=== PATIENT | male | born 1965 | race Caucasian/White ===

== ENCOUNTER → 2017-09-21 | Outpatient (CLI) | payer OTHER ==
[~2017-09-21] MED LIST: CHLO-274 PO; CLC100 PO; CRG625 PO; HYDR-5688 PO; LISI-725 PO; MRLP17X PO; NRV5 PO; NYQUIL; OPTIRAY 320 IV PRN; PRLSR20 PO; SPECTAB PO
--- NOTE | 2017-09-21 14:39 | DIAGNOSTIC IMAGING REPORT ---
CHEST CT WITH CONTRAST CT DOSE: 491.65 mGycm HISTORY: Follow-up study in a patient with abnormal chest mass seen on comparison radiograph which is not available for comparison at time of dictation. MASS OF LEFT CHEST WALL TECHNIQUE: Multiaxial CT images of the chest were performed following the intravenous administration of contrast. A dose lowering technique was utilized adhering to the principles of ALARA. COMPARISON: None. FINDINGS: Homogeneous thyroid. No pathologically enlarged lymph nodes of the chest. The heart is normal in size without pericardial effusion. Mild coronary arterial disease is noted. Thoracic aorta is normal in course and caliber without dissection or aneurysm identified. The pulmonary chill tree appears unremarkable. There is no pneumothorax, pleural effusion or focal airspace consolidation. No overt pulmonary edema or suspicious pulmonary nodules. Subcentimeter calcified granuloma of the left upper lobe. There are numerable low attenuating lesions throughout the liver, most of which are too small to characterize and are subcentimeter. The largest lesion measures 1.4 cm within the left hepatic lobe appears most compatible with a hepatic cyst. No acute abnormality of the imaged upper abdomen. There are innumerable lytic destructive lesions noted throughout the thoracic spine, for example there is a 2.3 cm lytic lesion involving the vertebral body at T5 which is expansile with cortical thinning causing flattening of the ventral thecal sac at this level. No frances invasion into the central canal. There is a 30% anterior endplate compression deformity of the T12 vertebral body without significant retropulsion, likely pathologic. Lytic lesions are also noted involving the L1 vertebral body. Lytic destructive lesion with large soft tissue component involves the lateral aspect of the left third rib protruding medially, 5.4 x 4.0 cm. Additional mass with soft tissue component is seen involving the posterior aspect of the right fourth rib, 2.2 x 4.5 cm. Subacute to remote fracture seen involving the lateral right fifth rib which may be pathologic. Multiple additional smaller lytic lesions are seen involving ribs, for example on the lateral right sixth rib. 7 mm lesion is noted within the sternum, image 190 series 4. IMPRESSION: 1. Innumerable destructive lytic bony lesions throughout the spine suggest diffuse bony metastasis from unknown primary or multiple myeloma with multiple additional lytic rib and sternal lesions. Large destructive lesion with soft tissue component involves the lateral aspect of the left third rib measuring up to 5.4 cm. Oncology consultation recommended. 2. No evidence of lymphatic or pulmonary metastasis. 3. Innumerable scattered low attenuating lesions throughout the liver, most of which are too small to characterize are indeterminate without comparison. The largest lesion measures 1.4 cm and appears to be most compatible with a hepatic cyst. Electronically signed by: Vikram Brown M.D. 09/21/2017 2:38 PM Dictated Date/Time: 09/21/2017 2:23 PM
== END | disposition home or self-care (01) ==
LOC: C.CTS 13:48
PROVIDERS: ATTEND Family Medicine
DX: R22.2 Localized swelling, mass and lump, trunk (principal); M89.8X8 Other specified disorders of bone, other site

== ENCOUNTER 2017-09-28 13:28 | Inpatient (IN) | payer OTHER ==
[~2017-09-28] VITALS: Ht 165.1 cm; Wt 87.3 kg
[~2017-09-28 13:28] MED LIST changes: -CLC100 PO; -CRG625 PO; -HYDR-5688 PO; -LISI-725 PO; -MRLP17X PO; -NRV5 PO; -OPTIRAY 320 IV PRN; -PRLSR20 PO; -SPECTAB PO
[2017-09-28] MEDS ORDERED: SODIUM CHLORIDE 0.9% 1000ML 1,000 ML IV STA ×2 (15:09→20:44)
[2017-09-28] MEDS ORDERED: SODIUM CHLORIDE 0.9% 500ML 500 ML IV STA (15:09)
[2017-09-28] MEDS ORDERED: HYDR-5688 PO (15:31)
[2017-09-28 15:36] LABS: HEMATOCRIT 30.6 % (42-52); HEMOGLOBIN 10.9 g/dL (14.0-18.0); MEAN CELL VOLUME 96.5 fL (80-100); MEAN CORPUSCULAR HEMOGLOBIN 34.4 pg (25-34); MEAN CORPUSCULAR HGB CONC 35.6 g/dl (32-36); RED CELL DISTRIBUTION WIDTH CV 14.3 % (11.5-14.5); RED CELL DISTRIBUTION WIDTH SD 50.8 fL (36.4-46.3); WHITE BLOOD COUNT 4.74 K/uL (4.8-10.8)
[2017-09-28] MEDS ORDERED: PRLSR20 PO (15:38)
[2017-09-28] MEDS ORDERED: LISI-725 PO (15:38)
[2017-09-28] MEDS ORDERED: SPECTAB PO (15:38)
[2017-09-28] MEDS: HYDROmorphone INJ 0.5 MG/0.5 ML SYR IV PRN ×3 (15:51→22:25)
[2017-09-28 16:07] LABS: MEAN PLATELET VOLUME 12.2 fL (7.4-10.4); PLATELET COUNT 105 K/uL (130-400)
[2017-09-28 16:08] LABS: ALKALINE PHOSPHATASE 88 U/L (45-117); BASO % 1.1 %; BASO ABS # 0.05 K/uL (0-0.2); CALCIUM 14.5 mg/dl (8.5-10.1); CARBON DIOXIDE 24 mmol/L (21-32); CKMB 0.8 ng/ml (0.5-3.6); CREATININE 4.15 mg/dl (0.60-1.40); EOS % 2.1 %; GLUCOSE 124 mg/dl (70-99); IG# 0.01 K/uL (0.00-0.02); LYMPH % 34.2 %; LYMPH ABS # 1.62 K/uL (1.2-3.4); MONO % 13.9 %; MONO ABS # 0.66 K/uL (0.11-0.59); NEUT % 48.5 %; SODIUM 134 mmol/L (136-145); TOTAL PROTEIN 10.3 gm/dl (6.4-8.2)
[2017-09-28 16:10] LABS: ALBUMIN 2.5 gm/dl (3.4-5.0); ALT/SGPT 37 U/L (12-78)
[2017-09-28 16:11] LABS: BLOOD UREA NITROGEN 53 mg/dl (7-18)
--- NOTE | 2017-09-28 16:20 | DIAGNOSTIC IMAGING REPORT ---
ABD/PELVIS WITHOUT FOR STONE CT DOSE: 1035.82 mGy.cm HISTORY: Renal failure. Acute renal failure, back pain. suspected multiple myeloma outpt TECHNIQUE: Multiaxial CT images of the abdomen and pelvis were performed without the use of intravenous and oral contrast according to the standard department stone protocol. A dose lowering technique was utilized adhering to the principles of ALARA. COMPARISON STUDY: None. FINDINGS: Lung bases are clear. A multiplicity of small hypodensities within the liver. Several leads are cystic density although several additional 1's are too small to quantify. Metastatic disease is not completely excluded. Gallbladder is negative for distention. The kidneys are negative for hydronephrosis. The bowel pattern overall is nonobstructive. Moderate bladder wall thickening. Small urachal remnant. There are diffuse lytic changes throughout all major osseous structures of the spine pelvis and hips. Similar findings are seen in several lower ribs. IMPRESSION: 1. Diffuse bony metastatic disease. 2. Moderate compression deformities of T11 and T12 presumably pathologic. 3. No significant compromise of the low thoracic and lumbar spinal canal. 4. Multiple hypodensities throughout the liver raising the possibility of multicystic change versus a component of metastatic change. 5. This appearance is highly suggestive of myelomatous-type change involving the axial and appendicular skeleton and possibly liver. The above report was generated using voice recognition software. It may contain grammatical, syntax or spelling errors. Electronically signed by: Jay Jay Buckley M.D. 09/28/2017 4:18 PM Dictated Date/Time: 09/28/2017 4:13 PM
[2017-09-28 16:52] LABS: POTASSIUM 3.8 mmol/L (3.5-5.1)
[2017-09-28 16:55] LABS: INR 1.1 (0.9-1.1); PTT PATIENT 26.6 SECONDS (21.0-31.0)
[2017-09-28 17:00] LABS: AST/SGOT 16 U/L (15-37)
[2017-09-28] MEDS ORDERED: AMLODIPINE BESYLATE 5 MG TAB PO ONE (20:45)
[2017-09-28] MEDS ORDERED: DOCUSATE SODIUM 100 MG CAP PO ONE (20:47)
[2017-09-28] MEDS ORDERED: LIDODERM (LIDOCAINE) PATCH 5% TD ONE ×2 (20:47)
[2017-09-28] MEDS ORDERED: POLYETHYLENE (MIRALAX) 17 GM PACK PO ONE (20:47)
--- NOTE | 2017-09-28 20:53 | DIAGNOSTIC IMAGING REPORT ---
CHEST ONE VIEW PORTABLE HISTORY: renal failure COMPARISON: Chest CT 09/21/2017. FINDINGS: There is again noted a 5.8 cm destructive the left third rib lesion. No pneumothorax. No pleural effusions. No focal lung consolidations to suggest pneumonia. No evidence for pulmonary edema. The heart is normal in size. Multiple additional scattered lytic lesions are again noted throughout the visualized osseous structures. Destructive right posterior fourth rib lesion. There are also smaller destructive rib lesions within the right fifth rib. IMPRESSION: 1. No new focal lung consolidations to suggest pneumonia. 2. Multiple scattered destructive and lytic osseous lesions are again noted. Electronically signed by: Kamari Segundo M.D. 09/28/2017 8:51 PM Dictated Date/Time: 09/28/2017 8:49 PM
[2017-09-28] MEDS ORDERED: LORAZEPAM 2 MG/ML 1 ML VIAL IV PRN (21:00)
[2017-09-28] MEDS ORDERED: ACETAMINOPHEN 325 MG TAB PO PRN (21:00)
[2017-09-28] MEDS ORDERED: POLYETHYLENE (MIRALAX) 17 GM PACK PO PRN (21:00)
[2017-09-28] MEDS ORDERED: CALCITONIN SALMON 400 INTER.UNIT/2 ML SQ ONE (21:00)
[2017-09-28] MEDS ORDERED: NITROGLYCERIN 0.4 MG SL PER TAB CHARGE SL PRN (21:00)
[2017-09-28] MEDS ORDERED: PROCHLORPERAZINE INJ 5 MG in SYRINGE 4 ML IV PRN (21:00)
[2017-09-28 21:05] VITALS: BP 186/97; PULSE 106; TEMP 36.8; O2SAT 98; BMI 31.2
--- NOTE | 2017-09-28 21:07 | EMERGENCY ROOM VISIT NOTE ---
History Report prepared by Kin: Benjamin Zafar Under the Supervision of: Dr. Donald Machado M.D. First contact with patient: 15:09 Chief Complaint: ABNORMAL LABS Stated Complaint: ABNORMAL LABS, HIGH CA History of Present Illness The patient is a 52 year old male who presents to the Emergency Room with complaints of constant abnormal lab work that started [employer]. He rates his discomfort as a 9/10 in severity. The patient reports he was experiencing back pain, which caused him to report to his physician. He reports they found a mass on his chest a week ago and diagnosed him with multiple myeloma. The patient states he went to meet his oncologist, Dr. Page this morning. He reports that he had lab work done and was sent here due to abnormal kidney function and calcium levels. The patient reports he has been experiencing urinary frequency and back pain. He states he took Vicodin for his symptoms this morning at 0630. The patient states that he has been drinking and eating normally. The patient denies LOC, headache, fevers, chills, diaphoresis, visual changes, neck pain, chest pain, breathing difficulties, nausea, vomiting, abdominal pain, melena, hematochezia, numbness, weakness, lymphadenopathy, rash, leg twitching, CVA tenderness, or other complaints. 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 A total of ten systems were reviewed and were otherwise negative. Past Medical & Surgical Medical Problems: (1) Hypercalcemia (2) Multiple myeloma Family History Hypertension Lung disease Social History Smoking Status: Never Smoker Smokeless Tobacco Use: No Alcohol Use: none Drug Use: none Marital Status: Housing Status: lives with family Occupation Status: employed Current/Historical Medications Scheduled Lisinopril (Zestril), 20 MG PO DAILY Specialty Vitamins Products (Centrum Performance), 1 TAB PO DAILY Scheduled PRN Hydrocodone/Acetaminophen 5MG/325MG ([place] 5MG/325MG), 1 TABLET PO Q6 PRN for Pain Omeprazole (Prilosec), 20 MG PO DAILY PRN for HEARTBURN Allergies Coded Allergies: No Known Allergies (Unverified , 10/12/13) Physical Exam Vital Signs Date Time Temp Pulse Resp B/P (MAP) Pulse Ox O2 Delivery O2 Flow Rate FiO2 09/28/17 20:52 104 18 200/107 97 Room Air 09/28/17 20:05 75 18 186/107 96 Room Air 09/28/17 18:18 99 09/28/17 16:38 100 18 172/102 09/28/17 15:43 97 Room Air 09/28/17 15:43 97 Room Air 09/28/17 13:42 36.6 110 17 164/65 97 Room Air Physical Exam GENERAL: Awake, alert, tired-appearing, in no distress HENT: Normocephalic, atraumatic. Oropharynx unremarkable. EYES: Normal conjunctiva. Sclera non-icteric. NECK: Supple. No nuchal rigidity. FROM. No masses. RESPIRATORY: Clear to auscultation. No wheezes. CARDIAC: Normal rate. Normal rhythm. No murmurs. No rubs. Extremities warm and well perfused. Pulses equal. No JVD. GI: Soft, non-distended. No tenderness to palpation. No rebound or guarding. No masses. RECTAL: Deferred. MUSCULOSKELETAL: Atraumatic. Chest examination reveals no tenderness. The back is symmetrical on inspection without obvious abnormality. There is no CVA tenderness to palpation. No joint edema. LOWER EXTREMITIES: Calves are equal size bilaterally and non-tender. No edema. No discoloration. NEURO: Normal sensorium. No sensory or motor deficits noted. SKIN: No rash or jaundice noted. Medical Decision & Procedures ER Provider Diagnostic Interpretation: Radiology results as stated below per my review and radiologist interpretation: ABD/PELVIS WITHOUT FOR STONE CT DOSE: 1035.82 mGy.cm HISTORY: Renal failure. Acute renal failure, back pain. suspected multiple myeloma outpt TECHNIQUE: Multiaxial CT images of the abdomen and pelvis were performed without the use of intravenous and oral contrast according to the standard department stone protocol. A dose lowering technique was utilized adhering to the principles of ALARA. COMPARISON STUDY: None. FINDINGS: Lung bases are clear. A multiplicity of small hypodensities within the liver. Several leads are cystic density although several additional 1's are too small to quantify. Metastatic disease is not completely excluded. Gallbladder is negative for distention. The kidneys are negative for hydronephrosis. The bowel pattern overall is nonobstructive. Moderate bladder wall thickening. Small urachal remnant. There are diffuse lytic changes throughout all major osseous structures of the spine pelvis and hips. Similar findings are seen in several lower ribs. IMPRESSION: 1. Diffuse bony metastatic disease. 2. Moderate compression deformities of T11 and T12 presumably pathologic. 3. No significant compromise of the low thoracic and lumbar spinal canal. 4. Multiple hypodensities throughout the liver raising the possibility of multicystic change versus a component of metastatic change. 5. This appearance is highly suggestive of myelomatous-type change involving the axial and appendicular skeleton and possibly liver. The above report was generated using voice recognition software. It may contain grammatical, syntax or spelling errors. Electronically signed by: Jay Jay Buckley M.D. 09/28/2017 4:18 PM Dictated Date/Time: 09/28/2017 4:13 PM Laboratory Results 09/28/17 15:25 Red Blood Count 3.17, Mean Corpuscular Volume 96.5, Mean Corpuscular Hemoglobin 34.4, Mean Corpuscular Hemoglobin Concent 35.6, Mean Platelet Volume 12.2, Neutrophils (%) (Auto) 48.5, Lymphocytes (%) (Auto) 34.2, Monocytes (%) (Auto) 13.9, Eosinophils (%) (Auto) 2.1, Basophils (%) (Auto) 1.1, Neutrophils # (Auto ) 2.30, Lymphocytes # (Auto) 1.62, Monocytes # (Auto) 0.66, Eosinophils # (Auto ) 0.10, Basophils # (Auto) 0.05 Test 09/28/17 15:25 09/28/17 16:32 09/28/17 19:35 09/28/17 19:46 White Blood Count 4.74 K/uL (4.8-10.8) Red Blood Count 3.17 M/uL (4.7-6.1) Hemoglobin 10.9 g/dL (14.0-18.0) Hematocrit 30.6 % (42-52) Mean Corpuscular Volume 96.5 fL (80-100) Mean Corpuscular Hemoglobin 34.4 pg (25-34) Mean Corpuscular Hemoglobin Concent 35.6 g/dl (32-36) Platelet Count 105 K/uL (130-400) Mean Platelet Volume 12.2 fL (7.4-10.4) Neutrophils (%) (Auto) 48.5 % Lymphocytes (%) (Auto) 34.2 % Monocytes (%) (Auto) 13.9 % Eosinophils (%) (Auto) 2.1 % Basophils (%) (Auto) 1.1 % Neutrophils # (Auto) 2.30 K/uL (1.4-6.5) Lymphocytes # (Auto) 1.62 K/uL (1.2-3.4) Monocytes # (Auto) 0.66 K/uL (0.11-0.59) Eosinophils # (Auto) 0.10 K/uL (0-0.5) Basophils # (Auto) 0.05 K/uL (0-0.2) RDW Standard Deviation 50.8 fL (36.4-46.3) RDW Coefficient of Variation 14.3 % (11.5-14.5) Immature Granulocyte % (Auto) 0.2 % Immature Granulocyte # (Auto) 0.01 K/uL (0.00-0.02) Rouleau 1+ Est Creatinine Clear Calc Drug Dose 20.6 ml/min Total Bilirubin 0.2 mg/dl (0.2-1) Alanine Aminotransferase (ALT/SGPT) 37 U/L (12-78) Alkaline Phosphatase 88 U/L (45-117) Creatine Kinase MB 0.8 ng/ml (0.5-3.6) Creatine Kinase MB Ratio (0-3.0) Troponin I 0.018 ng/ml (0-0.045) Total Protein 10.3 gm/dl (6.4-8.2) Albumin 2.5 gm/dl (3.4-5.0) Thyroid Stimulating Hormone (TSH) 2.140 uIu/ml (0.300-4.500) Prothrombin Time 11.1 SECONDS (9.0-12.0) Prothromb Time International Ratio 1.1 (0.9-1.1) Activated Partial Thromboplast Time 26.6 SECONDS (21.0-31.0) Partial Thromboplastin Ratio 1.0 Magnesium Level 2.3 mg/dl (1.8-2.4) Direct Bilirubin < 0.1 mg/dl (0-0.2) Aspartate Amino Transf (AST/SGOT) 16 U/L (15-37) Total Creatine Kinase 36 U/L (39-308) Urine Color YELLOW Urine Appearance CLEAR (CLEAR) Urine pH 6.5 (4.5-7.5) Urine Specific [place] 1.005 (1.000-1.030) Urine Protein 1+ (NEG) Urine Glucose (UA) NEG (NEG) Urine Ketones NEG (NEG) Urine Occult Blood TRACE (NEG) Urine Nitrite NEG (NEG) Urine Bilirubin NEG (NEG) Urine Urobilinogen NEG (NEG) Urine Leukocyte Esterase NEG (NEG) Urine WBC (Auto) 0 /hpf (0-5) Urine RBC (Auto) 0-4 /hpf (0-4) Urine Hyaline Casts (Auto) 1-5 /lpf (0-5) Urine Epithelial Cells (Auto) 0-5 /lpf (0-5) Urine Bacteria (Auto) NEG (NEG) Transferrin % Saturation % (20-50) Laboratory results reviewed by me Medications Administered Medications (Trade) Dose Ordered Sig/Mykel Route Start Time Stop Time Status Last Admin Dose Admin Sodium Chloride 1,000 ml @ 125 mls/hr Q8H STAT IV 09/28/17 15:09 09/28/17 20:47 DC 09/28/17 15:50 125 MLS/HR Sodium Chloride 500 ml @ 999 mls/hr Q31M STAT IV 09/28/17 15:09 09/28/17 15:39 DC 09/28/17 15:50 999 MLS/HR Hydromorphone HCl (Dilaudid Inj) 0.5 mg Q15M PRN IV 09/28/17 15:45 10/12/17 15:44 09/28/17 15:51 0.5 MG Amlodipine Besylate (Norvasc Tab) 5 mg NOW ONCE PO 09/28/17 20:45 09/28/17 20:46 DC 09/28/17 20:51 5 MG Sodium Chloride 1,000 ml @ 999 mls/hr Q1H1M STAT IV 09/28/17 20:44 09/28/17 21:44 09/28/17 20:51 999 MLS/HR ECG Per My Interpretation Indication: other (abnormal lab work) Rate (beats per minute): 107 Rhythm: sinus tachycardia Findings: no acute ischemic change, no ectopy, other (Normal axis) ED Course 1509: Ordered Sodium Chloride 500 ml @ 999 mls/hr IV, Sodium Chloride 1000 ml @ 125 mls/hr IV. 1534: The patient was evaluated in room A04B. A complete history and physical exam was performed. 1545: Ordered Dilaudid Injection 0.5 mg IV. 1649: I reevaluated the patient and updated him on his results. I discussed the treatment plan, which he agrees to. The patient will be further evaluated. 1658: I discussed the patients case with Allison Farias. He understands the patients condition and agrees to accept the patient. The patient will be further evaluated. Medical Decision Triage Nursing notes reviewed. The patient's presentation and history were concerning for abnormal labs. Etiologies such as metabolic, infection, hypo/hyperglycemia, electrolyte abnormalities, cardiac sources, intracerebral event, toxicologic, neurologic, as well as others were entertained. The patient was referred to the Emergency Room by his oncologist. There is suspected multiple myeloma present. He has hypercalcemia and acute renal failure on the labs. CT imaging was performed. There is no evidence of hydronephrosis or obstruction. He was noted to have thoracic spine pathologic fractures. He was treated with IV Dilaudid. He was hydrated with normal saline. He was feeling much better on reassessment. ECG was unremarkable. The rest of his blood work was unremarkable as well. Consultation was made with internal medicine. The patient was evaluated in the Emergency Room and admitted for further management. Medication Reconcilliation Current Medication List: was personally reviewed by me Blood Pressure Screening Patient's blood pressure: Elevated blood pressure Blood pressure disposition: Referred to PCP Consults Time Called: 1640 Consulting Physician: Allison Farias Returned Call: 1658 I discussed the patients case with Allison Farias. He understands the patients condition and agrees to accept the patient. The patient will be further evaluated. Impression Primary Impression: Acute renal failure Additional Impressions: Pathological fracture Thoracic spine fracture Hypercalcemia Scribe Attestation The scribe's documentation has been prepared under my direction and personally reviewed by me in its entirety. I confirm that the note above accurately reflects all work, treatment, procedures, and medical decision making performed by me. Departure Information Dispostion Being Evaluated By Hospitalist Referrals Ismael Hernandez, D.O. (PCP) Patient Instructions My [facility] Problem Qualifiers
[2017-09-28] MEDS ORDERED: SODIUM CHLORIDE 0.9% 1000ML 1,000 ML IV SCH (22:00)
--- NOTE | 2017-09-28 22:12 | HISTORY & PHYSICAL EXAMINATION ---
DATE OF ADMISSION: 09/28/2017 PRIMARY CARE PHYSICIAN: Dr. Hernandez. CHIEF COMPLAINT: Abnormal blood work. HISTORY OF PRESENT ILLNESS: History obtained from patient and records. Medical history significant for hypertension, arthritis. About 3 months ago, patient had worsening of chronic low back pain after a fall related to hunting. No relief with home NSAIDs and outpatient prednisone course. Patient was referred to a chiropractor last week who requested plain x-rays of the back. Outpatient x-ray showed a thoracolumbar soft tissue mass measuring about 8.8 cm on the left upper lateral chest wall with probable destruction of left lateral third rib. Further evaluation with CT thorax recommended. Ill-defined expansile lytic lesion involving the right posterior fourth rib, compression deformity of T11-T12 indeterminate, multiple degenerative changes. Outpatient CT chest contrast done last week showed innumerable destructive lytic bone lesions throughout the spine suggesting diffuse bony mets from unknown primary or multiple myeloma with multiple lytic rib sternal lesions. Largest of the lesion soft tissue component on the left third rib measuring 5.4 cm. Innumerable scattered low density lesions on the liver. Oncology consultation is recommended. (Unclear if renal function available prior to outpatient IV contrast administration.) Increased urinary frequency, constipation symptoms noted interim. No black, no bloody stools, poor appetite. No chest pain, no shortness of breath. Patient saw [facility] Hematology Oncology this morning. Patient sent for outpatient blood work, Patient's serum creatinine noted to be 4.03, calcium noted to be 14.5. Patient directed by oncologist to the ER. Received NSS. MEDICAL HISTORY: As above. SURGERIES: He has had ear surgery. HOME MEDICATIONS: Include lisinopril, Vicodin, omeprazole p.r.n. and multivitamins. ALLERGIES: No known drug allergies. FAMILY HISTORY: There is a family history of lung disease, heart disease, stroke. PERSONAL AND SOCIAL HISTORY: Nonsmoker, no chronic intake of alcoholic beverages. 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 REVIEW OF SYSTEMS: As per HPI, all 10 systems reviewed. All other ROS negative. PHYSICAL EXAMINATION: VITAL SIGNS: Blood pressure was noted to be 164/75 later 186/107, pulse rate 75, RR 18, temperature 36.6, sats 96 on room air. GENERAL: Noted to be slightly uncomfortable, no respiratory distress. SKIN: Pallor. Warm. HEENT: Pale palpebral conjunctivae. No ptosis. Dry mucosa. NECK: Short, nontender. CHEST: Decreased effort. Tenderness on the left chest wall. HEART: Regular rate and rhythm. No murmur. ABDOMEN: Some distention, nontender. BACK EXAMINATION: Tenderness on right flank. EXTREMITIES: No edema. No gross deformities. No tenderness. NEUROLOGIC: Coherent. No gross focality. LABORATORY DATA: Hemoglobin was noted to be 10.9, hematocrit 30.6, white blood count 4.7, platelet 105. Sodium noted to be 134, potassium 3.8, chloride 98, CO2 24, BUN 53, creatinine 4.15, glucose 124, calcium was 14.5. Chest x-ray, no infiltrate. CT abdomen and pelvis, diffuse bony metastatic disease, pathologic compression deformities of T11 and T12, multiple hypodensities in the liver, cystic versus metastatic disease. ASSESSMENT: 1. Hypercalcemia, acute renal failure, pancytopenia, pathologic bone fractures probable multiple myeloma with liver involvement contrast nephropathy possibly contributory to kidney dysfunction 2. Hypertension, elevated. 3. Constipation 2 to hypercalcemia, home narcotics 4. Hyperglycemia rule out DM PLAN: PCU Baseline UA hypercalcemia kendall NSS, calcitonin SQ. follow renal function, strict IOS Stop home CHELSEA inhibitor, initiate Norvasc for hypertension Will eventually need bisphosphonate Rx given bone resorption Nephrology consult RE ARF, hypercalcemia. Anemia workup [facility] Hematology/Oncology follow-up evaluation for probable multiple myeloma as per patient request. (Patient seen by Dr. Page in the office earlier.) Lidoderm patches for pathological fractures in addition to non-NSAID analgesics. Bowel regimen. Check hemoglobin A1c DVT prophylaxis, SCDs RE thrombocytopenia. Full code. MTDD
[2017-09-28] MEDS ORDERED: LORAZEPAM INJ 0.5 MG in SYRINGE 0.75 ML IV PRN (22:15)
[2017-09-28] MEDS ORDERED: CALCITONIN SALMON SQ ONE (22:30)
[2017-09-28 22:54] LABS: CALCIUM 13.9 mg/dl (8.5-10.1); CREATININE 3.89 mg/dl (0.60-1.40); PHOSPHORUS 3.9 mg/dl (2.5-4.9); POTASSIUM 3.7 mmol/L (3.5-5.1)
[2017-09-28 22:55] LABS: RETIC COUNT % < 0.5 % (0.5-2.0)
[2017-09-28] MEDS: NSS + 20MEQ KCL 1000ML 1,000 ML IV SCH (23:24)
[2017-09-29] VITALS (9 sets, daily range): BP systolic 162–198; BP diastolic 90–108; PULSE 98–114; TEMP 36.7–37.4; O2SAT 94–98
[2017-09-29 02:50] LABS: HEMATOCRIT 29.8 % (42-52); HEMOGLOBIN 10.5 g/dL (14.0-18.0); MEAN CELL VOLUME 97.1 fL (80-100); MEAN CORPUSCULAR HEMOGLOBIN 34.2 pg (25-34); MEAN CORPUSCULAR HGB CONC 35.2 g/dl (32-36); RED CELL DISTRIBUTION WIDTH CV 14.4 % (11.5-14.5); RED CELL DISTRIBUTION WIDTH SD 50.8 fL (36.4-46.3); WHITE BLOOD COUNT 5.44 K/uL (4.8-10.8)
[2017-09-29 03:10] LABS: CALCIUM 13.1 mg/dl (8.5-10.1); CREATININE 3.92 mg/dl (0.60-1.40); POTASSIUM 4.2 mmol/L (3.5-5.1)
[2017-09-29 03:14] LABS: PLATELET COUNT 91 K/uL (130-400)
[2017-09-29] MEDS: NSS + 20MEQ KCL 1000ML 1,000 ML IV SCH (03:22)
[2017-09-29] MEDS ORDERED: AMLODIPINE BESYLATE 5 MG TAB PO ONE ×2 (05:23→12:30)
[2017-09-29] MEDS ORDERED: SODIUM CHLORIDE 0.9% 1000ML 1,000 ML IV ONE (05:30)
[2017-09-29 05:44] LABS: EOS % 3.3 %; LYMPH % 31.9 %; MONO % 10.8 %; NEUT % 52.6 %; NEUT ABS # 2.73 K/uL (1.4-6.5)
[2017-09-29 05:45] LABS: BASO ABS # 0.05 K/uL (0-0.2); EOS ABS # 0.17 K/uL (0-0.5); IG# 0.02 K/uL (0.00-0.02); LYMPH ABS # 1.65 K/uL (1.2-3.4); MONO ABS # 0.56 K/uL (0.11-0.59)
[2017-09-29] MEDS: ZOLEDRONIC ACID INJ 4 MG in SODIUM CHLORIDE 0.9% 100ML 100 ML IV SCH (05:56)
[2017-09-29] MEDS: HYDROCODONE/ACETAMIN 5/325MG TAB PO PRN (05:56)
--- NOTE | 2017-09-29 06:26 | NEPHROLOGY CONSULTATION ---
DATE OF CONSULTATION: 09/29/2017 ATTENDING OF RECORD: Sergio Nino MD. REASON FOR CONSULTATION: Hypercalcemia. HISTORY OF PRESENT ILLNESS: This is a 52-year-old male who has a previous history of hypertension who had back pain since this past fall. The patient during the workup for his back pain noted a soft tissue mass in the chest wall. Further evaluation with a CAT scan showed several lytic lesions throughout the spine concerning for possible multiple myeloma. The patient also has noticed increased urination, continued back pain and decreased appetite with about a 12 pound weight loss. The patient had abnormal labs and was sent in to the hospital. The patient's creatinine was 4.15 with a calcium level of 14.5 and is being hydrated aggressively. Last labs have a creatinine down to 3.92 and a calcium level of 13.1. PAST MEDICAL HISTORY: Hypertension. PAST SURGICAL HISTORY: Ear surgery. FAMILY HISTORY: No renal disease in family. SOCIAL HISTORY: No smoking, no alcohol, no drugs. Lives at home. REVIEW OF SYSTEMS: Positive back pain. Positive increased urination. Positive decreased appetite. Positive 12 pound weight loss. No headaches, no blurry vision, no dysphagia, no constipation. Did have an episode of nausea and vomiting last night. No chest pain or shortness of breath. No rash or itching. Positive chronic back pain. All other review of systems otherwise negative. CURRENT MEDICATIONS: Norvasc 5 mg a day, calcitonin subQ q. 12, Colace 100 mg daily, Lidoderm patch, normal saline with 20 of K at 250 mL an hour. PHYSICAL EXAMINATION: VITAL SIGNS: Temperature 36.9, pulse 100, respiratory rate 18, blood pressure 166/97, satting 98% on room air. GENERAL: Awake, alert, oriented x3. EYES: No scleral icterus. ENT: Membranes are dry. NECK: Supple. PULMONARY: Clear to auscultation. CARDIAC: Regular rate and rhythm. ABDOMEN: Bowel sounds positive, soft, nontender. EXTREMITIES: No clubbing, cyanosis or edema. NEUROLOGICALLY: Nonfocal. DERMATOLOGIC: No rash or ulcers noted. LABORATORY DATA: Last lab, sodium of 139, potassium 4.2, chloride 108, bicarb 22, BUN 46, creatinine 3.92, glucose is 143, calcium is 13.1, white count is 5. H&H 10 and 29, platelet count is 91. UA shows specific gravity of 1.005, pH 6.5, 1+ protein, trace blood, 0-4 RBCs. Immunofixation pending. INR is 1.1. Vitamin D is low at 18.1. PTH low at 15.7. 125, vitamin D, PTHrP, SPEP all pending. CK is low at 36. Chest x-ray shows multiple scattered, destructive and lytic osseous lesions. Abdominal pelvis CT shows diffuse bony metastatic disease, moderate compression of T11-T12. Multiple hypodensities throughout the liver. ASSESSMENT AND PLAN: 1. Acute kidney injury in the setting of hypercalcemia and chronic NSAID use. The patient was taking Naprosyn 500 mg p.o. b.i.d. NSAIDS have been stopped. The patient's CHELSEA inhibitor has been stopped. Giving aggressive IV fluid resuscitation. No indication for emergent dialysis at this time. The patient quite alert for the degree of hypercalcemia. Hopefully, creatinine continues to slowly improve. 2. Hypercalcemia, vitamin D is low, PTH low. PTHrP, SPEP, 125, hydroxy vitamin D are all pending. Imaging studies suggestive of multiple myeloma giving 1 dose of Zometa 4 mg IV. Currently on calcitonin and aggressive fluid resuscitation. Appreciate consultation. [facility]
[2017-09-29 07:01] LABS: HEMOGLOBIN A1C 6.7 % (4.5-5.6)
[2017-09-29] MEDS: SODIUM CHLORIDE 0.9% 1000ML 1,000 ML IV SCH ×3 (07:35→16:43)
[2017-09-29] MEDS: LIDODERM (LIDOCAINE) PATCH 5% TD SCH ×2 (08:05→08:06)
[2017-09-29] MEDS: CALCITONIN SALMON SQ SCH ×2 (08:06→21:37)
[2017-09-29] MEDS ORDERED: DOCUSATE SODIUM 100 MG CAP ONE (08:12)
[2017-09-29] MEDS: DOCUSATE SODIUM 100 MG CAP PO SCH (08:13)
[2017-09-29 08:35] LABS: CALCIUM 12.1 mg/dl (8.5-10.1); CREATININE 3.51 mg/dl (0.60-1.40); POTASSIUM 4.2 mmol/L (3.5-5.1)
[2017-09-29] MEDS ORDERED: CALCITONIN SALMON 400 INTER.UNIT/2 ML SQ SCH (09:00)
[2017-09-29] MEDS ORDERED: AMLODIPINE BESYLATE 5 MG TAB PO SCH (09:00)
[2017-09-29] MEDS ORDERED: LIDOCAINE HCL 1% 20 ML VIAL ONE (09:53)
--- NOTE | 2017-09-29 11:30 | Oncology Consultation ---
Oncology/Heme Consultation Date of Consultation: Sep 29, 2017. Attending Physician: Sergio Nino MD Reason for Consultation: Probable multiple myeloma History of Present Illness Mr. Benavidez is a 52-year-old gentleman with very little or virtually no past medical history. He states that around fall time of last year he developed low back discomfort that has gradually worsened. He was treated conservatively with muscle relaxants however the pain would continue. He had visits with a chiropractor. Musculoskeletal manipulations were done and the pain would become worse. This led to x-rays and the finding of changes that would be consistent with an infiltrative process involving the bones. He was seen in our clinic yesterday. Laboratory shows marked renal insufficiency as well as hypercalcemia. A protein gap consistent with a plasma cell dyscrasia and x- rays also consistent with the same. He is now admitted for diagnostic as well as therapeutic procedures of the above. He denies fever or chills. He states he has lost about 10 or 12 pounds in the past 2 months. He denies significant constipation although he states he has been constipated off and on for years. He denies change in his appetite. He does spend a fair amount of time in his favorite chair or at rest due to his back pain. Past Medical/Surgical History Medical Problems: (1) Acute renal failure Status: Acute (2) Pathological fracture Status: Acute (3) Thoracic spine fracture Status: Acute Family History Hypertension Lung disease Father had interstitial pulmonary fibrosis. There is no history of lymphoma in the first-degree relatives. Social History He denies smoking. He drinks alcohol occasionally. Smoking Status: Never Smoker Smokeless Tobacco Use: No Drug Use: none Marital Status: Housing Status: lives with family Occupation Status: employed Allergies Coded Allergies: No Known Allergies (Unverified , 10/12/13) Home Medications Scheduled Lisinopril (Zestril), 20 MG PO DAILY Specialty Vitamins Products (Centrum Performance), 1 TAB PO DAILY Scheduled PRN Hydrocodone/Acetaminophen 5MG/325MG ([place] 5MG/325MG), 1 TABLET PO Q6 PRN for Pain Omeprazole (Prilosec), 20 MG PO DAILY PRN for HEARTBURN Current Inpatient Medications Current Inpatient Medications Medications (Trade) Dose Ordered Sig/Mykel Route Start Time Stop Time Status Last Admin Dose Admin Acetaminophen (Tylenol Tab) 650 mg Q4H PRN PO 2/15/18 21:00 10/28/17 20:59 Nitroglycerin (Nitrostat Tab) 0.4 mg UD PRN SL 09/28/17 21:00 10/28/17 20:59 Hydromorphone HCl (Dilaudid Inj) 0.5 mg Q3H PRN IV 09/28/17 21:00 10/12/17 20:59 09/28/17 22:25 0.5 MG Prochlorperazine Edisylate 5 mg/ Syringe 5 ml @ 5 mls/min Q6H PRN IV 09/28/17 21:00 10/28/17 20:59 09/28/17 23:24 5 MLS/MIN Acetaminophen/ Hydrocodone Bitart ([place] 5/325 Tab) 1 tab Q4 PRN PO 09/28/17 21:00 10/12/17 20:59 09/29/17 05:56 1 TAB Pantoprazole Sodium (Protonix Tab) 40 mg DAILY PRN PO 09/28/17 21:00 10/28/17 20:59 Docusate Sodium (coLACE CAP) 100 mg DAILY PO 09/29/17 09:00 10/29/17 08:59 09/29/17 08:13 100 MG Polyethylene (Miralax Powder Packet) 17 gm DAILY PRN PO 09/28/17 21:00 10/28/17 20:59 Lidocaine (Lidoderm Patch 5%) 1 patch QAM TD 09/29/17 09:00 10/29/17 08:59 09/29/17 08:05 1 PATCH Miscellaneous (Remove Lidoderm Patch) 1 ea DAILY@21 N/A 09/28/17 21:00 10/28/17 20:59 Lidocaine (Lidoderm Patch 5%) 1 patch QAM TD 09/29/17 09:00 10/29/17 08:59 09/29/17 08:06 1 PATCH Miscellaneous (Remove Lidoderm Patch) 1 ea DAILY@21 N/A 09/28/17 21:00 10/28/17 20:59 Lorazepam 0.5 mg/ Syringe 1 ml @ 1 mls/min Q4H PRN IV 09/28/17 22:15 10/28/17 22:14 Calcitonin [place] 320 inter.unit/ Syringe 1.6 ml @ 1.6 mls/sec Q12H SQ 09/29/17 09:00 10/29/17 08:59 09/29/17 08:06 1.6 MLS/SEC Zoledronic Acid 4 mg/Sodium Chloride 105 ml @ 210 mls/hr TODAY@0545 IV 09/29/17 05:45 10/29/17 05:44 09/29/17 05:56 210 MLS/HR Sodium Chloride 1,000 ml @ 250 mls/hr Q4H IV 09/29/17 07:30 09/29/17 15:30 09/29/17 07:35 250 MLS/HR Amlodipine Besylate (Norvasc Tab) 5 mg QAM PO 09/30/17 09:00 10/29/17 08:59 Review of Systems Constitutional: Negative for night sweats, or fever Eyes: Negative for event change of vision ENT: Negative for epistaxis, nasal discharge, sore throat, or deafness Cardiovascular: Negative for chest pain, palpitations, dizziness, diaphoresis Respiratory: Negative for new shortness of breath,hemoptysis, or purulent cough Gastrointestinal: Negative for diarrhea, hematemesis, melena, nausea, vomiting , or dyspepsia Integumentary (skin): Negative for rash or jaundice discoloration Genitourinary: Negative for urinary frequency, hematuria, or dysuria Neurological: Negative for weakness, seizure activity, headache, or dizziness Lymphatic/Hematologic: Negative for petechiae, bleeding or new adenopathy Musculoskeletal: Back pain and he points to an area that is in the lower thoracic or upper lumbar spine. He states he does have what sounds like radicular pain anteriorly into the pelvis bilaterally. Allergic/Immunologic: Negative for unusual rash or pruritis. Physical Exam Date Time Temp Pulse Resp B/P (MAP) Pulse Ox O2 Delivery O2 Flow Rate FiO2 09/29/17 07:26 36.7 102 16 163/90 (114) 94 Room Air 09/29/17 04:44 36.9 100 18 166/97 (120) 98 Room Air 09/29/17 04:00 Room Air 09/29/17 00:24 98 169/90 (116) 09/29/17 00:00 Room Air 09/28/17 21:05 36.8 106 16 186/97 98 Room Air 09/28/17 20:52 104 18 200/107 97 Room Air 09/28/17 20:05 75 18 186/107 96 Room Air 09/28/17 18:18 99 09/28/17 16:38 100 18 172/102 09/28/17 15:43 97 Room Air 09/28/17 15:43 97 Room Air 09/28/17 13:42 36.6 110 17 164/65 97 Room Air Constitutional: vitals are stable. Eyes: Eyes are RAFFI EOMI without conjuctival erythema or icterus. ENT: External examination was negative for masses. Neck: Negative for masses or palpable thyromegaly Respiratory: Lung sounds were generally clear bilaterally Cardiovascular: Heart was RRR without significant murmur, gallops aoe rubs Gastrointestinal: No palpable hepatic or splenomegaly. The abdomen was soft with normal bowel sounds. Lymphatic system: there was no palpable peripheral lymphadenopathy Musculoskeletal System: The musculoskeletal system seemed concordant with age. Skin: The skin was negative for jaundice. Neurologic exam: The exam was negative for any focal findings. Deep tendon reflexes were equal and symmetrical. Psychiatric exam: Was essentially negative with normal mood and effect. Extremities: Negative for edema, erythema Laboratory Results Last 24 Hours Test 09/28/17 15:25 09/28/17 16:32 09/28/17 19:35 09/28/17 22:07 White Blood Count 4.74 K/uL Red Blood Count 3.17 M/uL Hemoglobin 10.9 g/dL Hematocrit 30.6 % Mean Corpuscular Volume 96.5 fL Mean Corpuscular Hemoglobin 34.4 pg Mean Corpuscular Hemoglobin Concent 35.6 g/dl Platelet Count 105 K/uL Mean Platelet Volume 12.2 fL Neutrophils (%) (Auto) 48.5 % Lymphocytes (%) (Auto) 34.2 % Monocytes (%) (Auto) 13.9 % Eosinophils (%) (Auto) 2.1 % Basophils (%) (Auto) 1.1 % Neutrophils # (Auto) 2.30 K/uL Lymphocytes # (Auto) 1.62 K/uL Monocytes # (Auto) 0.66 K/uL Eosinophils # (Auto) 0.10 K/uL Basophils # (Auto) 0.05 K/uL RDW Standard Deviation 50.8 fL RDW Coefficient of Variation 14.3 % Immature Granulocyte % (Auto) 0.2 % Immature Granulocyte # (Auto) 0.01 K/uL Rouleau 1+ Absolute Reticulocyte Count < 0.02 10^6/uL Percent Reticulocyte Count < 0.5 % Sodium Level 134 mmol/L 137 mmol/L Potassium Level mmol/L 3.8 mmol/L 3.7 mmol/L Chloride Level 98 mmol/L 103 mmol/L Carbon Dioxide Level 24 mmol/L 25 mmol/L Anion Gap 12.0 mmol/L 9.0 mmol/L Blood Urea Nitrogen 53 mg/dl 47 mg/dl Creatinine 4.15 mg/dl 3.89 mg/dl Est Creatinine Clear Calc Drug Dose 20.6 ml/min 21.8 ml/min Estimated GFR () 17.6 19.1 Estimated GFR (Non- 15.2 16.4 BUN/Creatinine Ratio 12.7 12.1 Random Glucose 124 mg/dl 133 mg/dl Calcium Level 14.5 mg/dl 13.9 mg/dl Magnesium Level mg/dl 2.3 mg/dl Total Bilirubin 0.2 mg/dl Direct Bilirubin mg/dl < 0.1 mg/dl Aspartate Amino Transf (AST/SGOT) U/L 16 U/L Alanine Aminotransferase (ALT/SGPT) 37 U/L Alkaline Phosphatase 88 U/L Total Creatine Kinase U/L 36 U/L Creatine Kinase MB 0.8 ng/ml Creatine Kinase MB Ratio Troponin I 0.018 ng/ml Total Protein 10.3 gm/dl Albumin 2.5 gm/dl Thyroid Stimulating Hormone (TSH) 2.140 uIu/ml Prothrombin Time 11.1 SECONDS Prothromb Time International Ratio 1.1 Activated Partial Thromboplast Time 26.6 SECONDS Partial Thromboplastin Ratio 1.0 Urine Color YELLOW Urine Appearance CLEAR Urine pH 6.5 Urine Specific [place] 1.005 Urine Protein 1+ Urine Glucose (UA) NEG Urine Ketones NEG Urine Occult Blood TRACE Urine Nitrite NEG Urine Bilirubin NEG Urine Urobilinogen NEG Urine Leukocyte Esterase NEG Urine WBC (Auto) 0 /hpf Urine RBC (Auto) 0-4 /hpf Urine Hyaline Casts (Auto) 1-5 /lpf Urine Epithelial Cells (Auto) 0-5 /lpf Urine Bacteria (Auto) NEG Phosphorus Level 3.9 mg/dl Iron Level 72 mcg/dl Total Iron Binding Capacity 179 mcg/dl Transferrin 142 mg/dl Transferrin % Saturation 36 % Ferritin 519.2 ng/ml Vitamin B12 Level 1059 pg/mL Folate 13.74 ng/mL Parathyroid Hormone (Intact) 15.7 pg/mL Test 09/29/17 02:40 09/29/17 05:15 09/29/17 07:49 White Blood Count 5.44 K/uL Red Blood Count 3.07 M/uL Hemoglobin 10.5 g/dL Hematocrit 29.8 % Mean Corpuscular Volume 97.1 fL Mean Corpuscular Hemoglobin 34.2 pg Mean Corpuscular Hemoglobin Concent 35.2 g/dl Platelet Count 91 K/uL Neutrophils (%) (Auto) 52.6 % Lymphocytes (%) (Auto) 31.9 % Monocytes (%) (Auto) 10.8 % Eosinophils (%) (Auto) 3.3 % Basophils (%) (Auto) 1.0 % Neutrophils # (Auto) 2.73 K/uL Lymphocytes # (Auto) 1.65 K/uL Monocytes # (Auto) 0.56 K/uL Eosinophils # (Auto) 0.17 K/uL Basophils # (Auto) 0.05 K/uL RDW Standard Deviation 50.8 fL RDW Coefficient of Variation 14.4 % Immature Granulocyte % (Auto) 0.4 % Immature Granulocyte # (Auto) 0.02 K/uL Rouleau 1+ Peripheral Blood Smear Path Consult Sodium Level 139 mmol/L 141 mmol/L Potassium Level 4.2 mmol/L 4.2 mmol/L Chloride Level 108 mmol/L 110 mmol/L Carbon Dioxide Level 22 mmol/L 22 mmol/L Anion Gap 9.0 mmol/L 8.0 mmol/L Blood Urea Nitrogen 46 mg/dl 40 mg/dl Creatinine 3.92 mg/dl 3.51 mg/dl Est Creatinine Clear Calc Drug Dose 21.6 ml/min 24.1 ml/min Estimated GFR () 18.9 21.6 Estimated GFR (Non- 16.3 18.6 BUN/Creatinine Ratio 11.7 11.3 Random Glucose 143 mg/dl 104 mg/dl Estimated Average Glucose 146 mg/dl Hemoglobin A1c 6.7 % Calcium Level 13.1 mg/dl 12.1 mg/dl 25-Hydroxy Vitamin D Total 18.1 ng/ml Stool Occult Blood NEGATIVE Assessment & Plan CT scans and x-rays reviewed. Lab work is also reviewed. Certainly all consistent with significant plasma cell dyscrasia that is multiple myeloma. I am concerned about a couple of these lesions in his back being very close to the spinal cord (around T7-8 particularly). Radiation therapy will be consulted. His calcium is drifting down with hydration. Creatinine and hopefully is stabilized. He has pain that radiates anteriorly consistent with a T12-L1 dermatome. He is able to control his bowel and bladder. A bone marrow biopsy will be done. With the presumption that this is multiple myeloma I do plan to begin high doses of Decadron 40 mg a day for 4 days po in anticipation then of bridging our therapy with the radiation therapy that he most likely will receive. After obtaining consent a bone marrow biopsy was obtained from the patient's right posterior iliac crest. 1% lidocaine was used as local anesthetic. Aspirate attempt 2 was unsuccessful. This is a dry tap. Bone marrow biopsy was then obtained without difficulty. The patient tolerated the procedure well. Of course we will be limited in the number of ancillary tests that we can do to characterize this presumed multiple myeloma. We will follow along with you.
[2017-09-29] MEDS: DEXAMETHASONE 4 MG TAB PO SCH (12:44)
[2017-09-29] MEDS: HYDROmorphone INJ 0.5 MG/0.5 ML SYR IV PRN ×2 (13:10→18:56)
[2017-09-29 13:37] LABS: URIC ACID 7.6 mg/dl (2.6-7.2)
--- NOTE | 2017-09-29 14:14 | Radiation Oncology Consult ---
Radiation Oncology Consult Date / Reason Sep 29, 2017. Physicians Medical Oncologist: Dr. Jackson Radiation Oncologist: Dr. Edgar Prieto Other Providers: Dr. Nino Diagnosis (1) Multiple myeloma Permanent Comment: -Bone marrow biopsy results are pending from 09/29/2017 Last Edited By: Edgar Prieto on Sep 29, 2017 13:19 History of Present Illness I am seeing Josué Benavidez in consultation at the request of Dr. Jackson The patient's and brother was also present during the consultation. ECOG PS: 1 Mr. Benavidez is a 52-year-old gentleman who recently presented with back pain. The patient initially saw a chiropractor with no relief of his pain. The chiropractor then obtained x-rays at an outside facility which revealed concerning findings consistent with potential malignancy. 09/21/2017 --- CT chest --- IMPRESSION: 1. Innumerable destructive lytic bony lesions throughout the spine suggest diffuse bony metastasis from unknown primary or multiple myeloma with multiple additional lytic rib and sternal lesions. Large destructive lesion with soft tissue component involves the lateral aspect of the left third rib measuring up to 5.4 cm. Oncology consultation recommended. 2. No evidence of lymphatic or pulmonary metastasis. 3. Innumerable scattered low attenuating lesions throughout the liver, most of which are too small to characterize are indeterminate without comparison. The largest lesion measures 1.4 cm and appears to be most compatible with a hepatic cyst. 09/28/2017 --- medical oncology consultation with Dr. Demarcus Page as an outpatient --- blood work completed which revealed hypercalcemia, renal insufficiency, protein gap all consistent with hematologic process, most likely multiple myeloma. Patient was recommended to proceed to emergency room for direct admission to the hospital due to renal insufficiency and poor pain control. 09/28/2017 --- CT of abdomen/pelvis --- IMPRESSION: 1. Diffuse bony metastatic disease. 2. Moderate compression deformities of T11 and T12 presumably pathologic. 3. No significant compromise of the low thoracic and lumbar spinal canal. 4. Multiple hypodensities throughout the liver raising the possibility of multicystic change versus a component of metastatic change. 5. This appearance is highly suggestive of myelomatous-type change involving the axial and appendicular skeleton and possibly liver. 09/29/2017 --- medical oncology inpatient consultation with Dr. Jackson and bone marrow biopsy --- results pending for bone marrow biopsy. Dr. Jackson has recommended consideration of palliative external beam radiation therapy to the thoracic spine and lumbar spine. We have now seen the patient in consultation to discuss role of radiation therapy. Past History Past Medical/Surgical History: Fractures, Reflux, Hypertension Surgical History Surgeries: Yes Surgeries & Dates: Ear surgery Family History Lung disease/heart disease/stroke. Social History Smoking Status: Never Smoker Hx Tobacco Use In Past Year?: No Do You Dip or Chew Tobacco: No (FORMER) Hx Alcohol Use: No (USED TO HAVE 1-2 BEERS DAILY. NONE IN MONTHS) Allergies Coded Allergies: No Known Allergies (Unverified , 10/12/13) Home Medications Scheduled Lisinopril (Zestril), 20 MG PO DAILY Specialty Vitamins Products (Centrum Performance), 1 TAB PO DAILY Scheduled PRN Hydrocodone/Acetaminophen 5MG/325MG ([place] 5MG/325MG), 1 TABLET PO Q6 PRN for Pain Omeprazole (Prilosec), 20 MG PO DAILY PRN for HEARTBURN Review of Systems Ear/Hearing: Ear Side: Bilateral Hearing Ability: Normal Hearing Aid: None Edema: Present?: No Location Body Site Modifier: Bilateral Physical Exam Height: 5 (Feet) 5.00 (Inches) 165.1 (Centimeters) 1.6510 (Meters) Weight: 186 (Pounds) 11.7 (Ounces) 84.700 (Kilograms) 23517.000 (Grams) Date Time Temp Pulse Resp B/P (MAP) Pulse Ox O2 Delivery O2 Flow Rate FiO2 09/29/17 12:14 103 189/91 (123) 09/29/17 12:00 Room Air 09/29/17 11:53 36.8 108 22 198/108 (138) 97 09/29/17 08:00 Room Air 09/29/17 07:26 36.7 102 16 163/90 (114) 94 Room Air 09/29/17 04:44 36.9 100 18 166/97 (120) 98 Room Air 09/29/17 04:00 Room Air 09/29/17 00:24 98 169/90 (116) 09/29/17 00:00 Room Air 09/28/17 21:05 36.8 106 16 186/97 98 Room Air 2/15/18 20:52 104 18 200/107 97 Room Air 09/28/17 20:05 75 18 186/107 96 Room Air 09/28/17 18:18 99 09/28/17 16:38 100 18 172/102 09/28/17 15:43 97 Room Air 09/28/17 15:43 97 Room Air 09/28/17 13:42 36.6 110 17 164/65 97 Room Air General Appearance: WD/WN, no apparent distress Head: normocephalic Eyes: normal inspection ENT: normal ENT inspection Neck: supple, no adenopathy Respiratory/Chest: chest non-tender, lungs clear, normal breath sounds, no respiratory distress Cardiovascular: regular rate, rhythm, no edema, no gallop, no JVD Back: normal inspection Extremities: normal inspection Neurologic/Psych: insurance defense attorney II-XII nml as tested, alert, oriented x 3 Skin: normal color, warm/dry, no rash Lymphatic: no adenopathy Pain Management Patient Reports Pain: Yes Side: Bilateral Pain Location: lower back Patient Preferred Pain Scale: 0 - 10 Initial Pain Intensity: 7.0 Level of Consciousness: Spontaneously Alert Relief Measures: Medication - Injection Pain Intervention: See MAR Pain Management Plan Refer to inpatient medications/primary team pain management. Laboratory Laboratory Results: were reviewed Pathology Pathology Results: pending Imaging Imaging Studies: were reviewed, and pertinent findings noted in HPI Assessment & Recommendations Assessment: Mr. Benavidez is a 52-year-old gentleman with clinical multiple myeloma, bone marrow biopsy results pending, with involvement of the scapulae, thoracic spine, lumbar spine and multiple ribs. The patient is symptomatic with pain involving his back. Additionally, the disease in the lumbar spine is concerning for potential further compression and expansion into the spinal canal. We have been asked to evaluate the patient for consideration of palliative external beam radiation therapy. Recommendation: Palliative external beam radiation therapy to the thoracic and lumbar spine. 3000 cGy in 10 fractions at 300 cGy per fraction. Plan: 1. CT simulation today to expedite treatment planning process. Plan to start radiation therapy next Monday. 2. Continue with current pain regiment as per primary team. 3. Follow-up with medical oncology in the outpatient setting. 4. Patient and family encouraged to call us with any further questions or concerns. Rationale/Explanation: We have explained the indications, alternatives, benefits, risks and side effects of radiation therapy to the thoracic spine. We have explained the most common side effects which include but are not limited to skin erythema, skin break down, pulmonary fibrosis, adhesion development, radiation pneumonitis, rib fracture, heart failure and heart disease, esophagitis, development of fistula, fatigue and development of secondary malignancy. We have explained the CT simulation process and treatment planning. We explained what to expect before , during and after treatment on a regular basis. The patient understands and would be willing to consent to treatment. We did explain the indications, alternatives, benefits, risks and side effects of external beam radiation therapy to the lumbar spine. We did explain the most common side effects including, but not limited to, skin erythema, skin breakdown, hyperpigmentation, telangiectasia, wound complications, perianal fistula development, fistula formation, vaginal dryness, vaginal stenosis, dyspareunia, dysuria, bowel obstruction, bowel perforation, increased urinary frequency, urgency, diarrhea, constipation, melena, hematochezia, hematuria, radiation cystitis, radiation proctitis, fatigue, decreased blood counts, wound complications from surgery, rectal incontinence, secondary malignancy development. We did explain the procedures and daily process of radiation therapy. The patient understands and would be willing to consent to treatment. The patient and family had multiple questions which were answered to their full satisfaction. Thank you for allowing us to participate in the care of this patient. This chart was completed in part utilizing [employer] Speech Voice Recognition software. Attempts were made to minimize the grammatical errors, random word insertions, pronoun errors and incomplete sentences. Any formal questions or concerns about the content, text or information contained within the body of this dictation should be directly addressed to the provider for clarification. Edgar Prieto MD Department of Radiation Oncology [facility] Total Time In Consultation I spent 30 minutes examining and counseling the patient. I spent 15 minutes completing this note. ARCHITECTURAL DESIGN LECTURER Copy To Rashad Jackson D.O.; Demarcus Page MD; Sergio Nino MD Problem Qualifiers (1) Multiple myeloma: Multiple myeloma remission status: not in remission Qualified Codes: C90.00 - Multiple myeloma not having achieved remission
[2017-09-29] MEDS: LABETALOL HCL IV 5 MG/ML 20ML IV PRN (15:19)
[2017-09-29 15:20] LABS: CALCIUM 12.1 mg/dl (8.5-10.1); CREATININE 3.55 mg/dl (0.60-1.40); POTASSIUM 4.2 mmol/L (3.5-5.1)
--- NOTE | 2017-09-29 16:10 | Progress Note ---
Internal Med Progress Note Date of Service: Sep 29, 2017. Provider Documentation: SUBJECTIVE: Seen and examined at bedside Had bone marrow biopsy this morning Also had CT simulation for radiation therapy Back pain is controlled Denies any chest pain, SOB, abd pain Family at bedside BP uncontrolled, patient asymptomatic OBJECTIVE: Vital Signs-as noted below Physical Exam: General Appearance:Moderately built and nourished, no apparent distress Head: normocephalic, Atraumatic Eyes: normal inspection, EOMI, PERRL Neck: supple, Trachea midline Respiratory/Chest: Normal breath sounds, CTA Cardiovascular: S1, S2, No murmur Abdomen/GI:Soft, Non tender, Bowel sounds present Spine: Paraspinal tenderness Extremities/Musculoskelatal:normal inspection, Trace edema Neurologic/Psych:AAOX3, grossly no focal neurological deficits Skin: normal color, warm Lab data as noted below. ASSESSMENT & PLAN: Possible Multiple Myeloma Presented with pancytopenia, Hypercalcemia, ARF and back pain Bone marrow biopsy pending Palliative radiation therapy likely to be started on Monday Continue Decadron Pain control Appreciate Hematology/Oncology Help Hypercalcemia: Likely secondary to above Aggressive IV fluids Hypercalcemia work up pending Monitor calcium levels:14.5>>>12.1 Received 1 dose of Zometa Continue Calcitonin Acute Renal Failure: In setting of Hypercalcemia Likely multifactorial:MM, Chronic NSAIDs use and CHELSEA Hold CHELSEA IV fluids Avoid Nephrotoxic agents Monitor renal function Cr:4.15>>>3.55 No urgent need for dialysis Appreciate Nephrology Input Hypertensive Urgency: Hold CHELSEA secondary to KEMAR Continue Amlodipine Labetalol PRN monitor Constipation: Likely secondary to hypercalcemia/Narcotics Continue bowel regimen New diagnosis of DM II: A1C:6.7 Start on ISS, lantus monitor BGs DVT Px: SCDs: Re: thrombocytopenia. Code Status: Full code Disposition: Expect to discharge home when stable Vital Signs: Date Time Temp Pulse Resp B/P (MAP) Pulse Ox O2 Delivery O2 Flow Rate FiO2 09/29/17 16:00 Room Air 09/29/17 15:18 105 182/102 (128) 09/29/17 12:14 103 189/91 (123) 09/29/17 12:00 Room Air 09/29/17 11:53 36.8 108 22 198/108 (138) 97 09/29/17 08:00 Room Air 09/29/17 07:26 36.7 102 16 163/90 (114) 94 Room Air 09/29/17 04:44 36.9 100 18 166/97 (120) 98 Room Air 09/29/17 04:00 Room Air 09/29/17 00:24 98 169/90 (116) 09/29/17 00:00 Room Air 09/28/17 21:05 36.8 106 16 186/97 98 Room Air 09/28/17 20:52 104 18 200/107 97 Room Air 09/28/17 20:05 75 18 186/107 96 Room Air 09/28/17 18:18 99 09/28/17 16:38 100 18 172/102 Lab Results: Results Past 24 Hours Test 09/28/17 19:35 09/28/17 22:07 09/29/17 02:40 09/29/17 05:15 Range/Units Urine Color YELLOW Urine Appearance CLEAR CLEAR Urine pH 6.5 4.5-7.5 Urine Specific Howes 1.005 1.000-1.030 Urine Protein 1+ NEG Urine Glucose (UA) NEG NEG Urine Ketones NEG NEG Urine Occult Blood TRACE NEG Urine Nitrite NEG NEG Urine Bilirubin NEG NEG Urine Urobilinogen NEG NEG Urine Leukocyte Esterase NEG NEG Urine WBC (Auto) 0 0-5 /hpf Urine RBC (Auto) 0-4 0-4 /hpf Urine Hyaline Casts (Auto) 1-5 0-5 /lpf Urine Epithelial Cells (Auto) 0-5 0-5 /lpf Urine Bacteria (Auto) NEG NEG Sodium Level 137 139 136-145 mmol/L Potassium Level 3.7 4.2 3.5-5.1 mmol/L Chloride Level 103 108 98-107 mmol/L Carbon Dioxide Level 25 22 21-32 mmol/L Anion Gap 9.0 9.0 3-11 mmol/L Blood Urea Nitrogen 47 46 7-18 mg/dl Creatinine 3.89 3.92 0.60-1.40 mg/dl Est Creatinine Clear Calc Drug Dose 21.8 21.6 ml/min Estimated GFR () 19.1 18.9 Estimated GFR (Non- 16.4 16.3 BUN/Creatinine Ratio 12.1 11.7 10-20 Random Glucose 133 143 70-99 mg/dl Calcium Level 13.9 13.1 8.5-10.1 mg/dl Phosphorus Level 3.9 2.5-4.9 mg/dl Iron Level 72 35-175 mcg/dl Total Iron Binding Capacity 179 250-450 mcg/dl Transferrin 142 200-360 mg/dl Transferrin % Saturation 36 20-50 % Ferritin 519.2 8.0-388.0 ng/ml Vitamin B12 Level 1059 211-911 pg/mL Folate 13.74 >5.38 ng/mL Parathyroid Hormone (Intact) 15.7 18.4-80.1 pg/mL White Blood Count 5.44 4.8-10.8 K/uL Red Blood Count 3.07 4.7-6.1 M/uL Hemoglobin 10.5 14.0-18.0 g/dL Hematocrit 29.8 42-52 % Mean Corpuscular Volume 97.1 80-100 fL Mean Corpuscular Hemoglobin 34.2 25-34 pg Mean Corpuscular Hemoglobin Concent 35.2 32-36 g/dl Platelet Count 91 130-400 K/uL Neutrophils (%) (Auto) 52.6 % Lymphocytes (%) (Auto) 31.9 % Monocytes (%) (Auto) 10.8 % Eosinophils (%) (Auto) 3.3 % Basophils (%) (Auto) 1.0 % Neutrophils # (Auto) 2.73 1.4-6.5 K/uL Lymphocytes # (Auto) 1.65 1.2-3.4 K/uL Monocytes # (Auto) 0.56 0.11-0.59 K/uL Eosinophils # (Auto) 0.17 0-0.5 K/uL Basophils # (Auto) 0.05 0-0.2 K/uL RDW Standard Deviation 50.8 36.4-46.3 fL RDW Coefficient of Variation 14.4 11.5-14.5 % Immature Granulocyte % (Auto) 0.4 % Immature Granulocyte # (Auto) 0.02 0.00-0.02 K/uL Rouleau 1+ Peripheral Blood Smear Path Consult Estimated Average Glucose 146 mg/dl Hemoglobin A1c 6.7 4.5-5.6 % 25-Hydroxy Vitamin D Total 18.1 30-100 ng/ml Stool Occult Blood NEGATIVE NEGATIVE Test 09/29/17 07:49 09/29/17 11:38 09/29/17 14:39 Range/Units Sodium Level 141 142 136-145 mmol/L Potassium Level 4.2 4.2 3.5-5.1 mmol/L Chloride Level 110 113 98-107 mmol/L Carbon Dioxide Level 22 21 21-32 mmol/L Anion Gap 8.0 8.0 3-11 mmol/L Blood Urea Nitrogen 40 39 7-18 mg/dl Creatinine 3.51 3.55 0.60-1.40 mg/dl Est Creatinine Clear Calc Drug Dose 24.1 23.8 ml/min Estimated GFR () 21.6 21.3 Estimated GFR (Non- 18.6 18.4 BUN/Creatinine Ratio 11.3 11.1 10-20 Random Glucose 104 128 70-99 mg/dl Uric Acid 7.6 2.6-7.2 mg/dl Calcium Level 12.1 12.1 8.5-10.1 mg/dl Lactate Dehydrogenase 123 87-241 U/L
[2017-09-29] MEDS ORDERED: GLUCOSE 40% GEL 15 GM TUBE PO PRN (16:30)
[2017-09-29] MEDS ORDERED: DEXTROSE 50% 50 ML SYR IV PRN (16:30)
[2017-09-29] MEDS: INSULIN ASPART 100 UNITS/ML 3 ML PEN SC SCH ×2 (16:30→21:42)
[2017-09-29] MEDS ORDERED: GLUCOSE 10 TABS/TUBE PO PRN (16:30)
[2017-09-29] MEDS ORDERED: GLUCAGON FOR INJ 1 MG VIAL SQ PRN (16:30)
[2017-09-30] VITALS (9 sets, daily range): BP systolic 145–170; BP diastolic 78–94; PULSE 62–105; TEMP 36.4–37.2; O2SAT 94–97
[2017-09-30] MEDS ORDERED: INSULIN GLARGINE SOLOSTAR 100 UNITS/ML 3 ML PEN SC ONE (02:22)
[2017-09-30] MEDS ORDERED: AMLODIPINE BESYLATE 5 MG TAB PO ONE (02:26)
[2017-09-30] MEDS ORDERED: SODIUM CHLORIDE 0.45% 1000ML 1,000 ML IV STA (02:30)
[2017-09-30] MEDS: PANTOprazole SOD 40 MG TAB PO PRN (03:01)
[2017-09-30 03:05] LABS: HEMATOCRIT 25.5 % (42-52); HEMOGLOBIN 8.7 g/dL (14.0-18.0); MEAN CELL VOLUME 95.9 fL (80-100); MEAN CORPUSCULAR HEMOGLOBIN 32.7 pg (25-34); MEAN CORPUSCULAR HGB CONC 34.1 g/dl (32-36); RED CELL DISTRIBUTION WIDTH CV 14.4 % (11.5-14.5); RED CELL DISTRIBUTION WIDTH SD 50.3 fL (36.4-46.3); WHITE BLOOD COUNT 5.11 K/uL (4.8-10.8)
[2017-09-30 03:21] LABS: CALCIUM 10.9 mg/dl (8.5-10.1); CREATININE 3.35 mg/dl (0.60-1.40); POTASSIUM 4.3 mmol/L (3.5-5.1)
[2017-09-30 03:32] LABS: MEAN PLATELET VOLUME 11.1 fL (7.4-10.4); PLATELET COUNT 81 K/uL (130-400)
[2017-09-30 03:58] LABS: BASO % 0.4 %; BASO ABS # 0.02 K/uL (0-0.2); EOS % 0.6 %; EOS ABS # 0.03 K/uL (0-0.5); IG# 0.01 K/uL (0.00-0.02); LYMPH ABS # 0.97 K/uL (1.2-3.4); MONO % 2.3 %; MONO ABS # 0.12 K/uL (0.11-0.59); NEUT % 77.5 %; NEUT ABS # 3.96 K/uL (1.4-6.5)
[2017-09-30] MEDS: SODIUM CHLORIDE 0.9% 1000ML 1,000 ML IV SCH ×5 (04:01→21:44)
[2017-09-30] MEDS: ZOLEDRONIC ACID INJ 4 MG in SODIUM CHLORIDE 0.9% 100ML 100 ML IV SCH (05:59)
[2017-09-30] MEDS: HYDROCODONE/ACETAMIN 5/325MG TAB PO PRN ×2 (06:24→15:58)
[2017-09-30] MEDS: DOCUSATE SODIUM 100 MG CAP PO SCH (08:57)
[2017-09-30] MEDS: DEXAMETHASONE 4 MG TAB PO SCH (08:57)
[2017-09-30] MEDS: LIDODERM (LIDOCAINE) PATCH 5% TD SCH ×2 (09:00)
[2017-09-30] MEDS ORDERED: AMLODIPINE BESYLATE 5 MG TAB PO SCH ×2 (09:00)
[2017-09-30] MEDS ORDERED: INSULIN GLARGINE SOLOSTAR 100 UNITS/ML 3 ML PEN SC SCH (09:00)
[2017-09-30] MEDS: INSULIN ASPART 100 UNITS/ML 3 ML PEN SC SCH ×4 (09:03→21:56)
[2017-09-30] MEDS: CALCITONIN SALMON SQ SCH ×2 (10:18→21:45)
--- NOTE | 2017-09-30 10:35 | Hematology/Oncology Prog Note ---
Hematology/Onc Progress Note Date of Service Sep 30, 2017. Diagnoses Multiple myeloma Medications Medications Administered Medications (Trade) Dose Ordered Sig/Mykel Route Start Time Stop Time Status Last Admin Dose Admin Sodium Chloride 1,000 ml @ 125 mls/hr Q8H STAT IV 09/28/17 15:09 09/28/17 20:47 DC 09/28/17 15:50 125 MLS/HR Sodium Chloride 500 ml @ 999 mls/hr Q31M STAT IV 09/28/17 15:09 09/28/17 15:39 DC 09/28/17 15:50 999 MLS/HR Hydromorphone HCl (Dilaudid Inj) 0.5 mg Q15M PRN IV 09/28/17 15:45 09/28/17 23:12 DC 09/28/17 15:51 0.5 MG Amlodipine Besylate (Norvasc Tab) 5 mg NOW ONCE PO 09/28/17 20:45 09/28/17 20:46 DC 09/28/17 20:51 5 MG Sodium Chloride 1,000 ml @ 999 mls/hr Q1H1M STAT IV 09/28/17 20:44 09/28/17 21:44 DC 09/28/17 20:51 999 MLS/HR Sodium Chloride 1,000 ml @ 250 mls/hr Q4H IV 09/28/17 22:00 09/28/17 23:02 DC 09/28/17 22:30 250 MLS/HR Hydromorphone HCl (Dilaudid Inj) 0.5 mg Q3H PRN IV 09/28/17 21:00 10/12/17 20:59 09/29/17 18:56 0.5 MG Prochlorperazine Edisylate 5 mg/ Syringe 5 ml @ 5 mls/min Q6H PRN IV 09/28/17 21:00 10/28/17 20:59 09/28/17 23:24 5 MLS/MIN Acetaminophen/ Hydrocodone Bitart ([place] 5/325 Tab) 1 tab Q4 PRN PO 09/28/17 21:00 10/12/17 20:59 09/30/17 06:24 1 TAB Pantoprazole Sodium (Protonix Tab) 40 mg DAILY PRN PO 09/28/17 21:00 10/28/17 20:59 09/30/17 03:01 40 MG Docusate Sodium (coLACE CAP) 100 mg DAILY PO 09/29/17 09:00 10/29/17 08:59 09/30/17 08:57 100 MG Docusate Sodium (coLACE CAP) 100 mg 2047 ONCE PO 09/28/17 20:47 09/28/17 20:59 DC 09/28/17 23:24 100 MG Lidocaine (Lidoderm Patch 5%) 1 patch QAM TD 09/29/17 09:00 10/29/17 08:59 09/29/17 08:05 1 PATCH Lidocaine (Lidoderm Patch 5%) 1 patch QAM TD 09/29/17 09:00 10/29/17 08:59 09/29/17 08:06 1 PATCH Calcitonin Mora 320 inter.unit/ Syringe 1.6 ml @ 1.6 mls/sec Q12H SQ 09/29/17 09:00 10/29/17 08:59 09/30/17 10:18 1.6 MLS/SEC Calcitonin Mora 320 inter.unit/ Syringe 1.6 ml @ 1.6 mls/sec TODAY@2230 ONCE SQ 09/28/17 22:30 09/28/17 22:31 DC 09/28/17 22:30 1.6 MLS/SEC Potassium Chloride/Sodium Chloride 1,000 ml @ 250 mls/hr Q4H IV 09/28/17 23:00 09/29/17 05:21 DC 09/29/17 03:22 250 MLS/HR Zoledronic Acid 4 mg/Sodium Chloride 105 ml @ 210 mls/hr TODAY@0545 IV 09/29/17 05:45 10/29/17 05:44 09/30/17 05:59 210 MLS/HR Sodium Chloride 1,000 ml @ 500 mls/hr Q2H ONCE IV 09/29/17 05:30 09/29/17 07:29 DC 09/29/17 05:32 500 MLS/HR Sodium Chloride 1,000 ml @ 250 mls/hr Q4H IV 09/29/17 07:30 09/29/17 15:30 DC 09/29/17 16:43 250 MLS/HR Amlodipine Besylate (Norvasc Tab) 5 mg 0523 ONCE PO 09/29/17 05:23 09/29/17 05:31 DC 09/29/17 05:56 5 MG Dexamethasone (Decadron Tab) 40 mg DAILY PO 09/29/17 12:30 10/03/17 08:59 09/30/17 08:57 40 MG Labetalol HCl (Normodyne IV) 10 mg Q6H PRN IV 09/29/17 11:45 10/29/17 11:44 09/29/17 15:19 10 MG Amlodipine Besylate (Norvasc Tab) 5 mg NOW ONCE PO 09/29/17 12:30 09/29/17 12:31 DC 09/29/17 12:15 5 MG Insulin Aspart (novoLOG ASPART) SLIDING SCALE If C... ACHS SC 09/29/17 16:30 10/29/17 16:29 09/30/17 09:03 3 UNITS Insulin Glargine (Lantus Solostar Pen) 10 units 0222 ONCE SC 09/30/17 02:22 09/30/17 02:30 DC 09/30/17 02:50 10 UNITS Sodium Chloride 1,000 ml @ 999 mls/hr Q1H1M STAT IV 09/30/17 02:30 09/30/17 03:30 DC 09/30/17 02:34 999 MLS/HR Sodium Chloride 1,000 ml @ 200 mls/hr Q5H IV 09/30/17 03:30 09/30/17 15:29 09/30/17 09:37 200 MLS/HR Amlodipine Besylate (Norvasc Tab) 10 mg 0226 ONCE PO 09/30/17 02:26 09/30/17 02:31 DC 09/30/17 02:55 10 MG Subjective Seems comfortable. Pain is controlled. Review of Systems: Constitutional: Negative for night sweats, or fever Eyes: Negative for event change of vision ENT: Negative for epistaxis, nasal discharge, sore throat, or deafness Cardiovascular: Negative for chest pain, palpitations, dizziness, diaphoresis Respiratory: Negative for new shortness of breath,hemoptysis, or purulent cough Gastrointestinal: Negative for diarrhea, hematemesis, melena, nausea, vomiting , or dyspepsia Integumentary (skin): Negative for rash or jaundice discoloration Neurological: Negative for weakness, seizure activity, headache, or dizziness Lymphatic/Hematologic: Negative for petechiae, bleeding or new adenopathy Musculoskeletal: Negative for new joint or back pain Allergic/Immunologic: Negative for unusual rash or pruritis. Vital Signs Vital Signs Past 12 Hours Date Time Temp Pulse Resp B/P (MAP) Pulse Ox O2 Delivery O2 Flow Rate FiO2 09/30/17 07:07 36.7 102 20 158/89 (112) 96 Room Air 09/30/17 04:11 36.6 102 20 161/94 (116) 97 Room Air 09/30/17 04:00 Room Air 09/30/17 02:55 103 163/92 (115) 09/30/17 00:00 Room Air 09/29/17 23:35 37.3 114 16 170/92 (118) 95 Room Air Physical Exam Constitutional: vitals are stable. Eyes: Eyes are RAFFI EOMI without conjuctival erythema or icterus. ENT: External examination was negative for masses. Neck: Negative for masses or palpable thyromegaly Respiratory: Lung sounds were generally clear bilaterally Cardiovascular: Heart was RRR without significant murmur, gallops aoe rubs Gastrointestinal: No palpable hepatic or splenomegaly. The abdomen was soft with normal bowel sounds. Lymphatic system: there was no palpable peripheral lymphadenopathy Musculoskeletal System: The musculoskeletal system seemed concordant with age. Skin: The skin was negative for jaundice. Neurologic exam: The exam was negative for any focal findings. Deep tendon reflexes were equal and symmetrical. Psychiatric exam: Was essentially negative with normal mood and effect. Extremities: negative for edema Laboratory Last 24 Hours Test 09/29/17 11:38 09/29/17 14:39 09/29/17 20:21 09/29/17 22:30 Lactate Dehydrogenase 123 U/L Sodium Level 142 mmol/L Potassium Level 4.2 mmol/L Chloride Level 113 mmol/L Carbon Dioxide Level 21 mmol/L Anion Gap 8.0 mmol/L Blood Urea Nitrogen 39 mg/dl Creatinine 3.55 mg/dl Est Creatinine Clear Calc Drug Dose 23.8 ml/min Estimated GFR () 21.3 Estimated GFR (Non- 18.4 BUN/Creatinine Ratio 11.1 Random Glucose 128 mg/dl Calcium Level 12.1 mg/dl Bedside Glucose 194 mg/dl Test 09/30/17 02:42 09/30/17 02:47 09/30/17 07:13 White Blood Count 5.11 K/uL Red Blood Count 2.66 M/uL Hemoglobin 8.7 g/dL Hematocrit 25.5 % Mean Corpuscular Volume 95.9 fL Mean Corpuscular Hemoglobin 32.7 pg Mean Corpuscular Hemoglobin Concent 34.1 g/dl Platelet Count 81 K/uL Mean Platelet Volume 11.1 fL Neutrophils (%) (Auto) 77.5 % Lymphocytes (%) (Auto) 19.0 % Monocytes (%) (Auto) 2.3 % Eosinophils (%) (Auto) 0.6 % Basophils (%) (Auto) 0.4 % Neutrophils # (Auto) 3.96 K/uL Lymphocytes # (Auto) 0.97 K/uL Monocytes # (Auto) 0.12 K/uL Eosinophils # (Auto) 0.03 K/uL Basophils # (Auto) 0.02 K/uL RDW Standard Deviation 50.3 fL RDW Coefficient of Variation 14.4 % Immature Granulocyte % (Auto) 0.2 % Immature Granulocyte # (Auto) 0.01 K/uL Rouleau 1+ Sodium Level 138 mmol/L Potassium Level 4.3 mmol/L Chloride Level 109 mmol/L Carbon Dioxide Level 17 mmol/L Anion Gap 12.0 mmol/L Blood Urea Nitrogen 45 mg/dl Creatinine 3.35 mg/dl Est Creatinine Clear Calc Drug Dose 25.2 ml/min Estimated GFR () 22.8 Estimated GFR (Non- 19.7 BUN/Creatinine Ratio 13.6 Random Glucose 152 mg/dl Calcium Level 10.9 mg/dl Bedside Glucose 158 mg/dl 139 mg/dl Assessment & Plan Multiple myeloma. I did have a chance to review some of the stains from yesterday's bone marrow and findings are consistent with plasma cell dyscrasia. Radiation to the lower back has begun. He is on 40 mg of Decadron for daily for 4 days. Available follow-up in our clinic to begin systemic therapy in a week or 10 days. I did inform the patient today on the diagnosis. I told him that chemotherapy then begins in our clinic to hopefully achieve a remission. I also introduced the real possibility of high-dose therapy afterwards and that he would need continued observation and possibly continued therapy moving forward. He understood.
[2017-09-30] MEDS ORDERED: NURSING VERBAL MED ORDER ONE (15:45)
--- NOTE | 2017-09-30 15:58 | Progress Note ---
Internal Med Progress Note Date of Service: Sep 30, 2017. Provider Documentation: SUBJECTIVE: Seen and examined at bedside Reports back pain Denies any chest pain, SOB, abd pain Family at bedside No other complaints OBJECTIVE: Vital Signs-as noted below Physical Exam: General Appearance:Moderately built and nourished, no apparent distress Head: normocephalic, Atraumatic Eyes: normal inspection, EOMI, PERRL Neck: supple, Trachea midline Respiratory/Chest: Normal breath sounds, CTA Cardiovascular: S1, S2, No murmur Abdomen/GI:Soft, Non tender, Bowel sounds present Spine: Paraspinal tenderness Extremities/Musculoskelatal:normal inspection, Trace edema Neurologic/Psych:AAOX3, grossly no focal neurological deficits Skin: normal color, warm Lab data as noted below. ASSESSMENT & PLAN: Multiple Myeloma Pancytopenia Presented with pancytopenia, Hypercalcemia, ARF and back pain Bone marrow biopsy pending Palliative radiation therapy likely to be started on Monday Continue Decadron Pain control Appreciate Hematology/Oncology Help Chemotherapy per Oncology Hypercalcemia: Likely secondary to above Aggressive IV fluids Hypercalcemia work up pending Monitor calcium levels:14.5>>>12.1>>>10.9 Received 1 dose of Zometa Continue Calcitonin Acute Renal Failure: In setting of Hypercalcemia Likely multifactorial:MM, Chronic NSAIDs use and CHELSEA Hold CHELSEA IV fluids Avoid Nephrotoxic agents Monitor renal function Cr:4.15>>>3.55>>3.35 No urgent need for dialysis Appreciate Nephrology Input Hypertensive Urgency: Hold CHELSEA secondary to KEMAR Continue Amlodipine Labetalol PRN monitor Constipation: Likely secondary to hypercalcemia/Narcotics Resolved Continue bowel regimen New diagnosis of DM II: A1C:6.7 Start on ISS, lantus monitor BGs DVT Px: SCDs: Re: thrombocytopenia. Code Status: Full code Disposition: Expect to discharge home when stable Vital Signs: Date Time Temp Pulse Resp B/P (MAP) Pulse Ox O2 Delivery O2 Flow Rate FiO2 09/30/17 15:31 36.4 102 22 170/88 (115) 94 Room Air 09/30/17 12:03 36.7 62 18 145/85 (105) 95 Room Air 09/30/17 08:00 96 Room Air 09/30/17 07:07 36.7 102 20 158/89 (112) 96 Room Air 09/30/17 04:11 36.6 102 20 161/94 (116) 97 Room Air 09/30/17 04:00 Room Air 09/30/17 02:55 103 163/92 (115) 09/30/17 00:00 Room Air 09/29/17 23:35 37.3 114 16 170/92 (118) 95 Room Air 09/29/17 20:00 Room Air 09/29/17 20:00 37.4 112 20 171/99 (123) 96 Room Air 09/29/17 18:00 105 22 162/92 (115) 97 Room Air 09/29/17 16:00 Room Air Lab Results: Results Past 24 Hours Test 09/29/17 20:21 09/29/17 22:30 09/30/17 02:42 09/30/17 02:47 Range/Units Bedside Glucose 194 158 70-99 mg/dl White Blood Count 5.11 4.8-10.8 K/uL Red Blood Count 2.66 4.7-6.1 M/uL Hemoglobin 8.7 14.0-18.0 g/dL Hematocrit 25.5 42-52 % Mean Corpuscular Volume 95.9 80-100 fL Mean Corpuscular Hemoglobin 32.7 25-34 pg Mean Corpuscular Hemoglobin Concent 34.1 32-36 g/dl Platelet Count 81 130-400 K/uL Mean Platelet Volume 11.1 7.4-10.4 fL Neutrophils (%) (Auto) 77.5 % Lymphocytes (%) (Auto) 19.0 % Monocytes (%) (Auto) 2.3 % Eosinophils (%) (Auto) 0.6 % Basophils (%) (Auto) 0.4 % Neutrophils # (Auto) 3.96 1.4-6.5 K/uL Lymphocytes # (Auto) 0.97 1.2-3.4 K/uL Monocytes # (Auto) 0.12 0.11-0.59 K/uL Eosinophils # (Auto) 0.03 0-0.5 K/uL Basophils # (Auto) 0.02 0-0.2 K/uL RDW Standard Deviation 50.3 36.4-46.3 fL RDW Coefficient of Variation 14.4 11.5-14.5 % Immature Granulocyte % (Auto) 0.2 % Immature Granulocyte # (Auto) 0.01 0.00-0.02 K/uL Rouleau 1+ Sodium Level 138 136-145 mmol/L Potassium Level 4.3 3.5-5.1 mmol/L Chloride Level 109 98-107 mmol/L Carbon Dioxide Level 17 21-32 mmol/L Anion Gap 12.0 3-11 mmol/L Blood Urea Nitrogen 45 7-18 mg/dl Creatinine 3.35 0.60-1.40 mg/dl Est Creatinine Clear Calc Drug Dose 25.2 ml/min Estimated GFR () 22.8 Estimated GFR (Non- 19.7 BUN/Creatinine Ratio 13.6 10-20 Random Glucose 152 70-99 mg/dl Calcium Level 10.9 8.5-10.1 mg/dl Test 09/30/17 07:13 09/30/17 11:30 Range/Units Bedside Glucose 139 136 70-99 mg/dl
[2017-09-30] MEDS: LABETALOL HCL IV 5 MG/ML 20ML IV PRN (17:54)
[2017-09-30] MEDS: HYDROmorphone INJ 0.5 MG/0.5 ML SYR IV PRN (21:48)
[2017-10-01] VITALS (10 sets, daily range): BP systolic 152–196; BP diastolic 81–100; PULSE 87–111; TEMP 36.3–37; O2SAT 94–97
[2017-10-01] MEDS: SODIUM CHLORIDE 0.9% 1000ML 1,000 ML IV SCH ×3 (04:05→22:44)
[2017-10-01] MEDS: HYDROmorphone INJ 0.5 MG/0.5 ML SYR IV PRN (04:09)
[2017-10-01 07:34] LABS: HEMATOCRIT 24.7 % (42-52); HEMOGLOBIN 8.4 g/dL (14.0-18.0); MEAN CELL VOLUME 95.7 fL (80-100); MEAN CORPUSCULAR HEMOGLOBIN 32.6 pg (25-34); RED CELL DISTRIBUTION WIDTH CV 14.7 % (11.5-14.5); RED CELL DISTRIBUTION WIDTH SD 51.6 fL (36.4-46.3); WHITE BLOOD COUNT 6.89 K/uL (4.8-10.8)
[2017-10-01 07:39] LABS: MEAN PLATELET VOLUME 11.4 fL (7.4-10.4); PLATELET COUNT 84 K/uL (130-400)
[2017-10-01 07:56] LABS: IG# 0.01 K/uL (0.00-0.02); LYMPH % 10.9 %; LYMPH ABS # 0.75 K/uL (1.2-3.4); MONO % 5.4 %; MONO ABS # 0.37 K/uL (0.11-0.59); NEUT % 83.6 %; NEUT ABS # 5.76 K/uL (1.4-6.5)
[2017-10-01] MEDS: LIDODERM (LIDOCAINE) PATCH 5% TD SCH ×2 (08:31)
[2017-10-01] MEDS: DOCUSATE SODIUM 100 MG CAP PO SCH (08:33)
[2017-10-01] MEDS: DEXAMETHASONE 4 MG TAB PO SCH (08:33)
[2017-10-01] MEDS: AMLODIPINE BESYLATE 5 MG TAB PO SCH (08:34)
[2017-10-01] MEDS: CALCITONIN SALMON SQ SCH ×2 (08:42→21:23)
[2017-10-01] MEDS: INSULIN GLARGINE SOLOSTAR 100 UNITS/ML 3 ML PEN SC SCH (08:42)
[2017-10-01] MEDS: INSULIN ASPART 100 UNITS/ML 3 ML PEN SC SCH ×4 (08:42→21:21)
[2017-10-01 08:43] LABS: CALCIUM 8.9 mg/dl (8.5-10.1); CREATININE 2.54 mg/dl (0.60-1.40); POTASSIUM 4.1 mmol/L (3.5-5.1)
[2017-10-01] MEDS: PANTOprazole SOD 40 MG TAB PO PRN (11:28)
[2017-10-01] MEDS: LABETALOL HCL IV 5 MG/ML 20ML IV PRN (12:08)
--- NOTE | 2017-10-01 14:15 | Progress Note ---
Internal Med Progress Note Date of Service: Oct 01, 2017. Provider Documentation: SUBJECTIVE: Seen and examined at bedside Back pain is controlled No new complaints Denies any chest pain, SOB, abd pain Family at bedside No other complaints OBJECTIVE: Vital Signs-as noted below Physical Exam: General Appearance:Moderately built and nourished, no apparent distress Head: normocephalic, Atraumatic Eyes: normal inspection, EOMI, PERRL Neck: supple, Trachea midline Respiratory/Chest: Normal breath sounds, CTA Cardiovascular: S1, S2, +Tachycardia, No murmur Abdomen/GI:Soft, Non tender, Bowel sounds present Spine: Paraspinal tenderness Extremities/Musculoskelatal:normal inspection, Trace edema Neurologic/Psych:AAOX3, grossly no focal neurological deficits Skin: normal color, warm Lab data as noted below. ASSESSMENT & PLAN: Multiple Myeloma Pancytopenia Presented with pancytopenia, Hypercalcemia, ARF and back pain Bone marrow biopsy pending Palliative radiation therapy likely to be started on Monday Continue Decadron Pain control Appreciate Hematology/Oncology Help Chemotherapy per Oncology Hypercalcemia: Likely secondary to above IV fluids as per Nephrology Hypercalcemia work up pending Monitor calcium levels:14.5>>>12.1>>>10.9>>8.9 Received 1 dose of Zometa Continue Calcitonin Acute Renal Failure: In setting of Hypercalcemia Likely multifactorial:MM, Chronic NSAIDs use and CHELSEA Hold CHELSEA IV fluids Avoid Nephrotoxic agents Monitor renal function Cr:4.15>>>3.55>>3.35>>>2.54 No urgent need for dialysis Appreciate Nephrology Input Hypertensive Urgency: Hold CHELSEA secondary to KEMAR Continue Amlodipine Start Coreg for better BP control Labetalol PRN monitor Constipation: Likely secondary to hypercalcemia/Narcotics Resolved Continue bowel regimen New diagnosis of DM II: A1C:6.7 Start on ISS, lantus monitor BGs DVT Px: SCDs: Re: thrombocytopenia. Code Status: Full code Disposition: Expect to discharge home when stable Vital Signs: Date Time Temp Pulse Resp B/P (MAP) Pulse Ox O2 Delivery O2 Flow Rate FiO2 10/01/17 12:00 Room Air 10/01/17 11:21 37.0 106 18 170/96 (120) 95 Room Air 10/01/17 08:30 Room Air 10/01/17 07:48 36.9 104 18 163/88 (113) 94 Room Air 10/01/17 04:01 36.9 87 20 152/100 (117) 96 Room Air 10/01/17 04:00 Room Air 10/01/17 00:00 Room Air 09/30/17 23:23 37.2 103 20 150/78 (102) 97 Room Air 09/30/17 20:00 Room Air 09/30/17 19:14 36.5 105 20 153/78 (103) 96 Room Air 09/30/17 16:02 94 Room Air 09/30/17 15:31 36.4 102 22 170/88 (115) 94 Room Air Lab Results: Results Past 24 Hours Test 09/30/17 16:23 09/30/17 20:45 10/01/17 07:05 10/01/17 07:52 Range/Units Bedside Glucose 170 185 117 70-99 mg/dl White Blood Count 6.89 4.8-10.8 K/uL Red Blood Count 2.58 4.7-6.1 M/uL Hemoglobin 8.4 14.0-18.0 g/dL Hematocrit 24.7 42-52 % Mean Corpuscular Volume 95.7 80-100 fL Mean Corpuscular Hemoglobin 32.6 25-34 pg Mean Corpuscular Hemoglobin Concent 34.0 32-36 g/dl Platelet Count 84 130-400 K/uL Mean Platelet Volume 11.4 7.4-10.4 fL Neutrophils (%) (Auto) 83.6 % Lymphocytes (%) (Auto) 10.9 % Monocytes (%) (Auto) 5.4 % Eosinophils (%) (Auto) 0.0 % Basophils (%) (Auto) 0.0 % Neutrophils # (Auto) 5.76 1.4-6.5 K/uL Lymphocytes # (Auto) 0.75 1.2-3.4 K/uL Monocytes # (Auto) 0.37 0.11-0.59 K/uL Eosinophils # (Auto) 0.00 0-0.5 K/uL Basophils # (Auto) 0.00 0-0.2 K/uL RDW Standard Deviation 51.6 36.4-46.3 fL RDW Coefficient of Variation 14.7 11.5-14.5 % Immature Granulocyte % (Auto) 0.1 % Immature Granulocyte # (Auto) 0.01 0.00-0.02 K/uL Rouleau 1+ Sodium Level 139 136-145 mmol/L Potassium Level 4.1 3.5-5.1 mmol/L Chloride Level 109 98-107 mmol/L Carbon Dioxide Level 17 21-32 mmol/L Anion Gap 12.0 3-11 mmol/L Blood Urea Nitrogen 51 7-18 mg/dl Creatinine 2.54 0.60-1.40 mg/dl Est Creatinine Clear Calc Drug Dose 33.9 ml/min Estimated GFR () 31.9 Estimated GFR (Non- 27.5 BUN/Creatinine Ratio 20.0 10-20 Random Glucose 115 70-99 mg/dl Calcium Level 8.9 8.5-10.1 mg/dl Test 10/01/17 11:45 Range/Units Bedside Glucose 117 70-99 mg/dl
[2017-10-01] MEDS ORDERED: NURSING VERBAL MED ORDER ONE (14:45)
[2017-10-01] MEDS: HYDROCODONE/ACETAMIN 5/325MG TAB PO PRN ×2 (15:25→21:22)
--- NOTE | 2017-10-01 17:55 | PROGRESS NOTE ---
DATE: 10/01/2017 SUBJECTIVE: The patient is doing fine. He has been getting IV fluids and with that serum calcium has become normal. Renal function is also getting better. He is making urine and made total urine of 3900 mL yesterday. He denies any acute complaints. OBJECTIVE: VITAL SIGNS: Blood pressure is 183/98, 94% on room air, pulse rate 111 per minute, temperature 36.4, respiratory rate 22 per minute. GENERAL: Awake, alert, oriented x3. HEENT: Mucous membranes are moist. NECK: Supple. No jugular venous distention. CHEST: Bilaterally clear to auscultation. ABDOMEN: Soft, nontender. EXTREMITIES: Shows trace edema. LABORATORY TESTS: From this morning shows a sodium 139, potassium 4.1, BUN 51, creatinine 2.54, calcium is 8.9, platelet count 84,000, WBC 6.89, hemoglobin 8.4. ASSESSMENT AND PLAN: A 52-year-old male with possible multiple myeloma, now presenting with hypercalcemia and acute renal failure. 1. Hypercalcemia. The patient did receive Zometa 4 mg IV on the day of admission and he is currently getting calcitonin and IV fluid resuscitation. With that, serum calcium is completely normal. However, at this time it appears the patient is getting some evidence of volume overload. I would cut down the fluid even further to 50 mL per hour. We can continue the calcitonin for 1 more day as it does not work after the first few days. 2. Acute renal failure in the setting of hypercalcemia, chronic NSAID use as well as multiple myeloma. Continue IV fluid, does not need dialysis as he is making very good amount of urine and no other electrolyte imbalance. [facility]
[2017-10-01] MEDS: CARVEDILOL 6.25 MG TAB PO SCH (21:23)
[2017-10-01] MEDS ORDERED: ALUMINUM/MAGNESIUM SUSP 30 ML UDC PO STA (21:27)
[2017-10-02] VITALS (10 sets, daily range): BP systolic 156–178; BP diastolic 89–103; PULSE 83–98; TEMP 36.3–36.7; O2SAT 93–98; Ht 165.1 cm; Wt 87.3 kg
[2017-10-02] MEDS: LABETALOL HCL IV 5 MG/ML 20ML IV PRN ×2 (05:02→19:31)
[2017-10-02 06:05] LABS: HEMATOCRIT 25.3 % (42-52); HEMOGLOBIN 8.7 g/dL (14.0-18.0); MEAN CELL VOLUME 95.1 fL (80-100); MEAN CORPUSCULAR HEMOGLOBIN 32.7 pg (25-34); MEAN CORPUSCULAR HGB CONC 34.4 g/dl (32-36); MEAN PLATELET VOLUME 11.7 fL (7.4-10.4); PLATELET COUNT 98 K/uL (130-400); RED CELL DISTRIBUTION WIDTH CV 14.8 % (11.5-14.5); RED CELL DISTRIBUTION WIDTH SD 51.6 fL (36.4-46.3); WHITE BLOOD COUNT 7.59 K/uL (4.8-10.8)
[2017-10-02 06:39] LABS: CALCIUM 8.2 mg/dl (8.5-10.1); CREATININE 2.41 mg/dl (0.60-1.40)
[2017-10-02 06:42] LABS: BASO % 0.1 %; BASO ABS # 0.01 K/uL (0-0.2); IG# 0.02 K/uL (0.00-0.02); LYMPH % 9.6 %; LYMPH ABS # 0.73 K/uL (1.2-3.4); MONO % 6.2 %; MONO ABS # 0.47 K/uL (0.11-0.59); NEUT % 83.8 %; NEUT ABS # 6.36 K/uL (1.4-6.5)
[2017-10-02] MEDS: AMLODIPINE BESYLATE 5 MG TAB PO SCH (07:38)
[2017-10-02] MEDS: DEXAMETHASONE 4 MG TAB PO SCH (07:38)
[2017-10-02] MEDS: LIDODERM (LIDOCAINE) PATCH 5% TD SCH ×2 (07:39→08:31)
[2017-10-02] MEDS: CARVEDILOL 6.25 MG TAB PO SCH ×2 (07:39→20:58)
[2017-10-02] MEDS: DOCUSATE SODIUM 100 MG CAP PO SCH (07:39)
[2017-10-02] MEDS: INSULIN GLARGINE SOLOSTAR 100 UNITS/ML 3 ML PEN SC SCH (08:30)
[2017-10-02] MEDS: INSULIN ASPART 100 UNITS/ML 3 ML PEN SC SCH ×4 (08:30→21:06)
[2017-10-02] MEDS: CALCITONIN SALMON SQ SCH ×2 (09:23→21:33)
[2017-10-02] MEDS: HYDROCODONE/ACETAMIN 5/325MG TAB PO PRN ×2 (09:50→20:59)
--- NOTE | 2017-10-02 12:20 | Progress Note ---
Internal Med Progress Note Date of Service: Oct 02, 2017. Provider Documentation: SUBJECTIVE: Seen and examined at bedside Planned for radiation therapy today Back pain is controlled No new complaints Denies any chest pain, SOB, abd pain Family at bedside No other complaints OBJECTIVE: Vital Signs-as noted below Physical Exam: General Appearance:Moderately built and nourished, no apparent distress Head: normocephalic, Atraumatic Eyes: normal inspection, EOMI, PERRL Neck: supple, Trachea midline Respiratory/Chest: Normal breath sounds, CTA Cardiovascular: S1, S2, +Tachycardia, No murmur Abdomen/GI:Soft, Non tender, Bowel sounds present Spine: Paraspinal tenderness Extremities/Musculoskelatal:normal inspection, Trace edema Neurologic/Psych:AAOX3, grossly no focal neurological deficits Skin: normal color, warm Lab data as noted below. ASSESSMENT & PLAN: Multiple Myeloma Pancytopenia Presented with pancytopenia, Hypercalcemia, ARF and back pain Bone marrow biopsy pending Palliative radiation therapy to start today Continue Decadron per Oncology Pain control Appreciate Hematology/Oncology Help Chemotherapy per Oncology Hypercalcemia: Calcium levels normalized secondary to MM IV fluids as per Nephrology PTH, 25 Oh Vit D low Other Hypercalcemia work up pending Monitor calcium levels:14.5>>>12.1>>>10.9>>8.9 Received 1 dose of Zometa Continue Calcitonin per Nephrology Acute Renal Failure: In setting of Hypercalcemia Likely multifactorial:MM, Chronic NSAIDs use and CHELSEA Hold CHELSEA IV fluids Avoid Nephrotoxic agents Monitor renal function Cr:4.15>>>3.55>>3.35>>>2.41 No urgent need for dialysis Appreciate Nephrology Input Hypertensive Urgency: Hold CHELSEA secondary to KEMAR Continue Amlodipine, Coreg Labetalol PRN monitor Constipation: Likely secondary to hypercalcemia/Narcotics Resolved Continue bowel regimen New diagnosis of DM II: A1C:6.7 Continue ISS, lantus monitor BGs DVT Px: SCDs: Re: thrombocytopenia. Code Status: Full code Disposition: Expect to discharge home when stable Vital Signs: Date Time Temp Pulse Resp B/P (MAP) Pulse Ox O2 Delivery O2 Flow Rate FiO2 10/02/17 11:39 36.3 92 16 172/92 (118) 96 Room Air 10/02/17 08:00 Room Air 10/02/17 07:41 36.5 88 18 159/90 (113) 93 Room Air 10/02/17 05:27 83 168/96 (120) 10/02/17 04:58 94 178/97 (124) 10/02/17 04:19 36.7 94 20 169/103 (125) 95 Room Air 10/02/17 04:00 Room Air 10/02/17 00:00 Room Air 10/01/17 23:12 36.9 94 18 161/83 (109) 95 Room Air 10/01/17 20:09 94 Room Air 10/01/17 19:13 36.3 109 18 171/87 (115) 97 Room Air 10/01/17 16:39 108 161/81 (107) Room Air 10/01/17 16:02 94 Room Air 10/01/17 15:01 36.4 111 22 196/98 (130) 97 Room Air 183/98 (126) 10/01/17 14:00 164/86 (112) Lab Results: Results Past 24 Hours Test 10/01/17 16:12 10/01/17 20:17 10/02/17 05:46 10/02/17 07:33 Range/Units Bedside Glucose 180 183 108 70-99 mg/dl White Blood Count 7.59 4.8-10.8 K/uL Red Blood Count 2.66 4.7-6.1 M/uL Hemoglobin 8.7 14.0-18.0 g/dL Hematocrit 25.3 42-52 % Mean Corpuscular Volume 95.1 80-100 fL Mean Corpuscular Hemoglobin 32.7 25-34 pg Mean Corpuscular Hemoglobin Concent 34.4 32-36 g/dl Platelet Count 98 130-400 K/uL Mean Platelet Volume 11.7 7.4-10.4 fL Neutrophils (%) (Auto) 83.8 % Lymphocytes (%) (Auto) 9.6 % Monocytes (%) (Auto) 6.2 % Eosinophils (%) (Auto) 0.0 % Basophils (%) (Auto) 0.1 % Neutrophils # (Auto) 6.36 1.4-6.5 K/uL Lymphocytes # (Auto) 0.73 1.2-3.4 K/uL Monocytes # (Auto) 0.47 0.11-0.59 K/uL Eosinophils # (Auto) 0.00 0-0.5 K/uL Basophils # (Auto) 0.01 0-0.2 K/uL RDW Standard Deviation 51.6 36.4-46.3 fL RDW Coefficient of Variation 14.8 11.5-14.5 % Immature Granulocyte % (Auto) 0.3 % Immature Granulocyte # (Auto) 0.02 0.00-0.02 K/uL Large Platelets 1+ Rouleau 1+ Sodium Level 137 136-145 mmol/L Potassium Level 4.0 3.5-5.1 mmol/L Chloride Level 109 98-107 mmol/L Carbon Dioxide Level 16 21-32 mmol/L Anion Gap 12.0 3-11 mmol/L Blood Urea Nitrogen 51 7-18 mg/dl Creatinine 2.41 0.60-1.40 mg/dl Est Creatinine Clear Calc Drug Dose 35.7 ml/min Estimated GFR () 34.0 Estimated GFR (Non- 29.3 BUN/Creatinine Ratio 21.2 10-20 Random Glucose 121 70-99 mg/dl Calcium Level 8.2 8.5-10.1 mg/dl Test 10/02/17 11:17 Range/Units Bedside Glucose 144 70-99 mg/dl
[2017-10-02] MEDS: HYDROmorphone INJ 0.5 MG/0.5 ML SYR IV PRN (14:39)
--- NOTE | 2017-10-02 16:52 | Nephrology Progress Note ---
Nephrology Progress Note Date of Service: Oct 02, 2017. Subjective seen on rounds this am approx 0930; up in chair, on RA, family at bedside for XRT this afternoon; no c/o Objective Date Time Temp Pulse Resp B/P (MAP) Pulse Ox O2 Delivery O2 Flow Rate FiO2 10/02/17 08:00 Room Air 10/02/17 07:41 36.5 88 18 159/90 (113) 93 Room Air 10/02/17 05:27 83 168/96 (120) 10/02/17 04:58 94 178/97 (124) 10/02/17 04:19 36.7 94 20 169/103 (125) 95 Room Air 10/02/17 04:00 Room Air 10/02/17 00:00 Room Air 10/01/17 23:12 36.9 94 18 161/83 (109) 95 Room Air 10/01/17 20:09 94 Room Air 10/01/17 19:13 36.3 109 18 171/87 (115) 97 Room Air 10/01/17 16:39 108 161/81 (107) Room Air 10/01/17 16:02 94 Room Air 10/01/17 15:01 36.4 111 22 196/98 (130) 97 Room Air 183/98 (126) 10/01/17 14:00 164/86 (112) 10/01/17 12:00 Room Air 10/01/17 11:21 37.0 106 18 170/96 (120) 95 Room Air Physical Exam: GENERAL: Awake, alert, oriented x3. up in chair on RA HEENT: Mucous membranes are moist. NECK: Supple. No jugular venous distention. CHEST: Bilaterally clear to auscultation. COR: RRR ABDOMEN: Soft, nontender. EXTREMITIES: Shows trace edema. NEURO: ray, fluent speech Current Inpatient Medications Medications (Trade) Dose Ordered Sig/Mykel Route Start Time Stop Time Status Last Admin Dose Admin Acetaminophen (Tylenol Tab) 650 mg Q4H PRN PO 09/28/17 21:00 10/28/17 20:59 Nitroglycerin (Nitrostat Tab) 0.4 mg UD PRN SL 09/28/17 21:00 10/28/17 20:59 Hydromorphone HCl (Dilaudid Inj) 0.5 mg Q3H PRN IV 09/28/17 21:00 10/12/17 20:59 10/01/17 04:09 0.5 MG Prochlorperazine Edisylate 5 mg/ Syringe 5 ml @ 5 mls/min Q6H PRN IV 09/28/17 21:00 10/28/17 20:59 09/28/17 23:24 5 MLS/MIN Acetaminophen/ Hydrocodone Bitart ([place] 5/325 Tab) 1 tab Q4 PRN PO 09/28/17 21:00 10/12/17 20:59 10/01/17 21:22 1 TAB Pantoprazole Sodium (Protonix Tab) 40 mg DAILY PRN PO 09/28/17 21:00 10/28/17 20:59 10/01/17 11:28 40 MG Docusate Sodium (coLACE CAP) 100 mg DAILY PO 09/29/17 09:00 10/29/17 08:59 10/02/17 07:39 100 MG Polyethylene (Miralax Powder Packet) 17 gm DAILY PRN PO 09/28/17 21:00 10/28/17 20:59 Lidocaine (Lidoderm Patch 5%) 1 patch QAM TD 09/29/17 09:00 10/29/17 08:59 09/29/17 08:05 1 PATCH Miscellaneous (Remove Lidoderm Patch) 1 ea DAILY@21 N/A 09/28/17 21:00 10/28/17 20:59 Lidocaine (Lidoderm Patch 5%) 1 patch QAM TD 09/29/17 09:00 10/29/17 08:59 09/29/17 08:06 1 PATCH Miscellaneous (Remove Lidoderm Patch) 1 ea DAILY@21 N/A 09/28/17 21:00 10/28/17 20:59 Lorazepam 0.5 mg/ Syringe 1 ml @ 1 mls/min Q4H PRN IV 09/28/17 22:15 10/28/17 22:14 Calcitonin [place] 320 inter.unit/ Syringe 1.6 ml @ 1.6 mls/sec Q12H SQ 09/29/17 09:00 10/29/17 08:59 10/01/17 21:23 1.6 MLS/SEC Dexamethasone (Decadron Tab) 40 mg DAILY PO 09/29/17 12:30 10/03/17 08:59 2/19/18 07:38 40 MG Labetalol HCl (Normodyne IV) 10 mg Q6H PRN IV 09/29/17 11:45 10/29/17 11:44 10/02/17 05:02 10 MG Insulin Aspart (novoLOG ASPART) SLIDING SCALE If C... ACHS SC 09/29/17 16:30 10/29/17 16:29 10/02/17 08:30 2 UNITS Glucose (Glucose 40% Gel) 15-30 GRAMS 15 GRAMS... UD PRN PO 09/29/17 16:30 10/29/17 16:29 Glucose (Glucose Chew Tab) 4-8 Tablets 4 Tabl... UD PRN PO 09/29/17 16:30 10/29/17 16:29 Dextrose (Dextrose 50% 50ML Syringe) 25-50ML OF 50% DW IV FOR... UD PRN IV 09/29/17 16:30 10/29/17 16:29 Glucagon (Glucagon Inj) 1 mg UD PRN SQ 09/29/17 16:30 10/29/17 16:29 Insulin Glargine (Lantus Solostar Pen) 10 units DAILY SC 10/01/17 09:00 10/30/17 08:59 10/02/17 08:30 10 UNITS Amlodipine Besylate (Norvasc Tab) 10 mg QAM PO 10/01/17 09:00 10/29/17 08:59 10/02/17 07:38 10 MG Sodium Chloride 1,000 ml @ 50 mls/hr Q20H IV 09/30/17 16:00 10/30/17 15:59 10/01/17 22:44 50 MLS/HR Carvedilol (Coreg Tab) 6.25 mg BID PO 10/01/17 21:00 10/31/17 20:59 10/02/17 07:39 6.25 MG Last 24 Hours Test 10/01/17 11:45 10/01/17 16:12 10/01/17 20:17 10/02/17 05:46 Bedside Glucose 117 mg/dl 180 mg/dl 183 mg/dl White Blood Count 7.59 K/uL Red Blood Count 2.66 M/uL Hemoglobin 8.7 g/dL Hematocrit 25.3 % Mean Corpuscular Volume 95.1 fL Mean Corpuscular Hemoglobin 32.7 pg Mean Corpuscular Hemoglobin Concent 34.4 g/dl Platelet Count 98 K/uL Mean Platelet Volume 11.7 fL Neutrophils (%) (Auto) 83.8 % Lymphocytes (%) (Auto) 9.6 % Monocytes (%) (Auto) 6.2 % Eosinophils (%) (Auto) 0.0 % Basophils (%) (Auto) 0.1 % Neutrophils # (Auto) 6.36 K/uL Lymphocytes # (Auto) 0.73 K/uL Monocytes # (Auto) 0.47 K/uL Eosinophils # (Auto) 0.00 K/uL Basophils # (Auto) 0.01 K/uL RDW Standard Deviation 51.6 fL RDW Coefficient of Variation 14.8 % Immature Granulocyte % (Auto) 0.3 % Immature Granulocyte # (Auto) 0.02 K/uL Large Platelets 1+ Rouleau 1+ Sodium Level 137 mmol/L Potassium Level 4.0 mmol/L Chloride Level 109 mmol/L Carbon Dioxide Level 16 mmol/L Anion Gap 12.0 mmol/L Blood Urea Nitrogen 51 mg/dl Creatinine 2.41 mg/dl Est Creatinine Clear Calc Drug Dose 35.7 ml/min Estimated GFR () 34.0 Estimated GFR (Non- 29.3 BUN/Creatinine Ratio 21.2 Random Glucose 121 mg/dl Calcium Level 8.2 mg/dl Test 10/02/17 07:33 Bedside Glucose 108 mg/dl Assessment & Plan 52-year-old male with multiple myeloma whom we follow for hypercalcemia and acute renal failure. Baseline creatinine 1.0 04/2017. 1. Hypercalcemia. The patient did receive Zometa 4 mg IV 09/30; also had calcitonin and aggressive IV fluid resuscitation. Calcitonin off now too.; daily bmp; cont low rate of ivf 2. Acute renal failure in the setting of hypercalcemia, chronic NSAID use as well as multiple myeloma. Continue IV fluid, does not need dialysis. Nonoliguric and slowly improving, though improvement trend has slowed somewhat. Chemistries acceptable.
--- NOTE | 2017-10-02 16:59 | Hematology/Oncology Prog Note ---
Hematology/Onc Progress Note Date of Service Oct 02, 2017. Diagnoses IgA kappa multiple myeloma Hypercalcemia Pain Medications Medications Administered Medications (Trade) Dose Ordered Sig/Mykel Route Start Time Stop Time Status Last Admin Dose Admin Sodium Chloride 1,000 ml @ 125 mls/hr Q8H STAT IV 09/28/17 15:09 09/28/17 20:47 DC 09/28/17 15:50 125 MLS/HR Sodium Chloride 500 ml @ 999 mls/hr Q31M STAT IV 09/28/17 15:09 09/28/17 15:39 DC 09/28/17 15:50 999 MLS/HR Hydromorphone HCl (Dilaudid Inj) 0.5 mg Q15M PRN IV 09/28/17 15:45 09/28/17 23:12 DC 09/28/17 15:51 0.5 MG Amlodipine Besylate (Norvasc Tab) 5 mg NOW ONCE PO 09/28/17 20:45 09/28/17 20:46 DC 09/28/17 20:51 5 MG Sodium Chloride 1,000 ml @ 999 mls/hr Q1H1M STAT IV 09/28/17 20:44 09/28/17 21:44 DC 09/28/17 20:51 999 MLS/HR Sodium Chloride 1,000 ml @ 250 mls/hr Q4H IV 09/28/17 22:00 09/28/17 23:02 DC 09/28/17 22:30 250 MLS/HR Hydromorphone HCl (Dilaudid Inj) 0.5 mg Q3H PRN IV 09/28/17 21:00 10/12/17 20:59 10/02/17 14:39 0.5 MG Prochlorperazine Edisylate 5 mg/ Syringe 5 ml @ 5 mls/min Q6H PRN IV 09/28/17 21:00 10/28/17 20:59 09/28/17 23:24 5 MLS/MIN Acetaminophen/ Hydrocodone Bitart ([place] 5/325 Tab) 1 tab Q4 PRN PO 09/28/17 21:00 10/12/17 20:59 10/02/17 09:50 1 TAB Pantoprazole Sodium (Protonix Tab) 40 mg DAILY PRN PO 09/28/17 21:00 10/28/17 20:59 10/01/17 11:28 40 MG Docusate Sodium (coLACE CAP) 100 mg DAILY PO 09/29/17 09:00 10/29/17 08:59 10/02/17 07:39 100 MG Docusate Sodium (coLACE CAP) 100 mg 7 ONCE PO 09/28/17 20:47 09/28/17 20:59 DC 09/28/17 23:24 100 MG Lidocaine (Lidoderm Patch 5%) 1 patch QAM TD 09/29/17 09:00 10/29/17 08:59 09/29/17 08:05 1 PATCH Lidocaine (Lidoderm Patch 5%) 1 patch QAM TD 09/29/17 09:00 10/29/17 08:59 09/29/17 08:06 1 PATCH Calcitonin Morning Sun 320 inter.unit/ Syringe 1.6 ml @ 1.6 mls/sec Q12H SQ 09/29/17 09:00 10/29/17 08:59 10/02/17 09:23 1.6 MLS/SEC Calcitonin Morning Sun 320 inter.unit/ Syringe 1.6 ml @ 1.6 mls/sec TODAY@2230 ONCE SQ 09/28/17 22:30 09/28/17 22:31 DC 09/28/17 22:30 1.6 MLS/SEC Potassium Chloride/Sodium Chloride 1,000 ml @ 250 mls/hr Q4H IV 09/28/17 23:00 09/29/17 05:21 DC 09/29/17 03:22 250 MLS/HR Zoledronic Acid 4 mg/Sodium Chloride 105 ml @ 210 mls/hr TODAY@0545 IV 09/29/17 05:45 09/30/17 16:21 DC 09/30/17 05:59 210 MLS/HR Sodium Chloride 1,000 ml @ 500 mls/hr Q2H ONCE IV 09/29/17 05:30 09/29/17 07:29 DC 09/29/17 05:32 500 MLS/HR Sodium Chloride 1,000 ml @ 250 mls/hr Q4H IV 09/29/17 07:30 09/29/17 15:30 DC 09/29/17 16:43 250 MLS/HR Amlodipine Besylate (Norvasc Tab) 5 mg 0523 ONCE PO 09/29/17 05:23 09/29/17 05:31 DC 09/29/17 05:56 5 MG Dexamethasone (Decadron Tab) 40 mg DAILY PO 09/29/17 12:30 10/03/17 08:59 10/02/17 07:38 40 MG Labetalol HCl (Normodyne IV) 10 mg Q6H PRN IV 09/29/17 11:45 10/29/17 11:44 10/02/17 05:02 10 MG Amlodipine Besylate (Norvasc Tab) 5 mg NOW ONCE PO 09/29/17 12:30 09/29/17 12:31 DC 09/29/17 12:15 5 MG Insulin Aspart (novoLOG ASPART) SLIDING SCALE If C... ACHS SC 09/29/17 16:30 10/29/17 16:29 10/02/17 12:58 5 UNITS Insulin Glargine (Lantus Solostar Pen) 10 units DAILY SC 10/01/17 09:00 10/30/17 08:59 10/02/17 08:30 10 UNITS Insulin Glargine (Lantus Solostar Pen) 10 units 0222 ONCE SC 09/30/17 02:22 09/30/17 02:30 DC 09/30/17 02:50 10 UNITS Sodium Chloride 1,000 ml @ 999 mls/hr Q1H1M STAT IV 09/30/17 02:30 09/30/17 03:30 DC 09/30/17 02:34 999 MLS/HR Sodium Chloride 1,000 ml @ 200 mls/hr Q5H IV 09/30/17 03:30 09/30/17 15:29 DC 09/30/17 09:37 200 MLS/HR Amlodipine Besylate (Norvasc Tab) 10 mg QAM PO 10/01/17 09:00 10/29/17 08:59 10/02/17 07:38 10 MG Amlodipine Besylate (Norvasc Tab) 10 mg 0226 ONCE PO 09/30/17 02:26 09/30/17 02:31 DC 09/30/17 02:55 10 MG Sodium Chloride 1,000 ml @ 50 mls/hr Q20H IV 09/30/17 16:00 10/30/17 15:59 2/18/18 22:44 50 MLS/HR Carvedilol (Coreg Tab) 6.25 mg BID PO 10/01/17 21:00 10/31/17 20:59 10/02/17 07:39 6.25 MG Al Hydroxide/Mg Hydroxide (Maalox Susp) 15 ml NOW STAT PO 10/01/17 21:27 10/01/17 21:29 DC 10/01/17 22:44 15 ML Subjective Mr. Benavidez looks much better than when I saw him in the office. His calcium is back to normal and his pain is better controlled. He has met with radiation oncology, who are planning palliative therapy to several sites, including some vertebral lesions that are at risk for cord involvement. He is still receiving IV narcotics, but they control his pain well. He also had a bone marrow biopsy by Dr. Jackson, the results of which are still pending. He has no other new complaints today. Review of Systems: Constitutional: + fatigue, No fever Respiratory: No cough, No shortness of breath Cardiovascular: No chest pain Abdomen: No pain, No nausea Musculoskeletal: + joint pain Neurologic: No paralysis, No weakness Heme: No abnormal bleeding/bruising, No night sweats Vital Signs Vital Signs Past 12 Hours Date Time Temp Pulse Resp B/P (MAP) Pulse Ox O2 Delivery O2 Flow Rate FiO2 10/02/17 16:00 Room Air 10/02/17 15:52 36.5 91 20 163/96 98 10/02/17 12:00 Room Air 10/02/17 11:39 36.3 92 16 172/92 (118) 96 Room Air 10/02/17 08:00 Room Air 10/02/17 07:41 36.5 88 18 159/90 (113) 93 Room Air 10/02/17 05:27 83 168/96 (120) 10/02/17 04:58 94 178/97 (124) Physical Exam Constitutional: General Apperance: heathly-appearing Level of Distress: NAD Psychiatric: Mental Status: active & alert Orientation: oriented except where noted Lungs: Auscuitation: breath sounds normal Cardiovascular: Heart Auscultation: RRR Abdomen: Inspection & Palpation: soft, no tenderness, guarding & rebound Laboratory Last 24 Hours Test 10/01/17 20:17 10/02/17 05:46 10/02/17 07:33 10/02/17 11:17 Bedside Glucose 183 mg/dl 108 mg/dl 144 mg/dl White Blood Count 7.59 K/uL Red Blood Count 2.66 M/uL Hemoglobin 8.7 g/dL Hematocrit 25.3 % Mean Corpuscular Volume 95.1 fL Mean Corpuscular Hemoglobin 32.7 pg Mean Corpuscular Hemoglobin Concent 34.4 g/dl Platelet Count 98 K/uL Mean Platelet Volume 11.7 fL Neutrophils (%) (Auto) 83.8 % Lymphocytes (%) (Auto) 9.6 % Monocytes (%) (Auto) 6.2 % Eosinophils (%) (Auto) 0.0 % Basophils (%) (Auto) 0.1 % Neutrophils # (Auto) 6.36 K/uL Lymphocytes # (Auto) 0.73 K/uL Monocytes # (Auto) 0.47 K/uL Eosinophils # (Auto) 0.00 K/uL Basophils # (Auto) 0.01 K/uL RDW Standard Deviation 51.6 fL RDW Coefficient of Variation 14.8 % Immature Granulocyte % (Auto) 0.3 % Immature Granulocyte # (Auto) 0.02 K/uL Large Platelets 1+ Rouleau 1+ Sodium Level 137 mmol/L Potassium Level 4.0 mmol/L Chloride Level 109 mmol/L Carbon Dioxide Level 16 mmol/L Anion Gap 12.0 mmol/L Blood Urea Nitrogen 51 mg/dl Creatinine 2.41 mg/dl Est Creatinine Clear Calc Drug Dose 35.7 ml/min Estimated GFR () 34.0 Estimated GFR (Non- 29.3 BUN/Creatinine Ratio 21.2 Random Glucose 121 mg/dl Calcium Level 8.2 mg/dl Assessment & Plan Mr. Benavidez has newly diagnosed multiple myeloma. Based on labs drawn in my office prior to admission, he has an IgA kappa M-protein that measures almost 6 grams. His calcium is much improved and his renal function is also improving. He is more anemic, but I suspect this is from hemodilution and that the Hgb in the 8s is more pharmacy services representative of his actual hemoglobin. All of these issues, along with the bone tumors, are attributable to his MM. Dr. Jackson started him on Decadron and he should continue that for now. Once he's ready to go from the standpoint of his pain medications and other medical issues, I can see him in the office to discuss more definitive therapy. In the meantime, he should continue the steroids until 10/03.
[2017-10-02] MEDS ORDERED: NURSING DECISION MEDICATION ORDER SCH (18:30)
[2017-10-02] MEDS: SODIUM CHLORIDE 0.9% 1000ML 1,000 ML IV SCH (18:54)
[2017-10-02] MEDS ORDERED: SODIUM CHLORIDE 0.65% NA SOLN 45 ML (OCEAN) PRN (19:00)
[2017-10-03 03:58] VITALS: BP 159/90; PULSE 84; TEMP 36.7; O2SAT 96
[2017-10-03] MEDS: HYDROCODONE/ACETAMIN 5/325MG TAB PO PRN ×2 (06:36→12:28)
[2017-10-03 07:19] VITALS: BP 166/105; PULSE 89; TEMP 36.7; O2SAT 97
[2017-10-03 07:23] LABS: HEMATOCRIT 25.4 % (42-52); HEMOGLOBIN 8.8 g/dL (14.0-18.0); IG# 0.02 K/uL (0.00-0.02); LYMPH % 11.2 %; LYMPH ABS # 0.74 K/uL (1.2-3.4); MEAN CELL VOLUME 94.8 fL (80-100); MEAN CORPUSCULAR HEMOGLOBIN 32.8 pg (25-34); MEAN CORPUSCULAR HGB CONC 34.6 g/dl (32-36); MONO % 9.1 %; NEUT % 79.4 %; NEUT ABS # 5.23 K/uL (1.4-6.5); PLATELET COUNT 122 K/uL (130-400); RED CELL DISTRIBUTION WIDTH SD 51.5 fL (36.4-46.3); WHITE BLOOD COUNT 6.59 K/uL (4.8-10.8)
[2017-10-03 07:30] LABS: CALCIUM 7.6 mg/dl (8.5-10.1); CREATININE 2.08 mg/dl (0.60-1.40); POTASSIUM 4.1 mmol/L (3.5-5.1)
[2017-10-03] MEDS: DOCUSATE SODIUM 100 MG CAP PO SCH (08:26)
[2017-10-03] MEDS: AMLODIPINE BESYLATE 5 MG TAB PO SCH (08:26)
[2017-10-03] MEDS: CARVEDILOL 6.25 MG TAB PO SCH (08:26)
[2017-10-03] MEDS: LIDODERM (LIDOCAINE) PATCH 5% TD SCH ×2 (08:27→08:58)
[2017-10-03] MEDS: INSULIN GLARGINE SOLOSTAR 100 UNITS/ML 3 ML PEN SC SCH (08:57)
[2017-10-03] MEDS: INSULIN ASPART 100 UNITS/ML 3 ML PEN SC SCH ×2 (08:57→12:30)
[2017-10-03] MEDS: CALCITONIN SALMON SQ SCH (08:58)
[2017-10-03 11:58] VITALS: BP_SYST 159; BP_SYST 164; BP_DIAS 105; BP_DIAS 93; PULSE 89; TEMP 36.5; O2SAT 97
--- NOTE | 2017-10-03 12:28 | Progress Note ---
Internal Med Progress Note Date of Service: Oct 03, 2017. Provider Documentation: SUBJECTIVE: Seen and examined at bedside Doing well today Planned for radiation therapy today Back pain is controlled No new complaints Denies any chest pain, SOB, abd pain Family at bedside Plan to discharge home today OBJECTIVE: Vital Signs-as noted below Physical Exam: General Appearance:Moderately built and nourished, no apparent distress Head: normocephalic, Atraumatic Eyes: normal inspection, EOMI, PERRL Neck: supple, Trachea midline Respiratory/Chest: Normal breath sounds, CTA Cardiovascular: S1, S2, +Tachycardia, No murmur Abdomen/GI:Soft, Non tender, Bowel sounds present Spine: Paraspinal tenderness Extremities/Musculoskelatal:normal inspection, Trace edema Neurologic/Psych:AAOX3, grossly no focal neurological deficits Skin: normal color, warm Lab data as noted below. ASSESSMENT & PLAN: Multiple Myeloma Pancytopenia Presented with pancytopenia, Hypercalcemia, ARF and back pain Bone marrow biopsy: consistent with Myeloma Palliative radiation therapy to start today Completed Decadron course Pain control Appreciate Hematology/Oncology Help Chemotherapy per Oncology likely next week as outpatient Hypercalcemia: Calcium levels normalized secondary to MM IV fluids as per Nephrology PTH, 25 Oh Vit D low Other Hypercalcemia work up pending Monitor calcium levels:14.5>>>12.1>>>10.9>>8.9>>7.6 Received 1 dose of Zometa and Calcitonin Acute Renal Failure: In setting of Hypercalcemia Likely multifactorial:MM, Chronic NSAIDs use and CHELSEA Hold CHELSEA IV fluids Avoid Nephrotoxic agents Monitor renal function Cr:4.15>>>3.55>>3.35>>>2.41>>2.08 Appreciate Nephrology Input Hypertensive Urgency: Hold CHELSEA secondary to KEMAR Continue Amlodipine, Coreg Labetalol PRN monitor Constipation: Likely secondary to hypercalcemia/Narcotics Resolved Continue bowel regimen New diagnosis of DM II: A1C:6.7 Continue ISS, lantus monitor BGs DVT Px: SCDs: Re: thrombocytopenia. Code Status: Full code Disposition: Plan to discharge home today Follow up with on Oct 05, 2017 at 9:35AM Follow up with your Oncologist Dr.Sean Darrius Page in 1 week as advised Follow up with your Radiation Oncologist Dr.Veeral Prieto for Radiation therapy as advised Follow up with your Welfare Interviewer on November 01, 2017 at [facility] Office Get Blood Test(Basic Metabolic Panel and Ionized Calcium on Sep, and followup with your doctor ( with results) Discuss with your PCP regarding your Diabetes Mellitus management as advised Seek immediate medical attention if your symptoms reoccur or worsen Check your Blood sugar levels daily as advised Medication Changes: Your Lisinopril is discontinued You are started on Amlodipine 10mg daily and Coreg 6.25mg twice a day for Blood Pressure Control Vital Signs: Date Time Temp Pulse Resp B/P (MAP) Pulse Ox O2 Delivery O2 Flow Rate FiO2 10/03/17 08:00 Room Air 10/03/17 07:19 36.7 89 16 166/105 (125) 97 Room Air 10/03/17 04:00 Room Air 10/03/17 03:58 36.7 84 16 159/90 (113) 96 Room Air 10/03/17 00:00 Room Air 10/02/17 23:55 36.7 88 16 156/89 (111) 97 Room Air 10/02/17 20:00 98 Room Air 10/02/17 19:50 89 163/98 (119) 10/02/17 19:06 36.5 98 17 174/99 (124) 94 Room Air 10/02/17 16:00 Room Air 10/02/17 15:52 36.5 91 20 163/96 98 10/02/17 12:00 Room Air Lab Results: Results Past 24 Hours Test 10/02/17 16:46 10/02/17 20:23 10/03/17 06:14 10/03/17 07:30 Range/Units Bedside Glucose 154 164 105 70-99 mg/dl White Blood Count 6.59 4.8-10.8 K/uL Red Blood Count 2.68 4.7-6.1 M/uL Hemoglobin 8.8 14.0-18.0 g/dL Hematocrit 25.4 42-52 % Mean Corpuscular Volume 94.8 80-100 fL Mean Corpuscular Hemoglobin 32.8 25-34 pg Mean Corpuscular Hemoglobin Concent 34.6 32-36 g/dl Platelet Count 122 130-400 K/uL Mean Platelet Volume 12.0 7.4-10.4 fL Neutrophils (%) (Auto) 79.4 % Lymphocytes (%) (Auto) 11.2 % Monocytes (%) (Auto) 9.1 % Eosinophils (%) (Auto) 0.0 % Basophils (%) (Auto) 0.0 % Neutrophils # (Auto) 5.23 1.4-6.5 K/uL Lymphocytes # (Auto) 0.74 1.2-3.4 K/uL Monocytes # (Auto) 0.60 0.11-0.59 K/uL Eosinophils # (Auto) 0.00 0-0.5 K/uL Basophils # (Auto) 0.00 0-0.2 K/uL RDW Standard Deviation 51.5 36.4-46.3 fL RDW Coefficient of Variation 15.0 11.5-14.5 % Immature Granulocyte % (Auto) 0.3 % Immature Granulocyte # (Auto) 0.02 0.00-0.02 K/uL Large Platelets 2+ Sodium Level 137 136-145 mmol/L Potassium Level 4.1 3.5-5.1 mmol/L Chloride Level 109 98-107 mmol/L Carbon Dioxide Level 17 21-32 mmol/L Anion Gap 11.0 3-11 mmol/L Blood Urea Nitrogen 52 7-18 mg/dl Creatinine 2.08 0.60-1.40 mg/dl Est Creatinine Clear Calc Drug Dose 41.2 ml/min Estimated GFR () 40.6 Estimated GFR (Non- 35.0 BUN/Creatinine Ratio 24.9 10-20 Random Glucose 102 70-99 mg/dl Calcium Level 7.6 8.5-10.1 mg/dl Test 10/03/17 11:24 Range/Units Bedside Glucose 106 70-99 mg/dl
[2017-10-03] MEDS ORDERED: MRLP17X PO (12:32)
[2017-10-03] MEDS ORDERED: CLC100 PO (12:32)
[2017-10-03] MEDS ORDERED: CRG625 PO (12:32)
[2017-10-03] MEDS ORDERED: NRV5 PO (12:32)
--- NOTE | 2017-10-03 12:39 | Discharge Summary ---
Discharge Summary Date of Service Oct 03, 2017. Discharge Summary Admission Date: Sep 28, 2017 at 20:44 Discharge Date: Oct 03, 2017 Discharge Disposition: Home Principal Diagnosis: Myeloma, ARF, Hypercalcemia Procedures: CT ABD: 1. Diffuse bony metastatic disease. 2. Moderate compression deformities of T11 and T12 presumably pathologic. 3. No significant compromise of the low thoracic and lumbar spinal canal. 4. Multiple hypodensities throughout the liver raising the possibility of multicystic change versus a component of metastatic change. 5. This appearance is highly suggestive of myelomatous-type change involving the axial and appendicular skeleton and possibly liver. CXR: 1. No new focal lung consolidations to suggest pneumonia. 2. Multiple scattered destructive and lytic osseous lesions are again noted. Consultations: Oncology, Radiation Oncology, Nephrology, Pending Studies/Follow-Up: Follow up with on Oct 05, 2017 at 9:35AM Follow up with your Oncologist Dr.Sean Darrius Page in 1 week as advised Follow up with your Radiation Oncologist Dr.Veeral Prieto for Radiation therapy as advised Follow up with your Middle School Football Coach on November 01, 2017 at [facility] Office Get Blood Test(Basic Metabolic Panel and Ionized Calcium on Sep, and followup with your doctor ( with results) Discuss with your PCP regarding your Diabetes Mellitus management as advised Seek immediate medical attention if your symptoms reoccur or worsen Check your Blood sugar levels daily as advised Medication Changes: Your Lisinopril is discontinued You are started on Amlodipine 10mg daily and Coreg 6.25mg twice a day for Blood Pressure Control Medication Reconciliation New Medications: Amlodipine Besylate (Amlodipine Besylate) 5 Mg Tab 10 MG PO QAM for 30 Days, #60 TAB 1 Refill Carvedilol (Carvedilol) 6.25 Mg Tab 6.25 MG PO BID for 30 Days, #60 TAB 1 Refill Docusate Sodium (Docusate Sodium) 100 Mg Cap 100 MG PO DAILY for 30 Days, #30 CAP Polyethylene (Miralax) 17 Gm Pow 17 GM PO DAILY PRN for Constipation for 15 Days, #15 EA Continued Medications: Hydrocodone/Acetaminophen 5MG/325MG ([place] 5MG/325MG) Tab 1 TABLET PO Q6 PRN for Pain, TAB PRN PAIN Omeprazole (Prilosec) 20 Mg Capcr 20 MG PO DAILY PRN for HEARTBURN, CAP Specialty Vitamins Products (Centrum Performance) 1 Tab Tab 1 TAB PO DAILY Discontinued Medications: Lisinopril (Zestril) 20 Mg Tab 20 MG PO DAILY, TAB Admission Information HPI (per Admitting provider): CHIEF COMPLAINT: Abnormal blood work. HISTORY OF PRESENT ILLNESS: History obtained from patient and records. Medical history significant for hypertension, arthritis. About 3 months ago, patient had worsening of chronic low back pain after a fall related to hunting. No relief with home NSAIDs and outpatient prednisone course. Patient was referred to a chiropractor last week who requested plain x-rays of the back. Outpatient x-ray showed a thoracolumbar soft tissue mass measuring about 8.8 cm on the left upper lateral chest wall with probable destruction of left lateral third rib. Further evaluation with CT thorax recommended. Ill-defined expansile lytic lesion involving the right posterior fourth rib, compression deformity of T11-T12 indeterminate, multiple degenerative changes. Outpatient CT chest contrast done last week showed innumerable destructive lytic bone lesions throughout the spine suggesting diffuse bony mets from unknown primary or multiple myeloma with multiple lytic rib sternal lesions. Largest of the lesion soft tissue component on the left third rib measuring 5.4 cm. Innumerable scattered low density lesions on the liver. Oncology consultation is recommended. (Unclear if renal function available prior to outpatient IV contrast administration.) Increased urinary frequency, constipation symptoms noted interim. No black, no bloody stools, poor appetite. No chest pain, no shortness of breath. [facility] [place] [facility] this morning. Patient sent for outpatient blood work, Patient's serum creatinine noted to be 4.03, calcium noted to be 14.5. Patient directed by oncologist to the ER. Received NSS. Physical Exam (per Admitting): PHYSICAL EXAMINATION: VITAL SIGNS: Blood pressure was noted to be 164/75 later 186/107, pulse rate 75, RR 18, temperature 36.6, sats 96 on room air. GENERAL: Noted to be slightly uncomfortable, no respiratory distress. SKIN: Pallor. Warm. HEENT: Pale palpebral conjunctivae. No ptosis. Dry mucosa. NECK: Short, nontender. CHEST: Decreased effort. Tenderness on the left chest wall. HEART: Regular rate and rhythm. No murmur. ABDOMEN: Some distention, nontender. BACK EXAMINATION: Tenderness on right flank. EXTREMITIES: No edema. No gross deformities. No tenderness. NEUROLOGIC: Coherent. No gross focality. Hospital Course Multiple Myeloma Pancytopenia Presented with pancytopenia, Hypercalcemia, ARF and back pain Bone marrow biopsy: consistent with Myeloma Palliative radiation therapy to start today Completed Decadron course Pain control Appreciate Hematology/Oncology Help Chemotherapy per Oncology likely next week as outpatient Hypercalcemia: Calcium levels normalized secondary to MM IV fluids as per Nephrology PTH, 25 Oh Vit D low Other Hypercalcemia work up pending Monitor calcium levels:14.5>>>12.1>>>10.9>>8.9>>7.6 Received 1 dose of Zometa and Calcitonin Acute Renal Failure: In setting of Hypercalcemia Likely multifactorial:MM, Chronic NSAIDs use and CHELSEA Hold CHELSEA IV fluids Avoid Nephrotoxic agents Monitor renal function Cr:4.15>>>3.55>>3.35>>>2.41>>2.08 Appreciate Nephrology Input Hypertensive Urgency: Hold CHELSEA secondary to KEMAR Continue Amlodipine, Coreg Labetalol PRN monitor Constipation: Likely secondary to hypercalcemia/Narcotics Resolved Continue bowel regimen New diagnosis of DM II: A1C:6.7 Continue ISS, lantus monitor BGs DVT Px: SCDs: Re: thrombocytopenia. Code Status: Full code Disposition: Plan to discharge home today Follow up with on Oct 05, 2017 at 9:35AM Follow up with your Oncologist Dr.Sean Darrius Page in 1 week as advised Follow up with your Radiation Oncologist Dr.Veeral Prieto for Radiation therapy as advised Follow up with your Middle School Football Coach on November 01, 2017 at [facility] Office Get Blood Test(Basic Metabolic Panel and Ionized Calcium on Sep, and followup with your doctor ( with results) Discuss with your PCP regarding your Diabetes Mellitus management as advised Seek immediate medical attention if your symptoms reoccur or worsen Check your Blood sugar levels daily as advised Medication Changes: Your Lisinopril is discontinued You are started on Amlodipine 10mg daily and Coreg 6.25mg twice a day for Blood Pressure Control Total time spent on discharge = 40 minutes This includes examination of the patient, discharge planning, medication reconciliation, and communication with other providers. Discharge Instructions Discharge Instructions Date of Service Oct 03, 2017. Admission Reason for Admission: Hypercalcemia Discharge Discharge Diagnosis / Problem: Myeloma, ARF, Hypercalcemia Discharge Goals Goal(s): Decrease discomfort, Improve function Activity Recommendations Activity Limitations: per Instructions/Follow-up section Lifting Limitations: gradually increase as tolerated Exercise/Sports Limitations: gradually increase as tolerated . Instructions / Follow-Up Instructions / Follow-Up Follow up with on Oct 05, 2017 at 9:35AM Follow up with your Oncologist Dr.Sean Darrius Page in 1 week as advised Follow up with your Radiation Oncologist Dr.Veeral Prieto for Radiation therapy as advised Follow up with your Middle School Football Coach on November 01, 2017 at [facility] Office Get Blood Test(Basic Metabolic Panel and Ionized Calcium on Sep, and followup with your doctor ( with results) Discuss with your PCP regarding your Diabetes Mellitus management as advised Seek immediate medical attention if your symptoms reoccur or worsen Check your Blood sugar levels daily as advised Medication Changes: Your Lisinopril is discontinued You are started on Amlodipine 10mg daily and Coreg 6.25mg twice a day for Blood Pressure Control Current Hospital Diet Patient's current hospital diet: AHA Diet (Heart Healthy), Diabetes Type 2 Diet Discharge Diet Recommended Diet: AHA Diet (Heart Healthy), Diabetes Type 2 Diet Pending Studies Studies pending at discharge: yes List of pending studies: Hypercalcemia work up Laboratory Results Hemoglobin A1c Test 09/29/17 02:40 Range/Units Estimated Average Glucose 146 mg/dl Hemoglobin A1c 6.7 H 4.5-5.6 % Medical Emergencies . Who to Call and When: Medical Emergencies: If at any time you feel your situation is an emergency, please call 911 immediately. . Non-Emergent Contact Non-Emergency issues call your: Primary Care Provider, Middle School Football Coach, Oncologist Call Non-Emergent contact if: you have a fever, your pain is not controlled, your pain is worsening, your pain is unusual for you, your pain is concerning you, you have any medication questions Seek immediate medical attention if your symptoms reoccur or worsen . . "Provider Documentation" section prepared by Sergio Nino. . VTE Core Measure Inpt VTE Proph given/why not?: SCD's <Electronically signed by Sergio Nino MD> Signed: 10/03/17 1238 Signed: The status of this report is Signed * If report status is Draft, the document has not been finalized by the responsible provider.
[2017-10-03 13:24] VITALS: BP 164/93; PULSE 89; TEMP 36.5; O2SAT 97
[2017-10-03] MEDS: HYDROmorphone INJ 0.5 MG/0.5 ML SYR IV PRN (14:44)
== END 2017-10-03 16:27 | disposition home or self-care (01) | DRG 841 ==
LOC: C.EDB 13:29 → ENRESERV 20:20 → C.MED 20:44
PROVIDERS: ADMIT Internal Medicine; ATTEND Hospitalist
PROC: 07DR3ZX Extraction of Iliac Bone Marrow, Percutaneous Approach, Diagnostic (ICD-10-PCS; principal; 2017-09-29)
DX: C90.00 Multiple myeloma not having achieved remission (principal); N17.9 Acute kidney failure, unspecified; D61.818 Other pancytopenia; M84.58XA Pathological fracture in neoplastic disease, other specified site, initial encounter for fracture; C79.51 Secondary malignant neoplasm of bone; E83.52 Hypercalcemia; N14.2 Nephropathy induced by unspecified drug, medicament or biological substance; I10 Essential (primary) hypertension; M19.90 Unspecified osteoarthritis, unspecified site; T50.8X5A Adverse effect of diagnostic agents, initial encounter; K59.09 Other constipation; E11.9 Type 2 diabetes mellitus without complications; K76.9 Liver disease, unspecified; R35.0 Frequency of micturition; K21.9 Gastro-esophageal reflux disease without esophagitis; I16.0 Hypertensive urgency; T40.605A Adverse effect of unspecified narcotics, initial encounter; Y92.239 Unspecified place in hospital as the place of occurrence of the external cause; Y92.019 Unspecified place in single-family (private) house as the place of occurrence of the external cause

== ENCOUNTER → 2017-10-04 | Outpatient (CLI) | payer OTHER ==
[~2017-10-04] MED LIST changes: -CHLO-274 PO; +CLC100 PO; +CRG625 PO; +HYDR-5688 PO; +MRLP17X PO; +NRV5 PO; -NYQUIL; +PRLSR20 PO; +SPECTAB PO
--- NOTE | 2017-10-04 16:04 | DIAGNOSTIC IMAGING REPORT ---
CT SCAN OF THE ABDOMEN AND PELVIS WITHOUT IV CONTRAST CLINICAL HISTORY: Bone tumors. COMPARISON STUDY: Abdominal CT dated 09/28/2017. Chest CT dated 09/21/2017. TECHNIQUE: CT scan of the abdomen and pelvis is performed from the lung bases to the proximal femora. Images are reviewed in the axial, sagittal, and coronal planes. IV contrast was not administered for this examination due to elevated serum creatinine. A dose lowering technique was utilized adhering to the principles of ALARA. CT DOSE: 848.84 mGycm FINDINGS: Lung bases: The heart is normal in size and without pericardial effusion. A large pleural-based mass/rib lesion is seen at the left apex on the street light cleaner tomogram. There is bibasilar scarring versus atelectasis. A trace right pleural effusion is identified. There is a small hiatal hernia. Liver: The unenhanced liver is normal in size, contour, and attenuation. There is no intrahepatic biliary ductal dilatation. There are numerous small hepatic cysts versus biliary hamartomas. These measure up to 1.7 cm. Gallbladder: Unremarkable. Spleen: Normal in size and attenuation. Pancreas: Unremarkable. Adrenal glands: Unremarkable. Kidneys: The unenhanced kidneys are normal in size and without hydronephrosis. There are no renal calculi identified. There is no evidence of contour deforming renal mass lesion. Abdominal vasculature: The abdominal aorta is normal in course and caliber noting mild atherosclerotic calcification. Bowel: There is mild to moderate colonic fecal retention. No bowel obstruction is seen. The appendix is well-visualized and normal. Peritoneum: There is no intraperitoneal free air or abdominal ascites. There is a small fat-containing umbilical hernia. Lymphadenopathy: None. Pelvic viscera: The bladder, prostate, and seminal vesicles are normal as visualized. There is a small fat-containing right inguinal hernia. 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 Lesions are seen throughout all visualized bony structures. There are moderate to severe compression deformity is of T11 and T12. There is no obvious soft tissue lesion encroaching upon the central canal. IMPRESSION: 1. No significant change from 09/28/2017. 2. Findings of diffuse osteolytic metastatic disease are similar to previous. The appearance is most suggestive multiple myeloma. 3. Again seen are moderate to severe compression deformities of T11 and T12. 4. Trace right pleural effusion. 5. Additional findings as above. Electronically signed by: Jarrod Linder M.D. 10/04/2017 4:03 PM Dictated Date/Time: 10/04/2017 3:45 PM
== END | disposition home or self-care (01) ==
LOC: C.CTS 15:04
PROVIDERS: ATTEND Internal Medicine Hematology & Oncology
DX: C41.3 Malignant neoplasm of ribs, sternum and clavicle (principal); S22.080A Wedge compression fracture of T11-T12 vertebra, initial encounter for closed fracture; X58.XXXA Exposure to other specified factors, initial encounter

== ENCOUNTER → 2017-11-14 | Outpatient (CLI) | payer OTHER ==
[~2017-11-14] MED LIST changes: +ACYC400T PO; +ASPI325T39 PO; +DXM/4 PO; +FURO-85 PO; +LENA10CA3 PO; +LENA20CA PO; +VLCI SC
[2017-11-14 13:59] VITALS: BP 122/77; PULSE 84; TEMP 36.7; O2SAT 99
--- NOTE | 2017-11-14 15:57 | Radiation Oncology Follow-Up ---
Radiation Oncology Follow-Up Date of Visit Nov 14, 2017. Reason For Visit One-month follow-up Radiation Completion Date Tspine and Lumbar spine 10/13/17 Diagnosis (1) Multiple myeloma Onset Date: 09/28/2017 Stage: IV Permanent Comment: -Bone marrow biopsy results are pending from 09/29/2017 Severe back pain Status post completion of radiation therapy to the thoracic and lumbar spine October 13, 2017. Received 3000 cGy to each area. Last Edited By: Tiara Nicole on Oct 20, 2017 08:15 History of Present Illness Mr. Benavidez presented with back pain. The patient initially saw a chiropractor with no relief of his pain. The chiropractor then obtained x-rays at an outside facility which revealed concerning findings consistent with potential malignancy. 09/21/2017 --- CT chest --- IMPRESSION: 1. Innumerable destructive lytic bony lesions throughout the spine suggest diffuse bony metastasis from unknown primary or multiple myeloma with multiple additional lytic rib and sternal lesions. Large destructive lesion with soft tissue component involves the lateral aspect of the left third rib measuring up to 5.4 cm. Oncology consultation recommended. 2. No evidence of lymphatic or pulmonary metastasis. 3. Innumerable scattered low attenuating lesions throughout the liver, most of which are too small to characterize are indeterminate without comparison. The largest lesion measures 1.4 cm and appears to be most compatible with a hepatic cyst. 09/28/2017 --- medical oncology consultation with Dr. Demarcus Page as an outpatient --- blood work completed which revealed hypercalcemia, renal insufficiency, protein gap all consistent with hematologic process, most likely multiple myeloma. Patient was recommended to proceed to emergency room for direct admission to the hospital due to renal insufficiency and poor pain control. 09/28/2017 --- CT of abdomen/pelvis --- IMPRESSION: 1. Diffuse bony metastatic disease. 2. Moderate compression deformities of T11 and T12 presumably pathologic. 3. No significant compromise of the low thoracic and lumbar spinal canal. 4. Multiple hypodensities throughout the liver raising the possibility of multicystic change versus a component of metastatic change. 5. This appearance is highly suggestive of myelomatous-type change involving the axial and appendicular skeleton and possibly liver. 09/29/2017 --- medical oncology inpatient consultation with Dr. Jackson and bone marrow biopsy --- results pending for bone marrow biopsy. Dr. Jackson has recommended consideration of palliative external beam radiation therapy to the thoracic spine and lumbar spine. We have now seen the patient in consultation to discuss role of radiation therapy. Decision was to treat with radiation therapy for palliation of pain to the thoracic and lumbar spine. He received 3000 cGy to each area. This was completed October 13, 2017. Interim History He was steadily improving over this past month until this past when he fell. He has nasal drainage and cough in the morning. he coughed to the point that he passed out. After the fall he has had discomfort of his posterior lower ribs. He does not particularly note pain along the spinal column. He gave this level 5 in discomfort. He was evaluated and given hydration. He did not notice any areas of bruising. There was some increased discomfort with cough. He does not like to take pain medications and therefore did not take any [id number] medications. He is started chemotherapy with Velcade and Revlimid. He is tolerating this well. Allergies Coded Allergies: No Known Allergies (Unverified , 10/12/13) Home Medications Scheduled Acyclovir (Acyclovir), 1 TAB PO BID Amlodipine Besylate (Amlodipine Besylate), 10 MG PO QAM Carvedilol (Carvedilol), 6.25 MG PO BID Dexamethasone (Decadron), 20 MG PO DIRECTED Lenalidomide (Revlimid), 5 MG PO DIRECTED Lenalidomide (Revlimid), 20 MG PO DIRECTED Specialty Vitamins Products (Centrum Performance), 1 TAB PO DAILY Scheduled PRN Hydrocodone/Acetaminophen 5MG/325MG ([place] 5MG/325MG), 1 TABLET PO Q6 PRN for Pain Omeprazole (Prilosec), 20 MG PO DAILY PRN for HEARTBURN Polyethylene (Miralax), 17 GM PO DAILY PRN for Constipation Review of Systems Gastrointestinal: Symptoms: Constipation GI Comments: Constipation manageable at home; Oral: Symptoms: Scant Saliva/Dry Mouth Respiratory: Symptoms: Dry Cough Other Respiratory: More of a AM cough; Urinary: Symptoms: WNL Skin: Symptoms: No Problems Physical Exam Vital Signs Date Time Temp Pulse Resp B/P (MAP) Pulse Ox O2 Delivery O2 Flow Rate FiO2 11/14/17 13:59 36.7 84 12 122/77 99 Fatigue: None General Appearance: no apparent distress Eyes: normal inspection, EOMI ENT: normal ENT inspection, hearing grossly normal Neck: no adenopathy, thyroid normal Respiratory/Chest: lungs clear, no respiratory distress, no accessory muscle use Cardiovascular: regular rate, rhythm, no gallop, no murmur Abdomen: non tender, soft, no organomegaly Additional Exam Notes: Back: There is slight tenderness to palpation in the lower lateral posterior rib area. There is no ecchymosis. There is resolving hyperpigmentation. There is no tenderness of the spinal processes. There is no tenderness of the paraspinous musculature. Pain Management Patient Reports Pain: Yes Initial Pain Intensity: 4.0 Pain Intervention: Refuses Pain Medication Pain Management Plan Declines pain medication. Laboratory Laboratory Results: not applicable Pathology Pathology Results: were reviewed, and pertinent findings noted in HPI Imaging Imaging Studies: not applicable Assessment & Plan Plan: Patient seen and examined by Dr. Prieto. Continue follow-up with medical oncology and his primary care physician. He will notify the PCP or medical oncologist if the rib discomfort does not steadily improve. A follow-up appointment with our office was not given. He may return on as needed basis. Assessment & Plan (Attending) I agree with note created by Tiara Nicole PA-C. I reviewed the patient's chart and information with her. I have examined and evaluated the patient. I reviewed relevant clinical information and answered the patient's and/or family' s questions. QA TEST ANALYST Total Time In Follow-Up I spent 20 minutes speaking to the patient and performing examination. I spent 15 minutes reviewing information and completing this note. AK Total Time (Attending) In Follow-Up I spent 15 minutes examining and counseling the patient. QA TEST ANALYST Copy To Ismael Hernandez D.O.; Demarcus Page MD Problem Qualifiers (1) Multiple myeloma: Multiple myeloma remission status: not in remission Qualified Codes: C90.00 - Multiple myeloma not having achieved remission
== END | disposition home or self-care (01) ==
LOC: C.ONC 13:53
PROVIDERS: ATTEND Physician Assistant Medical
DX: Z08 Encounter for follow-up examination after completed treatment for malignant neoplasm (principal); Z92.3 Personal history of irradiation; Z85.79 Personal history of other malignant neoplasms of lymphoid, hematopoietic and related tissues

== ENCOUNTER → 2017-11-17 | Outpatient (CLI) | payer OTHER ==
[~2017-11-17] MED LIST changes: -ASPI325T39 PO; -CLC100 PO; -FURO-85 PO; -VLCI SC
--- NOTE | 2017-11-17 14:07 | DIAGNOSTIC IMAGING REPORT ---
VENOUS DOPPLER LWR EXT BILA CLINICAL HISTORY: 52 years-old Male presenting with NEW ONSET LE EDEMA, R/O DVT STAT. TECHNIQUE: Real-time grayscale and color and spectral Doppler ultrasound imaging of the veins of the bilateral lower extremities was performed. Compression and augmentation were also utilized. COMPARISON: None. FINDINGS: Right: Common femoral vein: Patent. Greater saphenous vein: Patent. Deep femoral vein: Patent. Femoral vein: Patent. Popliteal vein: Patent. Calf veins: Patent. Left: Common femoral vein: Patent. Greater saphenous vein: Patent. Deep femoral vein: Patent. Femoral vein: Patent. Popliteal vein: Patent. Calf veins: Patent. Other: None. IMPRESSION: No evidence of deep venous thrombosis. Electronically signed by: Moshe Eng M.D. 11/17/2017 2:05 PM Dictated Date/Time: 11/17/2017 2:05 PM
== END | disposition home or self-care (01) ==
LOC: C.ULTR 13:15
PROVIDERS: ATTEND Internal Medicine Hematology & Oncology
DX: C90.00 Multiple myeloma not having achieved remission (principal)

== ENCOUNTER → 2017-11-23 | Outpatient (CLI) | payer OTHER | END | disposition home or self-care (01) | LOC: C.LAB 16:44 | PROVIDERS: ATTEND Internal Medicine | DX: N18.3 Chronic kidney disease, stage 3 (moderate) (principal) ==

== ENCOUNTER → 2018-04-05 | Outpatient (CLI) | payer OTHER ==
[~2018-04-05] MED LIST changes: +ASPI325T39 PO; +FURO-85 PO; +VLCI SC
[2018-04-05 12:14] LABS: BASO % 1.2 %; BASO ABS # 0.09 K/uL (0-0.2); EOS % 16.4 %; EOS ABS # 1.24 K/uL (0-0.5); HEMOGLOBIN 10.1 g/dL (14.0-18.0); IG# 0.03 K/uL (0.00-0.02); LYMPH ABS # 2.11 K/uL (1.2-3.4); MEAN CELL VOLUME 96.5 fL (80-100); MEAN CORPUSCULAR HEMOGLOBIN 32.5 pg (25-34); MEAN CORPUSCULAR HGB CONC 33.7 g/dl (32-36); MEAN PLATELET VOLUME 10.9 fL (7.4-10.4); MONO % 11.4 %; MONO ABS # 0.86 K/uL (0.11-0.59); NEUT % 42.6 %; NEUT ABS # 3.21 K/uL (1.4-6.5); PLATELET COUNT 206 K/uL (130-400); RED CELL DISTRIBUTION WIDTH CV 15.6 % (11.5-14.5); RED CELL DISTRIBUTION WIDTH SD 54.4 fL (36.4-46.3); WHITE BLOOD COUNT 7.54 K/uL (4.8-10.8)
[2018-04-05 12:32] LABS: ALBUMIN 3.4 gm/dl (3.4-5.0); ALKALINE PHOSPHATASE 82 U/L (45-117); ALT/SGPT 26 U/L (12-78); AST/SGOT 20 U/L (15-37); BLOOD UREA NITROGEN 12 mg/dl (7-18); CALCIUM 9.1 mg/dl (8.5-10.1); CARBON DIOXIDE 24 mmol/L (21-32); CREATININE 1.27 mg/dl (0.60-1.40); GLUCOSE 97 mg/dl (70-99); PHOSPHORUS 3.9 mg/dl (2.5-4.9); SODIUM 139 mmol/L (136-145); TOTAL PROTEIN 6.6 gm/dl (6.4-8.2); URIC ACID 5.3 mg/dl (2.6-7.2)
== END | disposition home or self-care (01) ==
LOC: C.CCL 11:42
PROVIDERS: ATTEND Nurse Practitioner
DX: C90.00 Multiple myeloma not having achieved remission (principal); Z94.84 Stem cells transplant status

== ENCOUNTER 2018-08-16 15:39 | Inpatient (IN) ==
[2018-08-16] MEDS ORDERED: SODIUM CHLORIDE 0.9% 1000ML 1,000 ML IV SCH (16:30)
[2018-08-16 16:43] LABS: Hematocrit (blood only) 23.1 % (42-52); Hemoglobin 7.8 g/dL (14.0-18.0); Mean Corpuscular Hgb Conc 33.8 g/dL (32-36); Mean Corpuscular Volume 92.4 fL (80-100); RDW Coefficient of Variation 15.9 % (11.5-14.5); RDW Standard Deviation 53.3 fL (36.4-46.3); White Blood Count 5.04 K/uL (4.8-10.8)
[2018-08-16 16:52] LABS: INR 1.3 (0.9-1.1); Partial Thromboplastin Ratio 1.2; Prothrombin Time 12.5 Seconds (9.0-12.0)
--- NOTE | 2018-08-16 16:59 | XRay Report ---
XR chest 1V portable HISTORY: 53 years-old Male Sepsis acute sepsis COMPARISON: Chest radiograph 09/28/2017, PET CT 05/23/2018 TECHNIQUE: Portable AP view of the chest FINDINGS: Cardiac silhouette is unchanged. Mild pulmonary vascular congestion. No pneumothorax, pleural effusio n or overt pulmonary edema. Subsegmental bibasilar opacities. Multiple lytic bone lesions seen about the ribs. Lytic lesions of the thoracic spine are better seen on comparison PET/CT. Right rotator cuf f calcific tendinosis. IMPRESSION: 1. Subsegmental bibasilar opacities suggest probable atelectasis. 2. Multiple lytic bone lesions redemonstrated compatible with patient's known clinical diagnosis of m ultiple myeloma. The above report was generated using voice recognition software. It may contain grammatical, syntax o r spelling errors. Electronically signed by: Vikram Brown M.D. 08/16/2018 4:57 PM
[2018-08-16 17:01] LABS: Mean Platelet Volume 11.5 fL (7.4-10.4); Platelet Count 39 K/uL (130-400)
[2018-08-16 17:23] LABS: Albumin Globulin Ratio 0.3 (0.9-2); BUN Creatinine Ratio 20.8 (10-20); Bilirubin,Total 0.5 mg/dl (0.2-1); Calcium 8.4 mg/dl (8.5-10.1); Est GFR (African American) 49.7; Est GFR (Non-African American) 42.9; Globulin 6.9 gm/dl (2.5-4.0); Potassium 4.5 mmol/L (3.5-5.1); Total Protein 8.9 gm/dl (6.4-8.2)
[2018-08-16 17:52] LABS: Basophils # (auto) 0.03 K/uL (0-0.2); Basophils % (auto) 0.6 %; Eosinophils # (auto) 0.07 K/uL (0-0.5); Eosinophils % (auto) 1.4 %; Immature Granulocytes # (auto) 0.22 K/uL (0.00-0.02); Immature Granulocytes % (auto) 4.4 %; Lymphocytes # (auto) 1.21 K/uL (1.2-3.4); Monocytes # (auto) 0.87 K/uL (0.11-0.59); Monocytes % (auto) 17.3 %; Neutrophils # (auto) 2.64 K/uL (1.4-6.5); Neutrophils % (auto) 52.3 %
[2018-08-16 19:20] LABS: Appearance Urine Clear (Clear); Bilirubin Urine Negative (Negative); Color Urine Yellow; Glucose Urine UA Negative (Negative); Ketones Urine Negative (Negative); Leukocyte Esterase Urine Negative (Negative); Nitrite Urine Negative (Negative); Protein Urine Trace (Negative); Urobilinogen Urine Negative (Negative)
[2018-08-16 19:23] LABS: Bacteria Urine Negative (Negative); Hyaline Casts Urine 0-5 /lpf (0-5); RBC Urine 0-4 /hpf (0-4); WBC Urine 0-5 /hpf (0-5)
[2018-08-16] MEDS ORDERED: CEFEPIME CONSULT ACTIVE ONE (19:31)
[2018-08-16] MEDS ORDERED: VANCOMYCIN CONSULT ACTIVE PRN (19:31)
--- NOTE | 2018-08-16 19:31 | History & Physical Report ---
Date of Service August 16, 2018 Assessment & Plan (1) Anemia: (2) Thrombocytopenia: -Admit to [facility] with telemetry -Patient sent by oncologist for evaluation of shortness of breath and development of petechial rash across the chest and legs -Patient with history of multiple myeloma, status post stem cell transplant; most recently receiving Revlimid and Velcade however been on hold due to anemia and thrombocytopenia -In the ED, hemoglobin found to be 7.8, platelet count 39K -Lab results were discussed with Dr. Page (patient's primary oncologist) by ED physician and 1 unit PRBC was recommended (3) Fever: -Temperature peaked at 38.5 since presentation to the ED -No obvious source of infection identified -Blood cultures obtained in ED -No neutropenia, normal lactic acid, BP stable -Tachycardia noted (possibly due to anemia; also evaluating for PE as discussed below) -will place on empiric Vanco and cefepime (4) Shortness of breath: -CXR negative for acute cardio pulmonary findings -Possibly due to anemia however given history of multiple myeloma, tachycardia, fever -will evaluate for PE -VQ scan ordered (unable to do CTA with contrast due to CKD and myeloma) (5) KEMAR (acute kidney injury): (6) Chronic kidney disease (CKD), stage III (moderate): -Baseline creatinine runs in the low to mid 1's -Noted to be 1.7 today -Likely due to underlying myeloma -Received IVF in the ED -Continue to monitor, avoid nephrotoxic agents when able (7) Hyponatremia: -Appears to be chronic for the past 1 month -possibly due to poor p.o. intake/chemotherapy -Received IVF in the ED, monitor sodium levels closely (8) Multiple myeloma: (9) Hx of stem cell transplant: -Follows with Dr. Page -consult has been placed (10) Hypertension: -BP controlled, continue amlodipine (11) DVT prophylaxis: -SCDs; no pharmacologic prophylaxis secondary to thrombocytopenia History of Present Illness Chief Complaint: Shortness of breath Primary Care Provider: Ismael Hernandez 53-year-old male who was sent to the ED by his outpatient oncologist for evaluation of shortness of breath and anemia. Patient has history of multiple myeloma, status post stem cell transplant. Patient has been receiving Revlimid and Velcade however reports these have been on hold due to low hemoglobin and platelet count. Patient was most recently transfused with PRBC on 08/06. He reports some mildly increasing exertional shortness of breath. He denies any shortness of breath at rest or chest pain or pressure. No lightheadedness, dizziness, diaphoresis, syncopal events. He has had some mild epistaxis and has developed some mild petechiae across his chest. He denies abdominal pain, nausea, vomiting, diarrhea. No bright red bleeding per rectum or dark tarry stools. Denies fevers and chills. No urinary symptoms or hematuria. In the ED , he was found to be 7.8 and platelet count 39K. He had a low-grade fever at 37.8 and tachycardia. No clear source of infection has been identified thus far. Na+ 128, creatinine 1.75 (baseline runs in the low to mid 1's). Patient was given IVF and type and crossed for 1 unit of blood. Allergies Allergy/AdvReac Type Severity Reaction Status Date / Time No Known Allergies Allergy Verified 08/16/18 17:29 Home Medications Home Medications Medication Instructions Recorded Confirmed Type acyclovir [Zovirax] 400 mg PO BID 08/16/18 08/16/18 History amlodipine [Norvasc] 10 mg PO DAILY 08/16/18 08/16/18 History cholecalciferol (vitamin D3) 5,000 unit PO DAILY 08/16/18 08/16/18 History [Vitamin D3] wotjmwyzzrnx-ulkl-oezho acid 1 tab PO DAILY 08/16/18 08/16/18 History [Centrum] omeprazole 20 mg PO DAILY 08/16/18 08/16/18 History Past Med/Surg History Medical History Chronic kidney disease (CKD), stage III (moderate) (Chronic) Hypertension (Chronic) Multiple myeloma (Chronic 09/28/17) "-Bone marrow biopsy results are pending from 09/29/2017 Severe back pain Status post completion of radiation therapy to the thoracic and lumbar spine October 13, 2017. Received 3000 cGy to each area." On 09/29/17 13:19 Veeral Prieto wrote "-Bone marrow biopsy results are pending from 09/29/2017" Surgical History Hx of stem cell transplant (Chronic) Family History Mother Hypertension Father IPF (idiopathic pulmonary fibrosis) Social History Feels Safe at Home: Yes Smoking Status: Former smoker Hx Alcohol Use: Yes Alcohol Intake Frequency: holidays/special occasions only Review of Systems ROS per HPI, all other systems reviewed and negative Physical Exam 2 Vital Signs (Past 24 Hours): Last Vital Signs Temp 38.2 C H 08/16/18 19:08 Pulse 111 H 08/16/18 19:08 Resp 25 H 08/16/18 19:08 BP 133/61 08/16/18 19:08 Pulse Ox 96 08/16/18 19:08 Constitutional: WD/WN, vitals as above Eyes: PERRL, conjunctivae normal, anicteric sclerae ENMT: external ear and nose normal, oropharynx normal Respiratory: normal respiratory effort, lungs clear to auscultation Cardiovascular: Rate/Rhythm: regular rhythm and + tachycardic Vessels: normal peripheral pulses Extremities: no edema Gastrointestinal (Abdomen): normal bowel sounds, soft, nontender, no hepatosplenomegaly Musculoskeletal: no cyanosis or clubbing, extremities motor strength 5/5 Skin: Skin warm and dry; petechia noted over chest wall and bilateral lower extremities Neurologic: PERRL, EOMI, accommodation nl, no face palsy, no dysarthria Psychiatric: A+Ox3, euthymic affect Results & Data Laboratory Results Laboratory Last Values WBC 5.04 K/uL (4.8-10.8) 08/16/18 16:20 RBC 2.50 M/uL (4.7-6.1) L 08/16/18 16:20 Hgb 7.8 g/dL (14.0-18.0) L 08/16/18 16:20 Hct 23.1 % (42-52) L 08/16/18 16:20 MCV 92.4 fL (80-100) 08/16/18 16:20 MCH 31.2 pg (25-34) 08/16/18 16:20 MCHC 33.8 g/dL (32-36) 08/16/18 16:20 RDW Std Deviation 53.3 fL (36.4-46.3) H 08/16/18 16:20 RDW Coeff of Jenae 15.9 % (11.5-14.5) H 08/16/18 16:20 Plt Count 39 K/uL (130-400) L 08/16/18 16:20 MPV 11.5 fL (7.4-10.4) H 08/16/18 16:20 Immature Gran % (Auto) 4.4 % 08/16/18 16:20 Neut % (Auto) 52.3 % 08/16/18 16:20 Lymph % (Auto) 24.0 % 08/16/18 16:20 [place] % (Auto) 17.3 % 08/16/18 16:20 Eos % (Auto) 1.4 % 08/16/18 16:20 Baso % (Auto) 0.6 % 08/16/18 16:20 Immature Gran # (Auto) 0.22 K/uL (0.00-0.02) H 08/16/18 16:20 Neut # (Auto) 2.64 K/uL (1.4-6.5) 08/16/18 16:20 Lymph # (Auto) 1.21 K/uL (1.2-3.4) 08/16/18 16:20 [place] # (Auto) 0.87 K/uL (0.11-0.59) H 08/16/18 16:20 Eos # (Auto) 0.07 K/uL (0-0.5) 08/16/18 16:20 Baso # (Auto) 0.03 K/uL (0-0.2) 08/16/18 16:20 PT 12.5 Seconds (9.0-12.0) H 08/16/18 16:20 INR 1.3 (0.9-1.1) H 08/16/18 16:20 APTT 30.0 Seconds (21.0-31.0) 08/16/18 16:20 PTT Ratio 1.2 08/16/18 16:20 Sodium 128 mmol/L (136-145) L 08/16/18 16:20 Potassium 4.5 mmol/L (3.5-5.1) 08/16/18 16:20 Chloride 98 mmol/L (98-107) 08/16/18 16:20 Carbon Dioxide 20 mmol/L (21-32) L 08/16/18 16:20 Anion Gap 10.0 (3-11) 08/16/18 16:20 BUN 36 mg/dl (7-18) H 08/16/18 16:20 Creatinine 1.75 mg/dl (0.6-1.4) H 08/16/18 16:20 Est Cr Clr Drug Dosing 43.0 ml/min 08/16/18 16:20 Est GFR ( Amer) 49.7 08/16/18 16:20 Est GFR (Non-Af Amer) 42.9 08/16/18 16:20 BUN/Creatinine Ratio 20.8 (10-20) H 08/16/18 16:20 Glucose 101 mg/dl (70-99) H 08/16/18 16:20 POC Lactic Acid Sixto 1.51 mmol/L (0.90-1.70) 08/16/18 16:26 Lactate 1.7 mmol/L (0.4-2.0) 08/16/18 16:31 Calcium 8.4 mg/dl (8.5-10.1) L 08/16/18 16:20 Total Bilirubin 0.5 mg/dl (0.2-1) 08/16/18 16:20 AST 62 U/L (15-37) H 08/16/18 16:20 ALT 41 U/L (12-78) 08/16/18 16:20 Alkaline Phosphatase 90 U/L (45-117) 08/16/18 16:20 Total Protein 8.9 gm/dl (6.4-8.2) H 08/16/18 16:20 Albumin 2.0 gm/dl (3.4-5.0) L 08/16/18 16:20 Globulin 6.9 gm/dl (2.5-4.0) H 08/16/18 16:20 Albumin/Globulin Ratio 0.3 (0.9-2) L 08/16/18 16:20 Specimen Hemolysis 08/16/18 16:20 Urine Color Yellow 08/16/18 19:07 Urine Appearance Clear (Clear) 08/16/18 19:07 Urine pH 6.0 (4.5-7.5) 08/16/18 19:07 Ur Specific [place] 1.010 (1.000-1.030) 08/16/18 19:07 Urine Protein Trace (Negative) H 08/16/18 19:07 Urine Glucose (UA) Negative (Negative) 08/16/18 19:07 Urine Ketones Negative (Negative) 08/16/18 19:07 Urine Blood Trace (Negative) H 08/16/18 19:07 Urine Nitrite Negative (Negative) 08/16/18 19:07 Urine Bilirubin Negative (Negative) 08/16/18 19:07 Urine Urobilinogen Negative (Negative) 08/16/18 19:07 Ur Leukocyte Esterase Negative (Negative) 08/16/18 19:07 Urine RBC 0-4 /hpf (0-4) 08/16/18 19:07 Urine WBC 0-5 /hpf (0-5) 08/16/18 19:07 Ur Epithelial Cells 5-10 /lpf (0-5) H 08/16/18 19:07 Urine Bacteria Negative (Negative) 08/16/18 19:07 Hyaline Casts 0-5 /lpf (0-5) 08/16/18 19:07 Blood Type B Positive 08/16/18 16:39 Antibody Screen NEGATIVE 08/16/18 16:39 Crossmatch See Detail 08/16/18 16:39 Diagnostic Findings CXR IMPRESSION: 1. Subsegmental bibasilar opacities suggest probable atelectasis. 2. Multiple lytic bone lesions redemonstrated compatible with patient's known clinical diagnosis of multiple myeloma. Code Status & VTE Plan VTE Prophylaxis Plan VTE Prophylaxis will be ordered: Yes Supervising Physician Co-Signing Physician Notes I saw this patient with the nurse practitioner, I participated in the history, physical, review of systems, and physical exam. I reviewed the medications with the patient and the SECURITY SCREENER and helped reconcile the medications. I helped take a detailed family and social history as well. I formulated the assessment and plan personally with the SECURITY SCREENER and went over it with the patient and his family.
[2018-08-16] MEDS ORDERED: CEFEPIME CONSULT ACTIVE PRN (20:25)
--- NOTE | 2018-08-16 20:59 | Emergency Department Note ---
Entered by Kacey Koch acting as a scribe for Ovi Hawkins History of Present Illness General Chief complaint: Weakness Stated complaint: BLEEDING, WEAKNESS, REFERRED Time Seen by Provider: 08/16/18 16:19 Source: patient History of Present Illness Onset (ago): week(s) 2 Pain Consistency: + other (worsening) Quality: + other (weakness) Exacerbated By: + movement (exertion) Associated symptoms: + denies other symptoms (hematochezia), + rash and + other (nosebleeds); no fever/chills (fever) The patient is a 53 year old male who presents to the Emergency Room with complaints of worsening weakness starting 2 weeks ago. The patient states the he had a stem cell transplant in February at [facility]. He states that he had it done due to his multiple myeloma. He reports that after giving him the stem cells they still wanted to due 3 more rounds of chemo. He states that they told him it was going to be worse than before he had the cells. He states that for the past 2 weeks he has had this increased weakness. He states that he was sent here by his PCP because he had lab work done 2 days ago and they are worried about his platelets as they have slowly been dropping. The patient complains of intermittent nose bleeds any time he exerts himself and this rash on his chest. The patient denies a fever and hematochezia. Home Medications Home Medications Medication Instructions Recorded Confirmed Type acyclovir [Zovirax] 400 mg PO BID 08/16/18 08/16/18 History amlodipine [Norvasc] 10 mg PO DAILY 08/16/18 08/16/18 History cholecalciferol (vitamin D3) 5,000 unit PO DAILY 08/16/18 08/16/18 History [Vitamin D3] zlirhlxocvcd-gfyg-wejrc acid 1 tab PO DAILY 08/16/18 08/16/18 History [Centrum] omeprazole 20 mg PO DAILY 08/16/18 08/16/18 History Allergies Allergy/AdvReac Type Severity Reaction Status Date / Time No Known Allergies Allergy Verified 08/16/18 17:29 Past Med/Surg History Medical History Chronic kidney disease (CKD), stage III (moderate) (Chronic) Hypertension (Chronic) Multiple myeloma (Chronic 09/28/17) "-Bone marrow biopsy results are pending from 09/29/2017 Severe back pain Status post completion of radiation therapy to the thoracic and lumbar spine October 13, 2017. Received 3000 cGy to each area." On 09/29/17 13:19 Edgar Prieto wrote "-Bone marrow biopsy results are pending from 09/29/2017" Surgical History Hx of stem cell transplant (Chronic) Family History Mother Hypertension Father IPF (idiopathic pulmonary fibrosis) Social History marital status: Current Living Situation: Family Feels Safe at Home: Yes Smoking Status: Former smoker Hx Alcohol Use: Yes Alcohol Intake Frequency: holidays/special occasions only Review of Systems See HPI for pertinent positives & negatives. and A total of 10 systems reviewed and were otherwise negative Physical Exam Vital Signs Vital Signs - 24 hr 08/16/18 16:10 08/16/18 17:30 08/16/18 18:36 Temperature 37.8 C H 38.5 C H Temperature Source Oral Oral Sepsis Recent Fever Within 48 Hours No Sepsis Action Taken by Nursing No Action Required Pulse Rate 128 H 115 H 122 H Pulse Rate [Apical] 115 H Pulse Rhythm Regular Pulse Rhythm [Apical] Regular Pulse Strength Respiratory Rate 18 20 24 Respiratory Effort / Characteristics Respiratory Depth Normal Blood Pressure 117/75 123/66 Blood Pressure [Right Arm] 120/65 Blood Pressure Mean 89 85 Blood Pressure Mean [Right Arm] 83 Blood Pressure Position Sitting Blood Pressure Position [Right Arm] Pulse Oximetry 97 97 97 Oxygen Delivery Method Room Air Room Air 08/16/18 18:53 08/16/18 19:00 08/16/18 19:08 Temperature 38.4 C H 38.2 C H Temperature Source Oral Oral Sepsis Recent Fever Within 48 Hours Sepsis Action Taken by Nursing Pulse Rate 113 H 111 H Pulse Rate [Apical] 115 H Pulse Rhythm Regular Pulse Rhythm [Apical] Regular Pulse Strength Respiratory Rate 30 H 30 H 25 H Respiratory Effort / Characteristics Respiratory Depth Normal Blood Pressure 111/63 133/61 Blood Pressure [Right Arm] 120/65 Blood Pressure Mean 79 85 Blood Pressure Mean [Right Arm] 83 Blood Pressure Position Blood Pressure Position [Right Arm] Pulse Oximetry 95 95 96 Oxygen Delivery Method Room Air 08/16/18 19:38 08/16/18 20:15 Temperature 38.2 C H 38.2 C H Temperature Source Oral Oral Sepsis Recent Fever Within 48 Hours Sepsis Action Taken by Nursing Pulse Rate 111 H Pulse Rate [Apical] 110 H Pulse Rhythm Regular Pulse Rhythm [Apical] Pulse Strength Normal Respiratory Rate 16 20 Respiratory Effort / Characteristics Non-Labored Spontaneous Respiratory Depth Normal Blood Pressure 120/61 Blood Pressure [Right Arm] 119/70 Blood Pressure Mean 80 Blood Pressure Mean [Right Arm] 86 Blood Pressure Position Sitting Blood Pressure Position [Right Arm] Lying Pulse Oximetry 96 97 Oxygen Delivery Method Room Air Physical Exam GENERAL: He is oriented to person, place, and time. He appears well-developed and well-nourished. He does not appear distressed. HENT: Exam performed. - Head: Normocephalic and atraumatic. - Nose: Dried blood in the nares. - Right Ear: External ear normal. No mastoid tenderness. - Left Ear: External ear normal. No mastoid tenderness. - Mouth/Throat: The oropharynx is clear and moist. No petechiae in the mouth or intraoral lesions. No trismus in the jaw. No dental abscesses or uvula swelling. No oropharyngeal exudate or tonsillar abscesses. EYES: Conjunctivae and EOM are normal. Pupils are equal, round, and reactive to light. Right eye exhibits no discharge. Left eye exhibits no discharge. No scleral icterus. NECK: Normal range of motion. Neck supple. No JVD present. No spinous process tenderness present. No carotid bruit present. No rigidity. No tracheal deviation and normal range of motion present. No Brudzinski's sign and no Kernig 's sign noted. CV: Tachycardic rate, regular rhythm, normal heart sounds and intact distal pulses. There is no peripheral edema. Palpable radial pulses bue. PULM/CHEST: Effort normal and breath sounds normal. No respiratory distress. No stridor. He has rhonchi bilaterally. He has no wheezes. He has no rales. - Chest Wall: He exhibits no tenderness. ABD: The abdomen is soft. Bowel sounds are normal. He has no distension. No mass is present. There is no tenderness. There is no rebound, no guarding, no Garcia's sign and no tenderness at McBurney's point. Rovsig negative. MUSC/SKEL: Normal range of motion. There is no peripheral edema, tenderness or deformity. LYMPH: No cervical adenopathy. NEURO: He is alert and oriented to person, place, and time. He has normal strength. No cranial nerve deficit or sensory deficit. Coordination and gait normal. GCS eye subscore is 4. GCS verbal subscore is 5. GCS motor subscore is 6. Cerebellar tests wnl. SKIN: Skin is warm and dry. He is not diaphoretic. Petechiae over the chest and linear excoriations over the bilateral lower extermities. PSYCH: He has a normal mood and affect. Behavior is normal. Judgment and thought content normal. Course 1620: Past medical records reviewed. The patient was evaluated in room A10, and a complete history and physical examination were performed. The patient is tachycardic and has a slightly elevated temperature at this time, A code sepsis was initiated at this time. 1647: Hemoglobin 7.8, platelets 39. I discussed the patient's case with Dr. Morales [facility]. He states that the patient's platelets are better than he expected and to hold on a transfusion of platelets at this item. He states that if the patient reports that he has short of breath, to transfuse packed red blood cell transfusions at this time. He agrees that with the patient's temperature and chest x-ray findings he should be admitted to have blood cultures done. 165: I reevaluated the patient and updated him on his test results. He is feeling short of breath and he states that anytime his hemoglobin is under 8, he is transfused. I had him sign the consent form at this time and he will receive a blood transfusion. I discussed the treatment plan with him. He verbally agrees and understands. 1747: [facility] will [facility] the patient for further management. Consultations Consultation #1: I discussed the patient's case with Dr. Morales Oncology. He states that the patient's platelets are better than he expected and to hold on a transfusion of them at this item. He states that his hemoglobin is at baseline and unless he is short of breath, to hold on the packed red blood cell transfusions at this time. He agrees that with the patient's temperature and chest x-ray findings he should be admitted to have blood cultures done. Time: 16:47 Consultation #2: I reviewed the patient's case with KENNA Goldberg- [facility] Hospitalist. She will evaluate the patient for further management. Time: 17:47 Administered Medications Discontinued Medications Sodium Chloride (Nss 1000ml) 1,000 mls @ 999 mls/hr IV .[id number] JULIA Stop: 08/16/18 17:30 Last Infusion: 08/16/18 17:54 Dose: 0 mls/hr Admin: 08/16/18 16:57 Dose: 999 mls/hr Medical Decision Making Medical Records Attestation: I reviewed the patient's medical records. Home Medications Current Medication List: was personally reviewed by me Laboratory Data Attestation: I reviewed the patient's lab results. Result diagrams: 08/16/18 16:20 08/16/18 16:20 Lab Results 08/16/18 08/16/18 08/16/18 Range/Units 16:20 16:20 16:20 WBC 5.04 (4.8-10.8) K/uL RBC 2.50 L (4.7-6.1) M/uL Hgb 7.8 L (14.0-18.0) g/dL Hct 23.1 L (42-52) % MCV 92.4 (80-100) fL MCH 31.2 (25-34) pg MCHC 33.8 (32-36) g/dL RDW Std Deviation 53.3 H (36.4-46.3) fL RDW Coeff of Jenae 15.9 H (11.5-14.5) % Plt Count 39 L (130-400) K/uL MPV 11.5 H (7.4-10.4) fL Immature Gran % (Auto) 4.4 % Neut % (Auto) 52.3 % Lymph % (Auto) 24.0 % [place] % (Auto) 17.3 % Eos % (Auto) 1.4 % Baso % (Auto) 0.6 % Immature Gran # (Auto) 0.22 H (0.00-0.02) K/uL Neut # (Auto) 2.64 (1.4-6.5) K/uL Lymph # (Auto) 1.21 (1.2-3.4) K/uL [place] # (Auto) 0.87 H (0.11-0.59) K/uL Eos # (Auto) 0.07 (0-0.5) K/uL Baso # (Auto) 0.03 (0-0.2) K/uL PT 12.5 H (9.0-12.0) Seconds INR 1.3 H (0.9-1.1) APTT 30.0 (21.0-31.0) Seconds PTT Ratio 1.2 Sodium 128 L (136-145) mmol/L Potassium 4.5 (3.5-5.1) mmol/L Chloride 98 (98-107) mmol/L Carbon Dioxide 20 L (21-32) mmol/L Anion Gap 10.0 (3-11) BUN 36 H (7-18) mg/dl Creatinine 1.75 H (0.6-1.4) mg/dl Est Cr Clr Drug Dosing 43.0 ml/min Est GFR ( Amer) 49.7 Est GFR (Non-Af Amer) 42.9 BUN/Creatinine Ratio 20.8 H (10-20) Glucose 101 H (70-99) mg/dl POC Lactic Acid Sixto (0.90-1.70) mmol/L Lactate (0.4-2.0) mmol/L Calcium 8.4 L (8.5-10.1) mg/dl Total Bilirubin 0.5 (0.2-1) mg/dl AST 62 H (15-37) U/L ALT 41 (12-78) U/L Alkaline Phosphatase 90 (45-117) U/L Total Protein 8.9 H (6.4-8.2) gm/dl Albumin 2.0 L (3.4-5.0) gm/dl Globulin 6.9 H (2.5-4.0) gm/dl Albumin/Globulin Ratio 0.3 L (0.9-2) Specimen Hemolysis Urine Color Urine Appearance (Clear) Urine pH (4.5-7.5) Ur Specific Callao (1.000-1.030) Urine Protein (Negative) Urine Glucose (UA) (Negative) Urine Ketones (Negative) Urine Blood (Negative) Urine Nitrite (Negative) Urine Bilirubin (Negative) Urine Urobilinogen (Negative) Ur Leukocyte Esterase (Negative) Urine RBC (0-4) /hpf Urine WBC (0-5) /hpf Ur Epithelial Cells (0-5) /lpf Urine Bacteria (Negative) Hyaline Casts (0-5) /lpf Blood Type Antibody Screen Crossmatch 08/16/18 08/16/18 08/16/18 Range/Units 16:26 16:31 16:39 WBC (4.8-10.8) K/uL RBC (4.7-6.1) M/uL Hgb (14.0-18.0) g/dL Hct (42-52) % MCV (80-100) fL MCH (25-34) pg MCHC (32-36) g/dL RDW Std Deviation (36.4-46.3) fL RDW Coeff of Jenae (11.5-14.5) % Plt Count (130-400) K/uL MPV (7.4-10.4) fL Immature Gran % (Auto) % Neut % (Auto) % Lymph % (Auto) % Sherburne % (Auto) % Eos % (Auto) % Baso % (Auto) % Immature Gran # (Auto) (0.00-0.02) K/uL Neut # (Auto) (1.4-6.5) K/uL Lymph # (Auto) (1.2-3.4) K/uL Sherburne # (Auto) (0.11-0.59) K/uL Eos # (Auto) (0-0.5) K/uL Baso # (Auto) (0-0.2) K/uL PT (9.0-12.0) Seconds INR (0.9-1.1) APTT (21.0-31.0) Seconds PTT Ratio Sodium (136-145) mmol/L Potassium (3.5-5.1) mmol/L Chloride (98-107) mmol/L Carbon Dioxide (21-32) mmol/L Anion Gap (3-11) BUN (7-18) mg/dl Creatinine (0.6-1.4) mg/dl Est Cr Clr Drug Dosing ml/min Est GFR ( Amer) Est GFR (Non-Af Amer) BUN/Creatinine Ratio (10-20) Glucose (70-99) mg/dl POC Lactic Acid Sixto 1.51 (0.90-1.70) mmol/L Lactate 1.7 (0.4-2.0) mmol/L Calcium (8.5-10.1) mg/dl Total Bilirubin (0.2-1) mg/dl AST (15-37) U/L ALT (12-78) U/L Alkaline Phosphatase (45-117) U/L Total Protein (6.4-8.2) gm/dl Albumin (3.4-5.0) gm/dl Globulin (2.5-4.0) gm/dl Albumin/Globulin Ratio (0.9-2) Specimen Hemolysis Urine Color Urine Appearance (Clear) Urine pH (4.5-7.5) Ur Specific Callao (1.000-1.030) Urine Protein (Negative) Urine Glucose (UA) (Negative) Urine Ketones (Negative) Urine Blood (Negative) Urine Nitrite (Negative) Urine Bilirubin (Negative) Urine Urobilinogen (Negative) Ur Leukocyte Esterase (Negative) Urine RBC (0-4) /hpf Urine WBC (0-5) /hpf Ur Epithelial Cells (0-5) /lpf Urine Bacteria (Negative) Hyaline Casts (0-5) /lpf Blood Type B Positive Antibody Screen NEGATIVE Crossmatch See Detail 08/16/18 Range/Units 19:07 WBC (4.8-10.8) K/uL RBC (4.7-6.1) M/uL Hgb (14.0-18.0) g/dL Hct (42-52) % MCV (80-100) fL MCH (25-34) pg MCHC (32-36) g/dL RDW Std Deviation (36.4-46.3) fL RDW Coeff of Jenae (11.5-14.5) % Plt Count (130-400) K/uL MPV (7.4-10.4) fL Immature Gran % (Auto) % Neut % (Auto) % Lymph % (Auto) % [place] % (Auto) % Eos % (Auto) % Baso % (Auto) % Immature Gran # (Auto) (0.00-0.02) K/uL Neut # (Auto) (1.4-6.5) K/uL Lymph # (Auto) (1.2-3.4) K/uL [place]bur[place] # (Auto) (0.11-0.59) K/uL Eos # (Auto) (0-0.5) K/uL Baso # (Auto) (0-0.2) K/uL PT (9.0-12.0) Seconds INR (0.9-1.1) APTT (21.0-31.0) Seconds PTT Ratio Sodium (136-145) mmol/L Potassium (3.5-5.1) mmol/L Chloride (98-107) mmol/L Carbon Dioxide (21-32) mmol/L Anion Gap (3-11) BUN (7-18) mg/dl Creatinine (0.6-1.4) mg/dl Est Cr Clr Drug Dosing ml/min Est GFR ( Amer) Est GFR (Non-Af Amer) BUN/Creatinine Ratio (10-20) Glucose (70-99) mg/dl POC Lactic Acid Sixto (0.90-1.70) mmol/L Lactate (0.4-2.0) mmol/L Calcium (8.5-10.1) mg/dl Total Bilirubin (0.2-1) mg/dl AST (15-37) U/L ALT (12-78) U/L Alkaline Phosphatase (45-117) U/L Total Protein (6.4-8.2) gm/dl Albumin (3.4-5.0) gm/dl Globulin (2.5-4.0) gm/dl Albumin/Globulin Ratio (0.9-2) Specimen Hemolysis Urine Color Yellow Urine Appearance Clear (Clear) Urine pH 6.0 (4.5-7.5) Ur Specific Callao 1.010 (1.000-1.030) Urine Protein Trace H (Negative) Urine Glucose (UA) Negative (Negative) Urine Ketones Negative (Negative) Urine Blood Trace H (Negative) Urine Nitrite Negative (Negative) Urine Bilirubin Negative (Negative) Urine Urobilinogen Negative (Negative) Ur Leukocyte Esterase Negative (Negative) Urine RBC 0-4 (0-4) /hpf Urine WBC 0-5 (0-5) /hpf Ur Epithelial Cells 5-10 H (0-5) /lpf Urine Bacteria Negative (Negative) Hyaline Casts 0-5 (0-5) /lpf Blood Type Antibody Screen Crossmatch Imaging Data Radiologist's Impression: Radiology results as stated below per my review and the radiologist's interpretation: XR chest 1V portable HISTORY: 53 years-old Male Sepsis acute sepsis COMPARISON: Chest radiograph 09/28/2017, PET CT 05/23/2018 TECHNIQUE: Portable AP view of the chest FINDINGS: Cardiac silhouette is unchanged. Mild pulmonary vascular congestion. No pneumothorax, pleural effusion or overt pulmonary edema. Subsegmental bibasilar opacities. Multiple lytic bone lesions seen about the ribs. Lytic lesions of the thoracic spine are better seen on comparison PET/CT. Right rotator cuff calcific tendinosis. IMPRESSION: 1. Subsegmental bibasilar opacities suggest probable atelectasis. 2. Multiple lytic bone lesions redemonstrated compatible with patient's known clinical diagnosis of multiple myeloma. The above report was generated using voice recognition software. It may contain grammatical, syntax or spelling errors. Electronically signed by: Vikram Brown M.D. 08/16/2018 4:57 PM Blood Pressure Blood Pressure Findings: Normal blood pressure Blood Pressure Disposition: did not require urgent referral MDM Narrative 1620: Past medical records reviewed. The patient was evaluated in room A10, and a complete history and physical examination were performed. The patient is tachycardic and has a slightly elevated temperature at this time, A code sepsis was initiated at this time. 1647: Hemoglobin 7.8, platelets 39. I discussed the patient's case with Dr. Vaughan- Oncology. He states that the patient's platelets are better than he expected and to hold on a transfusion of platelets at this item. He states that if the patient reports that he has short of breath, to transfuse packed red blood cell transfusions at this time. He agrees that with the patient's temperature and chest x-ray findings he should be admitted to have blood cultures done. 1651: I reevaluated the patient and updated him on his test results. He is feeling short of breath and he states that anytime his hemoglobin is under 8, he is transfused. I had him sign the consent form at this time and he will receive a blood transfusion. I discussed the treatment plan with him. He verbally agrees and understands. 1747: I reviewed the patient's case with KENNA Goldberg- [facility] Hospitalist. She will evaluate the patient for further management. Impression & Plan Anemia, Thrombocytopenia, SIRS (systemic inflammatory response syndrome), Dyspnea Critical Care Time I have personally spent greater than 44 minutes of critical care time in the direct management of this patient. This includes bedside care, interpretation of diagnostic studies, and testing, discussion with consultants, patient, and family members, and other required patient management activities. This 44 minutes is in excess of all separately billable procedures. Critical Care Time: Yes Total Critical Care Time: 44 Discharge Plan Visit Data Chief Complaint: Weakness Stated Complaint: BLEEDING, WEAKNESS, REFERRED ED Provider: Ovi Hawkins Discharge Problem: Anemia, Thrombocytopenia, SIRS (systemic inflammatory response syndrome), Dyspnea Patient Disposition: Being Evaluated by Hospitalist The sheldonibe's documentation has been prepared under my direction and personally reviewed by me in its entirety. I confirm that the note above accurately reflects all work, treatment, procedures, and medical decision making performed by me.
[2018-08-16] MEDS ORDERED: VANCOMYCIN HCL 1,750 MG in SODIUM CHLORIDE 0.9% 500 ML IV ONE (21:00)
[2018-08-16] MEDS: CEFEPIME 2,000 MG in SYRINGE 7.5 ML IV SCH (21:21)
[2018-08-16] MEDS: ACYCLOVIR 400 MG TAB PO SCH (21:34)
[2018-08-16] MEDS: ACETAMINOPHEN 325 MG TAB PO PRN (21:34)
--- NOTE | 2018-08-16 21:42 | Pharmacy Report ---
Pharmacy Abx Initial Consult - Date of Service August 16, 2018 - Pharmacy Dosing Scope Date of Consult: 08/16 Consultation requested by: Deacon Espinoza Pharmacy is consulted to initiate vancomycin and cefepime IV dosing therapy, order appropriate labs and adjust drug dose/frequency. - Subjective The patient is a 53 year old M admitted on 08/16/18 18:52. - Objective Height: 5 ft 6 in Weight: 71.7 kg Vital Signs (Past 12hrs): Vital Signs Temp Pulse Pulse Resp BP BP Pulse Ox 08/16/18 20:15 38.2 C H 110 H 20 119/70 97 08/16/18 19:38 38.2 C H 111 H 16 120/61 96 08/16/18 19:08 38.2 C H 111 H 25 H 133/61 96 08/16/18 19:00 115 H 30 H 120/65 95 08/16/18 18:53 38.4 C H 113 H 30 H 111/63 95 08/16/18 18:36 38.5 C H 122 H 24 123/66 97 08/16/18 17:30 115 H 115 H 20 120/65 97 08/16/18 16:10 37.8 C H 128 H 18 117/75 97 Lab Results (24hrs): Laboratory Tests (24 Hours) 08/16/18 08/16/18 16:20 16:20 WBC 5.04 Neut # (Auto) 2.64 Creatinine 1.75 H Est Cr Clr Drug Dosing 43.0 Micro Results: 08/16/18 16:34 Blood Culture - Pending Blood 08/16/18 16:31 Blood Culture - Pending Blood - Risk Factors for Resistance * Immunocompromised (chemotherapy) - Assessment & Plan Assessment 53 year old M with multiple myeloma admitted with fevers, without neutropenia. Vancomycin and cefepime are being initiated for empiric coverage at this time. Plan Vancomycin IV * Estimated PK Parameters: Vd 0.7 L/kg, Ric 0.04 hr-1, t1/2 17.3 hr * Loading dose: 1750 mg (25 mg/kg) * Maintenance dose: 1000 mg IV (14 mg/kg) every 20 hours * Goal trough level : 15 to 20 mcg/mL * No levels ordered at this time due to 48 hour duration. Will plan to obtain a trough level before 4th dose if continued > 48 hours. Cefepime * Reduce target dose of 2 gm q8h to 2 gm q12h for CrCl 30-60 mL/min Pharmacy will continue to follow and will adjust dose/frequency as necessary. Thank you.
[2018-08-16 22:34] LABS: BUN Creatinine Ratio 20.1 (10-20); Creatinine Clr Calc Pharmacy 44.8 ml/min; Est GFR (African American) 52.2; Est GFR (Non-African American) 45.1; Potassium 3.8 mmol/L (3.5-5.1)
[2018-08-17 06:36] LABS: Hematocrit (blood only) 24.8 % (42-52); Hemoglobin 8.2 g/dL (14.0-18.0); Mean Corpuscular Hgb Conc 33.1 g/dL (32-36); Mean Corpuscular Volume 92.2 fL (80-100); Mean Platelet Volume 10.7 fL (7.4-10.4); Platelet Count 27 K/uL (130-400); RDW Coefficient of Variation 16.4 % (11.5-14.5); RDW Standard Deviation 54.6 fL (36.4-46.3); Red Blood Count 2.69 M/uL (4.7-6.1); White Blood Count 4.26 K/uL (4.8-10.8)
[2018-08-17 06:43] LABS: BUN Creatinine Ratio 20.6 (10-20); Calcium 8.1 mg/dl (8.5-10.1); Creatinine Clr Calc Pharmacy 50.5 ml/min; Est GFR (African American) 60.4; Est GFR (Non-African American) 52.1
--- NOTE | 2018-08-17 08:50 | Nuclear Medicine Report ---
NM pul vent and perfuse CLINICAL HISTORY: 53 years-old Male presenting with SOB, TACHYCARDIA, fever, HX MYELOMA. TECHNIQUE: Immediately following the inhalation of 32.8 mCi of technetium 99 M DTPA for the ventilati on scan and the intravenous administration of 5.4 mCi of technetium 99 M MAA for the perfusion scan, anterior, oblique, lateral, and posterior views of the chest were obtained. Modified PIOPED II criter ia were utilized for assessment. COMPARISON: Chest x-ray from 08/16/2018. FINDINGS: No mismatched defects are identified on this examination. Perfusion and ventilation to both lungs is preserved. Minimal radiotracer avidity in the gastric lumen and small bowel on ventilation imaging co mpatible with ingestion. Reference: Modified PIOPED II criteria Normal: No perfusion defects. Very low likelihood ratio: Nonsegmental, perfusion defect < chest x-ray lesion, 1-3 small segmental d efects, solitary triple matched defect (< or = 1 segment) in mid or upper lung, stripe sign, solitary large pleural effusion, > or = to 2 matched defects with regionally normal chest x-ray. High likelihood ratio: > or = 2 large mismatch segmental defects. Nondiagnostic: All other findings. IMPRESSION: Normal. Electronically signed by: Moshe Eng M.D. 08/17/2018 8:49 AM
[2018-08-17] MEDS: CEFEPIME 2,000 MG in SYRINGE 7.5 ML IV SCH ×2 (09:03→21:07)
[2018-08-17] MEDS: AMLODIPINE BESYLATE 5 MG TAB PO SCH (09:03)
[2018-08-17] MEDS: ACYCLOVIR 400 MG TAB PO SCH ×2 (09:03→21:07)
[2018-08-17] MEDS: PANTOprazole 40 MG TAB PO SCH (09:03)
[2018-08-17] MEDS: CHOLECALCIFEROL 1,000 UNITS TAB PO SCH (09:03)
[2018-08-17] MEDS: CEROVITE ADV FORMULA TAB PO SCH (09:03)
[2018-08-17] MEDS ORDERED: LIDOCAINE HCL 1% 20 ML VIAL ONE (15:22)
[2018-08-17 15:37] LABS: ALC (manual) 0.35 K/uL (1.2-3.4); Basophils # (manual) 0.04 K/uL (0-0.2); Basophils % (manual) 0.9 %; Lymphocytes # (manual) 0.35 K/uL (1.2-3.4); Lymphocytes % (manual) 8.1 %; Metamyelocytes # (manual) 0.08 K/uL (0-0); Metamyelocytes % (manual) 1.8 %; Monocytes # (manual) 0.31 K/uL (0.11-0.59); Monocytes % (manual) 7.2 %
[2018-08-17] MEDS ORDERED: VANCOMYCIN HCL 1,000 MG in SODIUM CHLORIDE 0.9% 250 ML IV SCH (16:00)
--- NOTE | 2018-08-17 18:50 | Hospitalist Progress Note ---
Date of Service August 17, 2018 Assessment & Plan (1) Anemia: (2) Thrombocytopenia: Patient is a 53yr male with H/O multiple myeloma S/P stem cell transplant receiving Revlimid and Velcade currently held secondary to anemia, thrombocytopenia presents with dyspnea, petechial rash Anemia, Thrombocytopenia secondary to Multiple Myeloma. R/O infection Follows with Dr. Page as outpatient S/P 1 unit PRBCs and 1 unit Platelets Hb: 7.8>>8.2 Platelets:27K Monitor CBC Oncology following (3) Fever: No obvious source of infection identified Blood cultures: Pending Continue empiric antibiotics Afebrile today (4) Shortness of breath: CXR negative for acute cardio pulmonary findings V/Q scan :normal Likely symptomatic anemia No dyspnea today (5) KEMAR (acute kidney injury): (6) Chronic kidney disease (CKD), stage III (moderate): Baseline cr: low to mid 1's Cr: 1.7 >>1.49 Received IV fluids Monitor renal function (7) Hyponatremia: Likely chronic Sodium levels normalized Received IV fluids (8) Multiple myeloma: (9) Hx of stem cell transplant: Follows with Dr. Page Planned for Biopsy (10) Hypertension: Stable continue amlodipine (11) DVT prophylaxis: SCDs; Re: thrombocytopenia Subjective Patient is seen and examined at bedside Denies chest pain, dyspnea, dizzines, nausea Afebrile today Received 1 unit PRBCs yesterday Discussed with Oncology today Planned for biopsy today Family at bedside No other complaints Physical Exam 2 Vital Signs (Past 24 Hours): Last Vital Signs Temp 37.2 C 08/17/18 14:57 Pulse 112 H 08/17/18 14:57 Resp 24 08/17/18 14:57 BP 118/64 08/17/18 14:57 Pulse Ox 96 08/17/18 14:57 Physical Exam: Physical Exam: Vitals signs as noted above General Appearance:Moderately built and nourished, no apparent distress Head: normocephalic, Atraumatic Eyes: normal inspection, EOMI Neck: supple, Trachea midline Respiratory/Chest: Normal breath sounds, CTA Cardiovascular: S1, S2, No murmur, +Tachycardia Abdomen/GI:Soft, Non tender, Bowel sounds present Extremities/Musculoskelatal:normal inspection, + Trace edema Neurologic/Psych:AAOX3, grossly no focal neurological deficits Skin: normal color, warm, +Petechial rash Results & Data Laboratory Results Short CBC 08/17/18 Range/Units 05:58 WBC 4.26 L (4.8-10.8) K/uL Hgb 8.2 L (14.0-18.0) g/dL Hct 24.8 L (42-52) % Plt Count 27 L* (130-400) K/uL BMP 08/16/18 08/17/18 21:53 05:58 Sodium 132 L 137 Potassium 3.8 D 4.0 Chloride 101 108 H Carbon Dioxide 21 21 BUN 34 H 31 H Creatinine 1.68 H 1.49 H Glucose 130 H 100 H Calcium 8.0 L 8.1 L Urine 08/16/18 Range/Units 19:07 Urine Color Yellow Urine Appearance Clear (Clear) Urine pH 6.0 (4.5-7.5) Ur Specific [place] 1.010 (1.000-1.030) Urine Protein Trace H (Negative) Urine Glucose (UA) Negative (Negative) Diagnostic Findings V/Q Scan: Normal
[2018-08-17] MEDS: ACETAMINOPHEN 325 MG TAB PO PRN (19:53)
[2018-08-18 06:33] LABS: Hematocrit (blood only) 25.7 % (42-52); Hemoglobin 8.5 g/dL (14.0-18.0); Mean Corpuscular Hgb Conc 33.1 g/dL (32-36); Mean Corpuscular Volume 92.8 fL (80-100); Platelet Count 43 K/uL (130-400); RDW Coefficient of Variation 16.5 % (11.5-14.5); RDW Standard Deviation 55.4 fL (36.4-46.3); Red Blood Count 2.77 M/uL (4.7-6.1); White Blood Count 4.53 K/uL (4.8-10.8)
[2018-08-18 06:45] LABS: INR 1.4 (0.9-1.1); Prothrombin Time 13.5 Seconds (9.0-12.0)
[2018-08-18 07:01] LABS: BUN Creatinine Ratio 16.5 (10-20); Calcium 8.1 mg/dl (8.5-10.1); Creatinine Clr Calc Pharmacy 50.5 ml/min; Est GFR (African American) 60.4; Est GFR (Non-African American) 52.1; Potassium 3.9 mmol/L (3.5-5.1)
[2018-08-18] MEDS: PANTOprazole 40 MG TAB PO SCH (08:10)
[2018-08-18] MEDS: AMLODIPINE BESYLATE 5 MG TAB PO SCH (08:10)
[2018-08-18] MEDS: ACYCLOVIR 400 MG TAB PO SCH (08:10)
[2018-08-18] MEDS: CEROVITE ADV FORMULA TAB PO SCH (08:10)
[2018-08-18] MEDS: CHOLECALCIFEROL 1,000 UNITS TAB PO SCH (08:11)
[2018-08-18] MEDS: CEFEPIME 2,000 MG in SYRINGE 7.5 ML IV SCH (09:33)
--- NOTE | 2018-08-18 12:31 | Hospitalist Progress Note ---
Date of Service August 18, 2018 Assessment & Plan (1) Anemia: (2) Thrombocytopenia: Patient is a 53yr male with H/O multiple myeloma S/P stem cell transplant receiving Revlimid and Velcade currently held secondary to anemia, thrombocytopenia presents with dyspnea, petechial rash Anemia, Thrombocytopenia secondary to Multiple Myeloma. R/O infection Follows with Dr. Page as outpatient S/P 1 unit PRBCs and 1 unit Platelets Hb: 7.8>>8.2>>8.5 Platelets:27K>>>43K S/P Bone marrow biopsy Monitor CBC Appreciate Oncology Input Needs follow up with Oncology upon discharge (3) Fever: No obvious source of infection identified Blood cultures: No growth to date Discontinue empiric antibiotics Afebrile today (4) Shortness of breath: CXR negative for acute cardio pulmonary findings V/Q scan :normal Likely symptomatic anemia Dyspnea resolved (5) KEMAR (acute kidney injury): (6) Chronic kidney disease (CKD), stage III (moderate): Baseline cr: low to mid 1's Cr: 1.7 >>1.49 Received IV fluids Monitor renal function (7) Hyponatremia: Likely chronic Sodium levels normalized Received IV fluids (8) Multiple myeloma: (9) Hx of stem cell transplant: Follows with Dr. Page S/P Biopsy (10) Hypertension: Stable continue amlodipine (11) DVT prophylaxis: SCDs; Re: thrombocytopenia Subjective Patient is seen and examined at bedside Doing well today No bleeding issues Denies chest pain, dyspnea, dizzines, nausea Remains Afebrile Discussed with Oncology today Had bone marrow biopsy yesterday Eager to get discharged Family at bedside Physical Exam 2 Vital Signs (Past 24 Hours): Last Vital Signs Temp 36.6 C 08/18/18 11:00 Pulse 111 H 08/18/18 11:00 Resp 18 08/18/18 11:00 BP 124/70 08/18/18 11:00 Pulse Ox 95 08/18/18 11:00 Physical Exam: Physical Exam: Vitals signs as noted above General Appearance:Moderately built and nourished, no apparent distress Head: normocephalic, Atraumatic Eyes: normal inspection, EOMI Neck: supple, Trachea midline Respiratory/Chest: Normal breath sounds, CTA Cardiovascular: S1, S2, No murmur, +Tachycardia Abdomen/GI:Soft, Non tender, Bowel sounds present Extremities/Musculoskelatal:normal inspection, + Trace edema Neurologic/Psych:AAOX3, grossly no focal neurological deficits Skin: normal color, warm, +Petechial rash Results & Data Laboratory Results Short CBC 08/17/18 08/18/18 Range/Units 05:58 06:09 WBC 4.26 L 4.53 L (4.8-10.8) K/uL Hgb 8.2 L 8.5 L (14.0-18.0) g/dL Hct 24.8 L 25.7 L (42-52) % Plt Count 27 L* 43 L D (130-400) K/uL BMP 08/18/18 06:09 Sodium 133 L Potassium 3.9 Chloride 105 Carbon Dioxide 21 BUN 25 H Creatinine 1.49 H Glucose 101 H Calcium 8.1 L
--- NOTE | 2018-08-18 12:35 | Discharge Summary ---
Date of Service August 18, 2018 Admission HPI Per Admitting Provider 53-year-old male who was sent to the ED by his outpatient oncologist for evaluation of shortness of breath and anemia. Patient has history of multiple myeloma, status post stem cell transplant. Patient has been receiving Revlimid and Velcade however reports these have been on hold due to low hemoglobin and platelet count. Patient was most recently transfused with PRBC on 08/06. He reports some mildly increasing exertional shortness of breath. He denies any shortness of breath at rest or chest pain or pressure. No lightheadedness, dizziness, diaphoresis, syncopal events. He has had some mild epistaxis and has developed some mild petechiae across his chest. He denies abdominal pain, nausea, vomiting, diarrhea. No bright red bleeding per rectum or dark tarry stools. Denies fevers and chills. No urinary symptoms or hematuria. In the ED , he was found to be 7.8 and platelet count 39K. He had a low-grade fever at 37.8 and tachycardia. No clear source of infection has been identified thus far. Na+ 128, creatinine 1.75 (baseline runs in the low to mid 1's). Patient was given IVF and type and crossed for 1 unit of blood. Admission Exam Per Admitting Provider Constitutional: WD/WN, vitals as above Eyes: PERRL, conjunctivae normal, anicteric sclerae ENMT: external ear and nose normal, oropharynx normal Respiratory: normal respiratory effort, lungs clear to auscultation Cardiovascular: Rate/Rhythm: regular rhythm and + tachycardic Vessels: normal peripheral pulses Extremities: no edema Gastrointestinal (Abdomen): normal bowel sounds, soft, nontender, no hepatosplenomegaly Musculoskeletal: no cyanosis or clubbing, extremities motor strength 5/5 Skin: Skin warm and dry; petechia noted over chest wall and bilateral lower extremities Neurologic: PERRL, EOMI, accommodation nl, no face palsy, no dysarthria Psychiatric: A+Ox3, euthymic affect Principal Diagnosis Discharge Information Discharge Diagnosis Symptomatic Anemia Multiple Myeloma Discharge Goals Decrease discomfort,Improve disease control, Improve function Discharge Activity Limitations Resume your previous activity Discharge Data Allergies Allergy/AdvReac Type Severity Reaction Status Date / Time No Known Allergies Allergy Verified 08/16/18 17:29 Consultations 08/16/18 17:44 ED Decision to Admit Stat 08/16/18 20:20 Consult Hematology Routine Ordered Studies CXR: 1. Subsegmental bibasilar opacities suggest probable atelectasis. 2. Multiple lytic bone lesions redemonstrated compatible with patient's known clinical diagnosis of multiple myeloma. V/Q: Normal Hospital Course (1) Anemia: (2) Thrombocytopenia: Patient is a 53yr male with H/O multiple myeloma S/P stem cell transplant receiving Revlimid and Velcade currently held secondary to anemia, thrombocytopenia presents with dyspnea, petechial rash Anemia, Thrombocytopenia secondary to Multiple Myeloma. R/O infection Follows with Dr. Page as outpatient S/P 1 unit PRBCs and 1 unit Platelets Hb: 7.8>>8.2>>8.5 Platelets:27K>>>43K S/P Bone marrow biopsy Monitor CBC Appreciate Oncology Input Needs follow up with Oncology upon discharge (3) Fever: No obvious source of infection identified Blood cultures: No growth to date Discontinue empiric antibiotics Afebrile today (4) Shortness of breath: CXR negative for acute cardio pulmonary findings V/Q scan :normal Likely symptomatic anemia Dyspnea resolved (5) KEMAR (acute kidney injury): (6) Chronic kidney disease (CKD), stage III (moderate): Baseline cr: low to mid 1's Cr: 1.7 >>1.49 Received IV fluids Monitor renal function (7) Hyponatremia: Likely chronic Sodium levels normalized Received IV fluids (8) Multiple myeloma: (9) Hx of stem cell transplant: Follows with Dr. Page S/P Biopsy (10) Hypertension: Stable continue amlodipine (11) DVT prophylaxis: SCDs; Re: thrombocytopenia Total Time Total Time Spent Total Time Spent (In Minutes): 38 minutes Total Time Includes: Examination of the Patient, Discharge Planning, Medication Reconciliation, Communication With Other Providers and Other Discharge Plan Discharge Items Patient Disposition: Home - Self-Care Reason For Visit: ANEMIA Discharge Diagnosis: Symptomatic Anemia Multiple Myeloma Discharge Goals: Decrease discomfort, Improve disease control and Improve function Activity: Resume your previous activity Exercise/Sports: Gradually increase as tolerated Non-emergency contact: Primary Care Provider and Oncologist Call non-emergency contact if: you have any medication questions, your symptoms worsen, your pain is not controlled, your pain is worsening, your pain is unusual for you and you have a fever Follow-up/Referrals: Ismael Hernandez [Primary Care Provider] - Diet: Regular Addtl Provider Instructions: Follow up with on 08/21/18 at 11:00AM Follow up with your Oncologist as scheduled Seek immediate medical attention if your symptoms reoccur or worsen Prescriptions: Continue acyclovir [Zovirax] 400 mg tablet 400 mg PO BID RF: 0 amlodipine [Norvasc] 10 mg tablet 10 mg PO DAILY RF: 0 omeprazole 20 mg capsule,delayed release(DR/EC) 20 mg PO DAILY RF: 0 ujzsbgtuuqlg-ckdd-fekva acid [Centrum] 18-400 mg-mcg Tablet 1 tab PO DAILY RF: 0 cholecalciferol (vitamin D3) [Vitamin D3] 5,000 unit Tablet 5,000 unit PO DAILY RF: 0 Visit Report Forms: [facility] Stand-Alone Forms: [facility] Discharge Orders: Discharge Order (Routine); Ordered 08/18/18 Ordered By: Sergio Nino Admission Data Admit Date/Time: 08/16/18 18:52 Attending Provider: Sergio Nino Admit Provider: Bhupinder Muñoz Primary Care Provider: Ismael Hernandez Other Providers: Bhupinder Muñoz ; Demarcus Page Service: Oncology Other Interventions: Discharge Summary Assessment (RN) Last Done: 08/18/18 13:57 Pending Studies at Discharge: Yes Studies:: Final Blood Cultures DC Date/Time DO NOT enter until pt leaves facility: 08/18/18 14:28
--- NOTE | 2018-08-18 12:39 | Oncology Consultation ---
Date of Consultation August 18, 2018 Assessment & Plan (1) Fever: I suspect his fevers were tumor fevers, related to his rapidly relapsing multiple myeloma. He was thoroughly worked up for infection and none was found. He can stop antibiotics, though he should continue the acyclovir that he was taking on admission. Present on Admission?: Yes (2) Thrombocytopenia: His bone marrow biopsy was packed with myeloma cells (it was actually a dry tap). This is almost certainly the cause of his cytopenias. The only therapy for this is to treat his disease. He is scheduled to begin treatment in about a week. We will monitor his counts closely in the meantime. (3) Multiple myeloma: His multiple myeloma relapsed almost immediately after transplant, which is a very disappointing outcome that portends a poor prognosis. We will begin salvage therapy in about a week using Daratumumab, with a plan to add pomalidomide once his counts can tolerate it. Present on Admission?: Yes History of Present Illness Reason for Consultation: Thrombocytopenia Anemia Multiple myeloma Attending Physician: Sergio Nino MD History of Present Illness Mr. Benavidez is a 53 year old man with multiple myeloma. He is about 6 months out from an autologous stem cell transplant and, unfortunately, his disease is in relapse. His M-protein has been steadily rising. He was on treatment with Revlimid, Velcade, and dexamethasone, but this has been on hold for the last few weeks due to declining counts. He called my office late on , reporting some red spots on his chest and a nosebleed. I directed him to the ER , out of concern for severe thrombocytopenia. However, when he arrived, his platelet count was around 30k. He was feeling unwell, however, with low-grade fevers and tachycardia. He was admitted for empiric antibiotics and to rule out an infection. He had no localizing signs or symptoms of infection at the time and his cultures have been negative. Yesterday, we gave him a platelet transfusion and I performed a bone marrow biopsy. The biopsy revealed a marrow packed with plasma cells, consistent with his relapsing myeloma. He responded appropriately to the platelet transfusion and is feeling better today. Allergies Allergy/AdvReac Type Severity Reaction Status Date / Time No Known Allergies Allergy Verified 08/16/18 17:29 Home Medications Home Medications Medication Instructions Recorded Confirmed Type acyclovir [Zovirax] 400 mg PO BID 08/16/18 08/16/18 History amlodipine [Norvasc] 10 mg PO DAILY 08/16/18 08/16/18 History cholecalciferol (vitamin D3) 5,000 unit PO DAILY 08/16/18 08/16/18 History [Vitamin D3] evmyhyrlflun-kzru-uksjz acid 1 tab PO DAILY 08/16/18 08/16/18 History [Centrum] omeprazole 20 mg PO DAILY 08/16/18 08/16/18 History Patient History Medical History Chronic kidney disease (CKD), stage III (moderate) (Chronic) Hypertension (Chronic) Multiple myeloma (Chronic 09/28/17) "-Bone marrow biopsy results are pending from 09/29/2017 Severe back pain Status post completion of radiation therapy to the thoracic and lumbar spine October 13, 2017. Received 3000 cGy to each area." On 09/29/17 13:19 Edgar Prieto wrote "-Bone marrow biopsy results are pending from 09/29/2017" Surgical History Hx of stem cell transplant (Chronic) Family History Mother Hypertension Father IPF (idiopathic pulmonary fibrosis) Social History marital status: Current Living Situation: Family Other Information That Helps Us Care for You: No Feels Safe at Home: Yes Smoking Status: Former smoker Do You Dip or Chew Tobacco: No Second Hand Exposure: No Tobacco Cessation Education Requested by Patient: No Hx Alcohol Use: Yes Alcohol Intake Frequency: holidays/special occasions only Hx Substance Use: No Beliefs That Will Affect Care: None Communication Ability: Effective Review of Systems Constitutional: + fever, + fatigue and + weakness Ear, Nose, Mouth, Throat: + epistaxis Respiratory: no cough, no dyspnea and no hemoptysis Cardiovascular: no chest pain, no dyspnea on exertion and no palpitations Gastrointestinal: no abdominal pain, no nausea, no vomiting and no blood in stools Genitourinary (Male): no dysuria and no hematuria Integumentary: + rash (see HPI) Neurologic: no localized weakness, no headache(s) and no confusion Hematologic / Lymphatic: + easy bleeding; no lymphadenopathy and no night sweats Physical Exam 2 Vital Signs (Past 24 Hours): Last Vital Signs Temp 36.6 C 08/18/18 11:00 Pulse 111 H 08/18/18 11:00 Resp 18 08/18/18 11:00 BP 124/70 08/18/18 11:00 Pulse Ox 95 08/18/18 11:00 Constitutional: WD/WN, vitals as above no acute distress ENMT: Nose: + external nose abnormality (dried blood at his nares on admission ); no epistaxis Mouth: no oropharynx abnormality Respiratory: normal respiratory effort, lungs clear to auscultation Cardiovascular: RRR, no murmur, no edema Gastrointestinal (Abdomen): normal bowel sounds, soft, nontender, no hepatosplenomegaly Musculoskeletal: no cyanosis or clubbing, extremities motor strength 5/5 Skin: Across the middle of his chest anteriorly, he has some scattered, raised , erythematous nodules that are excoriated. He has no evidence of petechiae or purpura Psychiatric: A+Ox3, euthymic affect Lymphatic: no cervical or axillary lymphadenopathy Results & Data Laboratory Results Abnormal lab results 08/16/18 08/17/18 08/18/18 Range/Units 16:39 05:58 06:09 WBC 4.26 L 4.53 L (4.8-10.8) K/uL RBC 2.69 L 2.77 L (4.7-6.1) M/uL Hgb 8.2 L 8.5 L (14.0-18.0) g/dL Hct 24.8 L 25.7 L (42-52) % RDW Std Deviation 54.6 H 55.4 H (36.4-46.3) fL RDW Coeff of Jenae 16.4 H 16.5 H (11.5-14.5) % Plt Count 27 L* 43 L D (130-400) K/uL MPV 10.7 H (7.4-10.4) fL Lymphocytes # (Manual) 0.35 L (1.2-3.4) K/uL Total Abs Lymphocytes 0.35 L (1.2-3.4) K/uL Metamyelocytes # (Man) 0.08 H (0-0) K/uL PT (9.0-12.0) Seconds INR (0.9-1.1) Sodium (136-145) mmol/L BUN (7-18) mg/dl Creatinine (0.6-1.4) mg/dl Glucose (70-99) mg/dl Calcium (8.5-10.1) mg/dl Crossmatch See Detail 08/18/18 08/18/18 Range/Units 06:09 06:09 WBC (4.8-10.8) K/uL RBC (4.7-6.1) M/uL Hgb (14.0-18.0) g/dL Hct (42-52) % RDW Std Deviation (36.4-46.3) fL RDW Coeff of Jenae (11.5-14.5) % Plt Count (130-400) K/uL MPV (7.4-10.4) fL Lymphocytes # (Manual) (1.2-3.4) K/uL Total Abs Lymphocytes (1.2-3.4) K/uL Metamyelocytes # (Man) (0-0) K/uL PT 13.5 H (9.0-12.0) Seconds INR 1.4 H (0.9-1.1) Sodium 133 L (136-145) mmol/L BUN 25 H (7-18) mg/dl Creatinine 1.49 H (0.6-1.4) mg/dl Glucose 101 H (70-99) mg/dl Calcium 8.1 L (8.5-10.1) mg/dl Crossmatch _ (1) Fever Fever type: unspecified Qualified Code(s): R50.9 - Fever, unspecified (2) Multiple myeloma Multiple myeloma remission status: in relapse Qualified Code(s): C90.02 - Multiple myeloma in relapse
--- NOTE | 2018-08-18 12:54 | Procedure Note ---
Procedure Note Date of Service August 17, 2018 Note I performed a bone marrow aspiration and biopsy on Mr. Benavidez. He was placed in the left lateral decubitus position and the right posterior superior iliac crest was palpated. Xylocaine was administered for local anesthesia and the patient was cleaned and draped in a sterile fashion. Using a standard bone marrow aspiration needle, the iliac crest was entered without difficulty. However, only scant liquid marrow could be aspirated despite multiple repositionings, consistent with a "dry tap." The aspirate needle was removed and a standard Jamshidi biopsy needle was inserted. I entered the bone without difficulty and an adequate core biopsy sample was obtained. There was minimal blood loss post procedure and adequate hemostasis was obtained. He was instructed to lie flat in a supine position for 1 hour to aid with hemostasis, given his low platelets.
[2018-08-19] MEDS ORDERED: VANCOMYCIN TROUGH ONE (07:30)
== END 2018-08-18 14:28 | disposition home or self-care (01) | DRG 841 ==
LOC: ED 15:39 → 4E 18:52

== ENCOUNTER 2018-10-01 09:35 | Inpatient (IN) ==
[2018-10-01 12:44] LABS: Oxygen Saturation VBG 67.6 %; pH VBG 7.46 (7.36-7.41)
[2018-10-01 12:59] LABS: BUN Creatinine Ratio 31.2 (10-20); Creatinine Clr Calc Pharmacy 43.3 ml/min; Est GFR (African American) 51.1; Est GFR (Non-African American) 44.1; Potassium 4.6 mmol/L (3.5-5.1)
[2018-10-01] MEDS ORDERED: GLUCOSE 10 TABS/TUBE PO PRN (13:09)
[2018-10-01] MEDS ORDERED: GLUCAGON FOR INJ 1 MG VIAL SQ PRN (13:09)
[2018-10-01] MEDS ORDERED: CARBOHYDRATES FOR HYPOGLYCEMIA PO PRN (13:09)
[2018-10-01] MEDS ORDERED: DEXTROSE 50% 50 ML SYRINGE IV PRN (13:09)
[2018-10-01] MEDS ORDERED: GLUCOSE 40% GEL 15 GM TUBE PO PRN (13:09)
--- NOTE | 2018-10-01 13:19 | History & Physical Report ---
Date of Service October 01, 2018 Assessment & Plan (1) Steroid-induced hyperglycemia: -Admit to [facility] -Patient referred for direct admission by Dr. Page for management of steroid-induced hyperglycemia -Outpatient labs this a.m. demonstrated: glucose 374, CO2 14, anion gap 16 -no history of diabetes, hyperglycemia due to recent addition of high dose steroids -recheck BMP shows: glucose 253, CO2 16, anion gap 12, pH 7.46 -will start Novolog sliding scale -IVF -per Dr. Page, hold steroids for now however if steroids are resumed, consider addition of PO glipizide for outpatient management (2) Hyponatremia: -pseudo hyponatremia contributing due to hyperglycemia -corrected Na+ 127 -dehydration likely also contrubting as well -IVF, follow Na+ (3) Multiple myeloma: -Follows with Dr. Page -Currently receiving high-dose dexamethasone as above -On Darzalex weekly -Has pancytopenia however stable/at patient's recent baseline (4) Chronic kidney disease (CKD), stage III (moderate): - baseline creat runs in the mid 1's - creat noted to be 1.7 today - continue to monitor, avoid nephrotoxic agents when able (5) Hypertension: -BP controlled, continue amlodipine (6) DVT prophylaxis: -SCDs due to anemia and thrombocytopenia History of Present Illness Chief Complaint: Sent by Oncologist for hyperglycemia Primary Care Provider: Ismael Hernandez 53 year old male who was referred for direct admission by Dr. Page for management of hyperglycemia. Patient has history of multiple myeloma status post stem cell transplant. Recently, patient was placed on high-dose steroids ( dexamethasone 40 mg x 4 days then 4 days off) and also has been receiving Darzalex weekly. Since starting the dexamethasone, patient has been found to have increasing blood sugars. On today's outpatient labs, glucose was 374, CO2 14, anion gap 16. Patient does not carry a history of diabetes. He has noticed increased thirst however no polyuria. Reports he feels generally weak and tired. No fevers or chills. Appetite has been fair, he denies abdominal pain, nausea, vomiting, diarrhea. No chest pain or shortness of breath. He denies lightheadedness, dizziness, diaphoresis, syncopal event. No urinary symptoms. At the time my exam, patient is resting in bed no acute distress. Allergies Allergy/AdvReac Type Severity Reaction Status Date / Time No Known Allergies Allergy Verified 09/28/18 07:24 Home Medications Home Medications Medication Instructions Recorded Confirmed Type amlodipine [Norvasc] 10 mg PO DAILY 08/16/18 10/01/18 History cholecalciferol (vitamin D3) 5,000 unit PO DAILY 08/16/18 10/01/18 History [Vitamin D3] adavvafauvsa-aipy-jmxrk acid 1 tab PO DAILY 08/16/18 10/01/18 History [Centrum] omeprazole 20 mg PO DAILY 08/16/18 10/01/18 History daratumumab [Darzalex] 20 ml IV WK 08/30/18 10/01/18 History dexamethasone 40 mg PO DIRECTED 09/18/18 10/01/18 History acyclovir 200 mg PO BID 10/01/18 10/01/18 History calcium carbonate-vitamin D3 1 tab PO DAILY 10/01/18 10/01/18 History [Calcium 600 + D(3)] ergocalciferol (vitamin D2) 50,000 unit PO MONTHLY 10/01/18 10/01/18 History Past Med/Surg History Medical History Chronic kidney disease (CKD), stage III (moderate) (Chronic) Hypertension (Chronic) Multiple myeloma (Chronic 09/28/17) Surgical History Hx of stem cell transplant (Chronic) Family History Mother Hypertension Father IPF (idiopathic pulmonary fibrosis) Social History marital status: Current Living Situation: Spouse Other Information That Helps Us Care for You: No Feels Safe at Home: Yes Safety Concerns: Feels Safe At This Time Smoking Status: Never smoker Do You Dip or Chew Tobacco: No Second Hand Exposure: No Tobacco Cessation Education Requested by Patient: No Hx Alcohol Use: No Hx Substance Use: No Beliefs That Will Affect Care: None Preferred Language: Frisian Communication Ability: Effective Controlled Atmospheric Furnace Brazer Required: No Review of Systems ROS per HPI, all other systems reviewed and negative Physical Exam 2 Vital Signs (Past 24 Hours): Last Vital Signs Temp 36.4 C L 10/01/18 11:55 Pulse 98 H 10/01/18 11:55 Resp 18 10/01/18 11:55 BP 121/66 10/01/18 11:55 Pulse Ox 99 10/01/18 11:55 Constitutional: WD/WN, vitals as above Eyes: PERRL, conjunctivae normal, anicteric sclerae ENMT: external ear and nose normal, oropharynx normal Respiratory: normal respiratory effort, lungs clear to auscultation Cardiovascular: Rate/Rhythm: regular rate and regular rhythm Vessels: normal peripheral pulses Extremities: no edema Gastrointestinal (Abdomen): normal bowel sounds, soft, nontender, no hepatosplenomegaly Musculoskeletal: no cyanosis or clubbing, extremities motor strength 5/5 Skin: no rashes, warm and dry Neurologic: PERRL, EOMI, accommodation nl, no face palsy, no dysarthria Psychiatric: A+Ox3, euthymic affect Results & Data Laboratory Results Laboratory Results - last 24 hr 10/01/18 10/01/18 12:22 12:22 VBG pH 7.46 H VBG pCO2 26 L VBG pO2 32 VBG HCO3 19 VBG O2 Saturation 67.6 VBG Base Excess -4.0 Barometric Pressure 731.8 Sodium 123 L Potassium 4.6 Chloride 95 L Carbon Dioxide 16 L Anion Gap 12.0 H BUN 53 H Creatinine 1.71 H Est Cr Clr Drug Dosing 43.3 Est GFR ( Amer) 51.1 Est GFR (Non-Af Amer) 44.1 BUN/Creatinine Ratio 31.2 H Glucose 253 H Calcium 8.0 L Code Status & VTE Plan VTE Prophylaxis Plan VTE Prophylaxis will be ordered: Yes Supervising Physician Co-Signing Physician Notes Is a 53-year-old male with significant past medical history of multiple myeloma status post stem cell transplant and ongoing chemotherapy was admitted with the high blood sugar likely secondary to use of steroid. He complains to have generalized weakness but denies any other symptoms Denies any chest pain, palpitation, shortness of breath, abdominal pain, nausea no vomiting or any neurological symptoms On examination No apparent distress at rest Anxious and weak Hemodynamically stable Chest clear to auscultate bilaterally- Heart-S1-S2 regular no murmur appreciated, Abdomen-benign Extremities negative for any edema- Admission labs and imaging studies from August reviewed Has hyperglycemia, hyponatremia, pancytopenia, and chronic kidney disease secondary to steroid and multiple myeloma SSI for Hyperglycemia.NS infusion for Hyponatremia and CKD Agree with the assessment and plan as outlined above by Cortney Poe Estefania _ (1) Multiple myeloma Multiple myeloma remission status: in relapse Qualified Code(s): C90.02 - Multiple myeloma in relapse
[2018-10-01] MEDS ORDERED: PHARMACY GLYCEMIC MGMT CONSULT PRN (13:45)
[2018-10-01] MEDS: SODIUM CHLORIDE 0.9% 1000ML 1,000 ML IV SCH (15:31)
[2018-10-01] MEDS: INSULIN ASPART 100 UNITS/ML 3 ML PEN SC SCH ×2 (18:32→20:59)
[2018-10-01 18:40] LABS: BUN Creatinine Ratio 31.8 (10-20); Creatinine Clr Calc Pharmacy 42.1 ml/min; Est GFR (African American) 49.4; Est GFR (Non-African American) 42.6; Potassium 4.6 mmol/L (3.5-5.1)
[2018-10-01] MEDS: ACYCLOVIR 200 MG CAP PO SCH (20:59)
[2018-10-02] MEDS: INSULIN ASPART 100 UNITS/ML 3 ML PEN SC SCH ×6 (00:08→20:47)
[2018-10-02] MEDS: SODIUM CHLORIDE 0.9% 1000ML 1,000 ML IV SCH (01:07)
[2018-10-02 07:19] LABS: Hematocrit (blood only) 20.6 % (42-52); Hemoglobin 7.7 g/dL (14.0-18.0); Mean Corpuscular Hgb Conc 37.4 g/dL (32-36); Mean Corpuscular Volume 83.1 fL (80-100); Platelet Count 15 K/uL (130-400); RDW Coefficient of Variation 14.9 % (11.5-14.5); Red Blood Count 2.48 M/uL (4.7-6.1); White Blood Count 1.13 K/uL (4.8-10.8)
[2018-10-02 07:35] LABS: BUN Creatinine Ratio 31.5 (10-20); Calcium 7.6 mg/dl (8.5-10.1); Creatinine Clr Calc Pharmacy 46.6 ml/min; Est GFR (African American) 55.8; Est GFR (Non-African American) 48.2; Potassium 4.3 mmol/L (3.5-5.1)
[2018-10-02] MEDS ORDERED: PHARMACY GLYCEMIC MGMT CONSULT STA (07:36)
[2018-10-02] MEDS: ACYCLOVIR 200 MG CAP PO SCH ×2 (07:57→20:47)
[2018-10-02] MEDS: CHOLECALCIFEROL 1,000 UNITS TAB PO SCH (07:57)
[2018-10-02] MEDS: AMLODIPINE BESYLATE 5 MG TAB PO SCH (07:58)
[2018-10-02] MEDS: CEROVITE ADV FORMULA TAB PO SCH (07:58)
[2018-10-02] MEDS: CALCIUM 600MG + VIT D 400 IU TAB PO SCH (08:00)
[2018-10-02] MEDS: PANTOprazole 40 MG TAB PO SCH (08:00)
--- NOTE | 2018-10-02 09:31 | Nephrology Consultation ---
Date of Consultation October 02, 2018 Assessment & Plan (1) Chronic kidney disease (CKD), stage III (moderate): No recent bmp in outpt /EPIC records. Based on epic records, his renal insufficiency is new in 2017, when he presented in 09/2017 w/ creatinine 4.2 around the time meyloma was dx'd; improved to 2.1 by that hospital d/c; then to baseline next several months of 1.1-1.4; since 06/2018, when myeloma per pt relapsed, creatinine more in mid ones, most recently 1.9 on 09/24. last spring had proteinuria of 300. unclear if myeloma involving kidney or not; not especially relevant clinically to est this since he's already getting max myeloma tx and has plts too low for safe bx. creat 1.7 today. -continue care focus of minimizing bp extremes -IVF as below -daily bmp -will order baseline UA, renal u/s -for now keep november appt w/ Dr Duran Present on Admission?: Yes (2) Disorders of fluid, electrolyte, and acid-base balance: improving anion gap metabolic acidosis and improving hyponatremia and hypotension on NS -changed NS to 1/2 NS w/ 75 mEq/L sodium bicarbonate at 125 mL/hr -held amlodipine given hypotension -daily bmp Present on Admission?: Yes History of Present Illness Reason for Consultation: CKD Requesting Physician: Dr Christina Attending Physician: Hung Christina MD History of Present Illness 53 y/o M whom I'm asked to see for CKD. PMH includes multiple myeloma dx'd 2017 s/p stem cell txplt 02/2018 and currently on daratumumab weekly, CKD3, HTN. HE was admitted yesterday for mgt of hyperglycemia after dexamethasone started. His baseline creatinine is in the mid ones and was 1.7 on admission. His sbp have run 90-100s since admission. He is pancytopenic. he is getting NS at 100mL hourly. He has no specific complaints other than recently elevated BG, + thirst. Mother is RN and at bedside along w/ 2 other loved ones. Has upcoming appt w/ Dr Duran in November. No NSAID use, no FH renal dz; no stones. Allergies Allergy/AdvReac Type Severity Reaction Status Date / Time No Known Allergies Allergy Verified 09/28/18 07:24 Home Medications Home Medications Medication Instructions Recorded Confirmed Type amlodipine [Norvasc] 10 mg PO DAILY 08/16/18 10/01/18 History cholecalciferol (vitamin D3) 5,000 unit PO DAILY 08/16/18 10/01/18 History [Vitamin D3] gazxrqljwzaq-mtcl-lfnrx acid 1 tab PO DAILY 08/16/18 10/01/18 History [Centrum] omeprazole 20 mg PO DAILY 08/16/18 10/01/18 History daratumumab [Darzalex] 20 ml IV WK 08/30/18 10/01/18 History dexamethasone 40 mg PO DIRECTED 09/18/18 10/01/18 History acyclovir 200 mg PO BID 10/01/18 10/01/18 History calcium carbonate-vitamin D3 1 tab PO DAILY 10/01/18 10/01/18 History [Calcium 600 + D(3)] ergocalciferol (vitamin D2) 50,000 unit PO MONTHLY 10/01/18 10/01/18 History Patient History Medical History Chronic kidney disease (CKD), stage III (moderate) (Chronic) Hypertension (Chronic) Multiple myeloma (Chronic 09/28/17) Surgical History Hx of stem cell transplant (Chronic) Family History Mother Hypertension Father IPF (idiopathic pulmonary fibrosis) Social History marital status: Current Living Situation: Spouse Other Information That Helps Us Care for You: No Feels Safe at Home: Yes Safety Concerns: Feels Safe At This Time Smoking Status: Never smoker Do You Dip or Chew Tobacco: No Second Hand Exposure: No Tobacco Cessation Education Requested by Patient: No Hx Alcohol Use: No Hx Substance Use: No Beliefs That Will Affect Care: None Preferred Language: Danish Communication Ability: Effective Special Educator Required: No Review of Systems Constitutional: no fever, no weakness and no weight gain Eyes: no worsening vision Ear, Nose, Mouth, Throat: no dry mouth Respiratory: no cough and no dyspnea Cardiovascular: no chest pain, no palpitations and no edema Gastrointestinal: no abdominal pain, no early satiety, no vomiting and no diarrhea/loose stools Genitourinary (Male): no dysuria, no urinary frequency, no urinary hesitancy and no hematuria Musculoskeletal: no back pain and no myalgia Integumentary: no rash and no non-healing lesions Neurologic: no abnormal movements and no abnormal speech Psychiatric: no behavioral changes Endocrine: as per Subjective / HPI, + fatigue, + polydipsia, + polyphagia and + polyuria Hematologic / Lymphatic: + easy bleeding and + easy bruising Physical Exam 2 Vital Signs (Past 24 Hours): Last Vital Signs Temp 36.4 C L 10/02/18 08:18 Pulse 103 H 10/02/18 08:18 Resp 16 10/02/18 08:18 BP 105/46 L 10/02/18 08:18 Pulse Ox 100 10/02/18 08:18 Constitutional: well developed and well nourished A& 0 x3 on RA Eyes: EOM intact bilaterally ENMT: Ears: no external ear abnormality Nose: no external nose abnormality Mouth: + dry oral mucous membranes Neck: no nuchal rigidity Respiratory: normal respiratory effort Auscultation: + diminished lung sounds Cardiovascular: Rate/Rhythm: regular rhythm and + tachycardic Extremities: no edema Gastrointestinal (Abdomen): Inspection/Auscultation: normal bowel sounds Percussion/Palpation: abdomen soft; abdomen nontender Musculoskeletal: Extremities: strength 5/5 throughout Skin: no rashes, warm and dry Neurologic: ary, fluent speech, no tremor Psychiatric: A+Ox3, euthymic affect Genitourinary: no briseno Results & Data Laboratory Results Abnormal lab results 10/01/18 10/01/18 10/01/18 Range/Units 12:22 12:22 17:33 WBC (4.8-10.8) K/uL RBC (4.7-6.1) M/uL Hgb (14.0-18.0) g/dL Hct (42-52) % MCHC (32-36) g/dL RDW Coeff of Jenae (11.5-14.5) % Plt Count (130-400) K/uL VBG pH 7.46 H (7.36-7.41) VBG pCO2 26 L (38-50) mmHg Sodium 123 L (136-145) mmol/L Chloride 95 L (98-107) mmol/L Carbon Dioxide 16 L (21-32) mmol/L Anion Gap 12.0 H (3-11) BUN 53 H (7-18) mg/dl Creatinine 1.71 H (0.6-1.4) mg/dl BUN/Creatinine Ratio 31.2 H (10-20) Glucose 253 H (70-99) mg/dl POC Glucose 256 H (70-99) Calcium 8.0 L (8.5-10.1) mg/dl 10/01/18 10/01/18 10/02/18 Range/Units 18:04 20:23 00:06 WBC (4.8-10.8) K/uL RBC (4.7-6.1) M/uL Hgb (14.0-18.0) g/dL Hct (42-52) % MCHC (32-36) g/dL RDW Coeff of Jenae (11.5-14.5) % Plt Count (130-400) K/uL VBG pH (7.36-7.41) VBG pCO2 (38-50) mmHg Sodium 124 L (136-145) mmol/L Chloride 96 L (98-107) mmol/L Carbon Dioxide 16 L (21-32) mmol/L Anion Gap 12.0 H (3-11) BUN 56 H (7-18) mg/dl Creatinine 1.76 H (0.6-1.4) mg/dl BUN/Creatinine Ratio 31.8 H (10-20) Glucose 251 H (70-99) mg/dl POC Glucose 265 H 166 H (70-99) Calcium 8.0 L (8.5-10.1) mg/dl 10/02/18 10/02/18 10/02/18 Range/Units 05:17 06:40 06:40 WBC 1.13 L (4.8-10.8) K/uL RBC 2.48 L (4.7-6.1) M/uL Hgb 7.7 L (14.0-18.0) g/dL Hct 20.6 L* (42-52) % MCHC 37.4 H (32-36) g/dL RDW Coeff of Jenae 14.9 H (11.5-14.5) % Plt Count 15 L* (130-400) K/uL VBG pH (7.36-7.41) VBG pCO2 (38-50) mmHg Sodium 131 L D (136-145) mmol/L Chloride (98-107) mmol/L Carbon Dioxide 18 L (21-32) mmol/L Anion Gap (3-11) BUN 50 H (7-18) mg/dl Creatinine 1.59 H (0.6-1.4) mg/dl BUN/Creatinine Ratio 31.5 H (10-20) Glucose 165 H (70-99) mg/dl POC Glucose 181 H (70-99) Calcium 7.6 L (8.5-10.1) mg/dl 10/02/18 Range/Units 07:57 WBC (4.8-10.8) K/uL RBC (4.7-6.1) M/uL Hgb (14.0-18.0) g/dL Hct (42-52) % MCHC (32-36) g/dL RDW Coeff of Jenae (11.5-14.5) % Plt Count (130-400) K/uL VBG pH (7.36-7.41) VBG pCO2 (38-50) mmHg Sodium (136-145) mmol/L Chloride (98-107) mmol/L Carbon Dioxide (21-32) mmol/L Anion Gap (3-11) BUN (7-18) mg/dl Creatinine (0.6-1.4) mg/dl BUN/Creatinine Ratio (10-20) Glucose (70-99) mg/dl POC Glucose 158 H (70-99) Calcium (8.5-10.1) mg/dl
[2018-10-02 09:36] LABS: Estimated Average Glucose 177 mg/dl
[2018-10-02] MEDS: SODIUM BICARBONATE 8.4% 75 MEQ in SODIUM CHLORIDE 0.45 % 1,000 ML IV SCH ×2 (11:23→19:45)
[2018-10-02 13:32] LABS: Appearance Urine Clear (Clear); Bacteria Urine Automated Negative (Negative); Bilirubin Urine Negative (Negative); Color Urine Yellow; Epithelial Cell Urine Auto 20-30 /lpf (0-5); Glucose Urine UA Negative (Negative); Ketones Urine Negative (Negative); Leukocyte Esterase Urine Negative (Negative); Nitrite Urine Negative (Negative); Protein Urine 1+ (Negative); Urobilinogen Urine Negative (Negative)
--- NOTE | 2018-10-02 14:18 | Pharmacy Report ---
Glycemic Control Consultation - Date of Service October 02, 2018 - Scope Scope: Glycemic Pharmacist consulted by Deacon Espinoza on 10/01/18 for glycemic control and to write orders per [facility] inpatient glycemic control protocol - Objective Weight: 62.7 kg Accuchecks BSG (last 24hrs): 10/01/18 10/01/18 10/01/18 17:33 18:04 20:23 Glucose 251 H POC Glucose 256 H 265 H 10/02/18 10/02/18 10/02/18 00:06 05:17 06:40 Glucose 165 H POC Glucose 166 H 181 H 10/02/18 10/02/18 07:57 11:37 Glucose POC Glucose 158 H 171 H Laboratory Data (last 24hrs): 10/01/18 10/02/18 18:04 06:40 Potassium 4.6 4.3 Carbon Dioxide 16 L 18 L Anion Gap 12.0 H 9.0 Creatinine 1.76 H 1.59 H Est Cr Clr Drug Dosing 42.1 46.6 HbA1c: Hemoglobin A1c 7.8 % (4.5-5.6) H 10/02/18 06:40 - Recent Pertinent Medications Outpatient Anti-diabetic Regimen: * n/a * A1c = 7.8 % 10/02/18 The patient is currently receiving: * Basal insulin: None * Correctional Insulin: Novolog Correction per scale ACHS Goal Range: Low 110 mg/dL - High 140 mg/dL Correction Factor: 25 mg/dL/unit * Prandial insulin: Per carb ratio of 1 unit per 8 grams CHO consumed Risk Factors for Insulin Resistance: * Steroids: none for now; last dose of Decadron was yesterday AM SUPERVISING LIBRARIAN * Diet: Regular - Assessment & Plan Assessment & Plan: ASSESSMENT: * Mr. Benavidez was admitted yesterday for steroid-induced hyperglycemia. He has been on steroids (which are currently on hold per oncology) and the use has resulted in an A1c indicative of diabetes. * Upon admission, he was initiated on short-acting insulin only and BSGs have improved down to a fasting of 158 mg/dL. With the Decadron still being on board at this point and wearing off by this evening, I will hold off on basal insulin for now. Will instead continue the tightened CF/CR (currently at a stress level of 3 w/ patient's weight) and loosen tomorrow. PLAN FOR INPATIENT GLYCEMIC CONTROL: * Basal insulin - continue to hold off until fasting elevated off steroids * Bolus insulin - continue same for today but loosen starting tomorrow AM * NovoLog per scale ACHS or Q6hrs while NPO * Goal Range: Low 110 mg/dL - High 140 mg/dL * Correction Factor: 25 mg/dL/unit (35 mg/dL/unit from tomorrow AM) * Carb ratio: 1 unit per 8 gm CHO consumed (1 unit per 10 gm CHO from tomorrow AM) * Diet changed from regular -> type 2 diabetes to provide more consistent carbs Discharge Recommendations: * This will depend on patient's plan to continue steroids on discharge or not * If not continuing steroids, may consider just checking BSGs and plan for close outpatient f/u * If continuing steroids, patient would benefit from a sulfonylurea or possibly even insulin, depending on daily requirements Thank you.
--- NOTE | 2018-10-02 14:56 | Ultrasound Report ---
US renal/blad retro comp CLINICAL HISTORY: 53 years-old Male presenting with CKD 3 progressive, multiple myeloma-baseline stud y. TECHNIQUE: Real-time grayscale and limited color Doppler ultrasound imaging of the kidneys and bladde r was performed. COMPARISON: None. FINDINGS: Right kidney: Increased echogenicity of renal parenchyma. Right kidney measures 10.5 cm. No hydroneph rosis. No convincing evidence of calculus or mass. Left kidney: Increased echogenicity of renal parenchyma. Left kidney measures 11.3 cm. No hydronephro sis. No convincing evidence of calculus or mass. Bladder: Normal. Bilateral ureteral jets present. Other: A multilobular anechoic lesion in the liver with a thin septation is consistent with hepatic c yst. Hyperechogenicity and heterogeneity of hepatic parenchyma. IMPRESSION: 1. Medical renal disease. 2. No hydronephrosis. 3. Hyperechogenicity and heterogeneity of hepatic parenchyma suggests underlying fibrosis or steatos is. Electronically signed by: Moshe Eng M.D. 10/02/2018 2:55 PM
[2018-10-02] MEDS ORDERED: methylPREDNISolone 60 MG in SYRINGE 0 ML IV STA (15:56)
[2018-10-02] MEDS ORDERED: XOPENEX/ATROVENT 0.63mg/0.5MG NEB COMBO NEB STA (15:56)
[2018-10-02] MEDS ORDERED: LEVALBUTEROL HCL 0.63 MG/3 ML NEB NEB SCH (16:00)
[2018-10-02] MEDS ORDERED: IPRATROPIUM BROMIDE NEB SOLN 0.02% 2.5 ML VIAL INH SCH (16:00)
[2018-10-02] MEDS ORDERED: IPRATROPIUM BROMIDE NEB SOLN 0.02% 2.5 ML VIAL INH ONE (16:15)
[2018-10-02] MEDS ORDERED: LEVALBUTEROL HCL 0.63 MG/3 ML NEB INH ONE (16:15)
[2018-10-02] MEDS ORDERED: LEVALBUTEROL 1.25MG/0.5ML NEB INH ONE (16:15)
[2018-10-03] MEDS: SODIUM BICARBONATE 8.4% 75 MEQ in SODIUM CHLORIDE 0.45 % 1,000 ML IV SCH (04:02)
--- NOTE | 2018-10-03 05:29 | Hospitalist Progress Note ---
Date of Service October 03, 2018 delayed entry date of service 10/02/18 Assessment & Plan (1) Steroid-induced hyperglycemia: -per admitting service notes: -Patient referred for direct admission by Dr. Page for management of steroid-induced hyperglycemia -Outpatient labs this a.m. demonstrated: glucose 374, CO2 14, anion gap 16 -no history of diabetes, hyperglycemia due to recent addition of high dose steroids -recheck BMP shows: glucose 253, CO2 16, anion gap 12, pH 7.46 -will start Novolog sliding scale -IVF -per Dr. Page, hold steroids for now however if steroids are resumed, consider addition of PO glipizide for outpatient management 10/02 - A1c 7.8 - on Insulin Sliding Scale - will need to discuss with Hem/Onc re: plan for Steroid regimen - may need Insulin vs. oral DM med on discharge (Glipizide) - DM educator ordered (2) Hyponatremia: -pseudo hyponatremia contributing due to hyperglycemia , dehydration - improving (3) Multiple myeloma: -Follows with Dr. Page -Currently receiving high-dose dexamethasone as above -On Darzalex weekly - chronic pancytopenia discussed with Dr. Youssef, monitor CBC, transfuse if Hg < 7.5, Plt < 10k - was on Decadron 40mg 4 days on, 4 days off needs steroid taper to prevent adrenal crisis will need to discuss with Hem/Onc re: plan for Steroid regimen (4) Chronic kidney disease (CKD), stage III (moderate): - baseline creat runs in the mid 1's - creat noted to be 1.7 HCO3 18 - Nephro consulted NSS + HCO3 ordered - monitor (5) Hypertension: -BP controlled, continue amlodipine (6) DVT prophylaxis: -SCDs due to anemia and thrombocytopenia Disposition pending anticipate d/c home when medically stable Subjective ff up for hyperglycemia seen resting in bed, comfortable family at bedside states he feels about the same, feels a little weak but fine overall denies headache, dizziness, nausea, dyspnea, chest pain no other symptoms Physical Exam 2 Vital Signs (Past 24 Hours): Last Vital Signs Temp 36.7 C 10/03/18 04:00 Pulse 88 10/03/18 04:00 Resp 20 10/03/18 04:00 BP 96/56 L 10/03/18 04:00 Pulse Ox 98 10/03/18 04:00 Physical Exam: General- oriented x 3, not in distress, speaks in sentences with no effort or accessory muscle use Head- atraumatic Eyes- PERRL, EOMI, anicteric ENT- oropharynx clear Neck- supple, no JVD, no adenopathy, no thyromegaly; carotids +2/2, no bruits appreciated Lungs- clear to auscultation bilaterally, no rales/wheezes Heart- normal rate, regular rhythm; no murmur, no gallop, no rub appreciated Abdomen- normal bowel sounds, nondistended, soft, nontender, no masses or hepatosplenomegaly Extremities- no pretibial edema, no calf tenderness; peripheral pulses intact Neuro- alert, oriented x 3; CN 2-12 grossly intact; motor 5/5 bilaterally; sensation 100% on all extremities; no other gross focal neurologic deficits Skin- warm & dry Results & Data Laboratory Results Laboratory Results - last 24 hr 10/02/18 10/02/18 10/02/18 05:17 06:40 06:40 WBC 1.13 L RBC 2.48 L Hgb 7.7 L Hct 20.6 L* MCV 83.1 MCH 31.0 MCHC 37.4 H RDW Std Deviation 45.0 RDW Coeff of Jenae 14.9 H Plt Count 15 L* Sodium 131 L D Potassium 4.3 Chloride 104 Carbon Dioxide 18 L Anion Gap 9.0 BUN 50 H Creatinine 1.59 H Est Cr Clr Drug Dosing 46.6 Est GFR ( Amer) 55.8 Est GFR (Non-Af Amer) 48.2 BUN/Creatinine Ratio 31.5 H Glucose 165 H POC Glucose 181 H Estimat Average Glucose Hemoglobin A1c Calcium 7.6 L Urine Color Urine Appearance Urine pH Ur Specific [place] Urine Protein Urine Glucose (UA) Urine Ketones Urine Blood Urine Nitrite Urine Bilirubin Urine Urobilinogen Ur Leukocyte Esterase Urine WBC (Auto) Urine RBC (Auto) U Hyaline Cast (Auto) U Epithel Cells (Auto) Urine Bacteria (Auto) Granular Casts Urine Yeast 10/02/18 10/02/18 10/02/18 06:40 07:57 11:37 WBC RBC Hgb Hct MCV MCH MCHC RDW Std Deviation RDW Coeff of Ejnae Plt Count Sodium Potassium Chloride Carbon Dioxide Anion Gap BUN Creatinine Est Cr Clr Drug Dosing Est GFR ( Amer) Est GFR (Non-Af Amer) BUN/Creatinine Ratio Glucose POC Glucose 158 H 171 H Estimat Average Glucose 177 Hemoglobin A1c 7.8 H Calcium Urine Color Urine Appearance Urine pH Ur Specific [place] Urine Protein Urine Glucose (UA) Urine Ketones Urine Blood Urine Nitrite Urine Bilirubin Urine Urobilinogen Ur Leukocyte Esterase Urine WBC (Auto) Urine RBC (Auto) U Hyaline Cast (Auto) U Epithel Cells (Auto) Urine Bacteria (Auto) Granular Casts Urine Yeast 10/02/18 10/02/18 10/02/18 13:15 16:34 20:44 WBC RBC Hgb Hct MCV MCH MCHC RDW Std Deviation RDW Coeff of Jenae Plt Count Sodium Potassium Chloride Carbon Dioxide Anion Gap BUN Creatinine Est Cr Clr Drug Dosing Est GFR ( Amer) Est GFR (Non-Af Amer) BUN/Creatinine Ratio Glucose POC Glucose 148 H 207 H Estimat Average Glucose Hemoglobin A1c Calcium Urine Color Yellow Urine Appearance Clear Urine pH 5.0 Ur Specific [place] 1.020 Urine Protein 1+ H Urine Glucose (UA) Negative Urine Ketones Negative Urine Blood Negative Urine Nitrite Negative Urine Bilirubin Negative Urine Urobilinogen Negative Ur Leukocyte Esterase Negative Urine WBC (Auto) 1-5 Urine RBC (Auto) 0-4 U Hyaline Cast (Auto) 5-10 H U Epithel Cells (Auto) 20-30 H Urine Bacteria (Auto) Negative Granular Casts 1-5 H Urine Yeast Not Reportable _ (1) Multiple myeloma Multiple myeloma remission status: in relapse Qualified Code(s): C90.02 - Multiple myeloma in relapse
[2018-10-03] MEDS: CEROVITE ADV FORMULA TAB PO SCH (07:25)
[2018-10-03] MEDS: PANTOprazole 40 MG TAB PO SCH (07:25)
[2018-10-03] MEDS: CHOLECALCIFEROL 1,000 UNITS TAB PO SCH (07:25)
[2018-10-03] MEDS: ACYCLOVIR 200 MG CAP PO SCH (07:25)
[2018-10-03] MEDS: CALCIUM 600MG + VIT D 400 IU TAB PO SCH (07:26)
--- NOTE | 2018-10-03 08:23 | Oncology Consultation ---
Date of Consultation October 03, 2018 Assessment & Plan (1) Steroid-induced hyperglycemia: His sugars and other electrolyte issues are resolving with appropriate care. I will resume his steroids as an outpatient, at a lower dose. Present on Admission?: Yes (2) Multiple myeloma: Mr. Benavidez is doing poorly. We are starting growth factors next week with a goal of hopefully improving his counts enough to tolerate additional therapy to try and at least slow down his myeloma. He is on acyclovir for prophylaxis following his transplant and should continue it. He has standing arrangements for regular labs and visits with my office and will keep them. His hemoglobin is borderline for transfusion today. If it is lower tomorrow, I would give him some PRBCs. Present on Admission?: Yes History of Present Illness Reason for Consultation: Multiple myeloma Attending Physician: Bhupinder Grigsby MD History of Present Illness Mr. Benavidez is a 53 year old man with IgA kappa multiple myeloma. He was diagnosed in September, after presenting with back pain. He had widespread osseous lytic lesions and was hypercalcemic. He started RVd on 10/19/17, after completing palliative RT to symptomatic spinous lesions. He received 5 cycles through 01/29/18. He had a stringent CR with negative marrow on 02/12/18. He then underwent consolidative autologous SCT with melphalan (day 0 on 03/02/18). His post-treatment labs and PET/CT suggested persistent disease, though with an excellent overall response. He resumed RVd after transplant but his disease rapidly relapsed, with extensive marrow involvement leading to pancytopenia. He started single-agent Daratumumab (with dexamethasone) on 08/27/18, with a goal add other therapy when his counts recover. We have not seen the kind of response we were hoping for and his consulting oncologist at [facility] [place], Dr. Shafer, suggested adding Dex 40 mg daily, 4 days on, 4 days off, which he started a couple of weeks ago. Since then, his sugars have steadily risen. I saw him on the day of admission when his labs revealed hyperglycemia, hyponatremia, and a metabolic acidosis with anion gap. I arranged for a direct admission to manage DKA. He has since done well. His sugars are down and his sodium and CO2 have improved. He feels tired and weak and has not really improved much since starting treatment. He denies any pain. Allergies Allergy/AdvReac Type Severity Reaction Status Date / Time No Known Allergies Allergy Verified 09/28/18 07:24 Home Medications Home Medications Medication Instructions Recorded Confirmed Type amlodipine [Norvasc] 10 mg PO DAILY 08/16/18 10/01/18 History cholecalciferol (vitamin D3) 5,000 unit PO DAILY 08/16/18 10/01/18 History [Vitamin D3] [id number] acid 1 tab PO DAILY 08/16/18 10/01/18 History [Centrum] omeprazole 20 mg PO DAILY 08/16/18 10/01/18 History daratumumab [Darzalex] 20 ml IV WK 08/30/18 10/01/18 History dexamethasone 40 mg PO DIRECTED 09/18/18 10/01/18 History acyclovir 200 mg PO BID 10/01/18 10/01/18 History calcium carbonate-vitamin D3 1 tab PO DAILY 10/01/18 10/01/18 History [Calcium 600 + D(3)] ergocalciferol (vitamin D2) 50,000 unit PO MONTHLY 10/01/18 10/01/18 History Patient History Medical History Chronic kidney disease (CKD), stage III (moderate) (Chronic) Hypertension (Chronic) Multiple myeloma (Chronic 09/28/17) Surgical History Hx of stem cell transplant (Chronic) Family History Mother Hypertension Father IPF (idiopathic pulmonary fibrosis) Social History marital status: Current Living Situation: Spouse Other Information That Helps Us Care for You: No Feels Safe at Home: Yes Safety Concerns: Feels Safe At This Time Smoking Status: Never smoker Do You Dip or Chew Tobacco: No Second Hand Exposure: No Tobacco Cessation Education Requested by Patient: No Hx Alcohol Use: No Hx Substance Use: No Beliefs That Will Affect Care: None Preferred Language: Kinyarwanda Communication Ability: Effective 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: No Review of Systems Constitutional: + fatigue and + weakness; no fever Eyes: no worsening vision Ear, Nose, Mouth, Throat: no epistaxis and no bleeding gums Respiratory: no cough and no dyspnea Cardiovascular: no chest pain and no edema Gastrointestinal: no abdominal pain, no nausea and no blood in stools Musculoskeletal: no back pain and no muscle weakness Integumentary: no rash and no bleeding lesions Hematologic / Lymphatic: no easy bleeding and no easy bruising Physical Exam 2 Vital Signs (Past 24 Hours): Last Vital Signs Temp 36.7 C 10/03/18 08:00 Pulse 97 H 10/03/18 08:00 Resp 16 10/03/18 08:00 BP 108/64 10/03/18 08:00 Pulse Ox 100 10/03/18 08:00 Constitutional: + ill appearing (chronically); no acute distress Eyes: + anicteric sclerae and EOM intact bilaterally ENMT: external ear and nose normal, oropharynx normal Respiratory: normal respiratory effort, lungs clear to auscultation Cardiovascular: RRR, no murmur, no edema Gastrointestinal (Abdomen): normal bowel sounds, soft, nontender, no hepatosplenomegaly Skin: no rashes, warm and dry Psychiatric: A+Ox3, euthymic affect Lymphatic: no cervical or axillary lymphadenopathy Results & Data Laboratory Results Laboratory Results - last 48 hr 10/01/18 10/01/18 10/01/18 12:22 12:22 17:33 WBC RBC Hgb Hct MCV MCH MCHC RDW Std Deviation RDW Coeff of Jenae Plt Count VBG pH 7.46 H VBG pCO2 26 L VBG pO2 32 VBG HCO3 19 VBG O2 Saturation 67.6 VBG Base Excess -4.0 Barometric Pressure 731.8 Sodium 123 L Potassium 4.6 Chloride 95 L Carbon Dioxide 16 L Anion Gap 12.0 H BUN 53 H Creatinine 1.71 H Est Cr Clr Drug Dosing 43.3 Est GFR ( Amer) 51.1 Est GFR (Non-Af Amer) 44.1 BUN/Creatinine Ratio 31.2 H Glucose 253 H POC Glucose 256 H Estimat Average Glucose Hemoglobin A1c Calcium 8.0 L Urine Color Urine Appearance Urine pH Ur Specific [place] Urine Protein Urine Glucose (UA) Urine Ketones Urine Blood Urine Nitrite Urine Bilirubin Urine Urobilinogen Ur Leukocyte Esterase Urine WBC (Auto) Urine RBC (Auto) U Hyaline Cast (Auto) U Epithel Cells (Auto) Urine Bacteria (Auto) Granular Casts Urine Yeast 10/01/18 10/01/1810/02/19 18:04 20:23 00:06 WBC RBC Hgb Hct MCV MCH MCHC RDW Std Deviation RDW Coeff of Jenae Plt Count VBG pH VBG pCO2 VBG pO2 VBG HCO3 VBG O2 Saturation VBG Base Excess Barometric Pressure Sodium 124 L Potassium 4.6 Chloride 96 L Carbon Dioxide 16 L Anion Gap 12.0 H BUN 56 H Creatinine 1.76 H Est Cr Clr Drug Dosing 42.1 Est GFR ( Amer) 49.4 Est GFR (Non-Af Amer) 42.6 BUN/Creatinine Ratio 31.8 H Glucose 251 H POC Glucose 265 H 166 H Estimat Average Glucose Hemoglobin A1c Calcium 8.0 L Urine Color Urine Appearance Urine pH Ur Specific [place] Urine Protein Urine Glucose (UA) Urine Ketones Urine Blood Urine Nitrite Urine Bilirubin Urine Urobilinogen Ur Leukocyte Esterase Urine WBC (Auto) Urine RBC (Auto) U Hyaline Cast (Auto) U Epithel Cells (Auto) Urine Bacteria (Auto) Granular Casts Urine Yeast 10/02/18 10/02/18 10/02/18 05:17 06:40 06:40 WBC 1.13 L RBC 2.48 L Hgb 7.7 L Hct 20.6 L* MCV 83.1 MCH 31.0 MCHC 37.4 H RDW Std Deviation 45.0 RDW Coeff of Jenae 14.9 H Plt Count 15 L* VBG pH VBG pCO2 VBG pO2 VBG HCO3 VBG O2 Saturation VBG Base Excess Barometric Pressure Sodium 131 L D Potassium 4.3 Chloride 104 Carbon Dioxide 18 L Anion Gap 9.0 BUN 50 H Creatinine 1.59 H Est Cr Clr Drug Dosing 46.6 Est GFR ( Amer) 55.8 Est GFR (Non-Af Amer) 48.2 BUN/Creatinine Ratio 31.5 H Glucose 165 H POC Glucose 181 H Estimat Average Glucose Hemoglobin A1c Calcium 7.6 L Urine Color Urine Appearance Urine pH Ur Specific [place] Urine Protein Urine Glucose (UA) Urine Ketones Urine Blood Urine Nitrite Urine Bilirubin Urine Urobilinogen Ur Leukocyte Esterase Urine WBC (Auto) Urine RBC (Auto) U Hyaline Cast (Auto) U Epithel Cells (Auto) Urine Bacteria (Auto) Granular Casts Urine Yeast 10/02/18 10/02/18 10/02/18 06:40 07:57 11:37 WBC RBC Hgb Hct MCV MCH MCHC RDW Std Deviation RDW Coeff of Jenae Plt Count VBG pH VBG pCO2 VBG pO2 VBG HCO3 VBG O2 Saturation VBG Base Excess Barometric Pressure Sodium Potassium Chloride Carbon Dioxide Anion Gap BUN Creatinine Est Cr Clr Drug Dosing Est GFR ( Amer) Est GFR (Non-Af Amer) BUN/Creatinine Ratio Glucose POC Glucose 158 H 171 H Estimat Average Glucose 177 Hemoglobin A1c 7.8 H Calcium Urine Color Urine Appearance Urine pH Ur Specific [place] Urine Protein Urine Glucose (UA) Urine Ketones Urine Blood Urine Nitrite Urine Bilirubin Urine Urobilinogen Ur Leukocyte Esterase Urine WBC (Auto) Urine RBC (Auto) U Hyaline Cast (Auto) U Epithel Cells (Auto) Urine Bacteria (Auto) Granular Casts Urine Yeast 10/02/18 10/02/18 10/02/18 13:15 16:34 20:44 WBC RBC Hgb Hct MCV MCH MCHC RDW Std Deviation RDW Coeff of Jenae Plt Count VBG pH VBG pCO2 VBG pO2 VBG HCO3 VBG O2 Saturation VBG Base Excess Barometric Pressure Sodium Potassium Chloride Carbon Dioxide Anion Gap BUN Creatinine Est Cr Clr Drug Dosing Est GFR ( Amer) Est GFR (Non-Af Amer) BUN/Creatinine Ratio Glucose POC Glucose 148 H 207 H Estimat Average Glucose Hemoglobin A1c Calcium Urine Color Yellow Urine Appearance Clear Urine pH 5.0 Ur Specific [place] 1.020 Urine Protein 1+ H Urine Glucose (UA) Negative Urine Ketones Negative Urine Blood Negative Urine Nitrite Negative Urine Bilirubin Negative Urine Urobilinogen Negative Ur Leukocyte Esterase Negative Urine WBC (Auto) 1-5 Urine RBC (Auto) 0-4 U Hyaline Cast (Auto) 5-10 H U Epithel Cells (Auto) 20-30 H Urine Bacteria (Auto) Negative Granular Casts 1-5 H Urine Yeast Not Reportable 10/03/18 07:53 WBC RBC Hgb Hct MCV MCH MCHC RDW Std Deviation RDW Coeff of Jenae Plt Count VBG pH VBG pCO2 VBG pO2 VBG HCO3 VBG O2 Saturation VBG Base Excess Barometric Pressure Sodium Potassium Chloride Carbon Dioxide Anion Gap BUN Creatinine Est Cr Clr Drug Dosing Est GFR ( Amer) Est GFR (Non-Af Amer) BUN/Creatinine Ratio Glucose POC Glucose 86 Estimat Average Glucose Hemoglobin A1c Calcium Urine Color Urine Appearance Urine pH Ur Specific [place] Urine Protein Urine Glucose (UA) Urine Ketones Urine Blood Urine Nitrite Urine Bilirubin Urine Urobilinogen Ur Leukocyte Esterase Urine WBC (Auto) Urine RBC (Auto) U Hyaline Cast (Auto) U Epithel Cells (Auto) Urine Bacteria (Auto) Granular Casts Urine Yeast _ (1) Multiple myeloma Multiple myeloma remission status: in relapse Qualified Code(s): C90.02 - Multiple myeloma in relapse
[2018-10-03] MEDS: INSULIN ASPART 100 UNITS/ML 3 ML PEN SC SCH ×4 (09:05→20:52)
--- NOTE | 2018-10-03 09:34 | Nephrology Progress Note ---
Date of Service October 03, 2018 Assessment & Plan (1) Chronic kidney disease (CKD), stage III (moderate): No recent bmp in outpt /EPIC records. Based on epic records, his renal insufficiency is new in 2017, when he presented in 09/2017 w/ creatinine 4.2 around the time meyloma was dx'd; improved to 2.1 by that hospital d/c; then to baseline next several months of 1.1-1.4; since 06/2018, when myeloma per pt relapsed, creatinine more in mid ones, most recently 1.9 on 09/24. last spring had proteinuria of 300. unclear if myeloma involving kidney or not; not especially relevant clinically to est this since he's already getting max myeloma tx and has plts too low for safe bx. creat 1.7 yesterday and for 1300 labs today. >renal u/s unremarkable; UA w/ dipstic proteinuria, a few granular casts -continue care focus of minimizing bp extremes -IVF on hold currently -daily bmp; f/u today's labs -for now keep november appt w/ Dr Duran (2) Disorders of fluid, electrolyte, and acid-base balance: as of yesterday improving anion gap metabolic acidosis and improving hyponatremia and hypotension on NS -IVF on hold currently >> would await labs before giving more -cont to hold amlodipine given hypotension -daily bmp>f/u today's results Subjective slept better; thinks sugars controlled now; no sob, no chest pain / palps, no n/ v/d/c/ abd pain; no BYRNES or focal numbness/weakness; no rash; + easy bruising Physical Exam 2 Vital Signs (Past 24 Hours): Last Vital Signs Temp 36.7 C 10/03/18 08:00 Pulse 97 H 10/03/18 08:00 Resp 16 10/03/18 08:00 BP 108/64 10/03/18 08:00 Pulse Ox 100 10/03/18 08:00 Constitutional: well developed and well nourished on RA, maneuvers readily for exam Eyes: EOM intact bilaterally near proptosis ENMT: Ears: no external ear abnormality Nose: no external nose abnormality Mouth: + dry oral mucous membranes Neck: no nuchal rigidity Respiratory: normal respiratory effort Auscultation: + diminished lung sounds Cardiovascular: Rate/Rhythm: regular rhythm and + tachycardic Extremities: no edema Gastrointestinal (Abdomen): Inspection/Auscultation: normal bowel sounds Percussion/Palpation: abdomen soft; abdomen nontender Musculoskeletal: Extremities: strength 5/5 throughout Skin: no rashes, warm and dry Neurologic: ray, fluent speech Psychiatric: A+Ox3, euthymic affect Results & Data Laboratory Results Abnormal lab results 10/02/18 10/02/18 10/02/18 Range/Units 06:40 11:37 13:15 POC Glucose 171 H (70-99) Hemoglobin A1c 7.8 H (4.5-5.6) % Urine Protein 1+ H (Negative) U Hyaline Cast (Auto) 5-10 H (0-5) /lpf U Epithel Cells (Auto) 20-30 H (0-5) /lpf Granular Casts 1-5 H (0) /lpf 10/02/18 10/02/18 Range/Units 16:34 20:44 POC Glucose 148 H 207 H (70-99) Hemoglobin A1c (4.5-5.6) % Urine Protein (Negative) U Hyaline Cast (Auto) (0-5) /lpf U Epithel Cells (Auto) (0-5) /lpf Granular Casts (0) /lpf
--- NOTE | 2018-10-03 10:12 | Pharmacy Report ---
Pharmacy Glycemic Short Note 2 - Date of Service October 03, 2018 - Glycemic Short BSG Results (Last 24 hours): 10/02/18 10/02/18 10/02/18 11:37 16:34 20:44 POC Glucose 171 H 148 H 207 H 10/03/18 07:53 POC Glucose 86 OUTPATIENT ANTIDIABETIC REGIMEN: * n/a * A1c = 7.8 % 10/02/18 ASSESSMENT: 10/03/18 * Mr. Benavidez received 29 units of insulin yesterday, all bolus insulin * Fasting BSG, as expected without steroids on board, is 86 mg/dL this AM * Oncology is planning to resume steroids on discharge, but at a lower dose. Patient will need antihyperglycemic therapy on discharge - see recommendations below. 10/02/18 * Mr. Benavidez was admitted yesterday for steroid-induced hyperglycemia. He has been on steroids (which are currently on hold per oncology) and the use has resulted in an A1c indicative of diabetes. * Upon admission, he was initiated on short-acting insulin only and BSGs have improved down to a fasting of 158 mg/dL. With the Decadron still being on board at this point and wearing off by this evening, I will hold off on basal insulin for now. Will instead continue the tightened CF/CR (currently at a stress level of 3 w/ patient's weight) and loosen tomorrow. PLAN FOR INPATIENT GLYCEMIC CONTROL: * Bolus insulin - continue with ordered loosened parameters for today * NovoLog per scale ACHS or Q6hrs while NPO * Goal Range: Low 110 mg/dL - High 140 mg/dL * Correction Factor: 35 mg/dL/unit * Nutritional / Prandial insulin per carb ratio of 1 unit per 10 grams CHO consumed PLAN FOR DISCHARGE: * Initiate glipizide OR glimepiride, as these are both the preferred sulfonylureas in CKD, and would help with postprandial BSG elevatations from steroids. * Initial doses for both: * Glipizide 2.5 mg daily * Glimepiride 1 mg daily * Patient will require close f/u for upward titration based upon BSGs
[2018-10-03 13:42] LABS: BUN Creatinine Ratio 28.4 (10-20); Calcium 7.8 mg/dl (8.5-10.1); Creatinine Clr Calc Pharmacy 50.7 ml/min; Est GFR (African American) 61.9; Est GFR (Non-African American) 53.4; Potassium 4.1 mmol/L (3.5-5.1)
[2018-10-03 13:44] LABS: Hematocrit (blood only) 21.1 % (42-52); Hemoglobin 7.6 g/dL (14.0-18.0); Mean Corpuscular Volume 83.7 fL (80-100); Platelet Count 15 K/uL (130-400); RDW Coefficient of Variation 15.1 % (11.5-14.5); RDW Standard Deviation 46.1 fL (36.4-46.3); Red Blood Count 2.52 M/uL (4.7-6.1); White Blood Count 0.68 K/uL (4.8-10.8)
[2018-10-03 14:06] LABS: Dohle Bodies 1+; Eosinophils # (auto) 0.01 K/uL (0-0.5); Eosinophils % (auto) 1.5 %; Immature Granulocytes # (auto) 0.01 K/uL (0.00-0.02); Immature Granulocytes % (auto) 1.5 %; Lymphocytes # (auto) 0.07 K/uL (1.2-3.4); Lymphocytes % (auto) 10.3 %; Monocytes # (auto) 0.06 K/uL (0.11-0.59); Monocytes % (auto) 8.8 %; Neutrophils # (auto) 0.53 K/uL (1.4-6.5); Neutrophils % (auto) 77.9 %; Rouleaux 1+; Tear Drop Cells 1+; Toxic Granulation 1+
[2018-10-03] MEDS ORDERED: SODIUM CHLORIDE 0.9% 250 ML IV PRN (17:08)
--- NOTE | 2018-10-03 18:02 | Hospitalist Progress Note ---
Date of Service October 03, 2018 Assessment & Plan (1) Steroid-induced hyperglycemia: -Patient referred for direct admission by Dr. Page for management of steroid-induced hyperglycemia -Outpatient labs this a.m. demonstrated: glucose 374, CO2 14, anion gap 16; recheck BMP on admission shows: glucose 253, CO2 16, anion gap 12, pH 7.46 -patient was admitted for hyperglycemia management and acidosis PLAN FOR INPATIENT GLYCEMIC CONTROL as per pharmacy glycemic control consult "Bolus insulin - continue with ordered loosened parameters for today NovoLog per scale ACHS or Q6hrs while NPO Goal Range: Low 110 mg/dL - High 140 mg/dL Correction Factor: 35 mg/dL/unit Nutritional / Prandial insulin per carb ratio of 1 unit per 10 grams CHO consumed" PLAN FOR DISCHARGE: Initiate glipizide OR glimepiride, as these are both the preferred sulfonylureas in CKD, and would help with postprandial BSG elevatations from steroids." clinical educator has seen the patient and showed patient how to use insulin if insulin is needed as outpatient in the future Patient has been seen by [facility] hematology/oncology Dr. Yo and he writes that he plans to resume the patient's steroids as an outpatient, at a lower dose. (2) Hyponatremia: hyperglycemia and dehydration has been though to be contributory to hyponatremia current serum sodium levels 130 (3) Multiple myeloma: -Follows with Dr. Page -high-dose dexamethasone as outpatient -On Darzalex (daratumumab) weekly as outpatient Pancytopenia WBC downtrending likley from recent Darzalex - is neutropenic and will place on neutropenic precautions continue home dose acyclovir because Hemoglobin has trended down to 7.6, 1 unit of PRBC being ordered for transfusion currently the platelets are stable at 15,000 (4) Chronic kidney disease (CKD), stage III (moderate): acute kidney injury on chronic kidney disease stage III KEMAR has resolved after sodium bicarbonate initiated by nephrology service (5) Hypertension: -BP controlled - continue amlodipine (6) DVT prophylaxis: -SCDs due to anemia and thrombocytopenia Subjective Patient seen and examined. Patient denies acute bleeding from orifices but some Epistaxis . Patient denies chest pain or shortness of breath or abdominal pain. Patient denies vomiting. Patient denies lightheadedness Physical Exam 2 Vital Signs (Past 24 Hours): Last Vital Signs Temp 36.4 C L 10/03/18 15:00 Pulse 105 H 10/03/18 15:00 Resp 21 10/03/18 15:00 BP 111/68 10/03/18 15:00 Pulse Ox 99 10/03/18 15:00 Constitutional: WD/WN, vitals as above Eyes: PERRL, conjunctivae normal, anicteric sclerae EOM intact bilaterally ENMT: external ear and nose normal, oropharynx normal Neck: normal visual inspection and trachea midline Respiratory: normal respiratory effort, lungs clear to auscultation Cardiovascular: RRR, no murmur, no edema Gastrointestinal (Abdomen): normal bowel sounds, soft, nontender, no hepatosplenomegaly Musculoskeletal: no cyanosis or clubbing, extremities motor strength 5/5 Head/Neck/Chest: normocephalic and head atraumatic Neurologic: PERRL, EOMI, accommodation nl, no face palsy, no dysarthria CN' s II-XI intact bilaterally Psychiatric: A+Ox3, euthymic affect _ (1) Multiple myeloma Multiple myeloma remission status: in relapse Qualified Code(s): C90.02 - Multiple myeloma in relapse
[2018-10-04] MEDS: ACETAMINOPHEN 325 MG TAB PO PRN ×2 (04:19→17:34)
[2018-10-04] MEDS: CALCIUM 600MG + VIT D 400 IU TAB PO SCH (08:27)
[2018-10-04] MEDS: PANTOprazole 40 MG TAB PO SCH (08:27)
[2018-10-04] MEDS: CEROVITE ADV FORMULA TAB PO SCH (08:27)
[2018-10-04] MEDS: CHOLECALCIFEROL 1,000 UNITS TAB PO SCH (08:27)
[2018-10-04] MEDS: INSULIN ASPART 100 UNITS/ML 3 ML PEN SC SCH ×4 (08:36→21:13)
--- NOTE | 2018-10-04 08:58 | Pharmacy Report ---
Pharmacy Glycemic Short Note 2 - Date of Service October 04, 2018 - Glycemic Short BSG Results (Last 24 hours): 10/03/18 10/03/18 10/03/18 11:36 13:03 16:29 Glucose 120 H POC Glucose 111 H 87 10/03/18 10/04/18 20:21 07:41 Glucose POC Glucose 134 H 106 H OUTPATIENT ANTIDIABETIC REGIMEN: * n/a * A1c = 7.8 % 10/02/18 ASSESSMENT: 10/04/18 * Mr. Benavidez only required 10 units of insulin yesterday * All BSGs less than 140 mg/dL. He remains off steroids at this time. * Will loosen prandial coverage to prevent postprandial hypoglycemia 10/03/18 * Mr. Benavidez received 29 units of insulin yesterday, all bolus insulin * Fasting BSG, as expected without steroids on board, is 86 mg/dL this AM * Oncology is planning to resume steroids on discharge, but at a lower dose. Patient will need antihyperglycemic therapy on discharge - see recommendations below. 10/02/18 * Mr. Benavidez was admitted yesterday for steroid-induced hyperglycemia. He has been on steroids (which are currently on hold per oncology) and the use has resulted in an A1c indicative of diabetes. * Upon admission, he was initiated on short-acting insulin only and BSGs have improved down to a fasting of 158 mg/dL. With the Decadron still being on board at this point and wearing off by this evening, I will hold off on basal insulin for now. Will instead continue the tightened CF/CR (currently at a stress level of 3 w/ patient's weight) and loosen tomorrow. PLAN FOR INPATIENT GLYCEMIC CONTROL: * Bolus insulin - loosen CR * NovoLog per scale ACHS or Q6hrs while NPO * Goal Range: Low 110 mg/dL - High 140 mg/dL * Correction Factor: 35 mg/dL/unit * Nutritional / Prandial insulin per carb ratio of 1 unit per 15 grams CHO consumed PLAN FOR DISCHARGE: * Initiate glipizide OR glimepiride, as these are both the preferred sulfonylureas in CKD, and would help with postprandial BSG elevatations from steroids. * Initial doses for both: * Glipizide 2.5 mg daily * Glimepiride 1 mg daily * Patient will require close f/u for upward titration based upon BSGs
[2018-10-04] MEDS ORDERED: cefTRIAXone SODIUM 1,000 MG in SODIUM CHLOR 0.9% AD-VAN 50 ML IV SCH (11:00)
--- NOTE | 2018-10-04 11:59 | Nephrology Progress Note ---
Date of Service October 04, 2018 Assessment & Plan (1) Chronic kidney disease (CKD), stage III (moderate): No recent bmp in outpt /EPIC records. Based on epic records, his renal insufficiency is new in 2017, when he presented in 09/2017 w/ creatinine 4.2 around the time meyloma was dx'd; improved to 2.1 by that hospital d/c; then to baseline next several months of 1.1-1.4; since 06/2018, when myeloma per pt relapsed, creatinine more in mid ones, most recently 1.9 on 09/24. last spring had proteinuria of 300. unclear if myeloma involving kidney or not; not especially relevant clinically to est this since he's already getting max myeloma tx and has plts too low for safe bx. creat 1.5 today so in this regard stable >renal u/s unremarkable; UA w/ dipstic proteinuria, a few granular casts >>> given polyuria, will order IV fluid as below -continue care focus of minimizing bp extremes -daily bmp -for now keep november appt w/ Dr Duran (2) Disorders of fluid, electrolyte, and acid-base balance: Stable chronic hyponatremia and hypotension and tachycardia. With polyuria noted. -IVF on hold currently >> while we do not wish to increase polyuria, do want to maintain hydration since he is over 3 L negative by I&O without diuresis. Will give 0.5 L normal saline in addition to already planned packed red cells -cont to hold amlodipine given hypotension -proteinuria 05/2018 was <200 mg daily on spot ratio but given polyuria without glucosuria will recheck spot ratio; dipstick proteinuria can be misleading with myeloma -daily bmp -will check thyroid with next labs given mild hyponatremia as well as urine studies. Hyponatremia likeliest hypovolemic Subjective 4.9 L UOP documented past 24 hrs. For 1 unit packed red cells today no n/v, no sob; + dry moutha and thirst; +polyuria w/o foamy urine or gross hematuria and positive frequency No palpitations or edema. Ongoing easy bruising. No focal numbness or weakness. No confusion. Ongoing anxiety about low blood counts. Physical Exam 2 Vital Signs (Past 24 Hours): Last Vital Signs Temp 36.8 C 10/04/18 07:53 Pulse 106 H 10/04/18 07:53 Resp 16 10/04/18 07:53 BP 103/64 10/04/18 07:53 Pulse Ox 98 10/04/18 07:53 Constitutional: well developed and well nourished Sitting on side of the bed on room air Eyes: EOM intact bilaterally ENMT: Ears: no external ear abnormality Nose: no external nose abnormality Mouth: + dry oral mucous membranes Neck: no nuchal rigidity Respiratory: normal respiratory effort Auscultation: + diminished lung sounds Cardiovascular: Rate/Rhythm: regular rhythm and + tachycardic Extremities: no edema Gastrointestinal (Abdomen): Inspection/Auscultation: normal bowel sounds Percussion/Palpation: abdomen soft; abdomen nontender Musculoskeletal: Extremities: strength 5/5 throughout Skin: no rashes, warm and dry Neurologic: Moves all extremities fluent speech Psychiatric: A+Ox3, euthymic affect Results & Data Laboratory Results Abnormal lab results 10/03/18 10/03/18 10/03/18 Range/Units 13:03 13:03 13:03 WBC 0.68 L* (4.8-10.8) K/uL RBC 2.52 L (4.7-6.1) M/uL Hgb 7.6 L (14.0-18.0) g/dL Hct 21.1 L (42-52) % RDW Coeff of Jenae 15.1 H (11.5-14.5) % Plt Count 15 L* (130-400) K/uL Neut # (Auto) 0.53 L* (1.4-6.5) K/uL Lymph # (Auto) 0.07 L (1.2-3.4) K/uL [place] # (Auto) 0.06 L (0.11-0.59) K/uL Sodium 130 L (136-145) mmol/L BUN 41 H (7-18) mg/dl Creatinine 1.46 H (0.6-1.4) mg/dl BUN/Creatinine Ratio 28.4 H (10-20) Glucose 120 H (70-99) mg/dl POC Glucose (70-99) Calcium 7.8 L (8.5-10.1) mg/dl Antibody Screen POSITIVE A Crossmatch See Detail 10/03/18 10/04/18 10/04/18 Range/Units 20:21 07:41 11:39 WBC (4.8-10.8) K/uL RBC (4.7-6.1) M/uL Hgb (14.0-18.0) g/dL Hct (42-52) % RDW Coeff of Jenae (11.5-14.5) % Plt Count (130-400) K/uL Neut # (Auto) (1.4-6.5) K/uL Lymph # (Auto) (1.2-3.4) K/uL [place] # (Auto) (0.11-0.59) K/uL Sodium (136-145) mmol/L BUN (7-18) mg/dl Creatinine (0.6-1.4) mg/dl BUN/Creatinine Ratio (10-20) Glucose (70-99) mg/dl POC Glucose 134 H 106 H 103 H (70-99) Calcium (8.5-10.1) mg/dl Antibody Screen Crossmatch
[2018-10-04] MEDS ORDERED: SODIUM CHLORIDE 0.9% 500 ML IV SCH (12:15)
[2018-10-04] MEDS: SODIUM CHLORIDE 0.9% 1000ML 1,000 ML IV SCH (14:02)
[2018-10-04] MEDS: CEFEPIME 2,000 MG in SYRINGE 7.5 ML IV SCH (18:39)
--- NOTE | 2018-10-04 20:11 | Hospitalist Progress Note ---
Date of Service October 04, 2018 Assessment & Plan (1) Steroid-induced hyperglycemia: -Patient referred for direct admission by Dr. Page for management of steroid-induced hyperglycemia -Outpatient labs this a.m. demonstrated: glucose 374, CO2 14, anion gap 16; recheck BMP on admission shows: glucose 253, CO2 16, anion gap 12, pH 7.46 -patient was admitted for hyperglycemia management and acidosis patient blood suagrs have been controlled during hospital stay brewery worker had seen the patient and showed patient how to use insulin if insulin is needed as outpatient in the future Patient has been seen by [facility] hematology/oncology Dr. Yo and he writes that he plans to resume the patient's steroids as an outpatient, at a lower dose patient may not need any outpatient oral antihyperglycemic agents if on lower dose of steroids as outpatient versus being on low dose glipizide (2) Hyponatremia: hyperglycemia and dehydration has been though to be contributory to hyponatremia recent serum sodium levels 130 on 10/03/18 avoid blood draws today for electrolytes while awaiting blood transfusion (3) Multiple myeloma: -Follows with Dr. Page -high-dose dexamethasone as outpatient -On Darzalex (daratumumab) weekly as outpatient Pancytopenia WBC downtrending likley from recent Darzalex - is neutropenic and will place on neutropenic precautions continue home dose acyclovir because Hemoglobin has trended down to 7.6 on 10/03/18 however because of patient's multiple myeloma and history of immunosuppression the blood products have not been available until 10/04/18 will plan to transfuse 1 unit PRBC and then recheck CBC Fever and Tachycardia on 10/04/18 upgrade from ceftriaxone which was given on 10/04/18 recent urine culture as gram positive cocci although likely this is contaminant rather than an UTI however given immune suppression, there was consideration to treat with 3 days of antibiotics for uncomplicated UTI however patient had fever and tachycardia in evening of 10/04/18 prior to any tranfusion, consideration being given for other underlying infection and blood cultures have been drawn will instead give cefepime q8 hours for neutropenic fever will transfer to telemetry panchal to further monitor the tachycardia will give metoprolol 5 mg q6 hours for heart rate above 110 bpm (4) Chronic kidney disease (CKD), stage III (moderate): acute kidney injury on chronic kidney disease stage III KEMAR had resolved after sodium bicarbonate initiated by nephrology service continue IV fluids as normal saline (5) Hypertension: -BP controlled - continue amlodipine (6) DVT prophylaxis: -SCDs due to anemia and thrombocytopenia Subjective Patient was awaiting for blood transfusion today when he spiked fever and became tachycardic. Patient's abnormal vital signs occurred before any blood was given. Patient appears asymptomatic on exam. usual mental status. does not feel palpitations. breathing on room air and no shortness of breath. no vomiting. no lightheadedness Physical Exam 2 Vital Signs (Past 24 Hours): Last Vital Signs Temp 37.4 C 10/04/18 19:07 Pulse 128 H 10/04/18 19:07 Resp 20 10/04/18 19:07 BP 114/63 10/04/18 19:07 Pulse Ox 95 10/04/18 19:07 Constitutional: WD/WN, vitals as above Eyes: PERRL, conjunctivae normal, anicteric sclerae EOM intact bilaterally ENMT: external ear and nose normal, oropharynx normal Neck: normal visual inspection and trachea midline Respiratory: normal respiratory effort, lungs clear to auscultation Cardiovascular: Rate/Rhythm: + tachycardic Gastrointestinal (Abdomen): normal bowel sounds, soft, nontender, no hepatosplenomegaly Musculoskeletal: no cyanosis or clubbing, extremities motor strength 5/5 Head/Neck/Chest: normocephalic and head atraumatic Neurologic: PERRL, EOMI, accommodation nl, no face palsy, no dysarthria CN' s II-XI intact bilaterally Psychiatric: A+Ox3, euthymic affect _ (1) Multiple myeloma Multiple myeloma remission status: in relapse Qualified Code(s): C90.02 - Multiple myeloma in relapse
[2018-10-04] MEDS ORDERED: METOPROLOL TARTRATE 1 MG/ML VIAL IV PRN (20:19)
[2018-10-05] MEDS: SODIUM CHLORIDE 0.9% 1000ML 1,000 ML IV SCH ×2 (03:14→21:20)
[2018-10-05] MEDS: CEFEPIME 2,000 MG in SYRINGE 7.5 ML IV SCH ×3 (03:14→21:20)
[2018-10-05] MEDS ORDERED: glipiZIDE 5 MG TAB PO SCH (07:30)
[2018-10-05] MEDS: ACETAMINOPHEN 325 MG TAB PO PRN ×2 (07:50→23:53)
[2018-10-05] MEDS: CHOLECALCIFEROL 1,000 UNITS TAB PO SCH (07:51)
[2018-10-05] MEDS: CALCIUM 600MG + VIT D 400 IU TAB PO SCH (07:51)
[2018-10-05] MEDS: PANTOprazole 40 MG TAB PO SCH (07:52)
[2018-10-05] MEDS: CEROVITE ADV FORMULA TAB PO SCH (07:52)
[2018-10-05] MEDS: INSULIN ASPART 100 UNITS/ML 3 ML PEN SC SCH ×4 (07:58→21:26)
[2018-10-05 08:13] LABS: Mean Corpuscular Hgb Conc 35.2 g/dL (32-36)
[2018-10-05 08:27] LABS: Dohle Bodies 1+; Hematocrit (blood only) 21.6 % (42-52); Hemoglobin 7.6 g/dL (14.0-18.0); Mean Corpuscular Volume 83.7 fL (80-100); Monocytes # (manual) 0.01 K/uL (0.11-0.59); Nucleated RBC # (auto) 0.07 K/uL (0-0); Nucleated RBC % (auto) 8.7 %; Platelet Count 8 K/uL (130-400); RDW Coefficient of Variation 15.5 % (11.5-14.5); RDW Standard Deviation 47.1 fL (36.4-46.3); Red Blood Count 2.58 M/uL (4.7-6.1); Rouleaux 2+; Toxic Granulation 1+; White Blood Count 0.74 K/uL (4.8-10.8)
[2018-10-05 08:28] LABS: Albumin Level 1.2 gm/dl (3.4-5.0); BUN Creatinine Ratio 27.2 (10-20); Calcium 8.1 mg/dl (8.5-10.1); Creatinine Clr Calc Pharmacy 54.9 ml/min; Est GFR (African American) 69.9; Est GFR (Non-African American) 60.3
[2018-10-05 08:39] LABS: Albumin Globulin Ratio 0.1 (0.9-2); Bilirubin,Total 0.5 mg/dl (0.2-1); Globulin 8.1 gm/dl (2.5-4.0); Total Protein 9.3 gm/dl (6.4-8.2)
[2018-10-05] MEDS ORDERED: SODIUM CHLORIDE 0.9% 250 ML IV PRN ×2 (08:49→09:10)
[2018-10-05] MEDS ORDERED: SULFAMETHOXAZOLE/TRIMETHOPRIM DS 800/160MG TAB PO SCH (09:00)
[2018-10-05] MEDS: AMLODIPINE BESYLATE 5 MG TAB PO SCH (09:16)
--- NOTE | 2018-10-05 16:30 | Hospitalist Progress Note ---
Date of Service October 05, 2018 Assessment & Plan (1) Steroid-induced hyperglycemia: -Patient referred for direct admission by Dr. Page for management of steroid-induced hyperglycemia -Outpatient labs this a.m. demonstrated: glucose 374, CO2 14, anion gap 16; recheck BMP on admission shows: glucose 253, CO2 16, anion gap 12, pH 7.46 -patient was admitted for hyperglycemia management and acidosis patient blood suagrs have been controlled during hospital stay hospice educator had seen the patient and showed patient how to use insulin if insulin is needed as outpatient in the future Patient has been seen by [facility] hematology/oncology Dr. Yo and he writes that he plans to resume the patient's steroids as an outpatient, at a lower dose patient may not need any outpatient oral antihyperglycemic agents if on lower dose of steroids as outpatient versus being on low dose glipizide (2) Hyponatremia: hyperglycemia and dehydration has been thought to be contributory to hyponatremia likely some component of SIADH as well recent serum sodium levels 129 on 10/05/18 (3) Multiple myeloma: -Follows with Dr. Page -high-dose dexamethasone as outpatient -On Darzalex (daratumumab) weekly as outpatient Pancytopenia WBC downtrending likley from recent Darzalex - is neutropenic and will place on neutropenic precautions continue home dose acyclovir because Hemoglobin has trended down to 7.6 on 10/03/18 however because of patient's multiple myeloma and history of immunosuppression the blood products have not been available until 10/04/18 -Patient had received 1 unit of PRBC at night of 10/04/18 and Hgb remained as 7.6 as of AM 10/05/18 AM 10/05/18 labs with platelets of 8,000 Patient s/p 2 units of platelets Patient will be given 1 more unit of PRBC on 10/05/18 Fever and Tachycardia on 10/04/18, concern for neutropenic fever upgrade from ceftriaxone which was given on 10/04/18 recent urine culture as gram positive cocci although likely this is contaminant rather than an UTI however given immune suppression, there was consideration to treat with 3 days of antibiotics for uncomplicated UTI however patient had fever and tachycardia in evening of 10/04/18 prior to any tranfusion, consideration being given for other underlying infection and blood cultures have been drawn cefepime q8 hours was started on 10/04/[address] the ceftriaxone for neutropenic fever awaiting blood cultures from 10/04/18, continue cefepime for now continue metoprolol 5 mg IV q6 hours for heart rate above 110 bpm (4) Chronic kidney disease (CKD), stage III (moderate): acute kidney injury on chronic kidney disease stage III KEMAR had resolved after sodium bicarbonate initiated by nephrology service continue IV fluids as normal saline (5) Hypertension: -BP controlled - continue amlodipine (6) DVT prophylaxis: -SCDs due to anemia and thrombocytopenia Subjective Patient had received 1 unit of PRBC at night of 10/04/18 and Hgb remained as 7.6 as of AM 10/05/18 AM 10/05/18 labs with platelets of 8,000 Patient s/p 2 units of platelets Patient will be given 1 more unit of PRBC on 10/05/18 Patient is still tachycardic but better than yesterday night Patient denies palpitations. denies shortness of breath. denies vomiting or abdominal pain Physical Exam 2 Vital Signs (Past 24 Hours): Last Vital Signs Temp 36.9 C 10/05/18 14:15 Pulse 108 H 10/05/18 15:36 Resp 16 10/05/18 14:15 BP 109/64 10/05/18 14:15 Pulse Ox 96 10/05/18 13:15 Constitutional: WD/WN, vitals as above Eyes: PERRL, conjunctivae normal, anicteric sclerae EOM intact bilaterally ENMT: external ear and nose normal, oropharynx normal Neck: normal visual inspection and trachea midline Respiratory: normal respiratory effort, lungs clear to auscultation Cardiovascular: RRR, no murmur, no edema Rate/Rhythm: + tachycardic Gastrointestinal (Abdomen): normal bowel sounds, soft, nontender, no hepatosplenomegaly Musculoskeletal: no cyanosis or clubbing, extremities motor strength 5/5 Head/Neck/Chest: normocephalic and head atraumatic Neurologic: PERRL, EOMI, accommodation nl, no face palsy, no dysarthria CN' s II-XI intact bilaterally Psychiatric: A+Ox3, euthymic affect _ (1) Multiple myeloma Multiple myeloma remission status: in relapse Qualified Code(s): C90.02 - Multiple myeloma in relapse
[2018-10-06] MEDS: SODIUM CHLORIDE 0.9% 1000ML 1,000 ML IV SCH (02:25)
[2018-10-06] MEDS: CEFEPIME 2,000 MG in SYRINGE 7.5 ML IV SCH ×2 (04:12→09:47)
[2018-10-06 07:45] LABS: Hematocrit (blood only) 21.5 % (42-52); Hemoglobin 7.6 g/dL (14.0-18.0); Mean Corpuscular Hgb Conc 35.3 g/dL (32-36); Mean Corpuscular Volume 84.3 fL (80-100); Platelet Count 45 K/uL (130-400); RDW Coefficient of Variation 15.6 % (11.5-14.5); RDW Standard Deviation 48.3 fL (36.4-46.3); Red Blood Count 2.55 M/uL (4.7-6.1); White Blood Count 0.92 K/uL (4.8-10.8)
[2018-10-06 08:05] LABS: Dohle Bodies 2+; Eosinophils # (auto) 0.02 K/uL (0-0.5); Eosinophils % (auto) 2.2 %; Immature Granulocytes # (auto) 0.05 K/uL (0.00-0.02); Immature Granulocytes % (auto) 5.4 %; Lymphocytes # (auto) 0.16 K/uL (1.2-3.4); Lymphocytes % (auto) 17.4 %; Monocytes # (auto) 0.04 K/uL (0.11-0.59); Monocytes % (auto) 4.3 %; Neutrophils # (auto) 0.65 K/uL (1.4-6.5); Neutrophils % (auto) 70.7 %; Rouleaux 2+; Toxic Granulation 2+
[2018-10-06] MEDS: CALCIUM 600MG + VIT D 400 IU TAB PO SCH (08:37)
[2018-10-06] MEDS: PANTOprazole 40 MG TAB PO SCH (08:37)
[2018-10-06] MEDS: AMLODIPINE BESYLATE 5 MG TAB PO SCH (08:37)
[2018-10-06] MEDS: CEROVITE ADV FORMULA TAB PO SCH (08:37)
[2018-10-06] MEDS: CHOLECALCIFEROL 1,000 UNITS TAB PO SCH (08:37)
[2018-10-06] MEDS: INSULIN ASPART 100 UNITS/ML 3 ML PEN SC SCH ×2 (08:40→13:03)
--- NOTE | 2018-10-06 11:13 | Pharmacy Report ---
Glycemic Control Progress Note - Date of Service October 06, 2018 - Scope Glycemic Pharmacist consulted for glycemic control to write orders per [facility] inpatient glycemic control protocol. - Objective Accuchecks BSG(last 24 hours):: 10/05/18 10/05/18 10/05/18 11:44 16:40 20:26 POC Glucose 98 105 H 163 H 10/06/18 07:56 POC Glucose 97 HbA1c:: Hemoglobin A1c 7.8 % (4.5-5.6) H 10/02/18 06:40 - Recent Pertinent Medications The patient is currently receiving: * Basal insulin: Lantus -- units every -- hours * Correctional Insulin: Novolog Correction per scale ACHS Goal Range: Low 110 mg/dL - High 140 mg/dL Correction Factor: 35 mg/dL/unit * Prandial insulin: Per carb ratio of 1 unit per 15 grams CHO consumed * Oral Agents: - Outpatient Anti-Diabetic Meds n/a - Assessment & Plan ASSESSMENT: * See progress note from 10/02/18 for more background info, in short: * Pt receiving SQ basal bolus insulin regimen for hyperglycemia secondary from steroid -induced hyperglycemia. * Patient is currently receiving an average of 5 units of insulin per day * -- units of basal insulin * 5 units of prandial/correctional insulin * BSGs ranging 89 - 105 mg/dl over the past 24hrs (one value over 130 mg/dL in the past 3 days) * Changes needed to insulin regimen: * AM Fasting BSG = 97 mg/dl. This is slightly below goal range for patient based on inpatient targets and co-morbidities. Therefore continue to hold basal insulin. * Post-prandial BSGs tend to increase throughout the day therefore tighten carbohydrate ratio slightly. * Total daily dose = <10 units. PLAN FOR INPATIENT GLYCEMIC CONTROL: * Continuing correction factor of 35 mg/dl/unit * TIGHTENING carb ratio to 1 unit per 12 grams CHO consumed * Continuing goal range of Low 110 mg/dL - High 140 mg/dL RECOMMENDATIONS FOR DISCHARGE: * Recommend start oral option for discharge as A1C is elevated. * Recommend dietary counseling as patient is very controlled in house. * Please note that the plan above was derived based on current level of insulin resistance and hospital stress. These recommendations are appropriate for inpatient admission only. Plan of care upon discharge will need to be reassessed to avoid potential outpatient hypo/hyperglycemia. Thank you.
--- NOTE | 2018-10-06 12:16 | Hospitalist Progress Note ---
Date of Service October 06, 2018 Assessment & Plan (1) Steroid-induced hyperglycemia: -Patient referred for direct admission by Dr. Page for management of steroid-induced hyperglycemia -Outpatient labs this a.m. demonstrated: glucose 374, CO2 14, anion gap 16; recheck BMP on admission shows: glucose 253, CO2 16, anion gap 12, pH 7.46 -patient was admitted for hyperglycemia management and acidosis patient blood suagrs have been controlled during hospital stay perinatal educator had seen the patient and showed patient how to use insulin if insulin is needed as outpatient in the future Patient has been seen by [facility] hematology/oncology Dr. Yo and he writes that he plans to resume the patient's steroids as an outpatient, at a lower dose - probably as prednisone for pretreatment when patient gets immunotherapy for multiple myeloma patient may not need any outpatient oral antihyperglycemic agents if on lower dose of steroids as outpatient versus being on low dose glipizide Patient's family has already picked up the glipizide prescription. patient has gluconometer to go home with (2) Hyponatremia: hyperglycemia and dehydration has been thought to be contributory to hyponatremia likely some component of SIADH as well recent serum sodium levels 129 on 10/05/18 patient has primary care and nephrology clinic follow up (3) Multiple myeloma: -Follows with Dr. Page -high-dose dexamethasone as outpatient -On Darzalex (daratumumab) weekly as outpatient Pancytopenia WBC downtrending likley from recent Darzalex - is neutropenic and will place on neutropenic precautions continue home dose acyclovir because Hemoglobin has trended down to 7.6 on 10/03/18 however because of patient's multiple myeloma and history of immunosuppression the blood products have not been available until 10/04/18 -Patient had received 1 unit of PRBC at night of 10/04/18 and Hgb remained as 7.6 as of AM 10/05/18 AM 10/05/18 labs with platelets of 8,000 Patient s/p 2 units of platelets Patient will be given 1 more unit of PRBC on 10/05/18 Fever and Tachycardia on 10/04/18, concern for neutropenic fever upgrade from ceftriaxone which was given on 10/04/18 recent urine culture as gram positive cocci although likely this is contaminant rather than an UTI however given immune suppression, there was consideration to treat with 3 days of antibiotics for uncomplicated UTI however patient had fever and tachycardia in evening of 10/04/18 prior to any tranfusion, consideration being given for other underlying infection and blood cultures have been drawn cefepime q8 hours was started on 10/04/[address] the ceftriaxone for neutropenic fever awaiting blood cultures from 10/04/18, continue cefepime for now continue metoprolol 5 mg IV q6 hours for heart rate above 110 bpm 10/06/18 Patient's blood cultures have returned to be negative IV cefepime to be stopped. Fever likely from multiple myeloma Patient's blood counts are stable with hemoglobin 7.6 and platelet count of 45, 000 Still neutropenic but this is not unexpected given history of multiple myeloma Patient's family and patient wanting to be discharged today. Hospitalist discussed at length outpatient follow up instructions including for patient to avoid sick contacts In regards to the tachycardia, patient being switched from amlodipine to carvedilol to control heart rate and minimize hypotension Patient and family plans to go for further immunotherapy evaluation and treatment on 10/08/18 Morgan Patricio [facility], [address] [place] [address] (4) Chronic kidney disease (CKD), stage III (moderate): acute kidney injury on chronic kidney disease stage III KEMAR had resolved after sodium bicarbonate initiated by nephrology service was then continued IV fluids as normal saline IV fluids stopped on 10/06/18 (5) Hypertension: Patient's has tachycardia, has been given amlodipine. patient to take carvedilol and take carvedilol in the future for heart rate and tachycardia in place of amlodipine (6) DVT prophylaxis: -SCDs due to anemia and thrombocytopenia Discharge Diagnosis Multiple Myeloma, Pancytopenia, Neutropenic Fever, steroid induced hyperglycemia , Hyponatremia, Chronic kidney disease stage 3 Instructions Patient can take over the counter acetaminophen for fever Patient should avoid sick contacts Follow ups Morgan Patricio [facility], [address] [place] [address] 10/10/2018 1:20 PM Provider Ismael Hernandez DO Department Family [facility] 11/28/2018 12:30 PM Provider Ismael Hernandez DO Department Family Practice [facility] 12/11/2018 3:40 PM Provider Emma Duran MD Department Nephrology, [facility] Subjective Patient's blood cultures have returned to be negative Patient's has tachycardia, has been given amlodipine. patient to take carvedilol and take carvedilol in the future for heart rate and tachycardia in place of amlodipine Patient denies palpitations. denies shortness of breath. denies vomiting or abdominal pain Patient's blood counts are stable with hemoglobin 7.6 and platelet count of 45, 000 Still neutropenic but this is not unexpected given history of multiple myeloma Patient's family and patient wanting to be discharged today. Hospitalist discussed at length outpatient follow up instructions including for patient to avoid sick contacts Physical Exam 2 Vital Signs (Past 24 Hours): Last Vital Signs Temp 37.2 C 10/06/18 12:01 Pulse 116 H 10/06/18 12:01 Resp 16 10/06/18 12:01 BP 117/72 10/06/18 12:01 Pulse Ox 97 10/06/18 12:01 Constitutional: WD/WN, vitals as above Eyes: PERRL, conjunctivae normal, anicteric sclerae EOM intact bilaterally ENMT: external ear and nose normal, oropharynx normal Neck: normal visual inspection and trachea midline Respiratory: normal respiratory effort, lungs clear to auscultation Cardiovascular: RRR, no murmur, no edema Rate/Rhythm: + tachycardic Gastrointestinal (Abdomen): normal bowel sounds, soft, nontender, no hepatosplenomegaly Musculoskeletal: no cyanosis or clubbing, extremities motor strength 5/5 Head/Neck/Chest: normocephalic and head atraumatic Neurologic: PERRL, EOMI, accommodation nl, no face palsy, no dysarthria CN' s II-XI intact bilaterally Psychiatric: A+Ox3, euthymic affect _ (1) Multiple myeloma Multiple myeloma remission status: in relapse Qualified Code(s): C90.02 - Multiple myeloma in relapse
[2018-10-06] MEDS ORDERED: CARVEDILOL 3.125 MG TAB PO SCH (12:30)
--- NOTE | 2018-10-06 13:07 | Discharge Summary ---
Date of Service October 06, 2018 Admission HPI Per Admitting Provider 53 year old male who was referred for direct admission by Dr. Page for management of hyperglycemia. Patient has history of multiple myeloma status post stem cell transplant. Recently, patient was placed on high-dose steroids ( dexamethasone 40 mg x 4 days then 4 days off) and also has been receiving Darzalex weekly. Since starting the dexamethasone, patient has been found to have increasing blood sugars. On today's outpatient labs, glucose was 374, CO2 14, anion gap 16. Patient does not carry a history of diabetes. He has noticed increased thirst however no polyuria. Reports he feels generally weak and tired. No fevers or chills. Appetite has been fair, he denies abdominal pain, nausea, vomiting, diarrhea. No chest pain or shortness of breath. He denies lightheadedness, dizziness, diaphoresis, syncopal event. No urinary symptoms. At the time my exam, patient is resting in bed no acute distress. Admission Exam Per Admitting Provider Constitutional: WD/WN, vitals as above Eyes: PERRL, conjunctivae normal, anicteric sclerae ENMT: external ear and nose normal, oropharynx normal Respiratory: normal respiratory effort, lungs clear to auscultation Cardiovascular: Rate/Rhythm: regular rate and regular rhythm Vessels: normal peripheral pulses Extremities: no edema Gastrointestinal (Abdomen): normal bowel sounds, soft, nontender, no hepatosplenomegaly Musculoskeletal: no cyanosis or clubbing, extremities motor strength 5/5 Skin: no rashes, warm and dry Neurologic: PERRL, EOMI, accommodation nl, no face palsy, no dysarthria Psychiatric: A+Ox3, euthymic affect Principal Diagnosis Multiple Myeloma, Pancytopenia, Neutropenic Fever, steroid induced hyperglycemia , Hyponatremia, Chronic kidney disease stage 3 Discharge Exam Constitutional WD/WN, vitals as above Eyes PERRL, conjunctivae normal, anicteric sclerae EOM intact bilaterally ENMT external ear and nose normal, oropharynx normal Neck normal visual inspection and trachea midline Respiratory normal respiratory effort, lungs clear to auscultation Cardiovascular RRR, no murmur, no edema Rate/Rhythm: + tachycardic Gastrointestinal (Abdomen) normal bowel sounds, soft, nontender, no hepatosplenomegaly Musculoskeletal no cyanosis or clubbing, extremities motor strength 5/5 Head/Neck/Chest: normocephalic and head atraumatic Neurologic PERRL, EOMI, accommodation nl, no face palsy, no dysarthria CN's II-XI intact bilaterally Psychiatric A+Ox3, euthymic affect Discharge Data Allergies Allergy/AdvReac Type Severity Reaction Status Date / Time No Known Allergies Allergy Verified 09/28/18 07:24 Consultations 10/02/18 07:35 Consult Oncology Routine 10/02/18 07:46 Consult Nephrology Routine Ordered Studies 10/02/18 09:34 US renal/blad retro comp Routine Hospital Course (1) Steroid-induced hyperglycemia: -Patient referred for direct admission by Dr. Page for management of steroid-induced hyperglycemia -Outpatient labs this a.m. demonstrated: glucose 374, CO2 14, anion gap 16; recheck BMP on admission shows: glucose 253, CO2 16, anion gap 12, pH 7.46 -patient was admitted for hyperglycemia management and acidosis patient blood suagrs have been controlled during hospital stay religious educator had seen the patient and showed patient how to use insulin if insulin is needed as outpatient in the future Patient has been seen by [facility] hematology/oncology Dr. Yo and he writes that he plans to resume the patient's steroids as an outpatient, at a lower dose - probably as prednisone for pretreatment when patient gets immunotherapy for multiple myeloma patient may not need any outpatient oral antihyperglycemic agents if on lower dose of steroids as outpatient versus being on low dose glipizide Patient's family has already picked up the glipizide prescription. patient has gluconometer to go home with (2) Hyponatremia: hyperglycemia and dehydration has been thought to be contributory to hyponatremia likely some component of SIADH as well recent serum sodium levels 129 on 10/05/18 patient has primary care and nephrology clinic follow up (3) Multiple myeloma: -Follows with Dr. Page -high-dose dexamethasone as outpatient -On Darzalex (daratumumab) weekly as outpatient Pancytopenia WBC downtrending martyley from recent Darzalex - is neutropenic and will place on neutropenic precautions continue home dose acyclovir because Hemoglobin has trended down to 7.6 on 10/03/18 however because of patient's multiple myeloma and history of immunosuppression the blood products have not been available until 10/04/18 -Patient had received 1 unit of PRBC at night of 10/04/18 and Hgb remained as 7.6 as of AM 10/05/18 AM 10/05/18 labs with platelets of 8,000 Patient s/p 2 units of platelets Patient will be given 1 more unit of PRBC on 10/05/18 Fever and Tachycardia on 10/04/18, concern for neutropenic fever upgrade from ceftriaxone which was given on 10/04/18 recent urine culture as gram positive cocci although likely this is contaminant rather than an UTI however given immune suppression, there was consideration to treat with 3 days of antibiotics for uncomplicated UTI however patient had fever and tachycardia in evening of 10/04/18 prior to any tranfusion, consideration being given for other underlying infection and blood cultures have been drawn cefepime q8 hours was started on 10/04/[address] the ceftriaxone for neutropenic fever awaiting blood cultures from 10/04/18, continue cefepime for now continue metoprolol 5 mg IV q6 hours for heart rate above 110 bpm 10/06/18 Patient's blood cultures have returned to be negative IV cefepime to be stopped. Fever likely from multiple myeloma Patient's blood counts are stable with hemoglobin 7.6 and platelet count of 45, 000 Still neutropenic but this is not unexpected given history of multiple myeloma Patient's family and patient wanting to be discharged today. Hospitalist discussed at length outpatient follow up instructions including for patient to avoid sick contacts In regards to the tachycardia, patient being switched from amlodipine to carvedilol to control heart rate and minimize hypotension Patient and family plans to go for further immunotherapy evaluation and treatment on 10/08/18 [facility] First Floor [facility], [address] [place] [address] (4) Chronic kidney disease (CKD), stage III (moderate): acute kidney injury on chronic kidney disease stage III KEMAR had resolved after sodium bicarbonate initiated by nephrology service was then continued IV fluids as normal saline IV fluids stopped on 10/06/18 (5) Hypertension: Patient's has tachycardia, has been given amlodipine. patient to take carvedilol and take carvedilol in the future for heart rate and tachycardia in place of amlodipine (6) DVT prophylaxis: -SCDs due to anemia and thrombocytopenia Discharge Diagnosis Multiple Myeloma, Pancytopenia, Neutropenic Fever, steroid induced hyperglycemia , Hyponatremia, Chronic kidney disease stage 3 Instructions Patient can take over the counter acetaminophen for fever Patient should avoid sick contacts Follow ups [facility], [address] [place] [address] 10/10/2018 1:20 PM Provider Ismael Hernandez DO [facility] 11/28/2018 12:30 PM Provider Ismael Hernandez DO [facility] 12/11/2018 3:40 PM Provider Emma Duran MD Department Nephrology, [facility] Total Time Total Time Spent Total Time Spent (In Minutes): 40 minutes Total Time Includes: Examination of the Patient, Discharge Planning and Medication Reconciliation Discharge Plan Discharge Items Patient Disposition: Home - Self-Care Reason For Visit: ELEVATED GLUCOSE, LOW SUGAR (CANCER PATEINT) Discharge Diagnosis: Multiple Myeloma, Pancytopenia, Neutropenic Fever, steroid induced hyperglycemia, Hyponatremia, Chronic kidney disease stage 3 Condition: Fair Discharge Goals: Improve disease control Activity: Resume your previous activity Non-emergency contact: Primary Care Provider and Specialist Call non-emergency contact if: you have any medication questions Follow-up/Referrals: Ismael Hernandez [Primary Care Provider] - Diet: Regular Addtl Provider Instructions: Patient can take over the counter acetaminophen for fever Patient should avoid sick contacts [facility], Entr[address] [place] [id number] 10/10/2018 1:20 PM Provider Ismael Hernandez DO Department [facility] 11/28/2018 12:30 PM Adonis Hernandez DO [facility] 12/11/2018 3:40 PM Provider Emma Duran MD Department Nephrology, [facility] Prescriptions: New glipizide 5 mg Tablet 2.5 mg PO QAM 30 Days Qty: 15 RF: 0 carvedilol 3.125 mg Tablet 3.125 mg PO BID 30 Days Qty: 60 RF: 0 Continue daratumumab [Darzalex] 20 mg/mL Solution 20 ml IV WK RF: 0 omeprazole 20 mg capsule,delayed release(DR/EC) 20 mg PO DAILY RF: 0 gvvzzimdonvb-degk-ybjvb acid [Centrum] 18-400 mg-mcg Tablet 1 tab PO DAILY RF: 0 cholecalciferol (vitamin D3) [Vitamin D3] 5,000 unit Tablet 5,000 unit PO DAILY RF: 0 acyclovir 200 mg capsule 200 mg PO BID RF: 0 ergocalciferol (vitamin D2) 50,000 unit Capsule 50,000 unit PO MONTHLY RF: 0 calcium carbonate-vitamin D3 [Calcium 600 + D(3)] 600 mg(1,500mg) -400 unit Tablet 1 tab PO DAILY RF: 0 Discontinued dexamethasone 4 mg Tablet 40 mg PO DIRECTED RF: 0 amlodipine [Norvasc] 10 mg tablet 10 mg PO DAILY RF: 0 Stand-Alone Forms: [facility] Discharge Orders: Discharge Order (Routine); Ordered 10/06/18 Ordered By: Bhupinder Grigsby Admission Data Admit Date/Time: 10/01/18 10:51 Attending Provider: Bhupinder Grigsby Admit Provider: Trinh Mac Primary Care Provider: Ismael Hernandez Other Providers: Trinh Mac ; Demarcus Page ; Viky Michaels ; Bryn Segovia ; Abel Herbert I ; Vaishali Givens ; Katya Shaw ; Emma Duran Service: Telemetry Other Interventions: Discharge Summary Assessment (RN) Last Done: 10/06/18 12:54
== END 2018-10-06 13:40 | disposition home or self-care (01) | DRG 641 ==
LOC: 4E 10:51 → SUATTDRO 10:51 → 2W 10-04 20:06

== ENCOUNTER 2018-10-15 09:53 | Inpatient (IN) ==
[2018-10-15] MEDS ORDERED: POLYETHYLENE (MIRALAX) 17 GM PACK PO PRN (11:04)
[2018-10-15] MEDS ORDERED: ONDANSETRON INJ 2 MG/ML 2 ML VIAL IV PRN (11:04)
[2018-10-15] MEDS ORDERED: SODIUM CHLORIDE 0.9% 250 ML IV PRN (12:23)
[2018-10-15 12:43] LABS: Albumin Level 1.2 gm/dl (3.4-5.0); BUN Creatinine Ratio 29.1 (10-20); Calcium 8.3 mg/dl (8.5-10.1); Creatinine Clr Calc Pharmacy 41.5 ml/min; Est GFR (African American) 49.7; Est GFR (Non-African American) 42.9; Potassium 4.1 mmol/L (3.5-5.1)
[2018-10-15 12:45] LABS: Albumin Globulin Ratio 0.1 (0.9-2); Bilirubin,Total 0.3 mg/dl (0.2-1); Globulin 8.8 gm/dl (2.5-4.0)
[2018-10-15 12:51] LABS: Hematocrit (blood only) 19.5 % (42-52); Hemoglobin 6.8 g/dL (14.0-18.0); Mean Corpuscular Hgb Conc 34.9 g/dL (32-36); Mean Corpuscular Volume 84.1 fL (80-100); Nucleated RBC # (auto) 0.05 K/uL (0-0); Nucleated RBC % (auto) 7.3 %; Platelet Count 9 K/uL (130-400); RDW Standard Deviation 48.2 fL (36.4-46.3); Red Blood Count 2.32 M/uL (4.7-6.1); White Blood Count 0.64 K/uL (4.8-10.8)
[2018-10-15] MEDS ORDERED: GLUCOSE 10 TABS/TUBE PO PRN (12:55)
[2018-10-15] MEDS ORDERED: CARBOHYDRATES FOR HYPOGLYCEMIA PO PRN (12:55)
[2018-10-15] MEDS ORDERED: GLUCAGON FOR INJ 1 MG VIAL SQ PRN (12:55)
[2018-10-15] MEDS ORDERED: GLUCOSE 40% GEL 15 GM TUBE PO PRN (12:55)
[2018-10-15] MEDS ORDERED: DEXTROSE 50% 50 ML SYRINGE IV PRN (12:55)
[2018-10-15 13:21] LABS: Eosinophils # (auto) 0.01 K/uL (0-0.5); Eosinophils % (auto) 1.6 %; Immature Granulocytes # (auto) 0.02 K/uL (0.00-0.02); Immature Granulocytes % (auto) 3.1 %; Lymphocytes # (auto) 0.09 K/uL (1.2-3.4); Lymphocytes % (auto) 14.1 %; Monocytes # (auto) 0.04 K/uL (0.11-0.59); Monocytes % (auto) 6.3 %; Neutrophils % (auto) 74.9 %
[2018-10-15 13:22] LABS: Neutrophils # (auto) 0.48 K/uL (1.4-6.5)
[2018-10-15] MEDS ORDERED: CEFEPIME CONSULT ACTIVE PRN (13:24)
--- NOTE | 2018-10-15 13:57 | XRay Report ---
XR chest 2V routine HISTORY: 53 years-old Male neutropenic fever acute fever COMPARISON: Chest radiograph 08/16/2018, PET CT 05/23/2018 TECHNIQUE: PA and lateral views of the chest FINDINGS: Remote compression deformities at T10-L1 redemonstrated. Multilevel intervertebral disc space narrowi ng with spondylitic spurring. Remote bilateral rib fractures with healing callus formation noted, pro gressed from comparison. Degenerative changes of the shoulders with right shoulder rotator cuff calci fic tendinosis. Cardiomediastinal and hilar silhouettes are within normal limits. There is no pneumothorax, large ple ural effusion or overt pulmonary edema. No lobar airspace consolidation typical for pneumonia. IMPRESSION: No acute process. The above report was generated using voice recognition software. It may contain grammatical, syntax o r spelling errors. Electronically signed by: Vikram Brown M.D. 10/15/2018 1:55 PM
--- NOTE | 2018-10-15 13:59 | History & Physical Report ---
Date of Service October 15, 2018 Assessment & Plan (1) Neutropenic fever: (2) Multiple myeloma: This is a 53yo M with a PMH of multiply myeloma (s/p stem cell transplant), steroid-induced DM, CKD III, chronic hyponatremia and other medical problems listed below who was a direct admission sent by Dr. Page for management of neutropenic fever. -In setting of intermittent fevers, dry cough -Afebrile now. Non-toxic appearance -No evidence of PNA on CXR, UA pending, MRSA swab pending -Blood, urine cultures ordered -Empiric Cefepime. ID consulted and agree with plan for now (3) Pancytopenia: In the setting of Multiple myeloma -WBC of 0.59 (ANC of 0.40), hgb of 7, plt of 8 -Will transfuse 1u prbc and 1u platelets (with pre-treatment of Tylenol and Benadryl) -Blood consent signed -Per Dr. Page, transfuse for hgb <7 and plt <10 -Monitor with daily CBC -Neutropenic precautions (4) Metabolic acidosis: Metabolic acidosis with anion gap of 12, bicarb of 17, BSG of 140 -Had similar acid base disturbance during previous admission, in the setting of multiple myeloma, acute kidney injury -Nephro consulted. Will give isotonic bicarbonate infusion at 125 mL/h x 1 L. After that we can continue lactated Ringer's at the same rate -Monitor potassium twice daily (5) Hyponatremia: Sodium of 126 today (recent baseline mid-120s) -Serum/urine osm -Nephrology following--Low risk for osmotic demyelination (6) KEMAR (acute kidney injury): (7) Chronic kidney disease (CKD), stage III (moderate): Cr of 1.75 today. Baseline Cr ~1.3 -Per nephro service: etiology is likely prerenal azotemia. Could have ATN in setting of infection. Recommend IV fluids. Check urine microscopy, urine sodium and the postvoid bladder scan to ensure patient is not retaining -Avoid nephrotoxic agents when able -Daily CMP (8) Hypertension: Normotensive. 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 Discharge planning ordered. Patient seen in collaboration with Dr. Christina. Please see addendum. History of Present Illness Chief Complaint: neutropenic fever Primary Care Provider: Ismael Hernandez This is a 53yo M with a PMH of multiply myeloma (s/p stem cell transplant), steroid-induced DM, CKD III, chronic hyponatremia and other medical problems listed below who was a direct admission sent by Dr. Page for management of neutropenic fever. IgA kappa multiple myeloma was diagnosed in September 2017 and patient has been receiving weekly Darzalex as well as 20mg prednisone on days of treatment. Was recently being treated with high dose steroids (dexamethasone 40 mg x 4 days then 4 days off) and developed steroid-induced diabetes with an a1c of 7.8 in Sep 2018. Was started on 2.5mg PO Glipizide. Presented to heme onc clinic today for chemo but was sent over as a direct admission due to concern for neutropenic fever. First noted a low grade temperature of 99 F two evenings ago and a temperature of 100 F last evening. Has a dry cough and fatigue but no chills, lightheadedness, headache, chest pain, wheezing, shortness of breath, nausea, vomiting, abdominal pain, dysuria, hematuria or diarrhea. Of note, has been having intermittent fever for weeks but has had severe neutropenia during this time. Was recently admitted in September 2018 for steroid-induced hyperglycemia and was found to have metabolic acidosis with anion gap as well as chronic hyponatremia. Did take 20mg PO prednisone this morning instructed prior to planned chemo treatment. Allergies Allergy/AdvReac Type Severity Reaction Status Date / Time No Known Allergies Allergy Verified 10/19/18 14:44 Home Medications Home Medications Medication Instructions Recorded Confirmed Type Centrum 1 tab PO DAILY 08/16/18 10/19/18 History cholecalciferol (vitamin D3) 5,000 unit PO DAILY 08/16/18 10/19/18 History [Vitamin D3] omeprazole 20 mg PO DAILY 08/16/18 10/19/18 History Darzalex 20 ml IV WK 08/30/18 10/19/18 History acyclovir 200 mg PO BID 10/01/18 10/19/18 History calcium carbonate-vitamin D3 1 tab PO DAILY 10/01/18 10/19/18 History [Calcium 600 + D(3)] glipizide 2.5 mg PO QAM 30 Days #15 tab 10/04/18 10/19/18 Rx carvedilol 3.125 mg PO BID 30 Days #60 tab 10/06/18 10/19/18 Rx dronabinol 2.5 mg PO DAILY #10 cap 10/17/18 10/19/18 Rx Past Med/Surg History Medical History Pancytopenia (Chronic) Steroid-induced diabetes mellitus (Chronic) Hyponatremia (Chronic) DVT prophylaxis (Chronic) Chronic kidney disease (CKD), stage III (moderate) (Chronic) Hypertension (Chronic) Multiple myeloma (Chronic 09/28/17) Surgical History Hx of stem cell transplant (Chronic) Family History Mother Hypertension Father IPF (idiopathic pulmonary fibrosis) Social History Preferred Language: Y[place]ut Beliefs That Will Affect Care: None marital status: Current Living Situation: Spouse Current Living Situation Comment: House Feels Safe at Home: Yes Smoking Status: Never smoker Hx Alcohol Use: No Hx Substance Use: No Review of Systems All systems reviewed & are unremarkable except as noted in HPI & below Physical Exam Vital Signs (Past 24 Hours): Last Vital Signs Temp 36.7 C 10/15/18 10:56 Pulse 108 H 10/15/18 10:56 Resp 20 10/15/18 10:56 BP 113/70 10/15/18 10:56 Pulse Ox 98 10/15/18 10:56 Physical Exam: General Appearance: WD/WN, no apparent distress, appears chronically ill, resting comfortably in 406-1 Head: normocephalic, atraumatic Eyes: normal inspection, PERRL, EOMI ENT: hearing grossly normal, pharynx normal (moist mucous membranes) Neck: supple, no JVD, no adenopathy Respiratory/Chest: lungs clear to auscultation. No wheezes, rales or rhonci. No respiratory distress or accessory muscle use Cardiovascular: regular rate, rhythm, no murmur, normal peripheral pulses Abdomen/GI: normal bowel sounds, soft, non-tender to palpation Extremities/Musculoskelatal: normal inspection, no calf tenderness, normal capillary refill, no pedal edema Neurologic/Psych: alert, normal mood/affect, oriented x 3 Skin: + pale, warm/dry Results & Data Laboratory Results Short CBC 10/15/18 Range/Units 11:53 WBC 0.64 L* (4.8-10.8) K/uL Hgb 6.8 L* (14.0-18.0) g/dL Hct 19.5 L* (42-52) % Plt Count 9 L* (130-400) K/uL BMP 10/15/18 11:53 Sodium 126 L Potassium 4.1 Chloride 97 L Carbon Dioxide 17 L BUN 51 H Creatinine 1.75 H Glucose 140 H Calcium 8.3 L Liver Function 10/15/18 Range/Units 11:53 Total Bilirubin 0.3 (0.2-1) mg/dl AST 36 (15-37) U/L ALT 23 (12-78) U/L Alkaline Phosphatase 91 (45-117) U/L Albumin 1.2 L (3.4-5.0) gm/dl Diagnostic Findings CXR: IMPRESSION: No acute process ECG Rhythm: normal sinus Supervising Physician Co-Signing Physician Notes Attending Addendum: care coordinated with RAZ Poe please refer to her notes for full details, I agree with her notes patient seen and examined, records reviewed by myself as well on exam, patient seen comfortable not in distress denies chills, cough, headache, abdominal pain no bleeding, chest pain, dyspnea no other symptoms VS noted and reviewed orientedx 3 , not in distress, speaks in sentences with no effort nor accessory muscle use normal rate, regular rhythm, no murmurs clear breath sounds bilaterally non distended, soft, nontender no bipedal edema, erythema, warmth no neuro deficits WBC 0.6 Hg 6.8 Crea 1.5 ASSESSMENT AND PLAN FEBRILE NEUTROPENIA R/O INFECTION panculture empirice Cefepime monitor ID consult PANCYTOPENIA, MULTIPLE MYELOMA prbc and plt transfusion consult HemOnc other diagnoses and plan of care as per RAZ Christina MD (1) Multiple myeloma Multiple myeloma remission status: in relapse Qualified Code(s): C90.02 - Multiple myeloma in relapse
[2018-10-15] MEDS: CEFEPIME 2,000 MG in SYRINGE 7.5 ML IV SCH (14:04)
[2018-10-15] MEDS ORDERED: ACETAMINOPHEN 325 MG TAB PO SCH ×2 (14:15→18:30)
--- NOTE | 2018-10-15 14:24 | Infectious Disease Consult ---
Date of Consultation October 15, 2018 Assessment & Plan (1) Neutropenic fever: 53-year-old male with multiple myeloma status post stem cell transplant, with intermittent persistent fevers associated with pancytopenia. Agree with coverage with cefepime pending further blood culture results. Fever may be from multiple myeloma itself. Will follow. History of Present Illness Reason for Consultation: Neutropenic fever Attending Physician: Hung Christina MD History of Present Illness 53-year-old male with history of multiple myeloma status post stem cell transplant hospitalized last month for hyperglycemia associated with chemotherapy, who has had intermittent fevers for several weeks, previously evaluated during last hospitalization with negative workup, but now readmitted with fever and pancytopenia. He has not had a change in his other symptoms, no cough, shortness of breath, chest or abdominal pain, urinary complaints. No diarrhea. Has been started on cefepime. Does not have indwelling central line. Allergies Allergy/AdvReac Type Severity Reaction Status Date / Time No Known Allergies Allergy Verified 10/12/18 07:06 Home Medications Home Medications Medication Instructions Recorded Confirmed Type Centrum 1 tab PO DAILY 08/16/18 10/15/18 History cholecalciferol (vitamin D3) 5,000 unit PO DAILY 08/16/18 10/15/18 History [Vitamin D3] omeprazole 20 mg PO DAILY 08/16/18 10/15/18 History Darzalex 20 ml IV WK 08/30/18 10/15/18 History acyclovir 200 mg PO BID 10/01/18 10/15/18 History calcium carbonate-vitamin D3 1 tab PO DAILY 10/01/18 10/15/18 History [Calcium 600 + D(3)] glipizide 2.5 mg PO QAM 30 Days #15 tab 10/04/18 10/15/18 Rx carvedilol 3.125 mg PO BID 30 Days #60 tab 10/06/18 10/15/18 Rx Patient History Medical History Chronic kidney disease (CKD), stage III (moderate) (Chronic) Hypertension (Chronic) Multiple myeloma (Chronic 09/28/17) Surgical History Hx of stem cell transplant (Chronic) Family History Mother Hypertension Father IPF (idiopathic pulmonary fibrosis) Social History Preferred Language: American Communication Ability: Effective Beliefs That Will Affect Care: None marital status: Current Living Situation: Spouse Current Living Situation Comment: House Feels Safe at Home: Yes Smoking Status: Never smoker Hx Alcohol Use: No Hx Substance Use: No Review of Systems All systems were reviewed and are negative except as per HPI Physical Exam Vital Signs (Past 24 Hours): Last Vital Signs Temp 36.7 C 10/15/18 10:56 Pulse 108 H 10/15/18 10:56 Resp 20 10/15/18 10:56 BP 113/70 10/15/18 10:56 Pulse Ox 98 10/15/18 10:56 Constitutional: WD/WN, vitals as above + ill appearing, + thin and comfortable; no acute distress Eyes: PERRL, conjunctivae normal, anicteric sclerae ENMT: external ear and nose normal, oropharynx normal Neck: trachea midline, no thyromegaly neck nontender Respiratory: normal respiratory effort, lungs clear to auscultation normal percussion; does not use accessory muscles Cardiovascular: Rate/Rhythm: regular rate and regular rhythm Heart Sounds: normal S1 and normal S2; no gallop, no murmur and no cardiac rub Vessels: normal peripheral pulses; no JVD Gastrointestinal (Abdomen): normal bowel sounds, soft, nontender, no hepatosplenomegaly Musculoskeletal: no cyanosis or clubbing, extremities motor strength 5/5 Spine: thoracic spine normal to inspection and lumbar spine normal to inspection; no cervical spinal tenderness Skin: no rashes, warm and dry normal turgor; no lesions Neurologic: patellar DTR's 2+ bilat, sensation intact no focal motor deficits Psychiatric: A+Ox3, euthymic affect Orientation: cooperative Lymphatic: no cervical or axillary lymphadenopathy no inguinal lymphadenopathy Results & Data Laboratory Results Short CBC 10/15/18 Range/Units 11:53 WBC 0.64 L* (4.8-10.8) K/uL Hgb 6.8 L* (14.0-18.0) g/dL Hct 19.5 L* (42-52) % Plt Count 9 L* (130-400) K/uL BMP 10/15/18 11:53 Sodium 126 L Potassium 4.1 Chloride 97 L Carbon Dioxide 17 L BUN 51 H Creatinine 1.75 H Glucose 140 H Calcium 8.3 L Liver Function 10/15/18 Range/Units 11:53 Total Bilirubin 0.3 (0.2-1) mg/dl AST 36 (15-37) U/L ALT 23 (12-78) U/L Alkaline Phosphatase 91 (45-117) U/L Albumin 1.2 L (3.4-5.0) gm/dl Diagnostic Findings XR chest 2V routine HISTORY: 53 years-old Male neutropenic fever acute fever COMPARISON: Chest radiograph 08/16/2018, PET CT 05/23/2018 TECHNIQUE: PA and lateral views of the chest FINDINGS: Remote compression deformities at T10-L1 redemonstrated. Multilevel intervertebral disc space narrowing with spondylitic spurring. Remote bilateral rib fractures with healing callus formation noted, progressed from comparison. Degenerative changes of the shoulders with right shoulder rotator cuff calcific tendinosis. Cardiomediastinal and hilar silhouettes are within normal limits. There is no pneumothorax, large pleural effusion or overt pulmonary edema. No lobar airspace consolidation typical for pneumonia. IMPRESSION: No acute process. The above report was generated using voice recognition software. It may contain grammatical, syntax or spelling errors.
[2018-10-15] MEDS ORDERED: SODIUM BICARBONATE 8.4% 150 MEQ in DEXTROSE 5% 1,000 ML IV SCH (14:30)
[2018-10-15] MEDS: ACETAMINOPHEN 325 MG TAB PO PRN (14:39)
--- NOTE | 2018-10-15 14:48 | Nephrology Consultation ---
Date of Consultation October 15, 2018 Assessment & Plan (1) KEMAR (acute kidney injury): Patient with acute kidney injury on CKD. Baseline creatinine of 1.3. His creatinine is up to 1.7 with a BUN of 51. Etiology is likely prerenal azotemia. He could have ATN in setting of infection. Recommend IV fluids. Check urine microscopy, urine sodium and the postvoid bladder scan to ensure patient is not retaining Monitor renal function with daily BMP. Monitor input output. (2) Metabolic acidosis: Due to acute kidney injury. We will give isotonic bicarbonate infusion at 125 mL/h for 1 L. After that we can continue lactated Ringer's at the same rate . Monitor potassium twice daily. (3) Hyponatremia: Patient with mild hyponatremia will check serum osmolality and urine osmolality. Low risk for osmotic demyelination. Monitor sodium daily. (4) Neutropenic fever: Patient is being treated with cefepime for broad-spectrum coverage. Antibiotic should be renally dosed. ID is on board History of Present Illness Reason for Consultation: Acute kidney injury on CKD complicated by metabolic acidosis Requesting Physician: Hung Christina MD Attending Physician: Hung Christina MD History of Present Illness 53 y/o M whom I'm asked to see for CKD. PMH includes multiple myeloma dx'd 09/2017 s/p stem cell txplt 02/2018 then weekly daratumumab, CKD3, HTN. His baseline creatinine is around 1.3. He had acute kidney injury last month with a creatinine peak of 1.8 but improved to 1.3 on 10/05/2018. He is now admitted on 10/15/2018 with pancytopenia and fever. He denies any nausea vomiting or diarrhea. He is complaining of fatigue. He denies any shortness of breath. No NSAID use. was at the bedside who reported poor p.o. intake and poor appetite. His sodium today is 126 with bicarb of 17. Creatinine is up to 1.7 with a BUN of 51. He has been started on broad-spectrum cefepime and blood cultures are pending. He denied any urinary symptoms such as dysuria hematuria or frequency. His blood pressure is acceptable but he has tachycardia. Allergies Allergy/AdvReac Type Severity Reaction Status Date / Time No Known Allergies Allergy Verified 10/12/18 07:06 Home Medications Home Medications Medication Instructions Recorded Confirmed Type Centrum 1 tab PO DAILY 08/16/18 10/15/18 History cholecalciferol (vitamin D3) 5,000 unit PO DAILY 08/16/18 10/15/18 History [Vitamin D3] omeprazole 20 mg PO DAILY 08/16/18 10/15/18 History Darzalex 20 ml IV WK 08/30/18 10/15/18 History acyclovir 200 mg PO BID 10/01/18 10/15/18 History calcium carbonate-vitamin D3 1 tab PO DAILY 10/01/18 10/15/18 History [Calcium 600 + D(3)] glipizide 2.5 mg PO QAM 30 Days #15 tab 10/04/18 10/15/18 Rx carvedilol 3.125 mg PO BID 30 Days #60 tab 10/06/18 10/15/18 Rx Patient History Medical History Chronic kidney disease (CKD), stage III (moderate) (Chronic) Hypertension (Chronic) Multiple myeloma (Chronic 09/28/17) Surgical History Hx of stem cell transplant (Chronic) Family History Mother Hypertension Father IPF (idiopathic pulmonary fibrosis) Social History Preferred Language: Indian Communication Ability: Effective Beliefs That Will Affect Care: None marital status: Current Living Situation: Spouse Current Living Situation Comment: House Feels Safe at Home: Yes Smoking Status: Never smoker Hx Alcohol Use: No Hx Substance Use: No Review of Systems All other systems were reviewed and negative except as noted in HPI Physical Exam Vital Signs (Past 24 Hours): Last Vital Signs Temp 36.7 C 10/15/18 10:56 Pulse 108 H 10/15/18 10:56 Resp 20 10/15/18 10:56 BP 113/70 10/15/18 10:56 Pulse Ox 98 10/15/18 10:56 Physical Exam: General exam: Appears comfortable, no acute distress HEENT: Pupils are equal and reactive to light Neck: No JVD, neck is supple trachea is midline Respiratory system: Clear breath sounds bilaterally. Gastrointestinal: Abdomen is soft, non distended, non tender, bowel sounds are present CVS: Regular rate and rhythm. No murmurs, rubs or gallops Musculoskeletal: No joint or muscle tenderness Extremities: Non tender, no edema, peripheral pulses are present Neuro: Oriented, no tremors, no focal neurological deficits Skin: No rashes Results & Data Laboratory Results Sodium 126, potassium 4.1, BUN 51, creatinine 1.7. Hemoglobin of 6.8 Diagnostic Findings Chest x-ray with no acute cardiopulmonary process
[2018-10-15 16:13] LABS: Appearance Urine Clear (Clear); Bilirubin Urine Negative (Negative); Blood Urine Negative (Negative); Color Urine Yellow; Glucose Urine UA Negative (Negative); Ketones Urine Negative (Negative); Leukocyte Esterase Urine Negative (Negative); Nitrite Urine Negative (Negative); Protein Urine 1+ (Negative); Specific Gravity Urine 1.013 (1.000-1.030); Urobilinogen Urine Negative (Negative)
[2018-10-15 16:27] LABS: Epithelial Cell Urine Auto 0-5 /lpf (0-5); RBC Urine Automated 0-4 /hpf (0-4)
[2018-10-15 16:28] LABS: Bacteria Urine Automated 3+ (Negative)
[2018-10-15] MEDS: INSULIN ASPART 100 UNITS/ML 3 ML PEN SC SCH ×2 (18:43→20:50)
[2018-10-16] MEDS: CEFEPIME 2,000 MG in SYRINGE 7.5 ML IV SCH ×2 (02:36→14:19)
[2018-10-16] MEDS: LACTATED RINGER'S 1,000 ML IV SCH ×4 (02:37→21:46)
[2018-10-16 07:46] LABS: Hematocrit (blood only) 21.8 % (42-52); Hemoglobin 7.7 g/dL (14.0-18.0); Mean Corpuscular Hgb Conc 35.3 g/dL (32-36); Mean Corpuscular Volume 84.5 fL (80-100); Mean Platelet Volume 9.4 fL (7.4-10.4); Nucleated RBC # (auto) 0.05 K/uL (0-0); Nucleated RBC % (auto) 11.8 %; Platelet Count 13 K/uL (130-400); RDW Coefficient of Variation 15.4 % (11.5-14.5); RDW Standard Deviation 47.6 fL (36.4-46.3); Red Blood Count 2.58 M/uL (4.7-6.1); White Blood Count 0.47 K/uL (4.8-10.8)
[2018-10-16 07:58] LABS: Albumin Level 1.2 gm/dl (3.4-5.0); Calcium 8.7 mg/dl (8.5-10.1); Creatinine Clr Calc Pharmacy 37.2 ml/min; Est GFR (African American) 43.9; Est GFR (Non-African American) 37.9; Potassium 3.4 mmol/L (3.5-5.1)
[2018-10-16 08:01] LABS: Albumin Globulin Ratio 0.1 (0.9-2); Bilirubin,Total 0.3 mg/dl (0.2-1); Globulin 8.2 gm/dl (2.5-4.0); Total Protein 9.4 gm/dl (6.4-8.2)
[2018-10-16] MEDS: INSULIN ASPART 100 UNITS/ML 3 ML PEN SC SCH ×4 (08:34→20:50)
[2018-10-16] MEDS: PANTOprazole 40 MG TAB PO SCH (09:47)
[2018-10-16] MEDS: CARVEDILOL 3.125 MG TAB PO SCH ×2 (09:47→20:43)
[2018-10-16] MEDS: CHOLECALCIFEROL 1,000 UNITS TAB PO SCH (09:47)
[2018-10-16] MEDS: ACYCLOVIR 200 MG CAP PO SCH ×2 (09:49→20:43)
[2018-10-16] MEDS: CEROVITE ADV FORMULA TAB PO SCH (09:49)
--- NOTE | 2018-10-16 10:07 | Infectious Disease Progress Nt ---
Date of Service October 16, 2018 Assessment & Plan (1) Neutropenic fever: 53-year-old male with multiple myeloma status post stem cell transplant, with intermittent persistent fevers associated with pancytopenia. To continue with coverage with cefepime pending final blood culture results. Fever may be from multiple myeloma itself. Will follow. Subjective Patient seen for follow-up for neutropenic in the setting of multiple myeloma. Feeling better after receiving transfusion. No chills or fever overnight. Blood cultures remain negative to date. No other new complaints. Review of Systems All systems reviewed & are unremarkable except as noted in HPI & below Physical Exam Vital Signs (Past 24 Hours): Last Vital Signs Temp 36.5 C 10/16/18 07:07 Pulse 97 H 10/16/18 07:07 Resp 18 10/16/18 07:07 BP 107/66 10/16/18 07:07 Pulse Ox 98 10/16/18 07:07 Constitutional: WD/WN, vitals as above + ill appearing, + thin and comfortable; no acute distress Eyes: PERRL, conjunctivae normal, anicteric sclerae ENMT: external ear and nose normal, oropharynx normal Neck: trachea midline, no thyromegaly neck nontender Respiratory: normal respiratory effort, lungs clear to auscultation normal percussion; does not use accessory muscles Cardiovascular: Rate/Rhythm: regular rate and regular rhythm Heart Sounds: normal S1 and normal S2; no gallop, no murmur and no cardiac rub Vessels: normal peripheral pulses; no JVD Gastrointestinal (Abdomen): normal bowel sounds, soft, nontender, no hepatosplenomegaly Musculoskeletal: no cyanosis or clubbing, extremities motor strength 5/5 Spine: thoracic spine normal to inspection and lumbar spine normal to inspection; no cervical spinal tenderness Skin: no rashes, warm and dry normal turgor; no lesions Neurologic: patellar DTR's 2+ bilat, sensation intact no focal motor deficits Psychiatric: A+Ox3, euthymic affect Orientation: cooperative Lymphatic: no cervical or axillary lymphadenopathy no inguinal lymphadenopathy Results & Data Laboratory Results Short CBC 10/15/18 10/16/18 Range/Units 11:53 07:15 WBC 0.64 L* 0.47 L* (4.8-10.8) K/uL Hgb 6.8 L* 7.7 L (14.0-18.0) g/dL Hct 19.5 L* 21.8 L (42-52) % Plt Count 9 L* 13 L* (130-400) K/uL BMP 10/15/18 10/15/18 10/16/18 11:53 20:30 07:15 Sodium 126 L 133 L D Potassium 4.1 3.9 3.4 L Chloride 97 L 99 Carbon Dioxide 17 L 22 BUN 51 H 50 H Creatinine 1.75 H 1.94 H Glucose 140 H 113 H Calcium 8.3 L 8.7 Liver Function 10/15/18 10/16/18 Range/Units 11:53 07:15 Total Bilirubin 0.3 0.3 (0.2-1) mg/dl AST 36 27 (15-37) U/L ALT 23 22 (12-78) U/L Alkaline Phosphatase 91 80 (45-117) U/L Albumin 1.2 L 1.2 L (3.4-5.0) gm/dl Urine 10/15/18 Range/Units 15:51 Urine Color Yellow Urine Appearance Clear (Clear) Urine pH 5.0 (4.5-7.5) Ur Specific [place] 1.013 (1.000-1.030) Urine Protein 1+ H (Negative) Urine Glucose (UA) Negative (Negative) Diagnostic Findings Name: FRANCISCA MANNING Acct: [id number] Status: ADM IN : 1965 [facility] Date: 10/15/18 Age: 53 Sex: M Dis Date: Loc: Medical Oncology [facility] Rm/Bed: E4061 Spec: [id number] Collected: 10/15/18-1205 Received: 10/15/18-[address]: Caroline Little, P .A.-C. Copy To: Ismael Hernandez, D.O. Demarcus Page MD Panlilio, Robin A., MD Source: Blood OV Order: Ordered: Blood Culture Comments: Comment Default is separate sites, same time Blood culture drawn venously from Left Arm. Procedure Result Verified Site Blood Culture PENDING Name: FRANCISCA MANNING : 1965 PAGE 1 Printed: 10/16/18 1007 END OF REPORT
--- NOTE | 2018-10-16 17:27 | Nephrology Progress Note ---
Date of Service October 16, 2018 Assessment & Plan (1) KEMAR (acute kidney injury): Patient with acute kidney injury on CKD. Baseline creatinine of 1.3. His creatinine is up to 1.9 today from 1.7 yesterday and with a BUN of 51. Etiology is likely prerenal azotemia. He could have ATN in setting of infection. Continue IV fluids. Recommend potassium chloride 20 mEq p.o. today. Monitor renal function with daily BMP. Monitor input output. Care coordinated with Dr. Christina (2) Metabolic acidosis: Due to acute kidney injury. Improving with the IV fluids. Continue lactated Ringer's at the same rate. Monitor potassium daily. (3) Hyponatremia: Patient with mild hyponatremia will check serum osmolality and urine osmolality. Low risk for osmotic demyelination. Sodium is better at 133 today. (4) Neutropenic fever: Patient is being treated with cefepime for broad-spectrum coverage. Antibiotic should be renally dosed. ID is on board. Patient remains mary ellen tropenic. He might benefit from oncology opinion regarding Neupogen. Subjective Seen in follow-up for acute kidney injury. Patient still on antibiotics for neutropenic fever. No shortness of breath or fever today. Blood cultures still negative. was at the bedside Review of Systems All systems reviewed & are unremarkable except as noted in HPI & below Physical Exam Vital Signs (Past 24 Hours): Last Vital Signs Temp 36.9 C 10/16/18 15:12 Pulse 90 10/16/18 15:12 Resp 18 10/16/18 15:12 BP 117/69 10/16/18 15:12 Pulse Ox 99 10/16/18 15:12 Physical Exam: General exam: Appears comfortable, no acute distress HEENT: Pupils are equal and reactive to light Neck: No JVD, neck is supple trachea is midline Respiratory system: Clear breath sounds bilaterally. Gastrointestinal: Abdomen is soft, non distended, non tender, bowel sounds are present CVS: Regular rate and rhythm. No murmurs, rubs or gallops Musculoskeletal: No joint or muscle tenderness Extremities: Non tender, no edema, peripheral pulses are present Neuro: Oriented, no tremors, no focal neurological deficits Skin: No rashes Results & Data Laboratory Results Potassium 3.4, creatinine 1.9, BUN 50
--- NOTE | 2018-10-16 17:43 | Hospitalist Progress Note ---
Date of Service October 16, 2018 Assessment & Plan (1) Neutropenic fever: (2) Multiple myeloma: This is a 53yo M with a PMH of multiply myeloma (s/p stem cell transplant), steroid-induced DM, CKD III, chronic hyponatremia and other medical problems listed below who was a direct admission sent by Dr. Page for management of neutropenic fever. -In setting of intermittent fevers, dry cough Afebrile Blood and urine cultures pending Continue empiric cefepime ID consulted, appreciate recommendations (3) Pancytopenia: In the setting of Multiple myeloma -WBC of 0.59 (ANC of 0.40), hgb of 7, plt of 8 Status post 1 unit packed RBCs and 1 unit of platelet pheresis Hemoglobin 7.7, platelets 13,000 WBC [address] Page Recommend Neupogen 480 mcg subcutaneous today Continue to monitor CBC closely (4) Metabolic acidosis: Metabolic acidosis with anion gap of 12, bicarb of 17, BSG of 140 -Had similar acid base disturbance during previous admission, in the setting of multiple myeloma, acute kidney injury -Nephro consulted. Resolved Given sodium bicarbonate, currently on LR Nephrology consulted, appreciate recommendations (5) Hyponatremia: Sodium of 126 today (recent baseline mid-120s) -Serum/urine osm -Nephrology following--Low risk for osmotic demyelination Sodium 133 today Continue LR tonight (6) KEMAR (acute kidney injury): (7) Chronic kidney disease (CKD), stage III (moderate): Cr of 1.75 today. Baseline Cr ~1.3 -Per nephro service: etiology is likely prerenal azotemia. Could have ATN in setting of infection. Recommend IV fluids. Check urine microscopy, urine sodium and the postvoid bladder scan to ensure patient is not retaining Creatinine increased to 1.9 Continue lactated Ringer's, discussed with Dr. Duran Resume acyclovir at this time (8) Hypertension: Normotensive. 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 Discharge planning ordered. Discussed case with patient, and his in detail and at length All questions have been answered Comfortable and agreeable with the plan of care Subjective ff up for febrile neutropenia, pancytopenia, etc seen sitting up in bed, comfortable states he feels fine just tired denies space fevers, chills headache, dizziness, sore throat, shortness of breath, abdominal pain, changes in bowel movement or urination Denies bleeding No other symptoms Physical Exam Vital Signs (Past 24 Hours): Last Vital Signs Temp 36.9 C 10/16/18 15:12 Pulse 90 10/16/18 15:12 Resp 18 10/16/18 15:12 BP 117/69 10/16/18 15:12 Pulse Ox 99 10/16/18 15:12 Physical Exam: General- oriented x 3, not in distress, speaks in sentences with no effort or accessory muscle use Eyes- anicteric Neck- no JVD Lungs- clear breath sounds bilaterally, no rales/wheezes Heart- normal rate, regular rhythm; no murmurs Abdomen- normal bowel sounds, nondistended, soft, nontender Extremities- no pretibial edema, no calf tenderness Neuro- alert, oriented x 3; no gross focal neurologic deficits Skin- warm & dry Results & Data Laboratory Results Laboratory Results - last 24 hr 10/15/18 10/15/18 10/15/18 08:35 20:15 20:30 WBC RBC Hgb Hct MCV MCH MCHC RDW Std Deviation RDW Coeff of Jenae Plt Count MPV Immature Gran % (Auto) Neut % (Auto) Lymph % (Auto) [place] % (Auto) Eos % (Auto) Baso % (Auto) Immature Gran # (Auto) Neut # (Auto) Lymph # (Auto) [place] # (Auto) Eos # (Auto) Baso # (Auto) Absolute Nucleated RBC Nucleated RBC % (auto) Neutrophils % (Manual) Band Neutrophils % Lymphocytes % (Manual) Prolymphocyte % Reactive Lymphs % (Man) Monocytes % (Manual) Eosinophils % (Manual) Basophils % (Manual) Metamyelocytes % (Man) Myelocytes % (Man) Promyelocytes % (Man) Blast Cells % (Manual) Plasma Cell % (Manual) Other Cells % Nucleated RBC % Neutrophils # (Manual) Band Neutrophils # Total Absolute Neuts Lymphocytes # (Manual) Prolymphocyte # Reactive Lymphs # Total Abs Lymphocytes Monocytes # (Manual) Eosinophils # (Manual) Basophils # (Manual) Metamyelocytes # (Man) Myelocytes # (Manual) Promyelocytes # (Man) Blast Cells # (Man) Plasma Cell # (Manual) Other Cells # Nucleated RBCs # (Man) Hypersegmented Neuts Hyposegmented Neuts Hypogranular Neuts Large Granular Lymphs # Lrg Granular Lymphs Hairy Cells Smudge Cells Toxic Granulation Toxic Vacuolation Dohle Bodies Arnold Rods Hypogranular Platelets Clumped Platelets Giant Platelets Platelet Satelliting RBC Morphology Polychromasia Hypochromasia Poikilocytosis Basophilic Stippling Anisocytosis Microcytosis Macrocytosis Spherocytes Pappenheimer Bodies Sickle Cells Target Cells Tear Drop Cells Ovalocytes Stomatocytes Martins-Gisela Bodies Echinocytes Acanthocytes (Spur) Rouleaux RBC Agglutinates Schistocytes RBC Morph Comment Sezary Cell Sodium Potassium 3.9 Chloride Carbon Dioxide Anion Gap BUN Creatinine Est Cr Clr Drug Dosing Est GFR ( Amer) Est GFR (Non-Af Amer) BUN/Creatinine Ratio Glucose POC Glucose 232 H Calcium Total Bilirubin AST ALT Alkaline Phosphatase Total Protein Albumin Globulin Albumin/Globulin Ratio Procalcitonin Blood Type B Positive Antibody Screen POSITIVE A Crossmatch See Detail 10/16/18 10/16/18 10/16/18 07:15 07:15 07:45 WBC 0.47 L* RBC 2.58 L Hgb 7.7 L Hct 21.8 L MCV 84.5 MCH 29.8 MCHC 35.3 RDW Std Deviation 47.6 H RDW Coeff of Jenae 15.4 H Plt Count 13 L* MPV 9.4 Immature Gran % (Auto) Cancelled Neut % (Auto) Cancelled Lymph % (Auto) Cancelled [place] % (Auto) Cancelled Eos % (Auto) Cancelled Baso % (Auto) Cancelled Immature Gran # (Auto) Cancelled Neut # (Auto) Cancelled Lymph # (Auto) Cancelled [place] # (Auto) Cancelled Eos # (Auto) Cancelled Baso # (Auto) Cancelled Absolute Nucleated RBC 0.05 H Nucleated RBC % (auto) 11.8 Neutrophils % (Manual) Cancelled Band Neutrophils % Cancelled Lymphocytes % (Manual) Cancelled Prolymphocyte % Cancelled Reactive Lymphs % (Man) Cancelled Monocytes % (Manual) Cancelled Eosinophils % (Manual) Cancelled Basophils % (Manual) Cancelled Metamyelocytes % (Man) Cancelled Myelocytes % (Man) Cancelled Promyelocytes % (Man) Cancelled Blast Cells % (Manual) Cancelled Plasma Cell % (Manual) Cancelled Other Cells % Cancelled Nucleated RBC % Cancelled Neutrophils # (Manual) Cancelled Band Neutrophils # Cancelled Total Absolute Neuts Cancelled Lymphocytes # (Manual) Cancelled Prolymphocyte # Cancelled Reactive Lymphs # Cancelled Total Abs Lymphocytes Cancelled Monocytes # (Manual) Cancelled Eosinophils # (Manual) Cancelled Basophils # (Manual) Cancelled Metamyelocytes # (Man) Cancelled Myelocytes # (Manual) Cancelled Promyelocytes # (Man) Cancelled Blast Cells # (Man) Cancelled Plasma Cell # (Manual) Cancelled Other Cells # Cancelled Nucleated RBCs # (Man) Cancelled Hypersegmented Neuts Cancelled Hyposegmented Neuts Cancelled Hypogranular Neuts Cancelled Large Granular Lymphs Cancelled # Lrg Granular Lymphs Cancelled Hairy Cells Cancelled Smudge Cells Cancelled Toxic Granulation Cancelled Toxic Vacuolation Cancelled Dohle Bodies Cancelled Arnold Rods Cancelled Hypogranular Platelets Cancelled Clumped Platelets Cancelled Giant Platelets Cancelled Platelet Satelliting Cancelled RBC Morphology Cancelled Polychromasia Cancelled Hypochromasia Cancelled Poikilocytosis Cancelled Basophilic Stippling Cancelled Anisocytosis Cancelled Microcytosis Cancelled Macrocytosis Cancelled Spherocytes Cancelled Pappenheimer Bodies Cancelled Sickle Cells Cancelled Target Cells Cancelled Tear Drop Cells Cancelled Ovalocytes Cancelled Stomatocytes Cancelled Martins-Gisela Bodies Cancelled Echinocytes Cancelled Acanthocytes (Spur) Cancelled Rouleaux Cancelled RBC Agglutinates Cancelled Schistocytes Cancelled RBC Morph Comment Cancelled Sezary Cell Cancelled Sodium 133 L D Potassium 3.4 L Chloride 99 Carbon Dioxide 22 Anion Gap 11.0 BUN 50 H Creatinine 1.94 H Est Cr Clr Drug Dosing 37.2 Est GFR ( Amer) 43.9 Est GFR (Non-Af Amer) 37.9 BUN/Creatinine Ratio 26.0 H Glucose 113 H POC Glucose 121 H Calcium 8.7 Total Bilirubin 0.3 AST 27 ALT 22 Alkaline Phosphatase 80 Total Protein 9.4 H Albumin 1.2 L Globulin 8.2 H Albumin/Globulin Ratio 0.1 L Procalcitonin Blood Type Antibody Screen Crossmatch 10/16/18 10/16/18 10/16/18 09:37 11:43 16:56 WBC RBC Hgb Hct MCV MCH MCHC RDW Std Deviation RDW Coeff of Jenae Plt Count MPV Immature Gran % (Auto) Neut % (Auto) Lymph % (Auto) [place] % (Auto) Eos % (Auto) Baso % (Auto) Immature Gran # (Auto) Neut # (Auto) Lymph # (Auto) [place] # (Auto) Eos # (Auto) Baso # (Auto) Absolute Nucleated RBC Nucleated RBC % (auto) Neutrophils % (Manual) Band Neutrophils % Lymphocytes % (Manual) Prolymphocyte % Reactive Lymphs % (Man) Monocytes % (Manual) Eosinophils % (Manual) Basophils % (Manual) Metamyelocytes % (Man) Myelocytes % (Man) Promyelocytes % (Man) Blast Cells % (Manual) Plasma Cell % (Manual) Other Cells % Nucleated RBC % Neutrophils # (Manual) Band Neutrophils # Total Absolute Neuts Lymphocytes # (Manual) Prolymphocyte # Reactive Lymphs # Total Abs Lymphocytes Monocytes # (Manual) Eosinophils # (Manual) Basophils # (Manual) Metamyelocytes # (Man) Myelocytes # (Manual) Promyelocytes # (Man) Blast Cells # (Man) Plasma Cell # (Manual) Other Cells # Nucleated RBCs # (Man) Hypersegmented Neuts Hyposegmented Neuts Hypogranular Neuts Large Granular Lymphs # Lrg Granular Lymphs Hairy Cells Smudge Cells Toxic Granulation Toxic Vacuolation Dohle Bodies Arnold Rods Hypogranular Platelets Clumped Platelets Giant Platelets Platelet Satelliting RBC Morphology Polychromasia Hypochromasia Poikilocytosis Basophilic Stippling Anisocytosis Microcytosis Macrocytosis Spherocytes Pappenheimer Bodies Sickle Cells Target Cells Tear Drop Cells Ovalocytes Stomatocytes Martins-Gisela Bodies Echinocytes Acanthocytes (Spur) Rouleaux RBC Agglutinates Schistocytes RBC Morph Comment Sezary Cell Sodium Potassium Chloride Carbon Dioxide Anion Gap BUN Creatinine Est Cr Clr Drug Dosing Est GFR ( Amer) Est GFR (Non-Af Amer) BUN/Creatinine Ratio Glucose POC Glucose 145 H 123 H Calcium Total Bilirubin AST ALT Alkaline Phosphatase Total Protein Albumin Globulin Albumin/Globulin Ratio Procalcitonin 1.38 H Blood Type Antibody Screen Crossmatch (1) Multiple myeloma Multiple myeloma remission status: in relapse Qualified Code(s): C90.02 - Multiple myeloma in relapse
[2018-10-16] MEDS ORDERED: FILGRASTIM 480 MCG/1.6 ML VIAL SC ONE (18:00)
[2018-10-16] MEDS: DRONABINOL 2.5 MG CAP PO SCH (18:16)
[2018-10-16] MEDS: ACETAMINOPHEN 325 MG TAB PO PRN (18:45)
[2018-10-17] MEDS: CEFEPIME 2,000 MG in SYRINGE 7.5 ML IV SCH ×2 (01:58→13:48)
[2018-10-17] MEDS: LACTATED RINGER'S 1,000 ML IV SCH (05:46)
[2018-10-17] MEDS ORDERED: DiphenhydrAMINE HCL 50 MG/ML VIAL IV SCH (06:00)
[2018-10-17] MEDS ORDERED: ACETAMINOPHEN 325 MG TAB PO SCH (06:00)
[2018-10-17 06:05] LABS: Hematocrit (blood only) 21.4 % (42-52); Hemoglobin 7.3 g/dL (14.0-18.0); Mean Corpuscular Hgb Conc 34.1 g/dL (32-36); Mean Corpuscular Volume 85.3 fL (80-100); Mean Platelet Volume 11.1 fL (7.4-10.4); Platelet Count 8 K/uL (130-400); RDW Coefficient of Variation 15.5 % (11.5-14.5); RDW Standard Deviation 48.1 fL (36.4-46.3); Red Blood Count 2.51 M/uL (4.7-6.1); White Blood Count 0.66 K/uL (4.8-10.8)
[2018-10-17 06:13] LABS: Albumin Level 1.1 gm/dl (3.4-5.0); BUN Creatinine Ratio 23.1 (10-20); Calcium 8.3 mg/dl (8.5-10.1); Creatinine Clr Calc Pharmacy 45.2 ml/min; Est GFR (African American) 55.4; Est GFR (Non-African American) 47.8; Potassium 3.5 mmol/L (3.5-5.1)
[2018-10-17 06:16] LABS: Albumin Globulin Ratio 0.1 (0.9-2); Bilirubin,Total 0.3 mg/dl (0.2-1); Globulin 7.8 gm/dl (2.5-4.0); Total Protein 8.9 gm/dl (6.4-8.2)
[2018-10-17 07:17] LABS: Eosinophils # (auto) 0.01 K/uL (0-0.5); Eosinophils % (auto) 1.5 %; Lymphocytes # (auto) 0.08 K/uL (1.2-3.4); Lymphocytes % (auto) 12.1 %; Monocytes # (auto) 0.04 K/uL (0.11-0.59); Monocytes % (auto) 6.1 %; Neutrophils # (auto) 0.53 K/uL (1.4-6.5); Neutrophils % (auto) 80.3 %; RBC Morphology Unremarkable
[2018-10-17] MEDS ORDERED: SODIUM CHLORIDE 0.9% 250 ML IV PRN (07:46)
[2018-10-17] MEDS: CHOLECALCIFEROL 1,000 UNITS TAB PO SCH (08:51)
[2018-10-17] MEDS: CEROVITE ADV FORMULA TAB PO SCH (08:51)
[2018-10-17] MEDS: PANTOprazole 40 MG TAB PO SCH (08:51)
[2018-10-17] MEDS: CARVEDILOL 3.125 MG TAB PO SCH (08:53)
[2018-10-17] MEDS: DRONABINOL 2.5 MG CAP PO SCH (08:58)
[2018-10-17] MEDS: INSULIN ASPART 100 UNITS/ML 3 ML PEN SC SCH ×2 (09:00→13:04)
--- NOTE | 2018-10-17 09:11 | Oncology Consultation ---
Date of Consultation October 17, 2018 Assessment & Plan (1) Neutropenic fever: I agree with Dr. Merritt that his fevers are likely tumor fevers. Since he has been neutropenic for an extended period, however, I would like to confirm that his cultures are negative before we send him out. However, if he has no overt infectious symptoms and negative cultures, we can let him go and try to resume his treatment later this week. Present on Admission?: Yes (2) Pancytopenia: This issue is related to marrow dysfunction from his myeloma. He received a dose of neuopgen yesterday. He will receive RBCs and platelets today. Present on Admission?: Yes History of Present Illness Reason for Consultation: Febrile neutropenia Pancytopenia Attending Physician: Hung Christina MD History of Present Illness Mr. Benavidez is a 53 year old man with treatment-refractory multiple myeloma. He has been admitted frequently in recent months and you can see previous notes for a more detailed summary of his myeloma history. We have been in the process of getting approval for adding a new treatment to his regimen. He has been neutropenic now for months and is also anemic and thrombocytopenic. He presented for treatment on Monday and was febrile, so we directed him to the hospital. He has been having low-grade fevers but no specific infectious symptoms. He denies any cough, purulent sputum, dysuria, hematuria, diarrhea, or rashes. He is profoundly fatigued, but with no acute recent change. Allergies Allergy/AdvReac Type Severity Reaction Status Date / Time No Known Allergies Allergy Verified 10/12/18 07:06 Home Medications Home Medications Medication Instructions Recorded Confirmed Type Centrum 1 tab PO DAILY 08/16/18 10/15/18 History cholecalciferol (vitamin D3) 5,000 unit PO DAILY 08/16/18 10/15/18 History [Vitamin D3] omeprazole 20 mg PO DAILY 08/16/18 10/15/18 History Darzalex 20 ml IV WK 08/30/18 10/15/18 History acyclovir 200 mg PO BID 10/01/18 10/15/18 History calcium carbonate-vitamin D3 1 tab PO DAILY 10/01/18 10/15/18 History [Calcium 600 + D(3)] glipizide 2.5 mg PO QAM 30 Days #15 tab 10/04/18 10/15/18 Rx carvedilol 3.125 mg PO BID 30 Days #60 tab 10/06/18 10/15/18 Rx Patient History Medical History Pancytopenia (Chronic) Steroid-induced diabetes mellitus (Chronic) Hyponatremia (Chronic) DVT prophylaxis (Chronic) Chronic kidney disease (CKD), stage III (moderate) (Chronic) Hypertension (Chronic) Multiple myeloma (Chronic 09/28/17) Surgical History Hx of stem cell transplant (Chronic) Family History Mother Hypertension Father IPF (idiopathic pulmonary fibrosis) Social History Preferred Language: Surinamese Communication Ability: Effective Beliefs That Will Affect Care: None marital status: Current Living Situation: Spouse Current Living Situation Comment: House Feels Safe at Home: Yes Smoking Status: Never smoker Hx Alcohol Use: No Hx Substance Use: No Review of Systems Constitutional: + fever, + fatigue, + weakness and + weight loss Eyes: no worsening vision Ear, Nose, Mouth, Throat: no nasal congestion, no epistaxis, no sinus pain/pressure and no bleeding gums Respiratory: no cough, no dyspnea and no hemoptysis Cardiovascular: no chest pain and no palpitations Gastrointestinal: no abdominal pain and no change in bowel habits Genitourinary (Male): no dysuria, no urinary frequency and no hematuria Musculoskeletal: no back pain and no myalgia Integumentary: no rash and no bleeding lesions Neurologic: no dizziness and no headache(s) Hematologic / Lymphatic: no easy bleeding, no easy bruising and no night sweats Physical Exam Vital Signs (Past 24 Hours): Last Vital Signs Temp 36.6 C 10/17/18 08:43 Pulse 110 H 10/17/18 08:43 Resp 18 10/17/18 08:43 BP 109/68 10/17/18 08:43 Pulse Ox 96 10/17/18 08:43 Constitutional: + ill appearing (chronially) and comfortable; no acute distress Eyes: + anicteric sclerae and EOM intact bilaterally ENMT: external ear and nose normal, oropharynx normal Respiratory: normal respiratory effort, lungs clear to auscultation Cardiovascular: RRR, no murmur, no edema Gastrointestinal (Abdomen): normal bowel sounds, soft, nontender, no hepatosplenomegaly Skin: no rashes, warm and dry Psychiatric: A+Ox3, euthymic affect Results & Data Laboratory Results Abnormal lab results 10/15/18 10/16/18 10/16/18 Range/Units 08:35 09:37 11:43 WBC (4.8-10.8) K/uL RBC (4.7-6.1) M/uL Hgb (14.0-18.0) g/dL Hct (42-52) % RDW Std Deviation (36.4-46.3) fL RDW Coeff of Jenae (11.5-14.5) % Plt Count (130-400) K/uL MPV (7.4-10.4) fL Neut # (Auto) (1.4-6.5) K/uL Lymph # (Auto) (1.2-3.4) K/uL [place] # (Auto) (0.11-0.59) K/uL BUN (7-18) mg/dl Creatinine (0.6-1.4) mg/dl BUN/Creatinine Ratio (10-20) POC Glucose 145 H (70-99) Calcium (8.5-10.1) mg/dl AST (15-37) U/L Total Protein (6.4-8.2) gm/dl Albumin (3.4-5.0) gm/dl Globulin (2.5-4.0) gm/dl Albumin/Globulin Ratio (0.9-2) Procalcitonin 1.38 H (0-0.5) ng/ml Antibody Screen POSITIVE A Crossmatch See Detail 10/16/18 10/16/18 10/17/18 Range/Units 16:56 20:30 05:32 WBC 0.66 L* (4.8-10.8) K/uL RBC 2.51 L (4.7-6.1) M/uL Hgb 7.3 L (14.0-18.0) g/dL Hct 21.4 L (42-52) % RDW Std Deviation 48.1 H (36.4-46.3) fL RDW Coeff of Jenae 15.5 H (11.5-14.5) % Plt Count 8 L* (130-400) K/uL MPV 11.1 H (7.4-10.4) fL Neut # (Auto) 0.53 L* (1.4-6.5) K/uL Lymph # (Auto) 0.08 L (1.2-3.4) K/uL [place] # (Auto) 0.04 L (0.11-0.59) K/uL BUN (7-18) mg/dl Creatinine (0.6-1.4) mg/dl BUN/Creatinine Ratio (10-20) POC Glucose 123 H 103 H (70-99) Calcium (8.5-10.1) mg/dl AST (15-37) U/L Total Protein (6.4-8.2) gm/dl Albumin (3.4-5.0) gm/dl Globulin (2.5-4.0) gm/dl Albumin/Globulin Ratio (0.9-2) Procalcitonin (0-0.5) ng/ml Antibody Screen Crossmatch 10/17/18 Range/Units 05:32 WBC (4.8-10.8) K/uL RBC (4.7-6.1) M/uL Hgb (14.0-18.0) g/dL Hct (42-52) % RDW Std Deviation (36.4-46.3) fL RDW Coeff of Jenae (11.5-14.5) % Plt Count (130-400) K/uL MPV (7.4-10.4) fL Neut # (Auto) (1.4-6.5) K/uL Lymph # (Auto) (1.2-3.4) K/uL [place] # (Auto) (0.11-0.59) K/uL BUN 37 H (7-18) mg/dl Creatinine 1.60 H D (0.6-1.4) mg/dl BUN/Creatinine Ratio 23.1 H (10-20) POC Glucose (70-99) Calcium 8.3 L (8.5-10.1) mg/dl AST 40 H (15-37) U/L Total Protein 8.9 H (6.4-8.2) gm/dl Albumin 1.1 L (3.4-5.0) gm/dl Globulin 7.8 H (2.5-4.0) gm/dl Albumin/Globulin Ratio 0.1 L (0.9-2) Procalcitonin (0-0.5) ng/ml Antibody Screen Crossmatch
[2018-10-17] MEDS: ACYCLOVIR 200 MG CAP PO SCH (09:20)
[2018-10-17] MEDS ORDERED: SODIUM CHLORIDE 0.65% NA SOLN 45 ML (OCEAN) ONE (11:20)
--- NOTE | 2018-10-17 14:02 | Nephrology Progress Note ---
Date of Service October 17, 2018 Assessment & Plan (1) KEMAR (acute kidney injury): Patient with acute kidney injury on CKD. Baseline creatinine of 1.3. His creatinine down to 1.6 from 1.9 yesterday and with a BUN of 37. Etiology is likely prerenal azotemia. Stop IV fluids. If discharged patient can follow-up with me in the office. He has an appointment in November which he can keep. I discussed with the patient and the . Monitor input output. Care coordinated with Dr. Christina (2) Metabolic acidosis: Due to acute kidney injury. Resolved with improving renal function. (3) Hyponatremia: Resolved. Sodium 136 today (4) Neutropenic fever: Patient is being treated with cefepime for broad-spectrum coverage. Antibiotic should be renally dosed. ID is on board. Patient remains neutropenic. His fevers are likely due to the myeloma. He is planned for discharge and possible chemotherapy as an outpatient per oncology. Subjective Seen in follow-up for acute kidney injury. Patient still on antibiotics for neutropenic fever. No shortness of breath or fever today. Blood cultures still negative. was at the bedside. Creatinine downtrending to 1.6 today. He got a unit of blood today. Is complaining of fatigue. No vomiting or diarrhea Review of Systems All systems reviewed & are unremarkable except as noted in HPI & below Physical Exam Vital Signs (Past 24 Hours): Last Vital Signs Temp 36.8 C 10/17/18 12:55 Pulse 109 H 10/17/18 12:55 Resp 20 10/17/18 12:55 BP 108/66 10/17/18 12:55 Pulse Ox 95 10/17/18 12:55 Physical Exam: General exam: Appears comfortable, no acute distress HEENT: Pupils are equal and reactive to light Neck: No JVD, neck is supple trachea is midline Respiratory system: Clear breath sounds bilaterally. Gastrointestinal: Abdomen is soft, non distended, non tender, bowel sounds are present CVS: Regular rate and rhythm. No murmurs, rubs or gallops Musculoskeletal: No joint or muscle tenderness Extremities: Non tender, no edema, peripheral pulses are present Neuro: Oriented, no tremors, no focal neurological deficits Skin: No rashes Results & Data Laboratory Results Creatinine 1.6, BUN 37, K3.5, hemoglobin 7.3
[2018-10-17 15:00] VITALS: TEMP 98.1; O2SAT 94
--- NOTE | 2018-10-17 15:48 | Hospitalist Progress Note ---
Date of Service October 17, 2018 Assessment & Plan (1) Neutropenic fever: (2) Multiple myeloma: This is a 53yo M with a PMH of multiply myeloma (s/p stem cell transplant), steroid-induced DM, CKD III, chronic hyponatremia and other medical problems listed below who was a direct admission sent by Dr. Page for management of neutropenic fever. -In setting of intermittent fevers, dry cough had a fever of 38 evening of 10/16/18 , asymptomatic, no clear focus of infection Blood and urine cultures negative so far given empiric cefepime IV x 3 days ID consulted, suspect fever coming from multple myeloma, recommend to d/c antibiotic and monitor ok for discharge today (3) Pancytopenia: In the setting of Multiple myeloma -WBC of 0.59 (ANC of 0.40), hgb of 7, plt of 8 given 1 dose of neupogen, 2 units pRBC and 2 units Plts Discussed with Dr. Page CBC to be monitored closely as outpatient (4) Metabolic acidosis: Metabolic acidosis with anion gap of 12, bicarb of 17, BSG of 140 -Had similar acid base disturbance during previous admission, in the setting of multiple myeloma, acute kidney injury -Nephro consulted Dr. Duran Resolved Given sodium bicarbonate, and LR monitor PRP as outpatient (5) Hyponatremia: Sodium of 126 (recent baseline mid-120s) -Nephrology following--Low risk for osmotic demyelination Sodium improved to 133 with LR (6) KEMAR (acute kidney injury): (7) Chronic kidney disease (CKD), stage III (moderate): Cr of 1.75 ; Baseline Cr ~1.3 -Per nephro service: etiology is likely prerenal azotemia. Could have ATN in setting of infection. given IV LR Creatinine improved to 1.6 ok for discharge per Nephro monitor BMP closely as outpatient (8) Hypertension: Normotensive. Continue Carvedilol (9) Steroid-induced diabetes mellitus: A1c of 7.8 in Sep 2018 -No longer receiving dexamethazone as part of cancer treatment continue usual Glipizide Poor appetite started trial of Marinol titrate as outpatient as needed (10) DVT prophylaxis: SCDs in setting of anemia and thrombocytopenia Code status: FULL, per discussion with patient PCP: Juliano Hernandez Dispo: d/c home ff up with Dr. Youssef Hem/Onc tomorrow 10/18/18 ff up with PCP next week as scheduled Discussed case with patient, and his in detail and at length All questions have been answered Comfortable and agreeable with the plan of care Subjective ff up for febrile neutropenia, pancytopenia, etc seen sitting up in bed, comfortable family at bedside states he feels the same overall, tired but otherwise fine denies new symptoms no headache, sorethroat, chest pain, cough, abdominal pain, nausea/vomiting, leg pain no dyspnea, dizziness, bleeding No other symptoms states he is agreeable and comfortable with discharge today Physical Exam Vital Signs (Past 24 Hours): Last Vital Signs Temp 36.7 C 10/17/18 15:00 Pulse 111 H 10/17/18 15:00 Resp 20 10/17/18 15:00 BP 107/65 10/17/18 15:00 Pulse Ox 94 10/17/18 15:00 Physical Exam: General- oriented x 3, not in distress, speaks in sentences with no effort or accessory muscle use Eyes- anicteric Neck- no JVD Lungs- clear breath sounds bilaterally, no crackles, no wheezing Heart- normal rate, regular rhythm; no murmurs Abdomen- normal bowel sounds, nondistended, soft, nontender Extremities- no pretibial edema, no calf tenderness Neuro- alert, oriented x 3; no gross focal neurologic deficits Skin- warm & dry Results & Data Laboratory Results Laboratory Results - last 24 hr 10/15/18 10/15/18 10/16/18 08:35 08:35 16:56 WBC RBC Hgb Hct MCV MCH MCHC RDW Std Deviation RDW Coeff of Jenae Plt Count MPV Immature Gran % (Auto) Neut % (Auto) Lymph % (Auto) [place] % (Auto) Eos % (Auto) Baso % (Auto) Immature Gran # (Auto) Neut # (Auto) Lymph # (Auto) [place] # (Auto) Eos # (Auto) Baso # (Auto) RBC Morphology Sodium Potassium Chloride Carbon Dioxide Anion Gap BUN Creatinine Est Cr Clr Drug Dosing Est GFR ( Amer) Est GFR (Non-Af Amer) BUN/Creatinine Ratio Glucose POC Glucose 123 H Calcium Total Bilirubin AST ALT Alkaline Phosphatase Total Protein Albumin Globulin Albumin/Globulin Ratio Blood Type B Positive Antibody Screen POSITIVE A Antibody Identification Panagglutinin due to Darzalex Antibody ID Referred Crossmatch See Detail 10/16/18 10/17/18 10/17/18 20:30 05:32 05:32 WBC 0.66 L* RBC 2.51 L Hgb 7.3 L Hct 21.4 L MCV 85.3 MCH 29.1 MCHC 34.1 RDW Std Deviation 48.1 H RDW Coeff of Jenae 15.5 H Plt Count 8 L* MPV 11.1 H Immature Gran % (Auto) 0.0 Neut % (Auto) 80.3 Lymph % (Auto) 12.1 [place] % (Auto) 6.1 Eos % (Auto) 1.5 Baso % (Auto) 0.0 Immature Gran # (Auto) 0.00 Neut # (Auto) 0.53 L* Lymph # (Auto) 0.08 L [place] # (Auto) 0.04 L Eos # (Auto) 0.01 Baso # (Auto) 0.00 RBC Morphology Unremarkable Sodium 136 Potassium 3.5 Chloride 104 Carbon Dioxide 25 Anion Gap 7.0 BUN 37 H Creatinine 1.60 H D Est Cr Clr Drug Dosing 45.2 Est GFR ( Amer) 55.4 Est GFR (Non-Af Amer) 47.8 BUN/Creatinine Ratio 23.1 H Glucose 93 POC Glucose 103 H Calcium 8.3 L Total Bilirubin 0.3 AST 40 H ALT 28 Alkaline Phosphatase 92 Total Protein 8.9 H Albumin 1.1 L Globulin 7.8 H Albumin/Globulin Ratio 0.1 L Blood Type Antibody Screen Antibody Identification Antibody ID Referred Crossmatch 10/17/18 10/17/18 10/17/18 08:08 11:35 14:49 WBC RBC Hgb Hct MCV MCH MCHC RDW Std Deviation RDW Coeff of Jenae Plt Count MPV Immature Gran % (Auto) Neut % (Auto) Lymph % (Auto) [place] % (Auto) Eos % (Auto) Baso % (Auto) Immature Gran # (Auto) Neut # (Auto) Lymph # (Auto) [place] # (Auto) Eos # (Auto) Baso # (Auto) RBC Morphology Sodium Potassium Chloride Carbon Dioxide Anion Gap BUN Creatinine Est Cr Clr Drug Dosing Est GFR ( Amer) Est GFR (Non-Af Amer) BUN/Creatinine Ratio Glucose POC Glucose 97 116 H Calcium Total Bilirubin AST ALT Alkaline Phosphatase Total Protein Albumin Globulin Albumin/Globulin Ratio Blood Type Antibody Screen Antibody Identification Antibody ID Referred Crossmatch See Detail (1) Multiple myeloma Multiple myeloma remission status: in relapse Qualified Code(s): C90.02 - Multiple myeloma in relapse
[2018-10-17 16:00] VITALS: BP 108/66; PULSE 107
--- NOTE | 2018-10-17 16:19 | Infectious Disease Progress Nt ---
Date of Service October 17, 2018 Assessment & Plan (1) Neutropenic fever: 53-year-old male with multiple myeloma status post stem cell transplant, with intermittent persistent fevers associated with pancytopenia. All cultures are negative, fever likely from multiple myeloma. Suggest discontinuation of IV antibiotics. Subjective Patient seen for follow-up for neutropenic in the setting of multiple myeloma. Feeling better after receiving transfusion. No chills or fever overnight. Blood cultures remain negative to date. No other new complaints. Review of Systems All systems reviewed & are unremarkable except as noted in HPI & below Physical Exam Vital Signs (Past 24 Hours): Last Vital Signs Temp 36.7 C 10/17/18 16:00 Pulse 107 H 10/17/18 16:00 Resp 20 10/17/18 16:00 BP 108/66 10/17/18 16:00 Pulse Ox 94 10/17/18 16:00 Constitutional: WD/WN, vitals as above + ill appearing, + thin and comfortable; no acute distress Eyes: PERRL, conjunctivae normal, anicteric sclerae ENMT: external ear and nose normal, oropharynx normal Neck: trachea midline, no thyromegaly neck nontender Respiratory: normal respiratory effort, lungs clear to auscultation normal percussion; does not use accessory muscles Cardiovascular: Rate/Rhythm: regular rate and regular rhythm Heart Sounds: normal S1 and normal S2; no gallop, no murmur and no cardiac rub Vessels: normal peripheral pulses; no JVD Gastrointestinal (Abdomen): normal bowel sounds, soft, nontender, no hepatosplenomegaly Musculoskeletal: no cyanosis or clubbing, extremities motor strength 5/5 Spine: thoracic spine normal to inspection and lumbar spine normal to inspection; no cervical spinal tenderness Skin: no rashes, warm and dry normal turgor; no lesions Neurologic: patellar DTR's 2+ bilat, sensation intact no focal motor deficits Psychiatric: A+Ox3, euthymic affect Orientation: cooperative Lymphatic: no cervical or axillary lymphadenopathy no inguinal lymphadenopathy Results & Data Laboratory Results Short CBC 10/17/18 Range/Units 05:32 WBC 0.66 L* (4.8-10.8) K/uL Hgb 7.3 L (14.0-18.0) g/dL Hct 21.4 L (42-52) % Plt Count 8 L* (130-400) K/uL BMP 10/17/18 05:32 Sodium 136 Potassium 3.5 Chloride 104 Carbon Dioxide 25 BUN 37 H Creatinine 1.60 H D Glucose 93 Calcium 8.3 L Liver Function 10/17/18 Range/Units 05:32 Total Bilirubin 0.3 (0.2-1) mg/dl AST 40 H (15-37) U/L ALT 28 (12-78) U/L Alkaline Phosphatase 92 (45-117) U/L Albumin 1.1 L (3.4-5.0) gm/dl Diagnostic Findings Microbiology 10/15/18 15:51 Urine,Clean Catch Urine Culture - Final No growth - less than 1,000 colonies/mL. 10/15/18 12:05 Blood Blood Culture - Preliminary No growth to date. 10/15/18 11:53 Blood Blood Culture - Preliminary No growth to date.
--- NOTE | 2018-10-17 17:03 | Discharge Summary ---
Date of Service October 17, 2018 Admission HPI Per Admitting Provider This is a 53yo M with a PMH of multiply myeloma (s/p stem cell transplant), steroid-induced DM, CKD III, chronic hyponatremia and other medical problems listed below who was a direct admission sent by Dr. Page for management of neutropenic fever. IgA kappa multiple myeloma was diagnosed in September 2017 and patient has been receiving weekly Darzalex as well as 20mg prednisone on days of treatment. Was recently being treated with high dose steroids (dexamethasone 40 mg x 4 days then 4 days off) and developed steroid-induced diabetes with an a1c of 7.8 in Sep 2018. Was started on 2.5mg PO Glipizide. Presented to heme onc clinic today for chemo but was sent over as a direct admission due to concern for neutropenic fever. First noted a low grade temperature of 99 F two evenings ago and a temperature of 100 F last evening. Has a dry cough and fatigue but no chills, lightheadedness, headache, chest pain, wheezing, shortness of breath, nausea, vomiting, abdominal pain, dysuria, hematuria or diarrhea. Of note, has been having intermittent fever for weeks but has had severe neutropenia during this time. Was recently admitted in September 2018 for steroid-induced hyperglycemia and was found to have metabolic acidosis with anion gap as well as chronic hyponatremia. Did take 20mg PO prednisone this morning instructed prior to planned chemo treatment. Admission Exam Per Admitting Provider Vital Signs (Past 24 Hours): Last Vital Signs Temp 36.7 C 10/15/18 10:56 Pulse 108 H 10/15/18 10:56 Resp 20 10/15/18 10:56 BP 113/70 10/15/18 10:56 Pulse Ox 98 10/15/18 10:56 Physical Exam: General Appearance: WD/WN, no apparent distress, appears chronically ill, resting comfortably in 406-1 Head: normocephalic, atraumatic Eyes: normal inspection, PERRL, EOMI ENT: hearing grossly normal, pharynx normal (moist mucous membranes) Neck: supple, no JVD, no adenopathy Respiratory/Chest: lungs clear to auscultation. No wheezes, rales or rhonci. No respiratory distress or accessory muscle use Cardiovascular: regular rate, rhythm, no murmur, normal peripheral pulses Abdomen/GI: normal bowel sounds, soft, non-tender to palpation Extremities/Musculoskelatal: normal inspection, no calf tenderness, normal capillary refill, no pedal edema Neurologic/Psych: alert, normal mood/affect, oriented x 3 Skin: + pale, warm/dry Principal Diagnosis FEBRILE NEUTROPENIA, INFECTION RULED OUT Discharge Exam Vital Signs (Past 24 Hours): Last Vital Signs Temp 36.7 C 10/17/18 15:00 Pulse 111 H 10/17/18 15:00 Resp 20 10/17/18 15:00 BP 107/65 10/17/18 15:00 Pulse Ox 94 10/17/18 15:00 Physical Exam: General- oriented x 3, not in distress, speaks in sentences with no effort or accessory muscle use Eyes- anicteric Neck- no JVD Lungs- clear breath sounds bilaterally, no crackles, no wheezing Heart- normal rate, regular rhythm; no murmurs Abdomen- normal bowel sounds, nondistended, soft, nontender Extremities- no pretibial edema, no calf tenderness Neuro- alert, oriented x 3; no gross focal neurologic deficits Skin- warm & dry Discharge Data Allergies Allergy/AdvReac Type Severity Reaction Status Date / Time No Known Allergies Allergy Verified 10/12/18 07:06 Consultations 10/15/18 11:06 Consult Case Management - Discharge Planning Routine 10/15/18 12:54 Consult Infectious Diseases Routine 10/15/18 13:52 Consult Nephrology Routine 10/16/18 13:57 Consult Hematology Routine Hospital Course (1) Neutropenic fever: (2) Multiple myeloma: This is a 53yo M with a PMH of multiply myeloma (s/p stem cell transplant), steroid-induced DM, CKD III, chronic hyponatremia and other medical problems listed below who was a direct admission sent by Dr. Page for management of neutropenic fever. -In the setting of intermittent fevers, dry cough Blood and urine cultures negative so far CXR no acute process given empiric cefepime IV x 3 days had 1 episode of fever 38.8F ID consulted, suspect fever coming from multple myeloma, recommend to d/c antibiotic and monitor ok for discharge (3) Pancytopenia: In the setting of Multiple myeloma -WBC of 0.59 (ANC of 0.40), hgb of 7, plt of 8 given 1 dose of neupogen, 2 units pRBC and 2 units Plts Discussed with Dr. Page CBC to be monitored closely as outpatient (4) Metabolic acidosis: Metabolic acidosis with anion gap of 12, bicarb of 17, BSG of 140 -Had similar acid base disturbance during previous admission, in the setting of multiple myeloma, acute kidney injury -Nephro consulted Dr. Duran Resolved Given sodium bicarbonate, and LR monitor PRP as outpatient (5) Hyponatremia: Sodium of 126 (recent baseline mid-120s) -Nephrology following--Low risk for osmotic demyelination Sodium improved to 133 with LR (6) KEMAR (acute kidney injury): (7) Chronic kidney disease (CKD), stage III (moderate): Cr of 1.75 ; Baseline Cr ~1.3 -Per nephro service: etiology is likely prerenal azotemia. Could have ATN in setting of infection. given IV LR Creatinine improved to 1.6 ok for discharge per Nephro monitor BMP closely as outpatient (8) Hypertension: Normotensive. Continue Carvedilol (9) Steroid-induced diabetes mellitus: A1c of 7.8 in Sep 2018 -No longer receiving dexamethazone as part of cancer treatment continue usual Glipizide Poor appetite started trial of Marinol titrate as outpatient as needed (10) DVT prophylaxis: SCDs in setting of anemia and thrombocytopenia Dispo: d/c home ff up with Dr. Youssef Hem/Onc tomorrow 10/18/18 ff up with PCP next week as scheduled Discussed case with patient, and his in detail and at length All questions have been answered Comfortable and agreeable with the plan of care Total Time Total Time Spent Total Time Spent (In Minutes): 30 minutes Discharge Plan Discharge Items Patient Disposition: Home - Self-Care Reason For Visit: NEUTROPENIC FEVER Discharge Diagnosis: FEVER, INFECTION RULED OUT Discharge Goals: Diagnostic testing and Therapeutic intervention Activity: Resume your previous activity Lifting: Wait until after follow-up appointment Exercise/Sports: Wait until after follow-up appointment Driving/Machine Use Comment: NO DRIVING UNTIL RE-EVALUATED BY PRIMARY CARE PHYSICIAN Non-emergency contact: Primary Care Provider and Oncologist Call non-emergency contact if: you have any medication questions, your symptoms worsen and you have a fever Follow-up/Referrals: Ismael Hernandez [Primary Care Provider] - Diet: Regular Addtl Provider Instructions: FOLLOW UP WITH DR. YOUSSEF TOMORROW 10/18/18 SCHEDULED. FOLLOW UP WITH PRIMARY CARE PHYSICIAN NEXT WEEK SCHEDULED. DRINK PLENTY OF FLUIDS. DRINK BOOST GLUCOSE CONTROL THREE TIMES A DAY. PLEASE CALL PRIMARY CARE PHYSICIAN OR ONCOLOGIST IMMEDIATELY IF WITH RECURRENCE OF FEVER, CHILLS, WEAKNESS, COUGH, NAUSEA/VOMITING. Prescriptions: New dronabinol 2.5 mg Capsule 2.5 mg PO DAILY Qty: 10 RF: 0 Continued Darzalex 20 mg/mL Solution 20 ml IV WK RF: 0 omeprazole 20 mg capsule,delayed release(DR/EC) 20 mg PO DAILY RF: 0 Centrum 18-400 mg-mcg Tablet 1 tab PO DAILY RF: 0 cholecalciferol (vitamin D3) [Vitamin D3] 5,000 unit Tablet 5,000 unit PO DAILY RF: 0 acyclovir 200 mg capsule 200 mg PO BID RF: 0 calcium carbonate-vitamin D3 [Calcium 600 + D(3)] 600 mg(1,500mg) -400 unit Tablet 1 tab PO DAILY RF: 0 glipizide 5 mg Tablet 2.5 mg PO QAM 30 Days Qty: 15 RF: 0 carvedilol 3.125 mg Tablet 3.125 mg PO BID 30 Days Qty: 60 RF: 0 Stand-Alone Forms: [facility] Discharge Orders: Discharge Order (Routine); Ordered 10/17/18 Ordered By: Hung Christina Admission Data Admit Date/Time: 10/15/18 10:37 Attending Provider: Hung Christina Admit Provider: Hung Christina Primary Care Provider: Ismael Hernandez Other Providers: Zoey Barreto ; Emma Duran ; Demarcus Page Service: Oncology Other Interventions: Discharge Summary Assessment (RN) Last Done: 10/17/18 16:00 DC Date/Time DO NOT enter until pt leaves facility: 10/17/18 17:08
== END 2018-10-17 17:08 | disposition home or self-care (01) | DRG 809 ==
LOC: 4E 10:37
DX: R50.81 Fever presenting with conditions classified elsewhere; Z79.899 Other long term (current) drug therapy; D70.8 Other neutropenia; C90.00 Multiple myeloma not having achieved remission; T38.0X5A Adverse effect of glucocorticoids and synthetic analogues, initial encounter; R63.0 Anorexia; E09.22 Drug or chemical induced diabetes mellitus with diabetic chronic kidney disease; E87.2 Acidosis; E87.1 Hypo-osmolality and hyponatremia; Z79.84 Long term (current) use of oral hypoglycemic drugs; Z82.49 Family history of ischemic heart disease and other diseases of the circulatory system; I12.9 Hypertensive chronic kidney disease with stage 1 through stage 4 chronic kidney disease, or unspecified chronic kidney disease; Z94.84 Stem cells transplant status; N18.3 Chronic kidney disease, stage 3 (moderate); D61.818 Other pancytopenia; N17.9 Acute kidney failure, unspecified

== ENCOUNTER 2018-10-29 19:37 | Inpatient (IN) ==
[2018-10-29] MEDS ORDERED: ACETAMINOPHEN 1,000 MG/100 ML VIAL IV ONE (19:52)
[2018-10-29 21:02] LABS: Hematocrit (blood only) 24.3 % (42-52); Hemoglobin 8.8 g/dL (14.0-18.0); Mean Corpuscular Hgb Conc 36.2 g/dL (32-36); Mean Corpuscular Volume 85.9 fL (80-100); Mean Platelet Volume 9.3 fL (7.4-10.4); Platelet Count 7 K/uL (130-400); RDW Coefficient of Variation 15.6 % (11.5-14.5); Red Blood Count 2.83 M/uL (4.7-6.1); White Blood Count 0.87 K/uL (4.8-10.8)
[2018-10-29 21:16] LABS: BUN Creatinine Ratio 18.9 (10-20); Blood Urea Nitrogen 36 mg/dl (7-18); Calcium 7.1 mg/dl (8.5-10.1); Carbon Dioxide 15 mmol/L (21-32); Chloride 106 mmol/L (98-107); Est GFR (African American) 44.4; Est GFR (Non-African American) 38.3; Glucose 43 mg/dl (70-99); Potassium 4.3 mmol/L (3.5-5.1); Sodium 136 mmol/L (136-145)
[2018-10-29 21:28] LABS: ALC (manual) 0.35 K/uL (1.2-3.4); Dohle Bodies Occasional; Eosinophils # (manual) 0.02 K/uL (0-0.5); Lymphocytes # (manual) 0.35 K/uL (1.2-3.4); Monocytes # (manual) 0.02 K/uL (0.11-0.59); Toxic Granulation 1+
--- NOTE | 2018-10-29 21:40 | XRay Report ---
XR chest 2V routine HISTORY: 53 years-old Male cough eval for pna acute cough. COMPARISON: Chest radiographs 10/15/2018, PET CT 05/23/2018 TECHNIQUE: PA and lateral views of the chest FINDINGS: Lytic lesions are noted about the bilateral ribs. Adjacent soft tissue masses are noted about the lat eral left hemithorax appear unchanged from comparison. Cardiac mediastinal and hilar silhouettes are within normal limits. Trace pleural effusions are noted in addition to subsegmental bibasilar opaciti es. Degenerative changes of the shoulders and spine. Multiple remote compression deformities. IMPRESSION: 1. Trace bilateral pleural effusions with bibasilar subsegmental opacities suggestive of atelectasis or pneumonitis. 2. Multiple bilateral lytic rib lesions with associated left hemithorax soft tissue lesions compatibl e with patient's diagnosis of multiple myeloma. 3. Multiple remote compression deformities of the thoracolumbar spine. The above report was generated using voice recognition software. It may contain grammatical, syntax o r spelling errors. Electronically signed by: Vikram Brown M.D. 10/29/2018 9:39 PM
[2018-10-29] MEDS ORDERED: CEFEPIME 2,000 MG in SYRINGE 7.5 ML IV STA (21:43)
[2018-10-29] MEDS ORDERED: ONDANSETRON INJ 2 MG/ML 2 ML VIAL IV STA (21:43)
--- NOTE | 2018-10-29 21:59 | Emergency Department Note ---
Entered by Joe Arciniega acting as a scribe for History of Present Illness General Chief complaint: Fever Stated complaint: HIGH FEVER,COUGH,SOB,CANCER PT Source: patient and family Limitations: no limitations History of Present Illness Provider complaint: Fever/Cough Onset (ago): hour(s) Location: chest Severity: moderate (102.3) Pain Consistency: + other (worsening) Quality: + other (Fever/Cough) Associated symptoms: + cough and + fever/chills; no chest pain and no nausea/vomiting Treatments prior to arrival: other (Chemo this morning) The patient is a 53 year old male who presents to the Emergency Room with complaints of a worsening cough and fever that began this afternoon. The patient is currently receiving chemotherapy treatments for multiple myeloma and had a round of chemotherapy this morning. The patient's notes that he began to cough and developed a fever at home today after his infusion. The cough has continued to worsen throughout the evening. The recorded a peak febrile temperature of 102.3 degrees this afternoon. She adds that she did not give the patient any Tylenol as he was "coughing and gagging" and she did not think he would be able to keep it down. The showed the inside of the patient's mask, which seemed to have some blood present. The patient denies any associated chest pain. The patient had laboratory work performed this morning before the infusion, which showed a white count of 0.58 and a platelet count of 15. ANC was 0.03. His calcium was 7.6 and creatinine was 1.63. The patient was just discharged from an inpatient stay on 10/17 for fever and neutropenia. Home Medications Home Medications Medication Instructions Recorded Confirmed Type Centrum 1 tab PO QAM 08/16/18 10/29/18 History cholecalciferol (vitamin D3) 5,000 unit PO QAM 08/16/18 10/29/18 History [Vitamin D3] omeprazole 20 mg PO QAM 08/16/18 10/29/18 History Darzalex 20 ml IV WK 08/30/18 10/29/18 History acyclovir 200 mg PO BID 10/01/18 10/29/18 History calcium carbonate-vitamin D3 1 tab PO QAM 10/01/18 10/29/18 History [Calcium 600 + D(3)] glipizide 2.5 mg PO QAM 30 Days #15 tab 10/04/18 10/29/18 Rx carvedilol 3.125 mg PO BID 30 Days #60 tab 10/06/18 10/29/18 Rx carfilzomib [Kyprolis] 0 mg IV WK 10/23/18 10/29/18 History ciprofloxacin HCl 500 mg PO Q12H 10/23/18 10/29/18 History prednisone 20 mg PO DIRECTED 10/23/18 10/29/18 History Allergies Allergy/AdvReac Type Severity Reaction Status Date / Time No Known Allergies Allergy Verified 10/29/18 20:25 Past Med/Surg History Medical History Pancytopenia (Chronic) Chronic kidney disease (CKD), stage III (moderate) DVT prophylaxis Hypertension Hyponatremia Multiple myeloma (09/28/17) Steroid-induced diabetes mellitus Surgical History Hx of stem cell transplant Family History Mother Hypertension Father IPF (idiopathic pulmonary fibrosis) Social History Preferred Language: Occitan Beliefs That Will Affect Care: None marital status: Current Living Situation: Spouse Current Living Situation Comment: House Feels Safe at Home: Yes Smoking Status: Never smoker Hx Alcohol Use: No Hx Substance Use: No Review of Systems See HPI for pertinent positives & negatives. and A total of 10 systems reviewed and were otherwise negative Physical Exam Vital Signs Vital Signs - 24 hr 10/29/18 19:38 Temperature 100.2 F H Temperature Source Oral Sepsis Recent Fever Within 48 Hours Yes Sepsis Action Taken by Nursing No Action Required Pulse Rate 123 H Pulse Rhythm Regular Pulse Strength Normal Respiratory Rate 24 Respiratory Effort / Characteristics Labored Respiratory Depth Normal Respiratory Pattern Regular Blood Pressure 116/67 Blood Pressure Mean 83 Blood Pressure Position Sitting Pulse Oximetry 99 Oxygen Delivery Method Room Air Constitutional: Vital signs reviewed. Eyes: Pupils are equal round reactive to light. Conjunctiva are noninjected. ENT: Pharynx is clear without erythema or exudate. Mucous membranes are moist. Neck supple without meningeal signs. Respiratory: Clear to auscultation bilaterally. Breath sounds are equal bilaterally. Coughing intermittently throughout exam. Cardiovascular: Regular rate and rhythm. No rubs or gallops. GI: Soft, nondistended and nontender. Bowel sounds are present. Musculoskeletal: No peripheral edema. No lower extremity tenderness. Integumentary: No cyanosis. Neurological: The patient is awake and alert. No focal deficits. Psychiatric: Normal affect. Course 1947: Past medical records reviewed. The patient was evaluated in room C8, and a complete history and physical examination were performed. 2117: Nursing staff informed me that the patient's blood sugar is 43. We will give him food. 2139: I checked on the patient. He is feeling better and is drinking orange juice. He is agreeable to inpatient stay. 2144: I reviewed the patient's case with Dr. Gigi Cooper Hospitalist. He will evaluate the patient for further management. Administered Medications Discontinued Medications Acetaminophen (Ofirmev) 1,000 mg in 100 mls @ 400 mls/hr IV NOW ONE Stop: 10/29/18 20:06 Last Infusion: 10/29/18 21:09 Dose: 0 mls/hr Documented by: [id number] Admin: 10/29/18 20:35 Dose: 400 mls/hr Documented by: [id number] Ondansetron HCl (Zofran) 4 mg IV NOW STA Stop: 10/29/18 21:44 Last Admin: 10/29/18 21:48 Dose: 4 mg Documented by: [id number] Medical Decision Making Medical Records Attestation: I reviewed the patient's medical records. Home Medications Current Medication List: was personally reviewed by me Laboratory Data Attestation: I reviewed the patient's lab results. Result diagrams: 10/29/18 20:30 10/29/18 20:30 Lab Results 10/29/18 10/29/18 10/29/18 Range/Units 20:30 20:30 20:37 WBC 0.87 L* (4.8-10.8) K/uL RBC 2.83 L (4.7-6.1) M/uL Hgb 8.8 L (14.0-18.0) g/dL Hct 24.3 L (42-52) % MCV 85.9 (80-100) fL MCH 31.1 (25-34) pg MCHC 36.2 H (32-36) g/dL RDW Std Deviation 49.0 H (36.4-46.3) fL RDW Coeff of Jenae 15.6 H (11.5-14.5) % Plt Count 7 L* D (130-400) K/uL MPV 9.3 (7.4-10.4) fL Neutrophils % (Manual) 56.0 % Lymphocytes % (Manual) 40.0 % Monocytes % (Manual) 2.0 % Eosinophils % (Manual) 2.0 % Neutrophils # (Manual) 0.49 L (1.4-6.5) K/uL Total Absolute Neuts 0.49 L* (1.4-6.5) K/uL Lymphocytes # (Manual) 0.35 L (1.2-3.4) K/uL Total Abs Lymphocytes 0.35 L (1.2-3.4) K/uL Monocytes # (Manual) 0.02 L (0.11-0.59) K/uL Eosinophils # (Manual) 0.02 (0-0.5) K/uL Toxic Granulation 1+ Dohle Bodies Occasional Sodium 136 (136-145) mmol/L Potassium 4.3 (3.5-5.1) mmol/L Chloride 106 (98-107) mmol/L Carbon Dioxide 15 L (21-32) mmol/L Anion Gap 16.0 H (3-11) BUN 36 H (7-18) mg/dl Creatinine 1.92 H (0.6-1.4) mg/dl Est Cr Clr Drug Dosing Not Reportable Est GFR ( Amer) 44.4 Est GFR (Non-Af Amer) 38.3 BUN/Creatinine Ratio 18.9 (10-20) Glucose 43 L* (70-99) mg/dl Calcium 7.1 L (8.5-10.1) mg/dl Influenza Type A Ag Neg for Influ A (Neg) Influenza Type B Ag Neg for Influ B (Neg) Imaging Data Attestation: I personally reviewed and interpreted this imaging study as follows: Radiologist's Impression: XR chest 2V routine HISTORY: 53 years-old Male cough eval for pna acute cough. COMPARISON: Chest radiographs 10/15/2018, PET CT 05/23/2018 TECHNIQUE: PA and lateral views of the chest FINDINGS: Lytic lesions are noted about the bilateral ribs. Adjacent soft tissue masses are noted about the lateral left hemithorax appear unchanged from comparison. Cardiac mediastinal and hilar silhouettes are within normal limits. Trace pleural effusions are noted in addition to subsegmental bibasilar opacities. Degenerative changes of the shoulders and spine. Multiple remote compression deformities. IMPRESSION: 1. Trace bilateral pleural effusions with bibasilar subsegmental opacities suggestive of atelectasis or pneumonitis. 2. Multiple bilateral lytic rib lesions with associated left hemithorax soft tissue lesions compatible with patient's diagnosis of multiple myeloma. 3. Multiple remote compression deformities of the thoracolumbar spine. The above report was generated using voice recognition software. It may contain grammatical, syntax or spelling errors. Electronically signed by: Vikram Brown M.D. 10/29/2018 9:39 PM Blood Pressure Blood Pressure Findings: Normal blood pressure MDM Narrative I did perform a limited focused review of portions of the patient's old chart on the electronic medical record. The patient had laboratory work performed this morning before the infusion, which showed a white count of 0.58 and a platelet count of 15. ANC was 0.03. His calcium was 7.6 and creatinine was 1.63. The patient was just discharged from an inpatient stay on 10/17 for fever and neutropenia. Impression & Plan Neutropenic fever, KEMAR (acute kidney injury), Pancytopenia, Hypoglycemia Discharge Plan Visit Data Chief Complaint: Fever Stated Complaint: HIGH FEVER,COUGH,SOB,CANCER PT ED Provider: Mani Mcginnis Discharge Problem: Neutropenic fever, KEMAR (acute kidney injury), Pancytopenia, Hypoglycemia Patient Disposition: Admitted As Inpatient Forms Stand Alone Forms: My [facility] Prescriptions Prescriptions: No Action Darzalex 20 mg/mL Solution 20 ml IV WK RF: 0 ciprofloxacin HCl 500 mg Tablet 500 mg PO Q12H RF: 0 Kyprolis 10 mg Recon Soln IV WK RF: 0 prednisone 20 mg Tablet 20 mg PO DIRECTED RF: 0 omeprazole 20 mg capsule,delayed release(DR/EC) 20 mg PO QAM RF: 0 Centrum 18-400 mg-mcg Tablet 1 tab PO QAM RF: 0 cholecalciferol (vitamin D3) [Vitamin D3] 5,000 unit Tablet 5,000 unit PO QAM RF: 0 acyclovir 200 mg capsule 200 mg PO BID RF: 0 calcium carbonate-vitamin D3 [Calcium 600 + D(3)] 600 mg(1,500mg) -400 unit Tablet 1 tab PO QAM RF: 0 glipizide 5 mg Tablet 2.5 mg PO QAM 30 Days Qty: 15 RF: 0 carvedilol 3.125 mg Tablet 3.125 mg PO BID 30 Days Qty: 60 RF: 0 Referrals Referrals: Ismael Hernandez [Primary Care Provider] -
--- NOTE | 2018-10-29 22:02 | Emergency Department Note ---
Entered by Joe Arciniega acting as a scribe for History of Present Illness General Chief complaint: Fever Stated complaint: HIGH FEVER,COUGH,SOB,CANCER PT Source: patient and family Limitations: no limitations History of Present Illness Provider complaint: Fever/Cough Onset (ago): hour(s) Location: chest Severity: moderate (102.3) Pain Consistency: + other (worsening) Maximum Pain Intensity: 0 Quality: + other (Fever) Associated symptoms: + cough and + fever/chills; no chest pain Treatments prior to arrival: other (Chemo this morning ) The patient is a 53 year old male who presents to the Emergency Room with complaints of a worsening cough and fever that began this afternoon. The patient is currently receiving chemotherapy treatments for multiple myeloma and had a round of chemotherapy this morning. The patient's notes that he began to cough and developed a fever at home today after his infusion. The cough has continued to worsen throughout the evening. The recorded a peak febrile te mperature of 102.3 degrees this afternoon. She adds that she did not give the patient any Tylenol as he was "coughing and gagging" and she did not think he would be able to keep it down. The showed the inside of the patient's mask, which seemed to have some blood present. The patient denies any associated chest pain. The patient had laboratory work performed this morning before the infusion, which showed a white count of 0.58 and a platelet count of 15. ANC was 0.03. His calcium was 7.6 and creatinine was 1.63. The patient was just discharged from an inpatient stay on 10/17 for fever and neutropenia Home Medications Home Medications Medication Instructions Recorded Confirmed Type Centrum 1 tab PO QAM 08/16/18 10/29/18 History cholecalciferol (vitamin D3) 5,000 unit PO QAM 08/16/18 10/29/18 History [Vitamin D3] omeprazole 20 mg PO QAM 08/16/18 10/29/18 History Darzalex 20 ml IV WK 08/30/18 10/29/18 History acyclovir 200 mg PO BID 10/01/18 10/29/18 History calcium carbonate-vitamin D3 1 tab PO QAM 10/01/18 10/29/18 History [Calcium 600 + D(3)] glipizide 2.5 mg PO QAM 30 Days #15 tab 10/04/18 10/29/18 Rx carvedilol 3.125 mg PO BID 30 Days #60 tab 10/06/18 10/29/18 Rx carfilzomib [Kyprolis] 0 mg IV WK 10/23/18 10/29/18 History ciprofloxacin HCl 500 mg PO Q12H 10/23/18 10/29/18 History prednisone 20 mg PO DIRECTED 10/23/18 10/29/18 History Allergies Allergy/AdvReac Type Severity Reaction Status Date / Time No Known Allergies Allergy Verified 10/29/18 20:25 Past Med/Surg History Medical History Pancytopenia (Chronic) Chronic kidney disease (CKD), stage III (moderate) DVT prophylaxis Hypertension Hyponatremia Multiple myeloma (09/28/17) Steroid-induced diabetes mellitus Surgical History Hx of stem cell transplant Family History Mother Hypertension Father IPF (idiopathic pulmonary fibrosis) Social History Preferred Language: Turkmen Beliefs That Will Affect Care: None marital status: Current Living Situation: Spouse Current Living Situation Comment: House Feels Safe at Home: Yes Smoking Status: Never smoker Hx Alcohol Use: No Hx Substance Use: No Review of Systems See HPI for pertinent positives & negatives. and A total of 10 systems reviewed and were otherwise negative Physical Exam Vital Signs Vital Signs - 24 hr 10/29/18 19:38 Temperature 37.9 C H Temperature Source Oral Sepsis Recent Fever Within 48 Hours Yes Sepsis Action Taken by Nursing No Action Required Pulse Rate 123 H Pulse Rhythm Regular Pulse Strength Normal Respiratory Rate 24 Respiratory Effort / Characteristics Labored Respiratory Depth Normal Respiratory Pattern Regular Blood Pressure 116/67 Blood Pressure Mean 83 Blood Pressure Position Sitting Pulse Oximetry 99 Oxygen Delivery Method Room Air Constitutional: Vital signs reviewed. Eyes: Pupils are equal round reactive to light. Conjunctiva are noninjected. ENT: Pharynx is clear without erythema or exudate. Mucous membranes are moist. Neck supple without meningeal signs. Respiratory: Clear to auscultation bilaterally. Breath sounds are equal bilaterally. Coughing intermittently throughout exam. Cardiovascular: Regular rate and rhythm. No rubs or gallops. GI: Soft, nondistended and nontender. Bowel sounds are present. Musculoskeletal: No peripheral edema. No lower extremity tenderness. Integumentary: No cyanosis. Neurological: The patient is awake and alert. No focal deficits. Psychiatric: Normal affect. Course 1947: Past medical records reviewed. The patient was evaluated in room C8, and a complete history and physical examination were performed. 2117: Nursing staff informed me that the patient's blood sugar is 43. We will give him food. 2139: I checked on the patient. He is feeling better and is drinking orange juice. He is agreeable to inpatient stay. 2144: I reviewed the patient's case with Dr. Yu [facility] Hospitalist. He will evaluate the patient for further management. Administered Medications Discontinued Medications Acetaminophen (Ofirmev) 1,000 mg in 100 mls @ 400 mls/hr IV NOW ONE Stop: 10/29/18 20:06 Last Infusion: 10/29/18 21:09 Dose: 0 mls/hr Documented by: [id number] Admin: 10/29/18 20:35 Dose: 400 mls/hr Documented by: [id number] Ondansetron HCl (Zofran) 4 mg IV NOW STA Stop: 10/29/18 21:44 Last Admin: 10/29/18 21:48 Dose: 4 mg Documented by: [id number] Medical Decision Making Differential Diagnosis Differential Diagnosis includes: Neutropenic fever, UTI, pneumonia, influenza, sepsis. Medical Records Attestation: I reviewed the patient's medical records. Home Medications Current Medication List: was personally reviewed by me Laboratory Data Attestation: I reviewed the patient's lab results. Result diagrams: 10/29/18 20:30 10/29/18 20:30 Lab Results 10/29/18 10/29/18 10/29/18 Range/Units 20:30 20:30 20:37 WBC 0.87 L* (4.8-10.8) K/uL RBC 2.83 L (4.7-6.1) M/uL Hgb 8.8 L (14.0-18.0) g/dL Hct 24.3 L (42-52) % MCV 85.9 (80-100) fL MCH 31.1 (25-34) pg MCHC 36.2 H (32-36) g/dL RDW Std Deviation 49.0 H (36.4-46.3) fL RDW Coeff of Jenae 15.6 H (11.5-14.5) % Plt Count 7 L* D (130-400) K/uL MPV 9.3 (7.4-10.4) fL Neutrophils % (Manual) 56.0 % Lymphocytes % (Manual) 40.0 % Monocytes % (Manual) 2.0 % Eosinophils % (Manual) 2.0 % Neutrophils # (Manual) 0.49 L (1.4-6.5) K/uL Total Absolute Neuts 0.49 L* (1.4-6.5) K/uL Lymphocytes # (Manual) 0.35 L (1.2-3.4) K/uL Total Abs Lymphocytes 0.35 L (1.2-3.4) K/uL Monocytes # (Manual) 0.02 L (0.11-0.59) K/uL Eosinophils # (Manual) 0.02 (0-0.5) K/uL Toxic Granulation 1+ Dohle Bodies Occasional Sodium 136 (136-145) mmol/L Potassium 4.3 (3.5-5.1) mmol/L Chloride 106 (98-107) mmol/L Carbon Dioxide 15 L (21-32) mmol/L Anion Gap 16.0 H (3-11) BUN 36 H (7-18) mg/dl Creatinine 1.92 H (0.6-1.4) mg/dl Est Cr Clr Drug Dosing Not Reportable Est GFR ( Amer) 44.4 Est GFR (Non-Af Amer) 38.3 BUN/Creatinine Ratio 18.9 (10-20) Glucose 43 L* (70-99) mg/dl Calcium 7.1 L (8.5-10.1) mg/dl Influenza Type A Ag Neg for Influ A (Neg) Influenza Type B Ag Neg for Influ B (Neg) Imaging Data Attestation: I personally reviewed and interpreted this imaging study as follows: Radiologist's Impression: XR chest 2V routine HISTORY: 53 years-old Male cough eval for pna acute cough. COMPARISON: Chest radiographs 10/15/2018, PET CT 05/23/2018 TECHNIQUE: PA and lateral views of the chest FINDINGS: Lytic lesions are noted about the bilateral ribs. Adjacent soft tissue masses are noted about the lateral left hemithorax appear unchanged from comparison. Cardiac mediastinal and hilar silhouettes are within normal limits. Trace pleural effusions are noted in addition to subsegmental bibasilar opacities. Degenerative changes of the shoulders and spine. Multiple remote compression deformities. IMPRESSION: 1. Trace bilateral pleural effusions with bibasilar subsegmental opacities suggestive of atelectasis or pneumonitis. 2. Multiple bilateral lytic rib lesions with associated left hemithorax soft tissue lesions compatible with patient's diagnosis of multiple myeloma. 3. Multiple remote compression deformities of the thoracolumbar spine. The above report was generated using voice recognition software. It may contain grammatical, syntax or spelling errors. Electronically signed by: Vikram Brown M.D. 10/29/2018 9:39 PM Blood Pressure Blood Pressure Findings: Normal blood pressure MDM Narrative I did perform a limited focused review of portions of the patient's old chart on the electronic medical record. The patient had laboratory work performed this morning before the infusion, which showed a white count of 0.58 and a platelet count of 15. ANC was 0.03. His calcium was 7.6 and creatinine was 1.63. The patient was just discharged from an inpatient stay on 10/17 for fever and neutropenia. I did evaluate the patient as noted above. The patient is neutropenic and presents with a fever. He was placed in isolation. IV access was established. The patient was placed on a continuous engine monitor. I did treat him with IV Tylenol. I did order and personally review the patient's chest x-ray as described above. He does have evidence of possible pneumonitis or atelectasis. I did order and review the patient's blood work as noted in the electronic medical record. He is pancytopenic with neutropenia. He is also hyperglycemic. Rapid flu test was negative. Patient was given something to eat or drink. He was also given Zofran for nausea. I did start him on cefepime empirically with 2 g IV. I did discuss the test results with the patient. I did recommend hospitalization and discussed case with the hospitalist and rn case manager hospice. Impression & Plan Neutropenic fever, KEMAR (acute kidney injury), Pancytopenia, Hypoglycemia Discharge Plan Visit Data Chief Complaint: Fever Stated Complaint: HIGH FEVER,COUGH,SOB,CANCER PT ED Provider: Mani Mcginnis Discharge Problem: Neutropenic fever, KEMAR (acute kidney injury), Pancytopenia, Hypoglycemia Patient Disposition: Admitted As Inpatient Forms Stand Alone Forms: My [facility] Prescriptions Prescriptions: No Action Darzalex 20 mg/mL Solution 20 ml IV WK RF: 0 ciprofloxacin HCl 500 mg Tablet 500 mg PO Q12H RF: 0 Kyprolis 10 mg Recon Soln IV WK RF: 0 prednisone 20 mg Tablet 20 mg PO DIRECTED RF: 0 omeprazole 20 mg capsule,delayed release(DR/EC) 20 mg PO QAM RF: 0 Centrum 18-400 mg-mcg Tablet 1 tab PO QAM RF: 0 cholecalciferol (vitamin D3) [Vitamin D3] 5,000 unit Tablet 5,000 unit PO QAM RF: 0 acyclovir 200 mg capsule 200 mg PO BID RF: 0 calcium carbonate-vitamin D3 [Calcium 600 + D(3)] 600 mg(1,500mg) -400 unit Tablet 1 tab PO QAM RF: 0 glipizide 5 mg Tablet 2.5 mg PO QAM 30 Days Qty: 15 RF: 0 carvedilol 3.125 mg Tablet 3.125 mg PO BID 30 Days Qty: 60 RF: 0 Referrals Referrals: Ismael Hernandez [Primary Care Provider] - The scribe's documentation has been prepared under my direction and personally reviewed by me in its entirety. I confirm that the note above accurately reflects all work, treatment, procedures, and medical decision making performed by me.
[2018-10-29] MEDS ORDERED: DEXTROSE 50% 50 ML SYRINGE IV STA (22:09)
[2018-10-29 22:55] LABS: Appearance Urine Clear (Clear); Bacteria Urine Automated Negative (Negative); Bilirubin Urine Negative (Negative); Blood Urine Negative (Negative); Color Urine Yellow; Glucose Urine UA Negative (Negative); Ketones Urine 1+ (Negative); Leukocyte Esterase Urine Negative (Negative); Nitrite Urine Negative (Negative); Protein Urine 2+ (Negative); RBC Urine Automated 0-4 /hpf (0-4); Specific Gravity Urine 1.019 (1.000-1.030); Urobilinogen Urine Negative (Negative)
[2018-10-29] MEDS ORDERED: SODIUM CHLORIDE 0.9% 250 ML IV PRN (22:56)
[2018-10-29] MEDS ORDERED: SODIUM BICARB 8.4% INJ 50 MEQ/50 ML SYR ONE (23:12)
[2018-10-30] MEDS ORDERED: ICU PROTOCOL FOR HYPERGLYCEMIA PRN (00:12)
[2018-10-30] MEDS ORDERED: SODIUM CHLORIDE 0.9% 1000ML 1,000 ML IV STA (00:12)
[2018-10-30] MEDS ORDERED: DEXTROSE 50% 50 ML SYRINGE IV STA (00:12)
[2018-10-30] MEDS ORDERED: VANCOMYCIN CONSULT ACTIVE PRN (00:12)
[2018-10-30] MEDS ORDERED: SODIUM BICARB 8.4% INJ 50 MEQ/50 ML SYR IV STA (00:12)
[2018-10-30] MEDS ORDERED: CEFEPIME CONSULT ACTIVE PRN (00:33)
[2018-10-30] MEDS ORDERED: LEVOFLOXACIN CONSULT ACTIVE PRN (00:41)
[2018-10-30] MEDS ORDERED: PATIENT'S HEIGHT AND/OR WEIGHT NEEDED SCH (00:45)
[2018-10-30] MEDS: HYDROCORTISONE SOD 50 MG in SYRINGE 0 ML IV SCH ×4 (00:48→16:50)
[2018-10-30] MEDS ORDERED: LEVOFLOXACIN/D5W 750 MG/150 ML BAG IV SCH (01:00)
[2018-10-30] MEDS: SODIUM CHLORIDE 0.9% 1000ML 1,000 ML IV SCH ×2 (01:18→06:44)
--- NOTE | 2018-10-30 01:24 | History and Physical Report ---
DATE OF ADMISSION: 10/29/2018 CHIEF COMPLAINT: Febrile neutropenia, sepsis. HISTORY OF PRESENT ILLNESS: This is a 53-year-old male with past medical history significant for multiple myeloma, status post stem cell transplant, steroid-induced diabetes, chronic kidney stage III, chronic hyponatremia, hypertension, hyperparathyroidism, presents with fever, shortness of breath and cough. The patient had his chemo today with Kyprolis. In the morning before chemo,labs drawn and platelets were 15 and his bicarbonate was 20. After chemo, the patient says he was not feeling well, was getting short of breath, dry cough and fever, so he came to the ER. In the ER, his temperature was spiking at 37.9. He was tachycardic, tachypneic, initially blood pressure was okay but later blood pressure dropped into 70s and 80s and his labs showed white count of 0.8, platelets of 7, hemoglobin of 8.8, absolute neutrophils 0.49, bicarbonate 15, creatinine 1.92, glucose was 43. Influenza A and B negative. Chest x-ray showed possible bibasilar subsegmental opacities, atelectasis vs pneumonitis. The patient was also recently in the hospital from 10/15/2018-10/17/2018. At that time also, he was admitted for febrile neutropenia, received cefepime for 3 doses. The cultures were negative at that time. ID saw him on that admission and as his cultures were negative fevers thought to be secondary to multiple myeloma and cefepime was stopped after 3 doses. He also had metabolic acidosis at that time with bicarbonate of 17 and anion gap of 12 and nephrology was consulted and received isotonic bicarbonate infusion of 1 L and that was improved and he also received 1 unit of PRBCs and platelet transfusion. He did okay and got discharged. Currently, patient is somewhat tachypneic, complains of mild headache. No blurred visions. Nauseous and there was dry heaving but did not vomit anything. Had a bowel movement in the ER, which was somewhat loose. Denies any hematuria or any hemoptysis. Denies any chest pain, no earache. Had some runny nose but no sore throat, no difficulty swallowing but his appetite has been very poor. He did not eat much since last 4-5 days. Denies any abdominal pain. No swelling or rash. Getting aggressive fluids in the ER and started on antibiotics and admitted to ICU. ALLERGIES: No known drug allergies. PAST MEDICAL HISTORY: As mentioned above. PAST SURGICAL HISTORY: Colonoscopy. MEDICATIONS: The patient is on acyclovir 200 mg p.o. b.i.d., calcium carbonate 1 tablet daily, Kyprolis IV weekly, Coreg 3.125 mg p.o. b.i.d., Centrum Silver 1 tablet daily, vitamin D 5000 units p.o. q.a.m., Cipro 500 mg p.o. q. 2 hours, Darzalex IV weekly, glipizide 2.5 mg p.o. daily, omeprazole 20 mg p.o. daily, prednisone 20 mg on days of chemo. FAMILY HISTORY: Significant for father has lung disorder. Aunt and uncle have lung disorders. SOCIAL HISTORY: and lives with his . Chews tobacco. No alcohol use, no drug use. REVIEW OF SYMPTOMS: As per HPI. Rest of review of symptoms negative. PHYSICAL EXAMINATION: GENERAL: The patient is of moderate built somewhat not feeling well. VITAL SIGNS: Temperature T-max 37.9, pulse in 120s, respiratory rate in 20s and 30s, blood pressure 80/39, oxygen 95% room air. HEENT: No pallor, no icterus. Pupils equal, round react to light. Oral mucosa dry. NECK: No JVD, no neck masses, no carotid bruit. CARDIOVASCULAR: S1, S2 heard. Tachycardia. No murmurs. RESPIRATORY SYSTEM: Normal AP diameter. Some mild tachypnea. No wheezing, no crackles. ABDOMEN: Soft, bowel sounds present. Nontender. No distention. CENTRAL NERVOUS SYSTEM: Cranial nerves II-XII grossly intact. Nonfocal. EXTREMITIES: No edema, no erythema. LABORATORY: WBC 0.8, hemoglobin 8.8, hematocrit 24.3, platelets 7, absolute neutrophils 0.49, sodium 136, potassium 4.3, chloride 106, bicarbonate 25, anion gap 16, BUN 36, creatinine 1.92, serum glucose 43, calcium 7.11. Influenza A and B negative. Chest x-ray: Trace bilateral pleural effusions and bibasilar subsegmental opacities with history of atelectasis or pneumonitis, multiple bilateral lytic rib lesions with associated left hemothorax, soft tissue lesions compatible with patient diagnosis of multiple myeloma, multiple remote compression deformities of the thoracolumbar spine. ASSESSMENT AND PLAN: This is a 53-year-old male with a history of multiple myeloma, presents with febrile neutropenia and sepsis. 1. Febrile neutropenia and sepsis with temperature spike, tachycardia and hypotension, has cough, short of breath, possible pneumonia. We will follow the urine cultures and blood cultures. Given aggressive IV fluids. We will check lactic acid. Empirically start on IV vancomycin, IV cefepime and IV Levaquin. Stress dose steroids. Follow the cultures. Closely monitor in the Intensive Care Unit. We will closely monitor the hemodynamics.If hypotension does not improve with aggressive fluids will start on pressors and will get consent for picc line. 2. Shortness of breath with cough, possible pneumonia. Antibiotics as above and follow the cultures. Not bringing up sputum. 3. Pancytopenia with hemoglobin of 8.8, platelets of 7 and white count of 0.8. We are going to give 2 units of platelet apheresis and follow the labs. If hemoglobin drops less than 8, we will transfuse packed red blood cells. Mostly chemo induced and mostly secondary to multiple myeloma. 4. History of multiple myeloma and got chemo today. We will consult hematology/oncology for further recommendations for the ongoing pancytopenia. 5. Metabolic acidosis, anion gap of 16 and bicarbonate of 15. His shortness of breath and tachypnea, acidosis could be playing a role. We will give amp of bicarbonate. Follow the labs in morning. Monitor in the Intensive Care Unit. Critical care consulted. 6. Hypoglycemia. The patient has history of steroid-induced diabetes on glipizide. Blood sugars is low. He is not eating for the last 4-5 days, got an amp of dextrose in the Emergency Room . Will give another amp. Follow the blood sugars closely. 7. History of hyponatremia. Currently, sodium is in the normal range. We will follow the labs. 8. Acute kidney injury and chronic kidney stage III, baseline creatinine 1.3 but recently creatinine was around 1.5-1.7. Currently creatinine of 1.9, getting fluids. We will follow the labs. 9. Hypertension. Currently hypotensive. We will hold the Coreg. 10. History of steroid-induced diabetes. Hemoglobin A1c 7.8 in 09/2018. Currently hypoglycemic. We will hold glipizide. We will place him on sliding scale with goal range of 140-180. Poor appetite. Received Marinol on last admission, we may need to restart it again. Currently, also placed him on stress-dose steroids. As the patient getting prednisone during chemo and currently hypotensive. 11. Deep venous thrombosis prophylaxis with sequential compression devices secondary to thrombocytopenia. DISPOSITION: Closely monitor in the ICU. Level 1 full code. TOTAL CRITICAL CARE TIME: 45 minutes. MTDD
[2018-10-30] MEDS: ACYCLOVIR 200 MG CAP PO SCH ×3 (01:29→21:27)
[2018-10-30] MEDS ORDERED: NOREPINEPHRINE BIT INJ 8 MG in DEXTROSE 5% 500 ML IV SCH (01:30)
[2018-10-30] MEDS ORDERED: VANCOMYCIN HCL 1,250 MG in SODIUM CHLORIDE 0.9% 250 ML IV SCH (02:00)
[2018-10-30 05:00] LABS: Albumin Level 1.1 gm/dl (3.4-5.0); BUN Creatinine Ratio 19.4 (10-20); Bilirubin Direct 0.5 mg/dl (0-0.2); Calcium 5.9 mg/dl (8.5-10.1); Creatinine Clr Calc Pharmacy 34.1 ml/min; Est GFR (African American) 39.2; Est GFR (Non-African American) 33.8; Magnesium 1.2 mg/dl (1.8-2.4); Phosphorus 6.2 mg/dl (2.5-4.9); Potassium 4.2 mmol/L (3.5-5.1); Total Protein 8.3 gm/dl (6.4-8.2)
[2018-10-30 05:08] LABS: Hematocrit (blood only) 20.1 % (42-52); Hemoglobin 6.9 g/dL (14.0-18.0); Mean Corpuscular Hgb Conc 34.3 g/dL (32-36); Mean Platelet Volume 9.3 fL (7.4-10.4); Nucleated RBC # (auto) 0.03 K/uL (0-0); Nucleated RBC % (auto) 3.8 %; Platelet Count 37 K/uL (130-400); RDW Coefficient of Variation 15.9 % (11.5-14.5); RDW Standard Deviation 50.5 fL (36.4-46.3); Red Blood Count 2.31 M/uL (4.7-6.1); White Blood Count 0.84 K/uL (4.8-10.8)
[2018-10-30] MEDS ORDERED: SODIUM CHLORIDE 0.9% 250 ML IV PRN ×2 (05:09→17:02)
[2018-10-30 05:11] LABS: ALC (manual) 0.08 K/uL (1.2-3.4); Dohle Bodies 3+; Lymphocytes # (manual) 0.08 K/uL (1.2-3.4); Metamyelocytes # (manual) 0.03 K/uL (0-0); Metamyelocytes % (manual) 3.3 %; Neutrophils % (manual) 86.7 %; Rouleaux 2+; Toxic Granulation Occasional; Toxic Vacuolation 1+
[2018-10-30] MEDS: MAGNESIUM SULFATE / D5W 1 GM/100 ML BAG IV SCH ×2 (05:41→06:44)
--- NOTE | 2018-10-30 07:35 | XRay Report ---
XR chest 1V portable CLINICAL HISTORY: congestion dyspnea COMPARISON STUDY: 10/29/2018 FINDINGS: Mild cardiomegaly. Multiple rib and soft tissue lesions which have been described previousl y. Mild increase in prominence of pulmonary vasculature. IMPRESSION: 1. Mild congestive failure compared to the prior exam. 2. Small bilateral pleural effusions unchanged. 3. Multiple rib and soft tissue lesion is also unchanged. The above report was generated using voice recognition software. It may contain grammatical, syntax or spelling errors. Electronically signed by: Jay Jay Buckley M.D. 10/30/2018 7:33 AM
[2018-10-30] MEDS: INSULIN ASPART 100 UNITS/ML 3 ML PEN SC SCH ×4 (08:26→21:45)
[2018-10-30] MEDS: PANTOprazole 40 MG TAB PO SCH (08:28)
[2018-10-30] MEDS: CHOLECALCIFEROL 1,000 UNITS TAB PO SCH (08:28)
[2018-10-30] MEDS: CALCIUM 600MG + VIT D 400 IU TAB PO SCH (08:29)
[2018-10-30] MEDS ORDERED: ONDANSETRON INJ 2 MG/ML 2 ML VIAL IV PRN (08:46)
[2018-10-30] MEDS: CALCIUM GLUCONATE 10% 1,000 MG in SODIUM CHLORIDE 0.9% 50 ML IV SCH ×3 (09:32→21:48)
[2018-10-30] MEDS: CEFEPIME 2,000 MG in SYRINGE 7.5 ML IV SCH ×2 (09:33→21:27)
[2018-10-30] MEDS: SODIUM BICARBONATE 8.4% 75 MEQ in SODIUM CHLORIDE 0.45 % 1,000 ML IV SCH ×2 (09:33→16:50)
--- NOTE | 2018-10-30 11:54 | Pharmacy Report ---
Pharmacy Abx Dose Short Note - Date of Service October 30, 2018 - Assessment & Plan Assessment * 53 year old M receiving VANCOMYCIN + CEFEPIME + LEVOFLOXACIN for septic shock, possible pulmonary source * Patient was neutopenic on admission (ANC 490), Tmax since admission has only been 37.9 * Norepi infusing at 0.04mcg/kg/min this AM and IV hydrocortisone also ordered; MAPs 70-80's * KEMAR present on admission. SCr appears to be climbing (1.93 -->2.13). Patient has not urinated since RN change of shift. Uncertain what his U.O. may be. * MRSA nasal swab negative - lessening possibility of MRSA pneumonia but does not r/o MRSA at other sites of infxn and in the setting of septic shock w/ neutropenia continued MRSA coverage warranted * Neg influenza A/B Ag * BLCX's pending * Procalcitonin not checked * CXR read as: mild congestive changes, small b/l effusions Plan Vancomycin * Loading dose 1250mg IV x 1 given at 0217 this AM * Uncertain of this patient's renal fxn at this time as U.O. uncertain and SCr may be climbing and acidosis worsening * Will check random level ~ one half-life after loading dose as renal fxn may be improving or worsening * Random level ordered for: 10/31 @ 0100. Plan to give 15mg/kg x 1 if level less than 20 at this time * Estimated half-life: 23-24 hrs, Ric ~0.03 hr-1, Vd 0.7L/kg Levofloxacin * Qtc unknown, no EKG this admission * 750mg IV Q 48 hrs indicated for pulm infxn w/ eCrCl 20-49cc/min Cefepime * eCrCl ~30cc/min or less * max dose for this degree renal impairment: 2gm IV Q 12 hrs Pharmacy will continue to follow and will adjust dose/frequency as necessary. Thank you.
--- NOTE | 2018-10-30 14:26 | XRay Report ---
XR chest 1V portable CLINICAL HISTORY: picc line placement line position COMPARISON STUDY: 10/30/2018 FINDINGS: PICC catheter placed from a right-sided approach. Tip is in the superior vena cava. No evid ence for pneumothorax. All remaining findings are similar. IMPRESSION: PICC catheter place in superior vena cava. No evidence for pneumothorax. The above report was generated using voice recognition software. It may contain grammatical, syntax or spelling errors. Electronically signed by: Jay Jay Buckley M.D. 10/30/2018 2:25 PM
--- NOTE | 2018-10-30 16:17 | Nephrology Consultation ---
Date of Consultation October 30, 2018 Assessment & Plan (1) Electrolyte abnormality: hypocalcemia, hypomagnesemia, hyperphosphatemia, lactic acidosis -w/ lactic acid elevation, will evaluate for rhabdomyolysis which can be seen w/ infection and certain drugs>>stat labs for 2214 ordered -on standing IV calcium gluconate; had 2 gm iv mag this am -- ensure electrolyte deficits not worsening/complicating already challenging hemodynamics with neutropenic sepsis -if hypocalcemia persists > check PTH, 25 OHD in am; can be from sepsis Present on Admission?: Yes (2) Metabolic acidosis: lactic acidosis likeliest; check as above > neutropenic sepsis versus less likely rhabdomyolysis -may also have starvation ketoacidosis Present on Admission?: Yes (3) KEMAR (acute kidney injury): moderate; baseline 1.4-1.7 and here 2.1; monitor daily; work at stabilizing hemodynamics; admission urine concentrated and w/ ketones (new) and w/ chronic proteinuria >>>>with changing renal function recommend confirming that vanco level is <25 before hanging next dose -log/ folllow I/O Present on Admission?: Yes (4) Neutropenic fever: on vanco/cefepime; cxs pending Present on Admission?: Yes History of Present Illness Reason for Consultation: KEMAR on CKD Requesting Physician: Dr Raymond Attending Physician: Hung Christina MD History of Present Illness 53 y/o M whom I'm asked to see for KEMAR on CKD. PMH includes multiple myeloma dx'd 09/2017 s/p stem cell txplt 02/2018, steroid induced DM, CKD3, HTN, chronic hyponatremia. He was admitted here recently for mgt of hyperglycemia after dexamethasone started in 09/2018 adn w/ recurrent F. His baseline creatinine is in the mid ones and was 1.7 on that admission. Recently admitted here again 10/15-10/17 for neutropenic fever. Yesterday he came to ER w/ sob, cough and temp 37.9, HR 120s. he had a dose of vancomycin; is on cefepime and is getting 1/2 ns w/ 75 mEq /L sodium bicarb at 125 mL hourly. cxr shows mild congestive failure. He had a unit of plts yesterday and is waiting on 2 units pRBC to arrive from [place]. Mother is RN and at bedside along w/ his . Allergies Allergy/AdvReac Type Severity Reaction Status Date / Time No Known Allergies Allergy Verified 10/29/18 20:25 Home Medications Home Medications Medication Instructions Recorded Confirmed Type Centrum 1 tab PO QAM 08/16/18 10/29/18 History cholecalciferol (vitamin D3) 5,000 unit PO QAM 08/16/18 10/29/18 History [Vitamin D3] omeprazole 20 mg PO QAM 08/16/18 10/29/18 History Darzalex 20 ml IV WK 08/30/18 10/29/18 History acyclovir 200 mg PO BID 10/01/18 10/29/18 History calcium carbonate-vitamin D3 1 tab PO QAM 10/01/18 10/29/18 History [Calcium 600 + D(3)] glipizide 2.5 mg PO QAM 30 Days #15 tab 10/04/18 10/29/18 Rx carvedilol 3.125 mg PO BID 30 Days #60 tab 10/06/18 10/29/18 Rx carfilzomib [Kyprolis] 0 mg IV WK 10/23/18 10/29/18 History ciprofloxacin HCl 500 mg PO Q12H 10/23/18 10/29/18 History prednisone 20 mg PO DIRECTED 10/23/18 10/29/18 History Patient History Medical History Pancytopenia (Chronic) Chronic kidney disease (CKD), stage III (moderate) DVT prophylaxis Hypertension Hyponatremia Multiple myeloma (09/28/17) Steroid-induced diabetes mellitus Surgical History Hx of stem cell transplant Family History Mother Hypertension Father IPF (idiopathic pulmonary fibrosis) Social History Communication Ability: Effective Beliefs That Will Affect Care: None marital status: Current Living Situation: Family Current Living Situation Comment: House Feels Safe at Home: Yes Safety Concerns: Feels Safe At This Time Smoking Status: Never smoker Hx Alcohol Use: No Hx Substance Use: No Review of Systems Constitutional: + fever, + body aches, + fatigue and + weakness Eyes: no worsening vision Ear, Nose, Mouth, Throat: no dry mouth Respiratory: + dyspnea Cardiovascular: + dyspnea on exertion and + palpitations; no edema Gastrointestinal: + early satiety and + nausea; no abdominal pain, no vomiting a nd no diarrhea/loose stools Genitourinary (Male): no dysuria, no difficulty urinating and no hematuria Musculoskeletal: + muscle weakness Integumentary: + new lesions (multiple soft tissue scaly nodules on scalp NT) Neurologic: + generalized weakness and + headache(s) Psychiatric: no behavioral changes Endocrine: + fatigue Hematologic / Lymphatic: + easy bleeding Physical Exam Vital Signs (Past 24 Hours): Last Vital Signs Temp 36.5 C 10/30/18 15:31 Pulse 110 H 10/30/18 15:30 Resp 33 H 10/30/18 15:30 BP 100/60 10/30/18 15:31 Pulse Ox 97 10/30/18 15:31 Constitutional: well developed and well nourished slightly dypsneic w/ speech; on ra Eyes: EOM intact bilaterally ENMT: Ears: no external ear abnormality Nose: no external nose abnormality Mouth: + dry oral mucous membranes Neck: no nuchal rigidity Respiratory: normal respiratory effort and + prolonged expiratory phase (slight) Auscultation: + diminished lung sounds, + crackles and + wheezes (occasional) Cardiovascular: Rate/Rhythm: + tachycardic (110-120s, hyperdynamic) Extremities: no edema Gastrointestinal (Abdomen): Inspection/Auscultation: normal bowel sounds Percussion/Palpation: abdomen soft; abdomen nontender Musculoskeletal: Extremities: strength 5/5 throughout Skin: no rashes, warm and dry + subcutaneous nodules (on scalp up to 3 cm) Neurologic: ray, fluent speech, no tremor Psychiatric: Orientation: alert and oriented x 3 Eye Contact: good eye contact Speech: normal rate/rhythm/volume of speech Insight: good insight Judgement: good judgement Results & Data Laboratory Results Abnormal lab results 10/29/18 10/29/18 10/29/18 Range/Units 11:53 20:00 20:30 WBC (4.8-10.8) K/uL RBC (4.7-6.1) M/uL Hgb (14.0-18.0) g/dL Hct (42-52) % RDW Std Deviation (36.4-46.3) fL RDW Coeff of Jenae (11.5-14.5) % Plt Count (130-400) K/uL Absolute Nucleated RBC (0-0) K/uL Neutrophils # (Manual) (1.4-6.5) K/uL Total Absolute Neuts (1.4-6.5) K/uL Lymphocytes # (Manual) (1.2-3.4) K/uL Total Abs Lymphocytes (1.2-3.4) K/uL Monocytes # (Manual) (0.11-0.59) K/uL Metamyelocytes # (Man) (0-0) K/uL Chloride (98-107) mmol/L Carbon Dioxide 15 L (21-32) mmol/L Anion Gap 16.0 H (3-11) BUN 36 H (7-18) mg/dl Creatinine 1.92 H (0.6-1.4) mg/dl Glucose 43 L* (70-99) mg/dl POC Glucose (70-99) Lactate (0.4-2.0) mmol/L Calcium 7.1 L (8.5-10.1) mg/dl Phosphorus (2.5-4.9) mg/dl Magnesium (1.8-2.4) mg/dl Direct Bilirubin (0-0.2) mg/dl AST (15-37) U/L Alkaline Phosphatase (45-117) U/L Total Protein (6.4-8.2) gm/dl Albumin (3.4-5.0) gm/dl Procalcitonin 34.16 H (0-0.5) ng/ml Urine Protein 2+ H (Negative) Urine Ketones 1+ H (Negative) U Epithel Cells (Auto) 10-20 H (0-5) /lpf Antibody Screen Crossmatch 10/29/18 10/29/18 10/29/18 Range/Units 20:30 22:08 22:56 WBC (4.8-10.8) K/uL RBC (4.7-6.1) M/uL Hgb (14.0-18.0) g/dL Hct (42-52) % RDW Std Deviation (36.4-46.3) fL RDW Coeff of Jenae (11.5-14.5) % Plt Count (130-400) K/uL Absolute Nucleated RBC (0-0) K/uL Neutrophils # (Manual) 0.49 L (1.4-6.5) K/uL Total Absolute Neuts 0.49 L* (1.4-6.5) K/uL Lymphocytes # (Manual) 0.35 L (1.2-3.4) K/uL Total Abs Lymphocytes 0.35 L (1.2-3.4) K/uL Monocytes # (Manual) 0.02 L (0.11-0.59) K/uL Metamyelocytes # (Man) (0-0) K/uL Chloride (98-107) mmol/L Carbon Dioxide (21-32) mmol/L Anion Gap (3-11) BUN (7-18) mg/dl Creatinine (0.6-1.4) mg/dl Glucose (70-99) mg/dl POC Glucose 50 L* (70-99) Lactate (0.4-2.0) mmol/L Calcium (8.5-10.1) mg/dl Phosphorus (2.5-4.9) mg/dl Magnesium (1.8-2.4) mg/dl Direct Bilirubin (0-0.2) mg/dl AST (15-37) U/L Alkaline Phosphatase (45-117) U/L Total Protein (6.4-8.2) gm/dl Albumin (3.4-5.0) gm/dl Procalcitonin (0-0.5) ng/ml Urine Protein (Negative) Urine Ketones (Negative) U Epithel Cells (Auto) (0-5) /lpf Antibody Screen Crossmatch See Detail 10/29/18 10/29/18 10/30/18 Range/Units 23:42 23:48 04:21 WBC 0.84 L* (4.8-10.8) K/uL RBC 2.31 L (4.7-6.1) M/uL Hgb 6.9 L* (14.0-18.0) g/dL Hct 20.1 L* (42-52) % RDW Std Deviation 50.5 H (36.4-46.3) fL RDW Coeff of Jenae 15.9 H (11.5-14.5) % Plt Count 37 L D (130-400) K/uL Absolute Nucleated RBC 0.03 H (0-0) K/uL Neutrophils # (Manual) 0.73 L (1.4-6.5) K/uL Total Absolute Neuts 0.73 L* (1.4-6.5) K/uL Lymphocytes # (Manual) 0.08 L (1.2-3.4) K/uL Total Abs Lymphocytes 0.08 L (1.2-3.4) K/uL Monocytes # (Manual) (0.11-0.59) K/uL Metamyelocytes # (Man) 0.03 H (0-0) K/uL Chloride (98-107) mmol/L Carbon Dioxide (21-32) mmol/L Anion Gap (3-11) BUN (7-18) mg/dl Creatinine (0.6-1.4) mg/dl Glucose (70-99) mg/dl POC Glucose 155 H (70-99) Lactate 2.6 H* (0.4-2.0) mmol/L Calcium (8.5-10.1) mg/dl Phosphorus (2.5-4.9) mg/dl Magnesium (1.8-2.4) mg/dl Direct Bilirubin (0-0.2) mg/dl AST (15-37) U/L Alkaline Phosphatase (45-117) U/L Total Protein (6.4-8.2) gm/dl Albumin (3.4-5.0) gm/dl Procalcitonin (0-0.5) ng/ml Urine Protein (Negative) Urine Ketones (Negative) U Epithel Cells (Auto) (0-5) /lpf Antibody Screen Crossmatch 10/30/18 10/30/18 10/30/18 Range/Units 04:21 04:21 05:35 WBC (4.8-10.8) K/uL RBC (4.7-6.1) M/uL Hgb (14.0-18.0) g/dL Hct (42-52) % RDW Std Deviation (36.4-46.3) fL RDW Coeff of Jenae (11.5-14.5) % Plt Count (130-400) K/uL Absolute Nucleated RBC (0-0) K/uL Neutrophils # (Manual) (1.4-6.5) K/uL Total Absolute Neuts (1.4-6.5) K/uL Lymphocytes # (Manual) (1.2-3.4) K/uL Total Abs Lymphocytes (1.2-3.4) K/uL Monocytes # (Manual) (0.11-0.59) K/uL Metamyelocytes # (Man) (0-0) K/uL Chloride 109 H (98-107) mmol/L Carbon Dioxide 16 L (21-32) mmol/L Anion Gap 13.0 H (3-11) BUN 41 H (7-18) mg/dl Creatinine 2.13 H (0.6-1.4) mg/dl Glucose 117 H (70-99) mg/dl POC Glucose (70-99) Lactate 2.4 H* (0.4-2.0) mmol/L Calcium 5.9 L* D (8.5-10.1) mg/dl Phosphorus 6.2 H (2.5-4.9) mg/dl Magnesium 1.2 L (1.8-2.4) mg/dl Direct Bilirubin 0.5 H (0-0.2) mg/dl AST 104 H (15-37) U/L Alkaline Phosphatase 137 H (45-117) U/L Total Protein 8.3 H (6.4-8.2) gm/dl Albumin 1.1 L (3.4-5.0) gm/dl Procalcitonin (0-0.5) ng/ml Urine Protein (Negative) Urine Ketones (Negative) U Epithel Cells (Auto) (0-5) /lpf Antibody Screen POSITIVE A Crossmatch See Detail 10/30/18 10/30/18 Range/Units 11:29 16:16 WBC (4.8-10.8) K/uL RBC (4.7-6.1) M/uL Hgb (14.0-18.0) g/dL Hct (42-52) % RDW Std Deviation (36.4-46.3) fL RDW Coeff of Jenae (11.5-14.5) % Plt Count (130-400) K/uL Absolute Nucleated RBC (0-0) K/uL Neutrophils # (Manual) (1.4-6.5) K/uL Total Absolute Neuts (1.4-6.5) K/uL Lymphocytes # (Manual) (1.2-3.4) K/uL Total Abs Lymphocytes (1.2-3.4) K/uL Monocytes # (Manual) (0.11-0.59) K/uL Metamyelocytes # (Man) (0-0) K/uL Chloride (98-107) mmol/L Carbon Dioxide (21-32) mmol/L Anion Gap (3-11) BUN (7-18) mg/dl Creatinine (0.6-1.4) mg/dl Glucose (70-99) mg/dl POC Glucose 168 H 189 H (70-99) Lactate (0.4-2.0) mmol/L Calcium (8.5-10.1) mg/dl Phosphorus (2.5-4.9) mg/dl Magnesium (1.8-2.4) mg/dl Direct Bilirubin (0-0.2) mg/dl AST (15-37) U/L Alkaline Phosphatase (45-117) U/L Total Protein (6.4-8.2) gm/dl Albumin (3.4-5.0) gm/dl Procalcitonin (0-0.5) ng/ml Urine Protein (Negative) Urine Ketones (Negative) U Epithel Cells (Auto) (0-5) /lpf Antibody Screen Crossmatch
--- NOTE | 2018-10-30 16:46 | Oncology Consultation ---
Date of Consultation October 30, 2018 Assessment & Plan (1) Neutropenic fever: He has been neutropenic for a few months, which puts him at risk for opportunistic infections. It also blunts his inflammatory response to infections so, for instance, pneumonias may not present with the typical dense, lobar consolidations we tend to see. Given that he is acidotic and hypotensive, I would investigate thoroughly for infections. I might also consider a CT of his chest if he does not improve. Cultures are pending and I would continue with broad spectrum antibiotics for now. Present on Admission?: Yes (2) Pancytopenia: Related to his treatment-refractory myeloma. His counts were a bit better yesterday, though they fell on admission. His anemia may be related to sepsis, but if it continues to fall, we should investigate for bleeding issues. I remain hopeful that we may see a response to his most recent treatment regimen. However, if we get a month or so in and we do not see a response, we may need to reconsider our goals. I would continue with supportive care for now. I would transfuse him for a hemoglobin <7.5 and for platelts <10K or if he is bleeding. Present on Admission?: Yes History of Present Illness Reason for Consultation: Febrile neutropenia Pancytopenia Multiple myeloma Attending Physician: Hung Christina MD History of Present Illness Mr. Benavidez is a 53 year old gentleman who is well known to my service and yours. He has been hospitalized numerous times over the last few months for complications related to his treatment-refractory multiple myeloma. In brief, he presented with very high risk disease in early 2017. He had an excellent response to initial therapy and underwent high-dose chemotherapy with autologous stem cell rescue in February,. However, he relapsed rapidly after transplant. He developed pancytopenia due to marrow replacement with plasma cells. We initiated therapy in August and have been trying to get on top of his disease ever since. However, he has had persistently low counts since the beginning of the winter. He recently began Kyprolis, in addition to Darzalex, and his counts were a bit better yesterday. However, he became febrile and was admitted last night. He was also tachycardic, tachypneic and mildly hypotensive. He was resuscitated and was on a low dose of Levophed when I saw him. He also had a lactic acidosis. His chest x-ray shows no infiltrates suggestive of a pneumonia. He has cultures that are pending. He is very tired today and is feeling more defeated than usual with regard to his disease. He is beginning to question the utility of further treatment. Allergies Allergy/AdvReac Type Severity Reaction Status Date / Time No Known Allergies Allergy Verified 10/29/18 20:25 Home Medications Home Medications Medication Instructions Recorded Confirmed Type Centrum 1 tab PO QAM 08/16/18 10/29/18 History cholecalciferol (vitamin D3) 5,000 unit PO QAM 08/16/18 10/29/18 History [Vitamin D3] omeprazole 20 mg PO QAM 08/16/18 10/29/18 History Darzalex 20 ml IV WK 08/30/18 10/29/18 History acyclovir 200 mg PO BID 10/01/18 10/29/18 History calcium carbonate-vitamin D3 1 tab PO QAM 10/01/18 10/29/18 History [Calcium 600 + D(3)] glipizide 2.5 mg PO QAM 30 Days #15 tab 10/04/18 10/29/18 Rx carvedilol 3.125 mg PO BID 30 Days #60 tab 10/06/18 10/29/18 Rx carfilzomib [Kyprolis] 0 mg IV WK 10/23/18 10/29/18 History ciprofloxacin HCl 500 mg PO Q12H 10/23/18 10/29/18 History prednisone 20 mg PO DIRECTED 10/23/18 10/29/18 History Patient History Medical History Pancytopenia (Chronic) Chronic kidney disease (CKD), stage III (moderate) DVT prophylaxis Hypertension Hyponatremia Multiple myeloma (09/28/17) Steroid-induced diabetes mellitus Surgical History Hx of stem cell transplant Family History Mother Hypertension Father IPF (idiopathic pulmonary fibrosis) Social History Communication Ability: Effective Beliefs That Will Affect Care: None marital status: Current Living Situation: Family Current Living Situation Comment: House Feels Safe at Home: Yes Safety Concerns: Feels Safe At This Time Smoking Status: Never smoker Hx Alcohol Use: No Hx Substance Use: No Review of Systems Constitutional: + fever, + chills, + fatigue and + weakness Eyes: no worsening vision Ear, Nose, Mouth, Throat: no epistaxis and no dysphagia Respiratory: + cough and + chest congestion; no dyspnea Cardiovascular: no chest pain and no edema Gastrointestinal: no abdominal pain, no nausea and no diarrhea/loose stools Genitourinary (Male): no dysuria, no urinary frequency and no hematuria Integumentary: no rash and no new lesions Neurologic: no localized weakness and no headache(s) Hematologic / Lymphatic: no easy bleeding and no lymphadenopathy Physical Exam Vital Signs (Past 24 Hours): Last Vital Signs Temp 36.5 C 10/30/18 15:31 Pulse 110 H 10/30/18 15:30 Resp 33 H 10/30/18 15:30 BP 100/60 10/30/18 15:31 Pulse Ox 97 10/30/18 15:31 Constitutional: well nourished and + ill appearing (chronically); no acute distress Eyes: + anicteric sclerae and EOM intact bilaterally ENMT: external ear and nose normal, oropharynx normal Respiratory: normal respiratory effort and + tachypneic Auscultation: lungs clear to auscultation bilaterally Cardiovascular: Rate/Rhythm: regular rate and + tachycardic Extremities: no edema Gastrointestinal (Abdomen): normal bowel sounds, soft, nontender, no hepatosplenomegaly Musculoskeletal: no cyanosis or clubbing, extremities motor strength 5/5 Skin: no rashes, warm and dry Psychiatric: A+Ox3, euthymic affect Lymphatic: no cervical or axillary lymphadenopathy Results & Data Laboratory Results Abnormal lab results 10/29/18 10/29/18 10/29/18 Range/Units 11:53 20:00 20:30 WBC (4.8-10.8) K/uL RBC (4.7-6.1) M/uL Hgb (14.0-18.0) g/dL Hct (42-52) % MCHC (32-36) g/dL RDW Std Deviation (36.4-46.3) fL RDW Coeff of Jenae (11.5-14.5) % Plt Count (130-400) K/uL Absolute Nucleated RBC (0-0) K/uL Neutrophils # (Manual) (1.4-6.5) K/uL Total Absolute Neuts (1.4-6.5) K/uL Lymphocytes # (Manual) (1.2-3.4) K/uL Total Abs Lymphocytes (1.2-3.4) K/uL Monocytes # (Manual) (0.11-0.59) K/uL Metamyelocytes # (Man) (0-0) K/uL Chloride (98-107) mmol/L Carbon Dioxide 15 L (21-32) mmol/L Anion Gap 16.0 H (3-11) BUN 36 H (7-18) mg/dl Creatinine 1.92 H (0.6-1.4) mg/dl Glucose 43 L* (70-99) mg/dl POC Glucose (70-99) Lactate (0.4-2.0) mmol/L Calcium 7.1 L (8.5-10.1) mg/dl Phosphorus (2.5-4.9) mg/dl Magnesium (1.8-2.4) mg/dl Direct Bilirubin (0-0.2) mg/dl AST (15-37) U/L Alkaline Phosphatase (45-117) U/L Total Protein (6.4-8.2) gm/dl Albumin (3.4-5.0) gm/dl Procalcitonin 34.16 H (0-0.5) ng/ml Urine Protein 2+ H (Negative) Urine Ketones 1+ H (Negative) U Epithel Cells (Auto) 10-20 H (0-5) /lpf Antibody Screen Crossmatch 10/29/18 10/29/18 10/29/18 Range/Units 20:30 22:08 22:56 WBC 0.87 L* (4.8-10.8) K/uL RBC 2.83 L (4.7-6.1) M/uL Hgb 8.8 L (14.0-18.0) g/dL Hct 24.3 L (42-52) % MCHC 36.2 H (32-36) g/dL RDW Std Deviation 49.0 H (36.4-46.3) fL RDW Coeff of Jenae 15.6 H (11.5-14.5) % Plt Count 7 L* D (130-400) K/uL Absolute Nucleated RBC (0-0) K/uL Neutrophils # (Manual) 0.49 L (1.4-6.5) K/uL Total Absolute Neuts 0.49 L* (1.4-6.5) K/uL Lymphocytes # (Manual) 0.35 L (1.2-3.4) K/uL Total Abs Lymphocytes 0.35 L (1.2-3.4) K/uL Monocytes # (Manual) 0.02 L (0.11-0.59) K/uL Metamyelocytes # (Man) (0-0) K/uL Chloride (98-107) mmol/L Carbon Dioxide (21-32) mmol/L Anion Gap (3-11) BUN (7-18) mg/dl Creatinine (0.6-1.4) mg/dl Glucose (70-99) mg/dl POC Glucose 50 L* (70-99) Lactate (0.4-2.0) mmol/L Calcium (8.5-10.1) mg/dl Phosphorus (2.5-4.9) mg/dl Magnesium (1.8-2.4) mg/dl Direct Bilirubin (0-0.2) mg/dl AST (15-37) U/L Alkaline Phosphatase (45-117) U/L Total Protein (6.4-8.2) gm/dl Albumin (3.4-5.0) gm/dl Procalcitonin (0-0.5) ng/ml Urine Protein (Negative) Urine Ketones (Negative) U Epithel Cells (Auto) (0-5) /lpf Antibody Screen Crossmatch See Detail 10/29/18 10/29/18 10/30/18 Range/Units 23:42 23:48 04:21 WBC 0.84 L* (4.8-10.8) K/uL RBC 2.31 L (4.7-6.1) M/uL Hgb 6.9 L* (14.0-18.0) g/dL Hct 20.1 L* (42-52) % MCHC (32-36) g/dL RDW Std Deviation 50.5 H (36.4-46.3) fL RDW Coeff of Jenae 15.9 H (11.5-14.5) % Plt Count 37 L D (130-400) K/uL Absolute Nucleated RBC 0.03 H (0-0) K/uL Neutrophils # (Manual) 0.73 L (1.4-6.5) K/uL Total Absolute Neuts 0.73 L* (1.4-6.5) K/uL Lymphocytes # (Manual) 0.08 L (1.2-3.4) K/uL Total Abs Lymphocytes 0.08 L (1.2-3.4) K/uL Monocytes # (Manual) (0.11-0.59) K/uL Metamyelocytes # (Man) 0.03 H (0-0) K/uL Chloride (98-107) mmol/L Carbon Dioxide (21-32) mmol/L Anion Gap (3-11) BUN (7-18) mg/dl Creatinine (0.6-1.4) mg/dl Glucose (70-99) mg/dl POC Glucose 155 H (70-99) Lactate 2.6 H* (0.4-2.0) mmol/L Calcium (8.5-10.1) mg/dl Phosphorus (2.5-4.9) mg/dl Magnesium (1.8-2.4) mg/dl Direct Bilirubin (0-0.2) mg/dl AST (15-37) U/L Alkaline Phosphatase (45-117) U/L Total Protein (6.4-8.2) gm/dl Albumin (3.4-5.0) gm/dl Procalcitonin (0-0.5) ng/ml Urine Protein (Negative) Urine Ketones (Negative) U Epithel Cells (Auto) (0-5) /lpf Antibody Screen Crossmatch 10/30/18 10/30/18 10/30/18 Range/Units 04:21 04:21 05:35 WBC (4.8-10.8) K/uL RBC (4.7-6.1) M/uL Hgb (14.0-18.0) g/dL Hct (42-52) % MCHC (32-36) g/dL RDW Std Deviation (36.4-46.3) fL RDW Coeff of Jenae (11.5-14.5) % Plt Count (130-400) K/uL Absolute Nucleated RBC (0-0) K/uL Neutrophils # (Manual) (1.4-6.5) K/uL Total Absolute Neuts (1.4-6.5) K/uL Lymphocytes # (Manual) (1.2-3.4) K/uL Total Abs Lymphocytes (1.2-3.4) K/uL Monocytes # (Manual) (0.11-0.59) K/uL Metamyelocytes # (Man) (0-0) K/uL Chloride 109 H (98-107) mmol/L Carbon Dioxide 16 L (21-32) mmol/L Anion Gap 13.0 H (3-11) BUN 41 H (7-18) mg/dl Creatinine 2.13 H (0.6-1.4) mg/dl Glucose 117 H (70-99) mg/dl POC Glucose (70-99) Lactate 2.4 H* (0.4-2.0) mmol/L Calcium 5.9 L* D (8.5-10.1) mg/dl Phosphorus 6.2 H (2.5-4.9) mg/dl Magnesium 1.2 L (1.8-2.4) mg/dl Direct Bilirubin 0.5 H (0-0.2) mg/dl AST 104 H (15-37) U/L Alkaline Phosphatase 137 H (45-117) U/L Total Protein 8.3 H (6.4-8.2) gm/dl Albumin 1.1 L (3.4-5.0) gm/dl Procalcitonin (0-0.5) ng/ml Urine Protein (Negative) Urine Ketones (Negative) U Epithel Cells (Auto) (0-5) /lpf Antibody Screen POSITIVE A Crossmatch See Detail 10/30/18 10/30/18 Range/Units 11:29 16:16 WBC (4.8-10.8) K/uL RBC (4.7-6.1) M/uL Hgb (14.0-18.0) g/dL Hct (42-52) % MCHC (32-36) g/dL RDW Std Deviation (36.4-46.3) fL RDW Coeff of Jenae (11.5-14.5) % Plt Count (130-400) K/uL Absolute Nucleated RBC (0-0) K/uL Neutrophils # (Manual) (1.4-6.5) K/uL Total Absolute Neuts (1.4-6.5) K/uL Lymphocytes # (Manual) (1.2-3.4) K/uL Total Abs Lymphocytes (1.2-3.4) K/uL Monocytes # (Manual) (0.11-0.59) K/uL Metamyelocytes # (Man) (0-0) K/uL Chloride (98-107) mmol/L Carbon Dioxide (21-32) mmol/L Anion Gap (3-11) BUN (7-18) mg/dl Creatinine (0.6-1.4) mg/dl Glucose (70-99) mg/dl POC Glucose 168 H 189 H (70-99) Lactate (0.4-2.0) mmol/L Calcium (8.5-10.1) mg/dl Phosphorus (2.5-4.9) mg/dl Magnesium (1.8-2.4) mg/dl Direct Bilirubin (0-0.2) mg/dl AST (15-37) U/L Alkaline Phosphatase (45-117) U/L Total Protein (6.4-8.2) gm/dl Albumin (3.4-5.0) gm/dl Procalcitonin (0-0.5) ng/ml Urine Protein (Negative) Urine Ketones (Negative) U Epithel Cells (Auto) (0-5) /lpf Antibody Screen Crossmatch
--- NOTE | 2018-10-30 17:30 | Critical Care Consultation ---
Date of Consultation October 30, 2018 Assessment & Plan (1) Pancytopenia: Impression: 1. Sepsis in compromised patient. 2. Neutropenic fever. 3. Acute kidney insufficiency. 4. Multiple myeloma status post chemotherapy. 5. Pancytopenia, profound thrombocytopenia, anemia, and leukopenia. 6. Status post autologous stem cell transplant. Plan: 1. Continue IV fluid. 2. Bicarb drip. 3. Renal consult. 4. Broad-spectrum antibiotics. 5. SCD for DVT prophylaxis. 6. Oncology consult appreciated. 7. PICC line placement, hematoma was noted due to thrombocytopenia. 8. PPI. 9. Continue hydrocortisone for sepsis dose. 10. Cefepime and vancomycin. 11. Vancomycin can be discontinued if no evidence of MRSA. 12. Titrate norepinephrine to off. 13. Discussed with oncology, appreciate their input. 14. Discussed with the staff on rounds and details. Discussed with the family at the bedside in details, all their questions been answered. Critical care time spent with the patient was 45 minutes. History of Present Illness Reason for Consultation: Dr. christina Requesting Physician: Sepsis Attending Physician: Hung Christina MD History of Present Illness Dear Dr. Christina: Thank you for your kind referral Mr. Benavidez to critical care service. This is 53-year-old gentleman unfortunate with a history of multiple myeloma, status post ablation as well as HSCT, chemo ablation in June, presented to the hospital after he received 2 doses of chemotherapy as well, the patient on his presentation has been feeling nauseous, very weak, and in the ED underwent a workup which revealed pancytopenia, with platelets of 7, hematocrit also down to 18, and platelets down below than 1. His ANC was less than 500. The patient started on aggressive IV fluid, he was also in renal failure. Responded to the IV fluid, blood pressure has improved significantly, no chest pain reported, no nausea or vomiting, the patient did have nausea only in the ICU. He did not have any vomiting, did not have any abdominal pain, no increased swelling in his lower extremities, he has no rash, he appears very pale, no oral lesions, no conjunctival lesion, no changes in his digits, no rash. Neurologically he is well oriented and following commands. Appears chronically ill. The patient started empirically on antibiotics IV fluid and admitted to the ICU. Renal consult was requested. Allergies Allergy/AdvReac Type Severity Reaction Status Date / Time No Known Allergies Allergy Verified 10/29/18 20:25 Home Medications Home Medications Medication Instructions Recorded Confirmed Type Centrum 1 tab PO QAM 08/16/18 10/29/18 History cholecalciferol (vitamin D3) 5,000 unit PO QAM 08/16/18 10/29/18 History [Vitamin D3] omeprazole 20 mg PO QAM 08/16/18 10/29/18 History Darzalex 20 ml IV WK 08/30/18 10/29/18 History acyclovir 200 mg PO BID 10/01/18 10/29/18 History calcium carbonate-vitamin D3 1 tab PO QAM 10/01/18 10/29/18 History [Calcium 600 + D(3)] glipizide 2.5 mg PO QAM 30 Days #15 tab 10/04/18 10/29/18 Rx carvedilol 3.125 mg PO BID 30 Days #60 tab 10/06/18 10/29/18 Rx carfilzomib [Kyprolis] 0 mg IV WK 10/23/18 10/29/18 History ciprofloxacin HCl 500 mg PO Q12H 10/23/18 10/29/18 History prednisone 20 mg PO DIRECTED 10/23/18 10/29/18 History Patient History Medical History Pancytopenia (Chronic) Chronic kidney disease (CKD), stage III (moderate) DVT prophylaxis Hypertension Hyponatremia Multiple myeloma (09/28/17) Steroid-induced diabetes mellitus Surgical History Hx of stem cell transplant Family History Mother Hypertension Father IPF (idiopathic pulmonary fibrosis) Social History Communication Ability: Effective Beliefs That Will Affect Care: None marital status: Current Living Situation: Family Current Living Situation Comment: House Feels Safe at Home: Yes Safety Concerns: Feels Safe At This Time Smoking Status: Never smoker Hx Alcohol Use: No Hx Substance Use: No Review of Systems Review of system was unremarkable except for the above mentioned, 14 systems has been reviewed. Physical Exam Vital Signs (Past 24 Hours): Last Vital Signs Temp 36.5 C 10/30/18 15:31 Pulse 110 H 10/30/18 15:30 Resp 33 H 10/30/18 15:30 BP 100/60 10/30/18 15:31 Pulse Ox 97 10/30/18 15:31 Physical Exam: Vital signs are stable, S1-S2 regular rate and rhythm, lungs are distant and clear except for right basilar crackles, abdomen is benign, no edema, pale, no rash, no focal exam, no petechial rash, no oral lesions, no clubbing. Results & Data Laboratory Results Labs were reviewed, showing pancytopenia, platelets improved after platelets transfusion to 37 from 7, white count is less than 1 with ANC more than 500, hematocrit of 20, BUN and creatinine 41 and 2.1, he is not oliguric, Diagnostic Findings A review of his chest x-ray, it showed mild pulmonary vascular congestion, right lower lobe infiltrate, soft tissue lesions consistent with his diagnosis of multiple myeloma.
--- NOTE | 2018-10-30 21:58 | Hospitalist Progress Note ---
Date of Service October 30, 2018 Assessment & Plan (1) Neutropenic fever: ASSESSMENT AND PLAN: This is a 53-year-old male with a history of multiple myeloma, presents with febrile neutropenia and sepsis. 1. Febrile neutropenia and sepsis with temperature spike, tachycardia and hypotension, has cough, short of breath, possible pneumonia. -- possible Chemotherapy related? -- CXR: possible pneumonia cultures pending -- continue empiric antibiotics Hem/Onc consulted 2. Shortness of breath with cough, possible pneumonia. Antibiotics as above and follow the cultures. 3. Pancytopenia with hemoglobin of 8.8, platelets of 7 and white count of 0.8. We are going to give 2 units of platelet apheresis and follow the labs. - s/p 2 units plts transfused - Hg 6, pRBCs ordered - Hem/Onc consulted 4. History of multiple myeloma - possible Chemotherapy reaction? 5. Metabolic acidosis, anion gap of 16 and bicarbonate of 15. - in the setting of acute renal failure on CKD - Nephro consulted 6. Hypoglycemia. The patient has history of steroid-induced diabetes on glipizide. - has been having poor intake - monitor 7. History of hyponatremia. Currently, sodium is in the normal range. - follow labs 8. Acute kidney injury and chronic kidney stage III, baseline creatinine 1.3 but recently creatinine was around 1.5-1.7. -- crea increased to 2.1 9. Hypertension. -- Currently hypotensive. -- hold Co reg 10. History of steroid-induced diabetes. Hemoglobin A1c 7.8 in 09/2018. Currently hypoglycemic. -- hold Insulin 11. Deep venous thrombosis prophylaxis with sequential compression devices secondary to thrombocytopenia. Disposition usually lives with family at home Physical Exam Vital Signs (Past 24 Hours): Last Vital Signs Temp 36.5 C 10/30/18 19:30 Pulse 106 H 10/30/18 21:15 Resp 30 H 10/30/18 21:15 BP 100/61 10/30/18 21:15 Pulse Ox 97 10/30/18 21:15
[2018-10-30 22:13] LABS: BUN Creatinine Ratio 20.7 (10-20); Calcium 6.2 mg/dl (8.5-10.1); Creatinine Clr Calc Pharmacy 31.3 ml/min; Est GFR (African American) 35.3; Est GFR (Non-African American) 30.5; Magnesium 1.6 mg/dl (1.8-2.4); Potassium 4.4 mmol/L (3.5-5.1)
[2018-10-30 22:16] LABS: Phosphorus 5.5 mg/dl (2.5-4.9)
[2018-10-30 23:19] LABS: Uric Acid 13.5 mg/dl (2.6-7.2)
[2018-10-31] MEDS: HYDROCORTISONE SOD 50 MG in SYRINGE 0 ML IV SCH ×5 (00:39→23:57)
[2018-10-31] MEDS ORDERED: VANCOMYCIN HCL 1,000 MG in SODIUM CHLORIDE 0.9% 250 ML IV SCH (02:15)
[2018-10-31] MEDS: SODIUM BICARBONATE 8.4% 75 MEQ in SODIUM CHLORIDE 0.45 % 1,000 ML IV SCH ×2 (02:16→11:01)
[2018-10-31] MEDS: CALCIUM GLUCONATE 10% 2,000 MG in SODIUM CHLORIDE 0.9% 50 ML IV SCH ×4 (02:17→21:54)
[2018-10-31] MEDS ORDERED: LORazepam 1 MG TAB PO STA (02:20)
[2018-10-31] MEDS ORDERED: LORazepam 1 MG TAB ONE (02:23)
[2018-10-31 05:44] LABS: Hematocrit (blood only) 22.2 % (42-52); Hemoglobin 7.7 g/dL (14.0-18.0); Mean Corpuscular Hgb Conc 34.7 g/dL (32-36); Mean Corpuscular Volume 85.4 fL (80-100); Mean Platelet Volume 9.5 fL (7.4-10.4); RDW Coefficient of Variation 15.3 % (11.5-14.5); RDW Standard Deviation 48.1 fL (36.4-46.3); White Blood Count 0.66 K/uL (4.8-10.8)
[2018-10-31 05:55] LABS: BUN Creatinine Ratio 21.1 (10-20); Bilirubin Direct 0.2 mg/dl (0-0.2); Bilirubin,Total 0.5 mg/dl (0.2-1); Calcium 6.5 mg/dl (8.5-10.1); Est GFR (African American) 36.3; Est GFR (Non-African American) 31.3; Magnesium 1.6 mg/dl (1.8-2.4); Phosphorus 5.7 mg/dl (2.5-4.9); Total Protein 8.2 gm/dl (6.4-8.2)
[2018-10-31 06:26] LABS: Rouleaux 1+
[2018-10-31 06:28] LABS: ALC (manual) 0.15 K/uL (1.2-3.4); Basophils # (manual) 0.01 K/uL (0-0.2); Basophils % (manual) 1.1 %; Eosinophils # (manual) 0.01 K/uL (0-0.5); Eosinophils % (manual) 1.1 %; Lymphocytes # (manual) 0.15 K/uL (1.2-3.4); Lymphocytes % (manual) 22.3 %; Monocytes # (manual) 0.01 K/uL (0.11-0.59); Monocytes % (manual) 2.1 %; Neutrophils % (manual) 73.4 %; Nucleated RBC # (auto) 0.02 K/uL (0-0); Nucleated RBC % (auto) 2.7 %; Platelet Count 10 K/uL (130-400)
--- NOTE | 2018-10-31 06:50 | Nephrology Progress Note ---
Date of Service October 31, 2018 Assessment & Plan (1) Electrolyte abnormality: hypocalcemia, hypomagnesemia, hyperphosphatemia, lactic acidosis, hyperuricemia -- can be from sepsis; in theory could be tumor lysis syndrome though heme suspicion for this is low; not rhabdomyolysis -cont 2 gm IV calcium standing until levels stabilize; note his albumin is only 1 so would follow ionized calcium -on standing IV calcium gluconate; had another 2 gm iv mag this am -- ensure electrolyte deficits not worsening/complicating already challenging hemodynamics with neutropenic sepsis -ordered PTH, 25 OHD (in process); can be from sepsis (2) Metabolic acidosis: lactic acidosis likeliest; check as above > neutropenic sepsis -may also have starvation ketoacidosis -some improvement in acidosis; lowered 1/2 NS w/ 75 mEq/L sodium bicarb to 75 mL hourly d/t imminent fluid overload (3) KEMAR (acute kidney injury): moderate; baseline 1.4-1.7 and here 2.1; monitor daily; work at stabilizing hemodynamics; admission urine concentrated and w/ ketones (new) and w/ chronic proteinuria. 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 Pt had very restless night, minimal sleep. some low back/hip discomfort. some anxiety. UOP is dropping off considerably; no sxs of retention; no dysuria. some dypsnea still. minimal appetite; no diarrhea or abd pain. Physical Exam Vital Signs (Past 24 Hours): Last Vital Signs Temp 36.7 C 10/31/18 04:01 Pulse 105 H 10/31/18 06:01 Resp 37 H 10/31/18 06:01 BP 117/65 10/31/18 06:01 Pulse Ox 97 10/31/18 06:01 Constitutional: well developed and well nourished lying flat on RA Eyes: EOM intact bilaterally ENMT: Ears: no external ear abnormality Nose: no external nose abnormality Mouth: + dry oral mucous membranes Neck: no nuchal rigidity Respiratory: normal respiratory effort Auscultation: + crackles Cardiovascular: Rate/Rhythm: + tachycardic (100-110s, hyperdynamic) Extremities: no edema Gastrointestinal (Abdomen): Inspection/Auscultation: normal bowel sounds Percussion/Palpation: abdomen soft; abdomen nontender Musculoskeletal: Extremities: strength 5/5 throughout Skin: no rashes, warm and dry + subcutaneous nodules (on scalp up to 3 cm) Psychiatric: Orientation: alert and oriented x 3 Eye Contact: good eye contact Speech: normal rate/rhythm/volume of speech Insight: good insight Judgement: good judgement Results & Data Laboratory Results Abnormal lab results 10/29/18 10/29/18 10/30/18 Range/Units 11:53 22:56 05:35 WBC (4.8-10.8) K/uL RBC (4.7-6.1) M/uL Hgb (14.0-18.0) g/dL Hct (42-52) % RDW Std Deviation (36.4-46.3) fL RDW Coeff of Jenae (11.5-14.5) % Plt Count (130-400) K/uL Absolute Nucleated RBC (0-0) K/uL Neutrophils # (Manual) (1.4-6.5) K/uL Total Absolute Neuts (1.4-6.5) K/uL Lymphocytes # (Manual) (1.2-3.4) K/uL Total Abs Lymphocytes (1.2-3.4) K/uL Monocytes # (Manual) (0.11-0.59) K/uL Chloride (98-107) mmol/L Carbon Dioxide (21-32) mmol/L Anion Gap (3-11) BUN (7-18) mg/dl Creatinine (0.6-1.4) mg/dl BUN/Creatinine Ratio (10-20) Glucose (70-99) mg/dl POC Glucose (70-99) Uric Acid (2.6-7.2) mg/dl Calcium (8.5-10.1) mg/dl Ionized Calcium (1.12-1.32) mmol/L Phosphorus (2.5-4.9) mg/dl Magnesium (1.8-2.4) mg/dl AST (15-37) U/L Alkaline Phosphatase (45-117) U/L Total Creatine Kinase (39-308) U/L Albumin (3.4-5.0) gm/dl Procalcitonin 34.16 H (0-0.5) ng/ml Antibody Screen POSITIVE A Crossmatch See Detail See Detail 10/30/18 10/30/18 10/30/18 Range/Units 11:29 16:16 21:39 WBC (4.8-10.8) K/uL RBC (4.7-6.1) M/uL Hgb (14.0-18.0) g/dL Hct (42-52) % RDW Std Deviation (36.4-46.3) fL RDW Coeff of Jenae (11.5-14.5) % Plt Count (130-400) K/uL Absolute Nucleated RBC (0-0) K/uL Neutrophils # (Manual) (1.4-6.5) K/uL Total Absolute Neuts (1.4-6.5) K/uL Lymphocytes # (Manual) (1.2-3.4) K/uL Total Abs Lymphocytes (1.2-3.4) K/uL Monocytes # (Manual) (0.11-0.59) K/uL Chloride 108 H (98-107) mmol/L Carbon Dioxide 18 L (21-32) mmol/L Anion Gap 12.0 H (3-11) BUN 48 H (7-18) mg/dl Creatinine 2.32 H (0.6-1.4) mg/dl BUN/Creatinine Ratio 20.7 H (10-20) Glucose 177 H (70-99) mg/dl POC Glucose 168 H 189 H (70-99) Uric Acid 13.5 H (2.6-7.2) mg/dl Calcium 6.2 L (8.5-10.1) mg/dl Ionized Calcium (1.12-1.32) mmol/L Phosphorus 5.5 H (2.5-4.9) mg/dl Magnesium 1.6 L (1.8-2.4) mg/dl AST (15-37) U/L Alkaline Phosphatase (45-117) U/L Total Creatine Kinase 35 L (39-308) U/L Albumin (3.4-5.0) gm/dl Procalcitonin (0-0.5) ng/ml Antibody Screen Crossmatch 10/30/18 10/30/18 10/31/18 Range/Units 21:39 21:44 04:34 WBC 0.66 L* (4.8-10.8) K/uL RBC 2.60 L (4.7-6.1) M/uL Hgb 7.7 L (14.0-18.0) g/dL Hct 22.2 L (42-52) % RDW Std Deviation 48.1 H (36.4-46.3) fL RDW Coeff of Jenae 15.3 H (11.5-14.5) % Plt Count 10 L* D (130-400) K/uL Absolute Nucleated RBC 0.02 H (0-0) K/uL Neutrophils # (Manual) 0.48 L (1.4-6.5) K/uL Total Absolute Neuts 0.48 L* (1.4-6.5) K/uL Lymphocytes # (Manual) 0.15 L (1.2-3.4) K/uL Total Abs Lymphocytes 0.15 L (1.2-3.4) K/uL Monocytes # (Manual) 0.01 L (0.11-0.59) K/uL Chloride (98-107) mmol/L Carbon Dioxide (21-32) mmol/L Anion Gap (3-11) BUN (7-18) mg/dl Creatinine (0.6-1.4) mg/dl BUN/Creatinine Ratio (10-20) Glucose (70-99) mg/dl POC Glucose 181 H (70-99) Uric Acid (2.6-7.2) mg/dl Calcium (8.5-10.1) mg/dl Ionized Calcium 0.90 L (1.12-1.32) mmol/L Phosphorus (2.5-4.9) mg/dl Magnesium (1.8-2.4) mg/dl AST (15-37) U/L Alkaline Phosphatase (45-117) U/L Total Creatine Kinase (39-308) U/L Albumin (3.4-5.0) gm/dl Procalcitonin (0-0.5) ng/ml Antibody Screen Crossmatch 10/31/18 10/31/18 Range/Units 04:34 06:13 WBC (4.8-10.8) K/uL RBC (4.7-6.1) M/uL Hgb (14.0-18.0) g/dL Hct (42-52) % RDW Std Deviation (36.4-46.3) fL RDW Coeff of Jenae (11.5-14.5) % Plt Count (130-400) K/uL Absolute Nucleated RBC (0-0) K/uL Neutrophils # (Manual) (1.4-6.5) K/uL Total Absolute Neuts (1.4-6.5) K/uL Lymphocytes # (Manual) (1.2-3.4) K/uL Total Abs Lymphocytes (1.2-3.4) K/uL Monocytes # (Manual) (0.11-0.59) K/uL Chloride 108 H (98-107) mmol/L Carbon Dioxide 18 L (21-32) mmol/L Anion Gap 12.0 H (3-11) BUN 48 H (7-18) mg/dl Creatinine 2.27 H (0.6-1.4) mg/dl BUN/Creatinine Ratio 21.1 H (10-20) Glucose 136 H (70-99) mg/dl POC Glucose 134 H (70-99) Uric Acid (2.6-7.2) mg/dl Calcium 6.5 L (8.5-10.1) mg/dl Ionized Calcium (1.12-1.32) mmol/L Phosphorus 5.7 H (2.5-4.9) mg/dl Magnesium 1.6 L (1.8-2.4) mg/dl AST 106 H (15-37) U/L Alkaline Phosphatase 134 H (45-117) U/L Total Creatine Kinase (39-308) U/L Albumin 1.0 L (3.4-5.0) gm/dl Procalcitonin (0-0.5) ng/ml Antibody Screen Crossmatch
[2018-10-31] MEDS: INSULIN ASPART 100 UNITS/ML 3 ML PEN SC SCH ×4 (07:58→22:22)
[2018-10-31] MEDS: ACYCLOVIR 200 MG CAP PO SCH ×2 (08:02→21:55)
[2018-10-31] MEDS: CHOLECALCIFEROL 1,000 UNITS TAB PO SCH (08:02)
[2018-10-31] MEDS: PANTOprazole 40 MG TAB PO SCH ×2 (08:02→21:54)
[2018-10-31] MEDS: CALCIUM 600MG + VIT D 400 IU TAB PO SCH (08:02)
[2018-10-31] MEDS: CEFEPIME 2,000 MG in SYRINGE 7.5 ML IV SCH ×2 (08:03→21:57)
[2018-10-31] MEDS ORDERED: SODIUM CHLORIDE 0.9% 250 ML IV PRN ×3 (08:31→08:44)
[2018-10-31] MEDS ORDERED: FILGRASTIM 480 MCG/1.6 ML VIAL SQ ONE (09:11)
[2018-10-31] MEDS ORDERED: VANCOMYCIN CONSULT ACTIVE PRN (09:12)
--- NOTE | 2018-10-31 09:30 | XRay Report ---
XR chest 1V portable HISTORY: 53 years-old Male tachypnea acute shortness of breath COMPARISON: Chest radiograph 10/30/2018, PET CT 05/23/2018 TECHNIQUE: Portable AP view the chest FINDINGS: Right-sided PICC is unchanged. Cardiac silhouette is enlarged. Poorly vascular congestion with inters titial coarsening. Progressive alveolar opacities about the mid and lower lung zones. Small bilateral pleural effusions. There is no pneumothorax. Degenerative changes of the shoulders and spine. Lytic bony lesions redemonstrated. IMPRESSION: 1. Cardiomegaly with mild pulmonary edema. 2. Small bilateral pleural effusions with bibasilar opacities. 3. Unchanged positioning of the right-sided PICC. The above report was generated using voice recognition software. It may contain grammatical, syntax o r spelling errors. Electronically signed by: Vikram Brown M.D. 10/31/2018 9:28 AM
[2018-10-31] MEDS: MAGNESIUM OXIDE 400 MG TAB PO SCH ×2 (09:42→21:54)
[2018-10-31] MEDS: MAGNESIUM SULFATE / D5W 1 GM/100 ML BAG IV SCH ×2 (09:42→10:54)
--- NOTE | 2018-10-31 09:49 | Pharmacy Report ---
Pharmacy Abx Dose Short Note - Date of Service October 31, 2018 - Assessment & Plan Assessment * 53 year old M receiving VANCOMYCIN + CEFEPIME for septic shock, possible pulmonary source in the setting of immunocompromise (stem cell transplant, neutorpenia) * Norepi titrated off yesterday, IV steroids continue; MAPs acceptable this AM (>65) * SCr continues to climb (1.93 -->2.13-->2.27). U.O. has been low compared to IVF administration. * MRSA nasal swab negative - lessening possibility of MRSA pneumonia but does not r/o MRSA at other sites of infxn and in the setting of septic shock w/ neutropenia continued MRSA coverage warranted * Neg influenza A/B Ag * BLCX's - no growth to date * Procalcitonin elevated = 34.16 * CXR read as: "Cardiomegaly with mild pulmonary edema. Small bilateral pleural effusions with bibasilar opacities" Plan Vancomycin * 1250mg IV load x 1 given 10/30 @ 0217 * Random level checked 10/31 @ 0052; level was 13mcg/mL * 1000mg (15mg/kg) IV x 1 given in response to level of 13. Dose hung at 0225 * Goal trough: 15 - 20mcg/mL for sepsis, neutropenia, uncertain source * Will continue to order random levels to guide redosing. New random level will be ~24 hrs after the 1st given the serious nature of his illness. Cefepime * Continue to dose 2gm IV q 12 hrs for possible eCrCl in 30's and increased volume of distribution given IV volume admin thus far Pharmacy will continue to follow and will adjust dose/frequency as necessary. Thank you.
--- NOTE | 2018-10-31 11:33 | Critical Care Progress Note ---
Date of Service October 31, 2018 Assessment & Plan (1) Pancytopenia: Impression: 1. Sepsis in immuno- compromised patient. Right lower lobe infiltrate. Improving, blood pressure recovered. 2. Neutropenic fever. Resolved. 3. Acute kidney insufficiency on chronic kidney disease. 4. Multiple myeloma status post chemotherapy. 5. Pancytopenia, with no recovery. 6. Status post autologous stem cell transplant. 7. Hyperuricemia, most recent uric acid level was 12.8. Plan: 1. Continue IV fluid, decrease the rate to 75 mL an hour. 2. Appreciate Dr. Diana input, discussed in details with her. 3. Appreciate oncology input, discussed with Dr. Page in details. 4. Continue broad-spectrum antibiotics. 5. SCD for DVT prophylaxis. 6. Start allopurinol 100 mg p.o. 3 times daily. 7. PICC line placement, hematoma was noted due to thrombocytopenia, no compromise to the upper extremity.. 8. PPI twice daily due to profound thrombocytopenia. 9. Continue hydrocortisone for sepsis dose. 10. Cefepime and vancomycin. 11. Transfuse 1 bag of platelets today. 12. I will keep norepinephrine on side. 13. Potential renal replacement therapy if indicated by Dr. Diana, placement of dialysis catheter will be challenging. 14. Likely he may need DDAVP prior to the line placement. Discussed with the patient in detail. Critical care time spent with the patient was 45 minutes. Subjective The patient remains critical, no events overnight, he did require blood transfusion the day before, he is platelets has dropped down again overnight, the patient denies any nausea, no pain at the moment, he is more short of breath than he did before. No diarrhea reported. His residual urine in the bladder was 200 mL by scanner. Physical Exam Vital Signs (Past 24 Hours): Last Vital Signs Temp 36.5 C 10/31/18 09:32 Pulse 107 H 10/31/18 11:12 Resp 24 10/31/18 11:12 BP 116/76 10/31/18 11:11 Pulse Ox 95 10/31/18 11:12 Physical Exam: Vital signs are stable, S1-S2 regular rate and rhythm, distant breath sounds with crackles bilaterally, abdomen is benign, no edema, pale, no skin rash, right upper extremity hematoma but no compromise to the vessels or do the sensation in the arm below. Good capillary filling. Neurologically he is intact. Results & Data Laboratory Results His labs are consistent with elevated BUN/creatinine, his bone marrow has not been recovering gets, remains neutropenic, thrombocytopenic, and anemic. Diagnostic Findings Repeat the chest x-ray showed pulmonary vascular congestion, bilateral pleural effusion.
--- NOTE | 2018-10-31 14:06 | Palliative Care Progress Note ---
Date of Service October 31, 2018 Subjective Spoke with attending physician and with roper operator physician. Will hold off on consult for now, continue to follow peripherally.
[2018-10-31] MEDS: ALLOPURINOL 100 MG TAB PO SCH ×2 (15:44→21:55)
--- NOTE | 2018-10-31 18:23 | Hospitalist Progress Note ---
Date of Service October 31, 2018 Assessment & Plan (1) Neutropenic fever: ASSESSMENT AND PLAN: This is a 53-year-old male with a history of multiple myeloma, presents with febrile neutropenia and sepsis. Multiple myeloma with pancytopenia and infection patient has been on cefipime and vancomycin for neutropenic fever and pneumonia current blood cultures with no growth to date s/p 2 units of PRBC on 10/30/18 and 2 unit of platelets on 10/30/18 addition 1 unit of platelets given on 10/31/18 ICU physician ordered Neupogen on 10/31/18 Acute renal failure on chronic kidney disease stage III oligouric in comparison to load of OV fluids given to the patient to date as of 10/31/18 Main issues discussed with patient and family member at bedside is that patient has high net positive fluid retention. As per nurse, perhaps patient had urinated 600 cc yesterday and 350 cc today. With Nephrology Dr. Michaels at bedside with patient and his family that patient is high risk for potential complications from dialysis catheter placement and attempt such as high risk of bleeding or infection in a patient who is already immunocompromised. Patient also reporting that he is not ready for having central line placed into the neck for dialysis. At this time the main plan is to hold off IV fluids tonight and monitor if needed whether patient will need diuretics Hyperuricemia, most recent uric acid level was 12.8 -consideration being given whether patient is having tumor lysis syndrome or some variant of this spectrum -started on allopurinol Sinus tachycardia -carvedilol has been held to avoid hypotension history of steroid-induced diabetes Hemoglobin A1c 7.8 in 09/2018 -no longer on steroids as outpatient -minimal oral intake -would hold off antihyperglycemics at this time History of hyponatremia Currently, sodium is in the normal range. Deep venous thrombosis prophylaxis with sequential compression devices only because of thrombocytopenia. Code Status: Full Code remains in the ICU level of Care Prognosis overall is poor; patient and patient's allows for palliative care consultation Subjective Patient received 1 unit of platelet today as his platelet count of 10,000. Main issues discussed with patient and family member at bedside is that patient has high net positive fluid retention. As per nurse, perhaps patient had urinated 600 cc yesterday and 350 cc today. With Nephrology Dr. Michaels at bedside with patient and his family that patient is high risk for potential complications from dialysis catheter placement and attempt such as high risk of bleeding or infection in a patient who is already immunocompromised. Patient also reporting that he is not ready for having central line placed into the neck for dialysis. At this time the main plan is to hold off IV fluids tonight and monitor if needed whether patient will need diuretics Currently patient breathing on room air. Patient does not report of being acutely short of breath. Patient's review of systems of nausea but no vomiting. No pain symptoms. Physical Exam Vital Signs (Past 24 Hours): Last Vital Signs Temp 36.7 C 10/31/18 12:00 Pulse 108 H 10/31/18 17:01 Resp 31 H 10/31/18 17:01 BP 121/73 10/31/18 17:01 Pulse Ox 97 10/31/18 17:01 Constitutional: + ill appearing Eyes: PERRL, conjunctivae normal, anicteric sclerae EOM intact bilaterally ENMT: external ear and nose normal, oropharynx normal Neck: trachea midline, no thyromegaly Respiratory: old room air, tachypneic but breathing is less labored compared to this AM, crackles on lung exam, no wheezing Cardiovascular: Rate/Rhythm: + tachycardic Gastrointestinal (Abdomen): normal bowel sounds, soft, nontender, no hepatosplenomegaly Musculoskeletal: Head/Neck/Chest: normocephalic and head atraumatic Neurologic: PERRL, EOMI, accommodation nl, no face palsy, no dysarthria CN's II-XI intact bilaterally Psychiatric: A+Ox3, euthymic affect
[2018-10-31] MEDS ORDERED: LORazepam 1 MG TAB PO PRN (18:32)
[2018-11-01] MEDS ORDERED: LEVOFLOXACIN/D5W 750 MG/150 ML BAG IV SCH (01:00)
[2018-11-01] MEDS ORDERED: FUROSEMIDE 40 MG/4 ML VIAL IV STA ×2 (01:54→04:35)
[2018-11-01] MEDS: CALCIUM GLUCONATE 10% 2,000 MG in SODIUM CHLORIDE 0.9% 50 ML IV SCH (03:10)
[2018-11-01] MEDS ORDERED: VANCOMYCIN HCL 1,000 MG in SODIUM CHLORIDE 0.9% 250 ML IV SCH (03:15)
[2018-11-01 03:25] LABS: Albumin Globulin Ratio 0.1 (0.9-2); Albumin Level 1.1 gm/dl (3.4-5.0); BUN Creatinine Ratio 19.4 (10-20); Bilirubin,Total 0.4 mg/dl (0.2-1); Calcium 7.3 mg/dl (8.5-10.1); Creatinine Clr Calc Pharmacy 27.2 ml/min; Est GFR (African American) 29.8; Est GFR (Non-African American) 25.7; Globulin 7.9 gm/dl (2.5-4.0); Magnesium 2.5 mg/dl (1.8-2.4); Potassium 5.7 mmol/L (3.5-5.1)
[2018-11-01 03:26] LABS: Hematocrit (blood only) 24.6 % (42-52); Hemoglobin 8.3 g/dL (14.0-18.0); Mean Corpuscular Hgb Conc 33.7 g/dL (32-36); Mean Corpuscular Volume 89.1 fL (80-100); Mean Platelet Volume 9.5 fL (7.4-10.4); Nucleated RBC # (auto) 0.03 K/uL (0-0); Nucleated RBC % (auto) 1.8 %; Platelet Count 27 K/uL (130-400); RDW Coefficient of Variation 16.2 % (11.5-14.5); RDW Standard Deviation 51.9 fL (36.4-46.3); Red Blood Count 2.76 M/uL (4.7-6.1)
[2018-11-01 03:56] LABS: Base Excess VBG -18.7 mEq/L; HCO3 VBG 10 mmol/L; Oxygen Saturation VBG 68.2 %; PCO2 VBG 34 mmHg (38-50); PO2 VBG 46 mmHg; pH VBG 7.09 (7.36-7.41)
[2018-11-01] MEDS ORDERED: SODIUM BICARBONATE 8.4% 150 MEQ in DEXTROSE 5% 1,000 ML IV SCH (04:30)
[2018-11-01] MEDS ORDERED: SODIUM BICARB 8.4% INJ 50 MEQ/50 ML SYR IV STA (04:33)
[2018-11-01] MEDS ORDERED: FUROSEMIDE 60 MG in SYRINGE 0 ML IV STA (04:33)
[2018-11-01 04:36] LABS: Basophils # (auto) 0.01 K/uL (0-0.2); Basophils % (auto) 0.5 %; Dohle Bodies 1+; Eosinophils # (auto) 0.01 K/uL (0-0.5); Eosinophils % (auto) 0.5 %; Immature Granulocytes # (auto) 0.03 K/uL (0.00-0.02); Immature Granulocytes % (auto) 1.6 %; Lymphocytes # (auto) 0.67 K/uL (1.2-3.4); Lymphocytes % (auto) 35.3 %; Monocytes # (auto) 0.11 K/uL (0.11-0.59); Monocytes % (auto) 5.8 %; Neutrophils # (auto) 1.07 K/uL (1.4-6.5); Neutrophils % (auto) 56.3 %; Rouleaux 2+; Toxic Granulation 1+; Toxic Vacuolation 1+
[2018-11-01] MEDS: HYDROCORTISONE SOD 50 MG in SYRINGE 0 ML IV SCH (06:03)
--- NOTE | 2018-11-01 06:51 | Nephrology Progress Note ---
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 baseline creat 1.4-1.7 and here 2.7; admission urine concentrated and w/ ketones (new) and w/ chronic proteinuria. may well have myeloma involving kidney (can happen by multiple mechanisms) but this would not change renal management. -biggest issues today are electrolyte issues, volume status >>>>with changing renal function recommend confirming that vanco level is <25 before hanging next dose ->>>>>need to make decisions about dialysis or not today. this pt is a high risk dialysis candidate given infection and bleeding risks w/ catheter. clinically would avoid dialysis for him b/c risks outweigh potential benefit. I discussed this w/ family this am again>> they agree he is NOT for dialysis and are comfortable w/ this decision (4) Neutropenic fever: on vanco/cefepime; cxs pending; has not so far had sustained pressor needs -he had a dose of neupogen 10/31 Subjective seen this am just after 7; and brother bedside; pt had a bad night >> more tachypneic, agitated, sob early am and labs worse >> on bipap; had 1-2 lasix doses and amp bicarbonate. cannot participate in ROS this am. is POA Physical Exam Vital Signs (Past 24 Hours): Last Vital Signs Temp 36.0 C L 11/01/18 04:00 Pulse 113 H 11/01/18 06:00 Resp 30 H 11/01/18 06:00 BP 116/78 11/01/18 06:00 Pulse Ox 100 11/01/18 06:00 Constitutional: well developed and + ill appearing on bipap, lethargic Eyes: EOM intact bilaterally ENMT: Ears: no external ear abnormality Nose: no external nose abnormality Mouth: + dry oral mucous membranes Neck: no nuchal rigidity Respiratory: normal respiratory effort Auscultation: + crackles Cardiovascular: Rate/Rhythm: + tachycardic (100-110s, hyperdynamic) Extremities: no edema Gastrointestinal (Abdomen): Inspection/Auscultation: normal bowel sounds Percussion/Palpation: abdomen soft; abdomen nontender Musculoskeletal: Extremities: strength 5/5 throughout Skin: no rashes, warm and dry Neurologic: ray, lethargic Genitourinary: no briseno Results & Data Laboratory Results Abnormal lab results 10/30/18 10/31/18 10/31/18 Range/Units 05:35 04:34 07:39 WBC (4.8-10.8) K/uL RBC (4.7-6.1) M/uL Hgb (14.0-18.0) g/dL Hct (42-52) % RDW Std Deviation (36.4-46.3) fL RDW Coeff of Jenae (11.5-14.5) % Plt Count (130-400) K/uL Immature Gran # (Auto) (0.00-0.02) K/uL Neut # (Auto) (1.4-6.5) K/uL Lymph # (Auto) (1.2-3.4) K/uL Absolute Nucleated RBC (0-0) K/uL VBG pH (7.36-7.41) VBG pCO2 (38-50) mmHg Potassium (3.5-5.1) mmol/L Carbon Dioxide (21-32) mmol/L Anion Gap (3-11) BUN (7-18) mg/dl Creatinine (0.6-1.4) mg/dl Glucose (70-99) mg/dl POC Glucose 135 H (70-99) Uric Acid 12.8 H (2.6-7.2) mg/dl Calcium (8.5-10.1) mg/dl Magnesium (1.8-2.4) mg/dl AST (15-37) U/L Alkaline Phosphatase (45-117) U/L Total Protein (6.4-8.2) gm/dl Albumin (3.4-5.0) gm/dl Globulin (2.5-4.0) gm/dl Albumin/Globulin Ratio (0.9-2) Antibody Screen POSITIVE A Crossmatch See Detail 10/31/18 10/31/18 10/31/18 Range/Units 11:06 15:45 22:10 WBC (4.8-10.8) K/uL RBC (4.7-6.1) M/uL Hgb (14.0-18.0) g/dL Hct (42-52) % RDW Std Deviation (36.4-46.3) fL RDW Coeff of Jenae (11.5-14.5) % Plt Count (130-400) K/uL Immature Gran # (Auto) (0.00-0.02) K/uL Neut # (Auto) (1.4-6.5) K/uL Lymph # (Auto) (1.2-3.4) K/uL Absolute Nucleated RBC (0-0) K/uL VBG pH (7.36-7.41) VBG pCO2 (38-50) mmHg Potassium (3.5-5.1) mmol/L Carbon Dioxide (21-32) mmol/L Anion Gap (3-11) BUN (7-18) mg/dl Creatinine (0.6-1.4) mg/dl Glucose (70-99) mg/dl POC Glucose 161 H 134 H 137 H (70-99) Uric Acid (2.6-7.2) mg/dl Calcium (8.5-10.1) mg/dl Magnesium (1.8-2.4) mg/dl AST (15-37) U/L Alkaline Phosphatase (45-117) U/L Total Protein (6.4-8.2) gm/dl Albumin (3.4-5.0) gm/dl Globulin (2.5-4.0) gm/dl Albumin/Globulin Ratio (0.9-2) Antibody Screen Crossmatch 11/01/18 11/01/18 11/01/18 Range/Units 02:53 02:53 03:16 WBC 1.90 L (4.8-10.8) K/uL RBC 2.76 L (4.7-6.1) M/uL Hgb 8.3 L (14.0-18.0) g/dL Hct 24.6 L (42-52) % RDW Std Deviation 51.9 H (36.4-46.3) fL RDW Coeff of Jenae 16.2 H (11.5-14.5) % Plt Count 27 L* D (130-400) K/uL Immature Gran # (Auto) 0.03 H (0.00-0.02) K/uL Neut # (Auto) 1.07 L (1.4-6.5) K/uL Lymph # (Auto) 0.67 L (1.2-3.4) K/uL Absolute Nucleated RBC 0.03 H (0-0) K/uL VBG pH 7.09 L (7.36-7.41) VBG pCO2 34 L (38-50) mmHg Potassium 5.7 H D (3.5-5.1) mmol/L Carbon Dioxide 12 L (21-32) mmol/L Anion Gap 20.0 H (3-11) BUN 52 H (7-18) mg/dl Creatinine 2.67 H D (0.6-1.4) mg/dl Glucose 234 H (70-99) mg/dl POC Glucose (70-99) Uric Acid (2.6-7.2) mg/dl Calcium 7.3 L (8.5-10.1) mg/dl Magnesium 2.5 H (1.8-2.4) mg/dl AST 167 H (15-37) U/L Alkaline Phosphatase 172 H (45-117) U/L Total Protein 9.0 H (6.4-8.2) gm/dl Albumin 1.1 L (3.4-5.0) gm/dl Globulin 7.9 H (2.5-4.0) gm/dl Albumin/Globulin Ratio 0.1 L (0.9-2) Antibody Screen Crossmatch 11/01/18 Range/Units 06:08 WBC (4.8-10.8) K/uL RBC (4.7-6.1) M/uL Hgb (14.0-18.0) g/dL Hct (42-52) % RDW Std Deviation (36.4-46.3) fL RDW Coeff of Jenae (11.5-14.5) % Plt Count (130-400) K/uL Immature Gran # (Auto) (0.00-0.02) K/uL Neut # (Auto) (1.4-6.5) K/uL Lymph # (Auto) (1.2-3.4) K/uL Absolute Nucleated RBC (0-0) K/uL VBG pH (7.36-7.41) VBG pCO2 (38-50) mmHg Potassium (3.5-5.1) mmol/L Carbon Dioxide (21-32) mmol/L Anion Gap (3-11) BUN (7-18) mg/dl Creatinine (0.6-1.4) mg/dl Glucose (70-99) mg/dl POC Glucose 173 H (70-99) Uric Acid (2.6-7.2) mg/dl Calcium (8.5-10.1) mg/dl Magnesium (1.8-2.4) mg/dl AST (15-37) U/L Alkaline Phosphatase (45-117) U/L Total Protein (6.4-8.2) gm/dl Albumin (3.4-5.0) gm/dl Globulin (2.5-4.0) gm/dl Albumin/Globulin Ratio (0.9-2) Antibody Screen Crossmatch
--- NOTE | 2018-11-01 07:34 | XRay Report ---
XR chest 1V portable HISTORY: Short of breath. COMPARISON: Chest 10/31/2018. FINDINGS: The right PICC terminates at the distal SVC. No pneumothorax. Small bilateral pleural effus ions persist. Bilateral perihilar airspace opacities are also unchanged. The heart remains borderline enlarged. Old, healed bilateral rib fractures. Low lung volumes. IMPRESSION: Pulmonary edema and small bilateral pleural effusions are again noted. Electronically signed by: Kamari Segundo M.D. 11/01/2018 7:32 AM
[2018-11-01] MEDS: INSULIN ASPART 100 UNITS/ML 3 ML PEN SC SCH (07:45)
[2018-11-01] MEDS ORDERED: ALBUMIN 25% 50 ML IV SCH (08:15)
[2018-11-01] MEDS ORDERED: PHARMACY GLYCEMIC MGMT CONSULT SCH (08:54)
[2018-11-01] MEDS ORDERED: FILGRASTIM 480 MCG/1.6 ML VIAL SQ ONE (09:00)
[2018-11-01] MEDS ORDERED: MoRPHine SULFATE 5 MG/0.25 ML UDP PO PRN (09:10)
--- NOTE | 2018-11-01 09:18 | Hospitalist Progress Note ---
Date of Service November 01, 2018 Assessment & Plan (1) Neutropenic fever: ASSESSMENT AND PLAN: This is a 53-year-old male with a history of multiple myeloma, presents with febrile neutropenia and sepsis. Then he went into acute renal failure during the ICU stay on this admission. As per discus sions with patient and later with patient's family, there is no desire for dialysis and as of 11/01/18 the Goals of care is comfort care and Code Status as DO NOT RESUCITATE and DO NOT INTUBATE Multiple myeloma with pancytopenia and infection -patient has been on cefipime and vancomycin for neutropenic fever and pneumonia (recent blood cultures with no growth to date) and IV antibiotics will be st opped on 11/01/18 because patient is now comfort care -s/p 2 units of PRBC on 10/30/18 and 2 unit of platelets on 10/30/18; addition 1 unit of platelets given on 10/31/18; ICU physician gave Neupogen on 10/31/18; stop blood draws and Neupogen as of 11/01/18 as patient is now comfort care Acute renal failure on chronic kidney disease stage III with acidosis oligouric in comparison to load of IV fluids given to the patient to date as of 10/31/18 -10/31/18 Main issues discussed with patient and family member at bedside is that patient has high net positive fluid retention. As per nurse, perhaps patient had urinated 600 cc yesterday and 350 cc today. With Nephrology Dr. Michaels at bedside with patient and his family that patient is high risk for potential complications from dialysis catheter placement and attempt such as high risk of bleeding or infection in a patient who is already immunocompromised. Patient also reporting that he is not ready for having central line placed into the neck for dialysis. At this time the main plan is to hold off IV fluids tonight and monitor if needed whether patient will need diuretics -11/01/18 Overnight, patient had more respiratory distress. Was placed on BIPAP and given IV Lasix with some urine output. However, he remained lethargic and blood gas pH 7.1 as acidosis. Patient awake but remains on BIPAP, lethargic and unable to make medical decisions. as per discussion with his family members including Michelle at bedside ([phone]) that there is no desire for dialysis. Goals of care is comfort care. Code Status as DO NOT RESUCITATE and DO NOT INT UBATE -will transfer patient out of intensive care unit on 11/01/18 to palliative care; have ordered scopolamine patch and prn Roxanol for pain/shortness of breath; appreciate palliative care consult recommendations Hyperuricemia, most recent uric acid level was 12.8 -consideration was given whether patient is having tumor lysis syndrome or some variant of this spectrum -started on allopurinol on 10/31/18 -will stop allopurinol on 11/01/18 as patient is now comfort care Sinus tachycardia -carvedilol has been held to avoid hypotension -will discontinue telemetry monitoring on 11/01/18 as patient is now comfort care history of steroid-induced diabetes Hemoglobin A1c 7.8 in 09/2018 -no longer on steroids as outpatient -minimal oral intake -hold off antihyperglycemics History of hyponatremia recently the serum sodium is in the normal range. avoid lab draws starting 11/01/18 as patient is now comfort care Deep venous thrombosis prophylaxis: patient is now comfort care Goals of care is comfort care and Code Status as DO NOT RESUCITATE and DO NOT INTUBATE patient's Michelle ([phone]) Subjective Overnight, patient had more respiratory distress. Was placed on BIPAP and given IV Lasix with some urine output However, he remained lethargic and blood gas pH of 7.1 as acidosis. Patient awake but remains on BIPAP, lethargic and unable to make medical decisions. Patient does not express acute pain. as per discussion with his family members including Michelle at bedside ([phone]) that there is no desire for dialysis. Goals of care is comfort care. Code Status as DO NOT RESUCITATE and DO NOT INTUBATE Physical Exam Vital Signs (Past 24 Hours): Last Vital Signs Temp 36.0 C L 11/01/18 04:00 Pulse 102 H 11/01/18 07:35 Resp 21 11/01/18 07:35 BP 116/78 11/01/18 06:00 Pulse Ox 99 11/01/18 07:35 Constitutional: + ill appearing and + altered mental status (opens eyes but lethargic and not speaking in full sentences) Eyes: PERRL, conjunctivae normal, anicteric sclerae EOM intact bilaterally ENMT: external ear and nose normal, oropharynx normal Neck: trachea midline, no thyromegaly Cardiovascular: Rate/Rhythm: + tachycardic Gastrointestinal (Abdomen): normal bowel sounds, soft, nontender, no hepatosplenomegaly Musculoskeletal: Head/Neck/Chest: normocephalic and head atraumatic Neurologic: Speech / Cognition: + abnormal cognition (lethargic) Psychiatric: lethargic
[2018-11-01] MEDS: CHOLECALCIFEROL 1,000 UNITS TAB PO SCH (09:22)
[2018-11-01] MEDS: CALCIUM 600MG + VIT D 400 IU TAB PO SCH (09:22)
[2018-11-01] MEDS: PANTOprazole 40 MG TAB PO SCH (09:22)
[2018-11-01] MEDS: ACYCLOVIR 200 MG CAP PO SCH (09:22)
[2018-11-01] MEDS: ALLOPURINOL 100 MG TAB PO SCH (09:22)
[2018-11-01] MEDS ORDERED: SCOPOLAMINE 1.5 MG TDSY TD SCH (09:30)
[2018-11-01] MEDS ORDERED: MoRPHine SULFATE 10 MG/0.5 ML UDP PO PRN (09:53)
[2018-11-01] MEDS ORDERED: HYDROCORTISONE SOD 100 MG in SYRINGE 0 ML IV SCH (10:00)
[2018-11-01] MEDS ORDERED: MoRPHine SULFATE 2 MG/ML CARP IV STA (10:51)
[2018-11-01] MEDS ORDERED: CALCIUM GLUCONATE 10% 1,000 MG in SODIUM CHLORIDE 0.9% 50 ML IV SCH (11:00)
[2018-11-01] MEDS ORDERED: HALOPERIDOL LACTATE 5 MG/ML 1 ML VIAL ONE (12:16)
[2018-11-01] MEDS ORDERED: Nursing to Pharmacy Communication ONE (14:15)
--- NOTE | 2018-11-01 14:19 | Palliative Care Consultation ---
Date of Consultation November 01, 2018 Assessment & Plan (1) Palliative care encounter: Pt is a 53 yo male with treatment refractory Multiple Myeloma diagnosed in Early 2017.He is s/p stem cell transplant in February of 2018 - he relapsed shortly after transplant. He has had multiple hospitalizations for neutropenic fevers. Pt presented to the ER on 10/29 with fever to 102.3, cough with some hemoptysis. Pt's ANC was 30, plt count 15K. Pt was started on broad spectrum IV antibiotics and transfused platelets. Pt's CXR did not show PNA. Over the next 24 hours pt's UOP dropped, hgb dropped below 7 and he was transfused 2 units of PRBC's. His creat geo from 1.63 to 2.13 with increased pulmonary congestion on CXR - nephrology was consulted for possible dialysis. Family decided against dialysis and pt was placed on comfort care this am. Pt is in the ICU and is to be transferred to the 4th floor. Met with pt's mother, , daughter, son, brother, sister in law and son inlaw to discuss prognosis, treatment options and goals of care. Pt has been restless, denies pain and is becoming less alert. Pt did receive some Ativan - it helped the first night he was here, but did not help last pm. Active listening regarding pt's personality , wishes and goals. Family reports it is very distressing for them to see him so restless , but would also like to be able to interact with him if possible. Pt did not want friends or extended family to visit him when he was not well at home as he did not want them to see him this way. Pt has a life long history of worrying and took care of "everything" at home. He was strong willed and was responsible for taking care of his mother after his father in 2003, as well as his own and family Discussed EOL issues at length with family, validated mother's distress due to losing and now son. - Will give a trial of Haldol for terminal restlessness and assess effect. Start 1 mg IV every 2 hours as needed -Continue PRN Roxanol for pain /shortness of breath -Continue as needed Ativan for anxiety -Patient with scope patch in place for excess secretions -Will continue to follow and provide emotional support to family. -Family aware and accepting of patient's terminal prognosis-discussed prognosis could be hours to days. (2) Multiple myeloma, in relapse: -Patient's last chemo infusion was on 10/29, now on comfort care (3) Failure of stem cell transplant: Patient approaching end-of-life, continue comfort care (4) Pancytopenia: No further planned transfusions at this time (5) KEMAR (acute kidney injury): Family has decided against dialysis (6) Neutropenic fever: Patient now on comfort care History of Present Illness Reason for Consultation: Address goals of care Requesting Physician: Dr Grigsby Attending Physician: Bhupinder Grigsby MD History of Present Illness Pt is a 53 yo male with treatment refractory Multiple Myeloma diagnosed in Early 2017.He is s/p stem cell transplant in February of 2018 - he relapsed shortly after transplant. He has had multiple hospitalizations for neutropenic fevers. Pt presented to the ER on 10/29 with fever to 102.3, cough with some hemoptysis. Pt's ANC was 30, plt count 15K. Pt was started on broad spectrum IV antibiotics and transfused platelets. Pt's CXR did not show PNA. Over the next 24 hours pt's UOP dropped, hgb dropped below 7 and he was transfused 2 units of PRBC's. His creat geo from 1.63 to 2.13 with increased pulmonary congestion on CXR - nephrology was consulted for possible dialysis. Family decided against dialysis and pt was placed on comfort care this am. Pt is in the ICU and is to be transferred to the 4th floor. Met with pt's mother, , daughter, son, brother, sister in law and son inlaw to discuss prognosis, treatment options and goals of care. Pt has been restless, denies pain and is becoming less alert. Pt did receive some Ativan - it helped the first night he was here, but did not help last pm. Active listening regarding pt's personality , wishes and goals. Family reports it is very distressing for them to see him so restless , but would also like to be able to interact with him if possible. Pt did not want friends or extended family to visit him when he was not well at home as he did not want them to see him this way. Pt has a life long history of worrying and took care of "everything" at home. He was strong willed and was responsible for taking care of his mother after his father in 2003, as well as his own and family Discussed EOL issues at length with family, validated mother's distress due to losing and now son. Patient seen and examined in the ICU-met with family privately outside the room, also continue discussions at bedside. Patient restless, trying to sit up on multiple occasions, confused, did deny pain. Allergies Allergy/AdvReac Type Severity Reaction Status Date / Time No Known Allergies Allergy Verified 10/29/18 20:25 Home Medications Home Medications Medication Instructions Recorded Confirmed Type Centrum 1 tab PO QAM 08/16/18 10/29/18 History cholecalciferol (vitamin D3) 5,000 unit PO QAM 08/16/18 10/29/18 History [Vitamin D3] omeprazole 20 mg PO QAM 08/16/18 10/29/18 History Darzalex 20 ml IV WK 08/30/18 10/29/18 History acyclovir 200 mg PO BID 10/01/18 10/29/18 History calcium carbonate-vitamin D3 1 tab PO QAM 10/01/18 10/29/18 History [Calcium 600 + D(3)] glipizide 2.5 mg PO QAM 30 Days #15 tab 10/04/18 10/29/18 Rx carvedilol 3.125 mg PO BID 30 Days #60 tab 10/06/18 10/29/18 Rx carfilzomib [Kyprolis] 0 mg IV WK 10/23/18 10/29/18 History ciprofloxacin HCl 500 mg PO Q12H 10/23/18 10/29/18 History prednisone 20 mg PO DIRECTED 10/23/18 10/29/18 History Patient History Medical History Pancytopenia (Chronic) Chronic kidney disease (CKD), stage III (moderate) DVT prophylaxis Hypertension Hyponatremia Multiple myeloma (09/28/17) Steroid-induced diabetes mellitus Surgical History Hx of stem cell transplant Family History Mother Hypertension Father IPF (idiopathic pulmonary fibrosis) Social History Communication Ability: Effective Beliefs That Will Affect Care: None marital status: Current Living Situation: Family Current Living Situation Comment: House Feels Safe at Home: Yes Safety Concerns: Feels Safe At This Time Smoking Status: Never smoker Hx Alcohol Use: No Hx Substance Use: No Review of Systems Unable to obtain due to altered mental status Physical Exam Vital Signs (Past 24 Hours): Last Vital Signs Temp 36.0 C L 11/01/18 04:00 Pulse 90 11/01/18 13:47 Resp 16 11/01/18 13:47 BP 88/57 L 11/01/18 13:47 Pulse Ox 97 11/01/18 13:47 Physical Exam: PE: Patient restless, trying to sit up and then wanting to stand up. Patient confused, but appears to recognize family. HEENT: Patient unable to focus gaze, hearing within normal limits Respiratory: Unlabored CV: Regular rate, no edema, extremities cool and mottled Abdomen: Soft, nontender to palpation, abdominal wall mottled Extremities: Generalized weakness, full range of motion Skin: Extremities cold to touch, mottled feet, knees, thighs, abdominal wall Neuro: Confused, restless Time Spent Attending Total time spent 120 minutes on 2 separate visits-rater than 50% of time spent at bedside discussing patient's prognosis, treatment options and end-of-life issues.
[2018-11-01] MEDS ORDERED: HALOPERIDOL LACTATE 5 MG/ML 1 ML VIAL IV PRN (14:23)
--- NOTE | 2018-11-01 15:17 | Palliative Care Consultation ---
Date of Consultation November 01, 2018 History of Present Illness Attending Physician: Bhupinder Grigsby MD Allergies Allergy/AdvReac Type Severity Reaction Status Date / Time No Known Allergies Allergy Verified 10/29/18 20:25 Home Medications Home Medications Medication Instructions Recorded Confirmed Type Centrum 1 tab PO QAM 08/16/18 10/29/18 History cholecalciferol (vitamin D3) 5,000 unit PO QAM 08/16/18 10/29/18 History [Vitamin D3] omeprazole 20 mg PO QAM 08/16/18 10/29/18 History Darzalex 20 ml IV WK 08/30/18 10/29/18 History acyclovir 200 mg PO BID 10/01/18 10/29/18 History calcium carbonate-vitamin D3 1 tab PO QAM 10/01/18 10/29/18 History [Calcium 600 + D(3)] glipizide 2.5 mg PO QAM 30 Days #15 tab 10/04/18 10/29/18 Rx carvedilol 3.125 mg PO BID 30 Days #60 tab 10/06/18 10/29/18 Rx carfilzomib [Kyprolis] 0 mg IV WK 10/23/18 10/29/18 History ciprofloxacin HCl 500 mg PO Q12H 10/23/18 10/29/18 History prednisone 20 mg PO DIRECTED 10/23/18 10/29/18 History Patient History Medical History Pancytopenia (Chronic) Chronic kidney disease (CKD), stage III (moderate) DVT prophylaxis Hypertension Hyponatremia Multiple myeloma (09/28/17) Steroid-induced diabetes mellitus Surgical History Hx of stem cell transplant Family History Mother Hypertension Father IPF (idiopathic pulmonary fibrosis) Social History Communication Ability: Effective Beliefs That Will Affect Care: None marital status: Current Living Situation: Family Current Living Situation Comment: House Feels Safe at Home: Yes Safety Concerns: Feels Safe At This Time Smoking Status: Never smoker Hx Alcohol Use: No Hx Substance Use: No Physical Exam Vital Signs (Past 24 Hours): Last Vital Signs Temp 36.0 C L 11/01/18 04:00 Pulse 90 11/01/18 13:47 Resp 16 11/01/18 13:47 BP 88/57 L 11/01/18 13:47 Pulse Ox 97 11/01/18 13:47
[2018-11-01] MEDS ORDERED: FUROSEMIDE 80 MG in SYRINGE 0 ML IV ONE (16:00)
[2018-11-01] MEDS ORDERED: MoRPHine SULFATE 2 MG/ML CARP IV PRN (17:00)
[2018-11-01] MEDS: CHECK SCOPOLAMINE PATCH PLACEMENT SCH (17:52)
[2018-11-01] MEDS: LORazepam 0.5 MG/1 ML VIAL IV PRN (22:48)
[2018-11-02] MEDS: CHECK SCOPOLAMINE PATCH PLACEMENT SCH ×2 (00:02→07:58)
[2018-11-02] MEDS ORDERED: MoRPHine SULFATE 2 MG/ML CARP IV PRN (09:37)
--- NOTE | 2018-11-02 09:57 | Palliative Care Progress Note ---
Date of Service November 02, 2018 Assessment & Plan (1) Palliative care encounter: -53 year old male with refractory multiple myeloma who presented with cough and SOB after his chemo treatment on 10/29. Was admitted to ICU and entered renal failure with pH 7.1 on 11/01. Patient's family decided to respect patient's wishes to not start kidney dialysis and placed patient on comfort measures only. -Seen in follow-up this morning. Patient is mostly obtunded. Was receiving bath from nursing staff and did moan a couple times, no purposeful response. -, Michelle, and brother, Last, at bedside. They are appreciative of the care patient is receiving. -1mg IV morphine worked well for patietn's labored breathing and agitation last night. Patient did appear tachypneic during bath, but settled down after. Will increase frequency of morphine to Q2h PRN pain or SOB. -Continue haldol 1mg IV Q2h PRN agitation. -Scopolamine patch on, no secretions heard this morning. -Support given to family. Discussed some EOL issues and comfort care. Again, they stated patient has been a worrier his whole life, so they are telling him that everything that is/will be taken care of in regards to finances, family, etc. -No further questions/concerns at this time. 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 Michelle and brother Last at bedside. Patient is calm and shows no signs of distress this morning. Family reports he rested well last night, had only one episode of labored breathing and agitation over night and 1mg IV morphine worked well for him. Discussed EOL issues and care. Review of Systems Unobtainable due to reduced consciousness Physical Exam Vital Signs (Past 24 Hours): Last Vital Signs Temp 36.0 C L 11/01/18 04:00 Pulse 90 11/01/18 13:47 Resp 16 11/01/18 13:47 BP 88/57 L 11/01/18 13:47 Pulse Ox 97 11/01/18 13:47 Constitutional: + ill appearing; no acute distress Eyes: + anicteric sclerae ENMT: external ear and nose normal, oropharynx normal Neck: normal visual inspection Respiratory: normal respiratory effort and + tachypneic (mildly tachypneic during bath) Auscultation: lungs clear to auscultation bilaterally Cardiovascular: RRR, no murmur, no edema Gastrointestinal (Abdomen): Inspection/Auscultation: abdomen normal to inspection Percussion/Palpation: abdomen soft Skin: + mottling petechial rash on trunk Neurologic: + obtunded (only moans occasionally during repositioning and bath) Genitourinary: urinary incontinence Supervising Physician Co-Signing Physician Notes Pt seen and examined, multiple family at bedside including and daughter Collaborated with KENNA Parmar on POC PE: appears comfortable, no facial grimace, pt not responding to voice or touch Resp: unlabored, no rhonchi, no excess secretions CV: RR, perfusion improved Skin: warm, less mottled Discussed EOL issues at length with family at bedside Agree with above note, assessment and plan as per KENNA Parmar - will cont to follow and provide support to family Time Spent Midlevel 45 minutes with >50% of time spent at bedside with patient and family discussing EOL care and symptom management. Attending Spent 25 min in addition to the 45 min spent by KENNA for a total of 70 min with > 50% of time spent at bedside discussing EOL issues, prognosis and providing support to family
--- NOTE | 2018-11-02 11:37 | Hospitalist Progress Note ---
Date of Service November 02, 2018 Assessment & Plan (1) Neutropenic fever: ASSESSMENT AND PLAN: This is a 53-year-old male with a history of multiple myeloma, presents with febrile neutropenia and sepsis. Then he went into acute renal failure during the ICU stay on this admission. As per discus sions with patient and later with patient's family, there is no desire for dialysis and as of 11/01/18 the Goals of care is comfort care and Code Status as DO NOT RESUCITATE and DO NOT INTUBATE Multiple myeloma with pancytopenia and infection -patient has been on cefipime and vancomycin for neutropenic fever and pneumonia (recent blood cultures with no growth to date) and IV antibiotics will be st opped on 11/01/18 because patient is now comfort care -s/p 2 units of PRBC on 10/30/18 and 2 unit of platelets on 10/30/18; addition 1 unit of platelets given on 10/31/18; ICU physician gave Neupogen on 10/31/18; -stop blood draws and Neupogen as of 11/01/18 as patient is now comfort care Acute renal failure on chronic kidney disease stage III with acidosis oligouric in comparison to load of IV fluids given to the patient to date as of 10/31/18 -10/31/18 Main issues discussed with patient and family member at bedside is that patient has high net positive fluid retention. As per nurse, perhaps patient had urinated 600 cc yesterday and 350 cc today. With Nephrology Dr. Michaels at bedside with patient and his family that patient is high risk for potential complications from dialysis catheter placement and attempt such as high risk of bleeding or infection in a patient who is already immunocompromised. Patient also reporting that he is not ready for having central line placed into the neck for dialysis. At this time the main plan is to hold off IV fluids tonight and monitor if needed whether patient will need diuretics -11/01/18 Overnight, patient had more respiratory distress. Was placed on BIPAP and given IV Lasix with some urine output. However, he remained lethargic and blood gas pH 7.1 as acidosis. Patient awake but remains on BIPAP, lethargic and unable to make medical decisions. as per discussion with his family members including Michelle at bedside ([phone]) that there is no desire for dialysis. Goals of care is comfort care. Code Status as DO NOT RESUCITATE and DO NOT I NTUBATE -transferred patient out of intensive care unit on 11/01/18 to palliative care -palliative care recommend to continue as needed morphine and haldol for comfort and pain control and for agitation. patient also on scopolamine patch Hyperuricemia, most recent uric acid level was 12.8 -consideration was given whether patient is having tumor lysis syndrome or some variant of this spectrum -started on allopurinol on 10/31/18 -stopped allopurinol on 11/01/18 as patient is now comfort care Sinus tachycardia -discontinued telemetry monitoring on 11/01/18 as patient is now comfort care history of steroid-induced diabetes Hemoglobin A1c 7.8 in 09/2018 -hold off antihyperglycemics and fingerstick checks as goals of care is comfort History of hyponatremia recently the serum sodium is in the normal range. avoid lab draws starting 11/01/18 as patient is now comfort care Deep venous thrombosis prophylaxis: patient is on comfort care Goals of care is comfort care and Code Status as DO NOT RESUCITATE and DO NOT INTUBATE patient's Michelle ([phone]) Subjective Patient seen and examined at bedside. He is obtunded. Eyes are opened. Patient's family at bedside. They report that patient has not been in acute pain. Appears comfortable. Pulses are intact. Heart rate is regular rate and rhythm. On room air. Physical Exam Vital Signs (Past 24 Hours): Last Vital Signs Temp 36.0 C L 11/01/18 04:00 Pulse 90 11/01/18 13:47 Resp 16 11/01/18 13:47 BP 88/57 L 11/01/18 13:47 Pulse Ox 97 11/01/18 13:47 Constitutional: + ill appearing and + altered mental status Eyes: PERRL, conjunctivae normal, anicteric sclerae EOM intact bilaterally ENMT: external ear and nose normal, oropharynx normal Neck: trachea midline, no thyromegaly Respiratory: normal respiratory effort Cardiovascular: Rate/Rhythm: regular rate and regular rhythm Gastrointestinal (Abdomen): normal bowel sounds, soft, nontender, no hepato splenomegaly Musculoskeletal: Head/Neck/Chest: normocephalic and head atraumatic Neurologic: + obtunded Psychiatric: A+Ox3, euthymic affect
[2018-11-02] MEDS: LORazepam 0.5 MG/1 ML VIAL IV PRN (13:21)
--- NOTE | 2018-11-02 14:21 | Death Summary ---
Date of Service November 02, 2018 Pronouncement Note Contributing Factors (1) Palliative care encounter: (2) Multiple myeloma, in relapse: (3) Failure of stem cell transplant: (4) Pancytopenia: (5) KEMAR (acute kidney injury): (6) Neutropenic fever: Additional Data Attending physician: Bhupinder Grigsby MD Medical Doctor notified by nursing staff that patient has . Medical doctor examined the patient: patient non responsive to tactile or verbal stimuli. eyes opened and no tracking of eye movements. absent chest rise. absent breath sounds. there was no audible heart beat. there was no palpable pulse. Patient time of as 14:07 on 11/02/18
--- NOTE | 2018-11-02 14:28 | Discharge Summary ---
Date of Service November 02, 2018 Admission HPI Per Admitting Provider Chief Complaint: neutropenic fever Primary Care Provider: Ismael Hernandez This is a 53yo M with a PMH of multiply myeloma (s/p stem cell transplant), steroid-induced DM, CKD III, chronic hyponatremia and other medical problems listed below who was a direct admission sent by Dr. Page for management of neutropenic fever. IgA kappa multiple myeloma was diagnosed in September 2017 and patient has been receiving weekly Darzalex as well as 20mg prednisone on days of treatment. Was recently being treated with high dose steroids (dexamethasone 40 mg x 4 days then 4 days off) and developed steroid-induced diabetes with an a1c of 7.8 in Sep 2018. Was started on 2.5mg PO Glipizide. Presented to heme onc clinic today for chemo but was sent over as a direct admission due to concern for neutropenic fever. First noted a low grade temperature of 99 F two evenings ago and a temperature of 100 F last evening. Has a dry cough and fatigue but no chills, lightheadedness, headache, chest pain, wheezing, shortness of breath, nausea, vomiting, abdominal pain, dysuria, hematuria or diarrhea. Of note, has been having intermittent fever for weeks but has had severe neutropenia during this time. Was recently admitted in September 2018 for steroid-induced hyperglycemia and was found to have metabolic acidosis with anion gap as well as chronic hyponatremia. Did take 20mg PO prednisone this morning instructed prior to planned chemo treatment. Admission Exam Per Admitting Provider Physical Exam: General Appearance: WD/WN, no apparent distress, appears chronically ill, resting comfortably in 406-1 Head: normocephalic, atraumatic Eyes: normal inspection, PERRL, EOMI ENT: hearing grossly normal, pharynx normal (moist mucous membranes) Neck: supple, no JVD, no adenopathy Respiratory/Chest: lungs clear to auscultation. No wheezes, rales or rhonci. No respiratory distress or accessory muscle use Cardiovascular: regular rate, rhythm, no murmur, normal peripheral pulses Abdomen/GI: normal bowel sounds, soft, non-tender to palpation Extremities/Musculoskelatal: normal inspection, no calf tenderness, normal capillary refill, no pedal edema Neurologic/Psych: alert, normal mood/affect, oriented x 3 Skin: + pale, warm/dry Principal Diagnosis Multiple myeloma with pancytopenia and infection as sepsis from pneumonia; neutropenic fever Acute renal failure on chronic kidney disease stage III with acidosis Hyperuricemia Hospital Course Neutropenic fever: ASSESSMENT AND PLAN: This is a 53-year-old male with a history of multiple myeloma, presents with febrile neutropenia and sepsis. Then he went into acute renal failure during the ICU stay on this admission. As per discussions with patient and later with patient's family, there is no desire for dialysis and as of 11/01/18 the Goals of care is comfort care and Code Status as DO NOT RESUCITATE and DO NOT INTUBATE Multiple myeloma with pancytopenia and infection -patient has been on cefipime and vancomycin for neutropenic fever and pneumonia (recent blood cultures with no growth to date) and IV antibiotics will be stopped on 11/01/18 because patient is now comfort care -s/p 2 units of PRBC on 10/30/18 and 2 unit of platelets on 10/30/18; addition 1 unit of platelets given on 10/31/18; ICU physician gave Neupogen on 10/31/18; -stop blood draws and Neupogen as of 11/01/18 as patient is now comfort care Acute renal failure on chronic kidney disease stage III with acidosis oligouric in comparison to load of IV fluids given to the patient to date as of 10/31/18 -10/31/18 Main issues discussed with patient and family member at bedside is that patient has high net positive fluid retention. As per nurse, perhaps patient had urinated 600 cc yesterday and 350 cc today. With Nephrology Dr. Michaels at bedside with patient and his family that patient is high risk for potential complications from dialysis catheter placement and attempt such as high risk of bleeding or infection in a patient who is already immunocompromised. Patient also reporting that he is not ready for having central line placed into the neck for dialysis. At this time the main plan is to hold off IV fluids tonight and monitor if needed whether patient will need diuretics -11/01/18 Overnight, patient had more respiratory distress. Was placed on BIPAP and given IV Lasix with some urine output. However, he remained lethargic and blood gas pH 7.1 as acidosis. Patient awake but remains on BIPAP, lethargic and unable to make medical decisions. as per discussion with his family members including Michelle at bedside ([phone]) that there is no desire for dialysis. Goals of care is comfort care. Code Status as DO NOT RESUCITATE and DO NOT INTUBATE -transferred patient out of intensive care unit on 11/01/18 to palliative care -palliative care recommend to continue as needed morphine and haldol for comfort and pain control and for agitation. patient also on scopolamine patch Hyperuricemia, most recent uric acid level was 12.8 -consideration was given whether patient is having tumor lysis syndrome or some variant of this spectrum -started on allopurinol on 10/31/18 -stopped allopurinol on 11/01/18 as patient is now comfort care Sinus tachycardia -discontinued telemetry monitoring on 11/01/18 as patient is now comfort care history of steroid-induced diabetes Hemoglobin A1c 7.8 in 09/2018 -hold off antihyperglycemics and fingerstick checks as goals of care is comfort History of hyponatremia recently the serum sodium is in the normal range. avoid lab draws starting 11/01/18 as patient is now comfort care Deep venous thrombosis prophylaxis: patient is on comfort care Goals of care is comfort care and Code Status as DO NOT RESUCITATE and DO NOT INTUBATE patient's Michelle ([phone]) Medical Doctor notified by nursing staff that patient has . Medical doctor examined the patient: patient non responsive to tactile or verbal stimuli. eyes opened and no tracking of eye movements. absent chest rise. absent breath sounds. there was no audible heart beat. there was no palpable pulse. Patient time of as 14:07 on 11/02/18 Discharge Exam Medical Doctor notified by nursing staff that patient has . Medical doctor examined the patient: patient non responsive to tactile or verbal stimuli. eyes opened and no tracking of eye movements. absent chest rise. absent breath sounds. there was no audible heart beat. there was no palpable pulse. Patient time of as 14:07 on 11/02/18 Discharge Data Allergies Allergy/AdvReac Type Severity Reaction Status Date / Time No Known Allergies Allergy Verified 10/29/18 20:25 Consultations 10/29/18 21:43 ED Decision to Admit Stat 10/30/18 00:12 Consult Case Management - Discharge Planning Routine 10/30/18 08:00 Consult Segregator Routine Consult Oncology Routine 10/30/18 13:32 Consult Nephrology Routine 10/31/18 09:35 Consult Palliative Care Routine Hospital Course (1) Multiple myeloma, in relapse: Total Time Total Time Spent Total Time Spent (In Minutes): 20 Total Time Includes: Examination of the Patient Discharge Plan Discharge Items Patient Disposition: Reason For Visit: FEVER, COUGH, SOB Follow-up/Referrals: Ismael Hernandez [Primary Care Provider] - Admission Data Admit Date/Time: 10/29/18 22:51 Attending Provider: Bhupinder Grigsby Admit Provider: Quinton Yu Primary Care Provider: Ismael Hernandez Other Providers: Quinton Yu ; Stuart Raymond ; Demarcus Page ; Viky Michaels ; Mima Seth Service: Medical
== END 2018-11-02 15:57 | disposition expired | DRG 871 ==
LOC: ED 19:37 → SUATTDRO 22:51 → 1E 22:51 → 4E 11-01 13:37